=== PATIENT | female | born 1930 | race Caucasian/White ===

== ENCOUNTER 2019-03-20 14:30 | Emergency (ER) | payer MEDICARE, OTHER ==
[~2019-03-20] VITALS: Ht 167.6 cm; Wt 65.8 kg
--- OUTSIDE RECORDS SUMMARY | ~2019-03-20 | XMS | Clinical Summary ---
Demographics + + + | Address | [address] | | | [place] [address] | + + + | Home Phone | | + + + | Preferred Language | Unknown | + + + | Marital Status | | + + + | Roman Catholic Affiliation | Unknown | + + + | Race | Unknown | + + + | Ethnic Group | Unknown | + + + Author + + + | Author | [facility] (Historical as of | | | 10-31-18) | + + + | Organization | [facility] (Historical as of | | | 10-31-18) | + + + | Address | Unknown | + + + | Phone | Unavailable | + + + Support + + +---------+ + | Name | Relationship | Address | Phone | + + +---------+ + | Lory Crenshaw | ECON | Unknown | | + + +---------+ + Care Team Providers + +------+ + | Care Entry Manager Name | Role | Phone | + +------+ + | Loco Hernandez DO | PP | | + +------+ + Allergies No Known Allergies Current Medications + + +--------+---------+------+------+-------+ | Prescription | Sig. | Disp. | Refills | Star | End | Statu | | | | | | t | Date | s | | | | | | Date | | | + + +--------+---------+------+------+-------+ | metFORMIN | Take 1,000 mg by | | | | | Activ | | (GLUCOPHAGE) 500 MG | mouth 2 (two) times | | | | | e | | tablet | daily with meals. | | | | | | + + +--------+---------+------+------+-------+ | aspirin 81 MG | Take 81 mg by mouth | | | | | Activ | | tablet | daily. | | | | | e | + + +--------+---------+------+------+-------+ | cholecalciferol | Take 2,000 Units by | | | | | Activ | | (VITAMIN D-3) 1000 | mouth twice a week. | | | | | e | | UNITS tablet | | | | | | | + + +--------+---------+------+------+-------+ | ferrous sulfate, | Take 65 mg of iron | | | | | Activ | | 65 FE, 324 (65 FE) | by mouth twice a | | | | | e | | MG EC tablet | week. | | | | | | + + +--------+---------+------+------+-------+ | carvedilol (COREG) | Take 3.125 mg by | | | | | Activ | | 3.125 MG tablet | mouth 2 (two) times | | | | | e | | | daily with meals. | | | | | | + + +--------+---------+------+------+-------+ | warfarin | Take 2.5 mg by mouth | | | | | Activ | | (COUMADIN) 2.5 MG | daily. 1 tablet | | | | | e | | tablet | alternating mon and | | | | | | | | fri, and03/18 rest of | | | | | | | | day | | | | | | + + +--------+---------+------+------+-------+ | metroNIDAZOLE | Apply topically 2 | | | | | Activ | | (METROGEL) 0.75 % | (two) times daily. | | | | | e | | gel | | | | | | | + + +--------+---------+------+------+-------+ | levothyroxine | Take 1 tablet by | | | 12/16 | | Activ | | (SYNTHROID) 125 MCG | mouth daily. | | | 05/06 | | e | | tablet | | | | 18 | | | + + +--------+---------+------+------+-------+ | nitroGLYCERIN | Place 1 tablet under | 20 | 5 | 10/2 | | Activ | | (NITROSTAT) 0.4 MG | the tongue every 5 | tablet | | 9/20 | | e | | SL tablet | (five) minutes as | | | 18 | | | | | needed for Chest | | | | | | | | pain. | | | | | | + + +--------+---------+------+------+-------+ | lisinopril | Take 0.5 tablets by | 15 | 11 | 11/2 | | Activ | | (ZESTRIL) 5 MG | mouth daily. | tablet | | 0/20 | | e | | tablet | | | | 18 | | | + + +--------+---------+------+------+-------+ | furosemide (LASIX) | Take 1 tablet by | 30 | 11 | 11/2 | | Activ | | 20 MG tablet | mouth daily. | tablet | | 0/20 | | e | | | | | | 18 | | | + + +--------+---------+------+------+-------+ | metolazone 2.5 MG | Take 1 tablet by | 9 | 9 | 04/18 | | Activ | | tablet | mouth twice a week. 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 | | 85yo WF, with advanced CAD, ischemic cardiomyopathy. Distant | | coronary angiogram, apparently she was not a good surgical | | candidate, has been medically managed. She has no significant | | cardiac symptoms, denying any chest discomfort, or edema. | | Activity is quite limited because of her advanced DJD, she | | ambulates with a cane, sleeps in a recliner. But she denies any | | significant edema, there is no orthopnea or PND. Her today with | | her daughter, no specific complaints, workup to date is reviewed. | | She is on warfarin because of her large apical infarction. | | Denies any significant bleeding or bruising. Tolerating | | medications. No changes in therapy.Hx CABG: no Hx PCI/stent: | | noHx Pacemaker/ICD: noLast Cath, 12/24/2014: extensive | | calcification of coronary tree, left main OK, LAD diffuse severe | | disease, LCx mild diffuse disease, 80% LPDA (small vessel), RCA | | non-dominant. LVG large apical akinesis/dyskinesis, LVEF | | 25-30%.Last Echo, 05/22/2015 ([facility]): LV mildly dilated | | (?LVEDd 55mm), apical akinesis,LVEF 40-45%, mild LAE, mild | | MR.Last Stress Test: naECG, 12/28/2015: sinus rhythm, 66bpm, 1st | | degree AVB, PVC, extensive wwlfqxnq-xvftbh-ediowmprg AR of | | indeterminate age. | + + + + + | Low back pain | 12/29/2015 | + + + + + | Last Assessment & Plan: Chronic low back pain, with sciatica. | | Limited activity, ambulates with a cane, sleeps in a recliner. | + + + + + | Anemia, normocytic normochromic | 12/26/2014 | + + + | Abnormal ECG | 12/24/2014 | + + + | Ischemic cardiomyopathy | 12/24/2014 | + + + + + | Last Assessment & Plan: [id number] CMP with severe LV | | systolic dysfunction and severe CAD- diagnosed in [facility] on | | 12/2014- LV function improved significantly since - Echo 05/2015- | | EF 50-55% with apical hypokinesisOn coumadin for stroke | | prophylaxis because of LV apical akineisis- will repeat echo with | | definity after next visit to evaluate LV thrombusPatient and | | daughter prefer to do only medical management at this time.She | | denies any chest pain, SOBDr. Jay performed angiogram showed | | multivessel CAD and he discussed with patient and family about | | the high risk nature of her condition and also with | | interventional cardiology- during recent hospital visit and | | patient opted for medical management and do not want any invasive | | procedures or surgeryWill continue medical management Continue | | ASA, Warfarin, statin, coreg, lisinoprilOn Lasix 20mg dailyAnd | | will use additional dose as neededNo edema, weights stable, BP | | numbers at home well controlledContinue Lisinopril and | | CoregEducated patient and daughter about the role of diuretics in | | management of CHF- also importance of daily weight monitoring, | | edema evaluation and use of diuretics as needed.Also discussed | | the importance of risk factor modification- like DM control, | | lipid control, HTN controlF/u in 6 months or early in case of | | worsening symptomsThey do not want any invasive or interventional | | or surgical procedures at this time- will continue dialogue on | | next visit.Currently asymptomatic with significant symptom | | improvement | + + + + + | History of non-ST elevation myocardial infarction (NSTEMI) | 12/24/2014 | + + + | Essential hypertension | 12/22/2014 | + + + + + | Last Assessment & Plan: History of hypertension, currently | | blood pressure well controlled, continue current meds at current | | doses (carvedilol, furosemide, lisinopril, metolazone).Labs, | | 10/23/2015: T Chol: 144, LDL-Chol: 71, HDL-Chol: 49, Tri | | Liver enzymes NML, K: 4.3, BUN/Cr: 17/0.7, | | glu: 104 BNP: 309, TSH: 0.362, free T4: | | 2.24 (H) HgbA1c: 6.2, WBC: 5.5, H/H: | | 12.9/38.4, plt: 265, ESR: 7Lab, 12/19/2015: INR: 2.5 (managed by | | [facility].) | + + + + + | Type 2 diabetes mellitus without complication, without long-term | 12/22/2014 | | current use of insulin (HCC) | | + + + + + | Last Assessment & Plan: DM2, managed by PCP. | + + + + + | Chronic systolic congestive heart failure (HCC) | 12/22/2014 | + + + | Type 2 diabetes mellitus with hyperglycemia (HCC) | 12/22/2014 | + + + | Microcytic anemia | 12/22/2014 | + + + Resolved Problems + + + + | Problem | Noted | Resolved | | | Date | Date | + + + + | CHF, stage C | 02/04/20 | | | | 15 | 9 | + + + + | NSTEMI (non-ST elevated myocardial infarction) | 12/27/19 | | | | 15 | 9 | + + + + | Hyponatremia | 12/25/19 | | | | 15 | 5 | + + + + | NSTEMI (non-ST elevated myocardial infarction) | 12/23/19 | | | | 15 | 5 | + + + + | Anemia, normocytic normochromic | 12/23/19 | | | | 15 | 5 | + + + + Family History + + +------+ + | Medical History | Relation | Name | Comments | + + +------+ + | Alcoholism | Father | | | + + +------+ + | Aortic Aneurysm | Mother | | | + + +------+ + + +------+--------+ + | Relation | Name | Status | Comments | + +------+--------+ + | Father | | | | + +------+--------+ + | Mother | | | | + +------+--------+ + Social History + +-------+ +--------+------+ | Tobacco Use | Types | Packs/Day | Years | Date | | | | | Used | | + +-------+ +--------+------+ | Never Smoker | | | | | + +-------+ +--------+------+ + +---+---+---+ | Smokeless Tobacco: | | | | | Never Used | | | | + +---+---+---+ + + +---------+ + | Alcohol Use | Drinks/We | oz/Week | Comments | | | ek | | | + + +---------+ + | No | 0 | 0.0 | | | | Standard | | | | | drinks or | | | | | | | | | | equivalen | | | | | t | | | + + +---------+ + + + + | Sex Assigned at | Date Recorded | | | | + + + | Not on file | | + + + Last Filed Vital Signs + + + + | Vital Sign | Reading | Time Taken | + + + + | Blood Pressure | 104/48 | 07/13/2018 9:38 AM PDT | + + + + | Pulse | 72 | 07/13/2018 9:38 AM PDT | + + + + | Temperature | 36.7 C (98.1 F) | 12/26/2014 11:12 AM PDT | + + + + | Respiratory Rate | 18 | 07/13/2018 9:38 AM PDT | + + + + | Oxygen Saturation | 99% | 07/13/2018 9:38 AM PDT | + + + + | Inhaled Oxygen | - | - | | Concentration | | | + + + + | Weight | 60.6 kg (133 lb 11.2 | 07/13/2018 9:38 AM PDT | | | oz) | | + + + + | Height | 165.1 cm (5' 5") | 07/13/2018 9:38 AM PDT | + + + + | Body Mass Index | 22.25 | 07/13/2018 9:38 AM PDT | + + + + Plan of Treatment + + + + + | Health Maintenance | Due Date | Last Done | Comments | + + + + + | Diabetic Eye Exam | | | | | | 1 | | | + + + + + | Diabetic Foot Exam | | | | | | 1 | | | + + + + + | Microalbumin | | | | | Screening | 1 | | | + + + + + | Vaccine: | | | | | Dtap/Tdap/Td (1 - | 0 | | | | Tdap) | | | | + + + + + | Vaccine: Zoster (1 | | | | | of 2) | 1 | | | + + + + + | DEXA SCAN SCREENING | | | | | | 6 | | | + + + + + | Vaccine: | | | | | Pneumococcal 65+ | 6 | | | | Low/Medium Risk (1 | | | | | of 2 - PCV13) | | | | + + + + + | Hemoglobin A1c | | 12/23/2014 | | | | 6 | | | + + + + + | Vaccine: Influenza | | | | | (#1) | 9 | | | + + + + + Results Not on filefrom Last 3 Months Insurance + +--------+ +------+-------+ + | Payer | Benefi | Subscriber | Type | Phone | Address | | | t Plan | ID | | | | | | / | | | | | | | Group | | | | | + +--------+ +------+-------+ + | MEDICARE | MEDICA | [id number] | | | [address] | | | RE | | | | [place] [address] | | | IP-OP | | | | | + +--------+ +------+-------+ + | CIGNA | CIGNA | [id number] | | | | | | - | | | | | | | GENERI | | | | | | | C | | | | | + +--------+ +------+-------+ + + +--------+ +--------+ + + | Guarantor Name | Accoun | Relation to | Date | Phone | Billing Address | | | t Type | Patient | of | | | | | | | | | | + +--------+ +--------+ + + | RACHELLE ELLIS | Person | Self [birth year] | Home: | [address] | | | al/Fam | | 1931 | [phone] [place] [address] | | | princess | | | [phone] | | + +--------+ +--------+ + +
--- OUTSIDE RECORDS SUMMARY | ~2019-03-20 | XMS | Encounter Summary ---
Demographics + + + | Address | [address] | | | [place] [address] | + + + | Home Phone | | + + + | Preferred Language | Unknown | + + + | Marital Status | | + + + | Latter-Day Affiliation | Unknown | + + + | Race | Unknown | + + + | Ethnic Group | Unknown | + + + Author + + + | Author | [facility] | | | and Judeana | + + + | Organization | [facility] | | | and [...] Team Providers + +------+ + | Care Machine Shop Worker Name | Role | Phone | + +------+ + | Loco Hernandez DO | PCP | | + +------+ + Encounter Details +--------+ + + + + | Date | Type | Department | Care Team | Description | +--------+ + + + + | 10/26/ | Orders Only | [facility] | Keila Kang | | | 2019 | | [address] | | | | | [address] | [address] | | | | | [place], [place] | [place] [address] | | | | | [address] | [phone] | | | | | [phone] | | | +--------+ + + + [...] on file | | + + + + + + + | Job Start Date | Occupation | Industry | + + + + | Not on file | Not on file | Not on file | + + + + + + + + | Travel History | Travel Start | Travel End | + + + + + + | No recent travel history available. | + + documented as of this encounter Plan of Treatment +--------+ + + + + | Date | Type | Specialty | Care Team | Description | +--------+ + + + + | 04/26/ | Appointment | Radiology | Trino, | | | 2019 | | | [address] | | | | | | [address] | | | | | | [place] [address] | | | | | | [phone] | | | | | | | | +--------+ + + + + | 06/06/ | Office | Cardiology | Keila Kagn | | | 2019 | Visit | | [address] | | | | | | [address] | | | | | | [place] [address] | | | | | | [phone] | | | | | | | | +--------+ + + + + documented as of this encounter Procedures + +--------+ + + + | Procedure Name | Priori | Date/Time | Associated Diagnosis | Comments | | | ty | | | | + +--------+ + + + | ECHO INTERPRETATION | Routin | 10/26/2018 | | Results for this | | OF OUTSIDE FILMS | e | 3:28 PM | | procedure are in the | | | | PDT | | results section. | + +--------+ + + + documented in this encounter Results ECHO Interpretation of Outside Films (10/26/2018 3:28 PM PDT) + + | Specimen | + + | | + + + + + | Impressions | Performed At | + + + | 1. Overall left ventricular systolic function is mildly impaired | | | with, an EF between 45 - 50 %. There is akinesis of the apical septal | | | wall and entire apex. The apical wall appears aneurysmal. 2. The | | | right ventricle is normal in size and function. 3. Mild aortic | | | stenosis with peak/mean pressure gradient of 9.63mmHg / 5.61mmHg, the | | | aortic valve area by continuity equation is 1.6cm . | | + + + + + + | Narrative | Performed At | + + + | Patient Name: CATHERINE ELLIS Date of : 1930 | | | Performing Physician: Christine Macias MD | | | | | | INDICATIONS Cardiomyopathy, CAD, mild , Ischemic | | | cardiomyopathy CONCLUSIONS 1. Overall left | | | ventricular systolic function is mildly impaired with, an EF between | | | 45 - 50 %. There is akinesis of the apical septal wall and entire | | | apex. The apical wall appears aneurysmal. 2. The right ventricle is | | | normal in size and function. 3. Mild aortic stenosis with peak/mean | | | pressure gradient of 9.63mmHg / 5.61mmHg, the aortic valve area by | | | continuity equation is 1.6cm . FINDINGS -------- ECG | | | rhythm: Sinus rhythm. Study: A 2-dimensional transthoracic | | | echocardiogram with m-mode, spectral and color flow Doppler was | | | perfomed. Study: Definity contrast agent was used to better delineate | | | the left ventricular wall segments. Study: This was a technically | | | difficult study with suboptimal views. Left Ventricle: Overall left | | | ventricular systolic function is mildly impaired with, an EF between | | | 45 - 50 %. Left Ventricle: The left ventricle cavity size is normal. | | | Left Ventricle: Left ventricular wall thickness is normal. Left | | | Ventricle: Pseudonormal LV diastolic filling pattern, consistent with | | | elevated LA pressure and moderate dysfunction (Grade II). 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 Right Ventricle: The right ventricle is normal in size and | | | function. Left Atrium: The left atrium is normal in size. Right | | | Atrium: The right atrium is normal in size. Aortic Valve: The aortic | | | valve appears to be trileaflet. Aortic Valve: There is no evidence of | | | aortic regurgitation. Aortic Valve: The aortic valve is moderately | | | calcified. Aortic Valve: Mild aortic stenosis with peak/mean pressure | | | gradient of 9.63mmHg / 5.61mmHg, the aortic valve area by continuity | | | equation is 1.6cm . Mitral Valve: Mitral valve is thickened. | | | Mitral Valve: Mild mitral regurgitation is present. Mitral Valve: | | | Mild mitral annular calcification present. Tricuspid Valve: The | | | tricuspid valve appears structurally normal. Tricuspid Valve: Trace | | | tricuspid regurgitation present. Tricuspid Valve: The right | | | ventricular systolic pressure (pulmonary artery systolic pressure), as | | | measured by Doppler, is 24.07mmHg. Tricuspid Valve: There is no | | | evidence of pulmonary hypertension. Pulmonic Valve: The pulmonic | | | valve was not well visualized. Pulmonic Valve: Trace pulmonic | | | regurgitation. Pericardium: There is no pericardial effusion. | | | IVC/Hepatic Veins: The IVC is small (<1.5cm) and collapses with sniff, | | | consistent with central venous pressures of 0-5mmHg. Aorta: The | | | aortic root, ascending aorta and aortic arch are normal. Mass: No | | | mass visualized Thrombus: No clot visualized Thrombus: No vegetation | | | visualized. Septum: No ASD observed. Septum: No VSD observed. | | | Contrast: Poor visualization. Definity was used to opacify the left | | | ventricular chamber and improve delineation of the endocardial border. | | | MEASUREMENTS Ao asc: 3.20 cm Ao Diam: 2.98 | | | cm Ao sinus: 3.[address] junct: 2.99 cm IVC: 1.31 cm | | | LA Major: 4.04 cm EDV(Teich): 84.98 ml IVSd: 0.91 cm | | | LVIDd: 4.34 cm LVPWd: 0.94 cm LVOT Diam: 2.08 cm %FS: | | | 32.39 % EF(Teich): 60.95 % ESV(Teich): 33.18 ml LVIDs: | | | 2.93 cm SV(Teich): 51.80 ml RA Major: 4.84 cm RV Major: | | | 7.60 cm RV Minor: 3.36 cm RV Minor: 2.80 cm LVEF MOD A2C: | | | 55.20 % SV MOD A2C: 65.88 ml LVEF MOD A4C: 46.34 % SV MOD | | | A4C: 52.76 ml EF Biplane: 50.80 % LVEDV MOD BP: 120.33 ml | | | LVESV MOD BP: 59.20 ml LVEDV MOD A2C: 119.35 ml LVLd A2C: | | | 8.26 cm LVEDV MOD A4C: 113.84 ml LVLd A4C: 8.88 cm LVESV MOD | | | A2C: 53.46 ml LVLs A2C: 7.18 cm LVESV MOD A4C: 61.08 ml | | | LVLs A4C: 8.05 cm LAESV(A-L): 42.00 ml LAESV Index (A-L): | | | 24.56 ml/m2 LAAs A2C: 16.15 cm2 LAESV A-L A2C: 46.04 ml LAESV | | | MOD A2C: 41.69 ml LALs A2C: 4.81 cm LAAs A4C: 14.00 cm2 | | | LAESV A-L A4C: 36.44 ml LAESV MOD A4C: 34.47 ml LALs A4C: | | | 4.57 cm RAAs: 13.85 cm2 RAESV A-L: 34.08 ml RAESV MOD: | | | 33.64 ml RALs: 4.78 cm TAPSE: 2.67 cm AV Env.Ti: 358.33 ms | | | AV maxP.63 mmHg AV meanP.61 mmHg AV Vmax: 1.54 | | | m/s AV Vmean: 1.12 m/s AV VTI: 40.49 cm POLLY Vmax: 1.61 cm2 | | | POLLY (VTI): 1.56 cm2 AVAI Vmax: 0.00 cm2/m2 AVAI (VTI): | | | 0.00 cm2/m2 LVOT Env.Ti: 372.30 ms LVOT maxP.12 mmHg LVOT | | | meanP.14 mmHg LVSI Dopp: 37.12 ml/m2 LVSV Dopp: 63.48 | | | ml LVOT Vmax: 0.72 m/s LVOT Vmean: 0.49 m/s LVOT VTI: | | | 18.58 cm MV A Bhavesh: 0.92 m/s MV Dec De Baca: 2.62 m/s2 MV DecT: | | | 335.48 ms MV E Bhavesh: 0.88 m/s MV E/A Ratio: 0.95 E/E' Sept: | | | 20.40 E' Lat: 0.05 m/s E' Sept: 0.04 m/s RAP: 5 mmHg | | | RV S': 0.10 m/s RVSP: 24.06 mmHg TR maxP.06 mmHg TR | | | Vmax: 2.18 m/s Professor Of Biblical Studies: Authenticated by: Christine Macias | | | MD Report Date/Time: -- [id number] | | + + + + + | Procedure Note | + + | Ji Mcneal - 11/20/2018 9:38 AM PDT Patient Name: Jason ELLIS of | | : 1930 Performing Physician: Christine Macias | | MD INDICATIONS C | | ardiomyopathy, CAD, mild , Ischemic cardiomyopathy CONCLUSIONS 1. Overall | | left ventricular systolic function is mildly impaired with, an EF between 45 - 50 %. | | There is akinesis of the apical septal wall and entire apex. The apical wall appears | | aneurysmal.2. The right ventricle is normal in size and function.3. Mild aortic stenosis | | with peak/mean pressure gradient of 9.63mmHg / 5.61mmHg, the aortic valve area by | | continuity equation is 1.6cm . FINDINGS--------ECG rhythm: Sinus rhythm.Study: A | | 2-dimensional transthoracic echocardiogram with m-mode, spectral and color flow Doppler | | was perfomed.Study: Definity contrast agent was used to better delineate the left | | ventricular wall segments.Study: This was a technically difficult study with suboptimal | | views.Left Ventricle: Overall left ventricular systolic function is mildly impaired | | with, an EF between 45 - 50 %.Left Ventricle: The left ventricle cavity size is | | normal.Left Ventricle: Left ventricular wall thickness is normal.Left Ventricle: | | Pseudonormal LV diastolic filling pattern, consistent with elevated LA pressure and | | moderate dysfunction (Grade II).Left Ventricle: Mid to apex from all views appears to be | | aneurysmal and akinetic.Right Ventricle: The right ventricle is normal in size and | | function.Left Atrium: The left atrium is normal in size.Right Atrium: The right atrium | | is normal in size.Aortic Valve: The aortic valve appears to be trileaflet.Aortic Valve: | | There is no evidence of aortic regurgitation.Aortic Valve: The aortic valve is | | moderately calcified.Aortic Valve: Mild aortic stenosis with peak/mean pressure gradient | | of 9.63mmHg / 5.61mmHg, the aortic valve area by continuity equation is | | 1.6cm .Mitral Valve: Mitral valve is thickened.Mitral Valve: Mild mitral | | regurgitation is present.Mitral Valve: Mild mitral annular calcification | | present.Tricuspid Valve: The tricuspid valve appears structurally normal.Tricuspid | | Valve: Trace tricuspid regurgitation present.Tricuspid Valve: The right ventricular | | systolic pressure (pulmonary artery systolic pressure), as measured by Doppler, is | | 24.07mmHg.Tricuspid Valve: There is no evidence of pulmonary hypertension.Pulmonic | | Valve: The pulmonic valve was not well visualized.Pulmonic Valve: Trace pulmonic | | regurgitation.Pericardium: There is no pericardial effusion.IVC/Hepatic Veins: The IVC | | is small (<1.5cm) and collapses with sniff, consistent with central venous pressures of | | 0-5mmHg.Aorta: The aortic root, ascending aorta and aortic arch are normal.Mass: No mass | | visualizedThrombus: No clot visualizedThrombus: No vegetation visualized.Septum: No ASD | | observed.Septum: No VSD observed.Contrast: Poor visualization. Definity was used to | | opacify the left ventricular chamber and improve delineation of the endocardial border. | | MEASUREMENTS Ao asc: 3.20 cmAo Diam: 2.98 cmAo sinus: 3.[address] | | junct: 2.99 cmIVC: 1.31 cmLA Major: 4.04 cmEDV(Teich): 84.98 mlIVSd: 0.91 | | cmLVIDd: 4.34 cmLVPWd: 0.94 cmLVOT Diam: 2.08 cm%FS: 32.39 %EF(Teich): 60.95 | | %ESV(Teich): 33.18 mlLVIDs: 2.93 cmSV(Teich): 51.80 mlRA Major: 4.84 cmRV Major: | | 7.60 cmRV Minor: 3.36 cmRV Minor: 2.80 cmLVEF MOD A2C: 55.20 %SV MOD A2C: | | 65.88 mlLVEF MOD A4C: 46.34 %SV MOD A4C: 52.76 mlEF Biplane: 50.80 %LVEDV MOD BP: | | 120.33 mlLVESV MOD BP: 59.20 mlLVEDV MOD A2C: 119.35 mlLVLd A2C: 8.26 cmLVEDV | | MOD A4C: 113.84 mlLVLd A4C: 8.88 cmLVESV MOD A2C: 53.46 mlLVLs A2C: 7.18 cmLVESV | | MOD A4C: 61.08 mlLVLs A4C: 8.05 cmLAESV(A-L): 42.00 mlLAESV Index (A-L): 24.56 | | ml/m2LAAs A2C: 16.15 [id number] A-L A2C: 46.04 mlLAESV MOD A2C: 41.69 mlLALs A2C: | | 4.81 cmLAAs A4C: 14.00 [id number] A-L A4C: 36.44 mlLAESV MOD A4C: 34.47 mlLALs A4C: | | 4.57 cmRAAs: 13.85 [id number] A-L: 34.08 mlRAESV MOD: 33.64 mlRALs: 4.78 | | cmTAPSE: 2.67 cmAV Env.Ti: 358.33 msAV maxP.63 mmHgAV meanP.61 mmHgAV | | Vmax: 1.54 m/Catarino Vmean: 1.12 m/Catarino VTI: 40.49 cmAVA Vmax: 1.61 cm2AVA (VTI): | | 1.56 [id number] Vmax: 0.00 cm2/m2AVAI (VTI): 0.00 cm2/m2LVOT Env.Ti: 372.30 msLVOT | | maxP.12 mmHgLVOT meanP.14 mmHgLVSI Dopp: 37.12 ml/m2LVSV Dopp: 63.48 | | mlLVOT Vmax: 0.72 m/sLVOT Vmean: 0.49 m/sLVOT VTI: 18.58 cmMV A Bhavesh: 0.92 m/sMV | | Dec De Baca: 2.62 m/s2MV DecT: 335.48 msMV E Bhavesh: 0.88 m/sMV E/A Ratio: 0.95E/E' | | Sept: 20.40E' Lat: 0.05 m/sE' Sept: 0.04 m/sRAP: 5 mmHgRV S': 0.10 m/sRVSP: | | 24.06 mmHgTR maxP.06 mmHgTR Vmax: 2.18 m/s Professor Of Biblical Studies:Authenticated by: | | Christine Macias MDReport Date/Time: -- [id number] IMPRESSION: 1. Overall left | | ventricular systolic function is mildly impaired with, an EF between 45 - 50 %. There is | | akinesis of the apical septal wall and entire apex. The apical wall appears | | aneurysmal.2. The right ventricle is normal in size and function.3. Mild aortic stenosis | | with peak/mean pressure gradient of 9.63mmHg / 5.61mmHg, the aortic valve area by | | continuity equation is 1.6cm . | |LA Major: 4.04 cm | |EDV(Teich): 84.98 ml | |IVSd: 0.91 cm | |LVIDd: 4.34 cm | |LVPWd: 0.94 cm | |LVOT Diam: 2.08 cm | |%FS: 32.39 % | |EF(Teich): 60.95 % | |ESV(Teich): 33.18 ml | |LVIDs: 2.93 cm | |SV(Teich): 51.80 ml | |RA Major: 4.84 cm | |RV Major: 7.60 cm | |RV Minor: 3.36 cm | |RV Minor: 2.80 cm | |LVEF MOD A2C: 55.20 % | |SV MOD A2C: 65.88 ml | |LVEF MOD A4C: 46.34 % | |SV MOD A4C: 52.76 ml | |EF Biplane: 50.80 % | |LVEDV MOD BP: 120.33 ml | |LVESV MOD BP: 59.20 ml | |LVEDV MOD A2C: 119.35 ml | |LVLd A2C: 8.26 cm | |LVEDV MOD A4C: 113.84 ml | |LVLd A4C: 8.88 cm | |LVESV MOD A2C: 53.46 ml | |LVLs A2C: 7.18 cm | |LVESV MOD A4C: 61.08 ml | |LVLs A4C: 8.05 cm | |LAESV(A-L): 42.00 ml | |LAESV Index (A-L): 24.56 ml/m2 | |LAAs A2C: 16.15 cm2 | |LAESV A-L A2C: 46.04 ml | |LAESV MOD A2C: 41.69 ml | |LALs A2C: 4.81 cm | |LAAs A4C: 14.00 cm2 | |LAESV A-L A4C: 36.44 ml | |LAESV MOD A4C: 34.47 ml | |LALs A4C: 4.57 cm | |RAAs: 13.85 cm2 | |RAESV A-L: 34.08 ml | |RAESV MOD: 33.64 ml | |RALs: 4.78 cm | |TAPSE: 2.67 cm | |AV Env.Ti: 358.33 ms | |AV maxP.63 mmHg | |AV meanP.61 mmHg | |AV Vmax: 1.54 m/s | |AV Vmean: 1.12 m/s | |AV VTI: 40.49 cm | |POLLY Vmax: 1.61 cm2 | |POLLY (VTI): 1.56 cm2 | |AVAI Vmax: 0.00 cm2/m2 | |AVAI (VTI): 0.00 cm2/m2 | |LVOT Env.Ti: 372.30 ms | |LVOT maxP.12 mmHg | |LVOT meanP.14 mmHg | |LVSI Dopp: 37.12 ml/m2 | |LVSV Dopp: 63.48 ml | |LVOT Vmax: 0.72 m/s | |LVOT Vmean: 0.49 m/s | |LVOT VTI: 18.58 cm | |MV A Bhavesh: 0.92 m/s | |MV Dec De Baca: 2.62 m/s2 | |MV DecT: 335.48 ms | |MV E Bhavesh: 0.88 m/s | |MV E/A Ratio: 0.95 | |E/E' Sept: 20.40 | |E' Lat: 0.05 m/s | |E' Sept: 0.04 m/s | |RAP: 5 mmHg | |RV S': 0.10 m/s | |RVSP: 24.06 mmHg | |TR maxP.06 mmHg | |TR Vmax: 2.18 m/s | | | |Professor Of Biblical Studies: | |Authenticated by: Christine Macias MD | |Report Date/Time: -- [id number]:48:5 | | | |IMPRESSION: | |1. Overall left ventricular systolic function is mildly impaired with, an EF between 45 - 5 0 %. There is akinesis of the apical septal wall and entire apex. The apical wall appears an eurysmal. | |2. The right ventricle is normal in size and function. | |3. Mild aortic stenosis with peak/mean pressure gradient of 9.63mmHg / 5.61mmHg, the aortic valve area by continuity equation is 1.6cm . | + + documented in this encounter Visit Diagnoses Not on filedocumented in this encounter"
--- OUTSIDE RECORDS SUMMARY | ~2019-03-20 | XMS | Encounter Summary ---
Demographics + + + | Address | [address] | | | [place] [address] | + + + | Home Phone | | + + + | Preferred Language | Unknown | + + + | Marital Status | | + + + | Yazidi Affiliation | Unknown | + + + | Race | Unknown | + + + | Ethnic Group | Unknown | + + + Author + + + | Author | [facility] | | | and [place] | + + + | Organization | [facility] | | | [...] Team Providers + +------+ + | Care Traffic Control Supervisor Name | Role | Phone | + +------+ + | Loco Hernandez DO | PCP | | + +------+ + Encounter Details +--------+ + + + + | Date | Type | Department | Care Team | Description | +--------+ + + + + | 05/11/ | Orders Only | [facility] | Keila Kang | | | 2018 | | CARDIOLOGY FAM | [address] | | | | | [address] | [place] [address] | | | | | [address] | [place] [address] | | | | | [place], [place] | [phone] | | | | | [address] | | | | | | [phone] | | | +--------+ + + + [...] | 04/26/ | Appointment | Radiology | Trino | | | 2019 | | | [address] | | | | | | [address] | | | | | | [place] [address] | | | | | | [phone] | | | | | | | | +--------+ + + + + | 06/06/ | Office | Cardiology | Keila Kang | | | 2019 | Visit | | [address] | | | | | | [place] [address] | | | | | | [place] [address] | | | | | | [phone] | | | | | | | | +--------+ + + + + documented as of this encounter Visit Diagnoses Not on filedocumented in this encounter"
--- OUTSIDE RECORDS SUMMARY | ~2019-03-20 | XMS | Encounter Summary ---
Demographics + + + | Address | [address] | | | [place] [address] | + + + | Home Phone | | + + + | Preferred Language | Unknown | + + + | Marital Status | | + + + | Sikh Affiliation | Unknown | + + + | Race | Unknown | + + + | Ethnic Group | Unknown | + + + Author + + + | Author | [facility] | | | and [place] | + + + | Organization | [facility] | | [...] Team Providers + +------+ + | Care Laundry Manager Name | Role | Phone | + +------+ + | Loco Hernandez DO | PCP | | + +------+ + Encounter Details +--------+ + + + + | Date | Type | Department | Care Team | Description | +--------+ + + + + | 11/07/ | Orders Only | [facility] | Keila Kang | | | 2018 | | [address] | [address] | | | | | [address] | [address] | | | | | [place], [place] | [place] [address] | | | | | [address] | [phone] | | | | | [phone] | | | +--------+ + + + [...] | 2019 | | | [address] | | | | | | [address] | | | | | | [place] [address] | | | | | | [phone] | | | | | | | | +--------+ + + + + | 06/06/ | Office | Cardiology | Keila Kang | | | 2019 | Visit | | [address] | | | | | | [address] | | | | | | [place] [address] | | | | | | [phone] | | | | | | | | +--------+ + + + + documented as of this encounter Procedures + +--------+ + + + | Procedure Name | Priori | Date/Time | Associated Diagnosis | Comments | | | ty | | | | + +--------+ + + + | ECHO INTERPRETATION | Routin | 11/07/2017 | | Results for this | | OF OUTSIDE FILMS | e | 10:54 AM | | procedure are in the | | | | PDT | | results section. | + +--------+ + + + documented in this encounter Results ECHO Interpretation of Outside Films (11/07/2017 10:54 AM PDT) + + | Specimen | + + | | + + + + + | Impressions | Performed At | + + + | 1. Overall left ventricular systolic function is mildly impaired | | | with, an EF between 45 - 50 %. 2. Wall motion abnormalities | | | suggestive of CAD noted, mid to distal septal and apical severe | | | hypokinesis noted. 3. Moderate mitral regurgitation is present. 4. | | | The right ventricular systolic pressure (pulmonary artery systolic | | | pressure), as measured by Doppler, is 39.97mmHg. | | + + + + + + | Narrative | Performed At | + + + | Patient Name: CATHERINE ELLIS Date of : 1930 | | | Performing Physician: RUSSELL FIORE MD | | | | | | INDICATIONS cardiomyopathy CONCLUSIONS | | | 1. Overall left ventricular systolic function is mildly impaired | | | with, an EF between 45 - 50 %. 2. Wall motion abnormalities | | | suggestive of CAD noted, mid to distal septal and apical severe | | | hypokinesis noted. 3. Moderate mitral regurgitation is present. 4. | | | The right ventricular systolic pressure (pulmonary artery systolic | | | pressure), as measured by Doppler, is 39.97mmHg. FINDINGS | | | -------- ECG rhythm: Sinus rhythm. Study: A 2-dimensional | | | transthoracic echocardiogram with m-mode, spectral and color flow | | | Doppler was perfomed. Study: Definity contrast agent was used to | | | better delineate the left ventricular wall segments. Study: This was | | | a technically adequate study. Left Ventricle: Overall left | | | [...] (Grade II). Left | | | Ventricle: Wall motion abnormalities suggestive of CAD noted, mid to | | | distal septal and apical severe hypokinesis noted. Right Ventricle: | | | The right ventricle is normal in size. Left Atrium: The left atrium | | | is normal in size. Right Atrium: The right atrium is normal in size. | | | Aortic Valve: Aortic valve is trileaflet and is mildly thickened. | | | Aortic Valve: The aortic valve is mildly calcified. Aortic Valve: | | | Trace amount of aortic regurgitation. Aortic Valve: There is mild | | | aortic stenosis present. Aortic Valve: Peak/mean gradient across the | | | valve is 8.90mmHg/4.15mmHg. 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 Mitral Valve: Moderate mitral | | | regurgitation is present Mitral Valve: , predominately a posteriorly | | | directed jet. Tricuspid Valve: The tricuspid valve appears | | | structurally normal. Tricuspid Valve: Mild tricuspid regurgitation | | | present. Tricuspid Valve: There is no evidence of pulmonary | | | hypertension. Tricuspid Valve: The right ventricular systolic | | | pressure (pulmonary artery systolic pressure), as measured by Doppler, | | | is 39.97mmHg. Pulmonic Valve: The pulmonic valve is normal. | | | Pulmonic Valve: Trace pulmonic regurgitation. Pericardium: There is | | | no pericardial effusion. IVC/Hepatic Veins: The IVC is small | | | (<1.5cm) and collapses with sniff, consistent with central venous | | | pressures of 0-5mmHg. Aorta: The aortic root, ascending aorta and | | | aortic arch are normal. Mass: No mass visualized Thrombus: No clot | | | visualized Thrombus: No vegetation visualized. Septum: No ASD | | | observed. Septum: No VSD observed. Contrast: Poor visualization. | | | Definity was used to opacify the left ventricular chamber and improve | | | delineation of the endocardial border. MEASUREMENTS | | | Ao asc: 2.99 cm Ao Diam: 2.[address] junct: 2.77 cm | | | IVC: 1.05 cm LA Diam: 3.42 cm LA Major: 5.23 cm | | | EDV(Teich): 108.87 ml IVSd: 0.90 cm LVIDd: 4.82 cm LVPWd: | | | 0.90 cm LVOT Area: 3.35 cm2 LVOT Diam: 2.06 cm %FS: | | | 19.78 % EF(Teich): 40.53 % ESV(Teich): 64.74 ml LVIDs: | | | 3.87 cm SV(Teich): 44.13 ml RV Major: 6.76 cm RVIDd: 2.75 | | | cm TV Evelin Diam: 3.76 cm Ao Root: 3.04 cm Ao Diam SVals: | | | 2.91 cm LVEF MOD A2C: 45.32 % SV MOD A2C: 39.46 ml LVEF MOD | | | A4C: 47.04 % SV MOD A4C: 47.76 ml EF Biplane: 44.52 % | | | LVEDV MOD BP: 100.55 ml LVESV MOD BP: 55.78 ml LVEDV MOD A2C: | | | 87.08 ml LVLd A2C: 7.42 cm LVEDV MOD A4C: 101.51 ml LVLd | | | A4C: 8.37 cm LVESV MOD A2C: 47.61 ml LVLs A2C: 7.22 cm | | | LVESV MOD A4C: 53.75 ml LVLs A4C: 7.38 cm LAESV(A-L): 47.52 | | | ml LAESV Index (A-L): 26.85 ml/m2 LAAs A2C: 16.33 cm2 LAESV | | | A-L A2C: 47.46 ml LALs A2C: 4.77 cm LAAs A4C: 16.35 cm2 | | | LAESV A-L A4C: 44.92 ml LALs A4C: 5.05 cm RAAs: 12.05 cm2 | | | RAESV A-L: 26.53 ml RAESV MOD: 26.84 ml RALs: 4.64 cm | | | TAPSE: 2.01 cm AV maxP.89 mmHg AV meanP.14 mmHg AV | | | Vmax: 1.49 m/s AV Vmean: 0.92 m/s AV VTI: 34.92 cm POLLY | | | Vmax: 1.79 cm2 POLLY (VTI): 1.96 cm2 LVOT maxP.55 mmHg | | | LVOT meanP.31 mmHg LVSI Dopp: 38.67 ml/m2 LVSV Dopp: | | | 68.45 ml LVOT Vmax: 0.79 m/s LVOT Vmean: 0.54 m/s LVOT VTI: | | | 20.40 cm MV A Bhavesh: 0.90 m/s MV Dec [place]: 2.41 m/s2 MV | | | DecT: 322.83 ms MV E Bhavesh: 0.77 m/s MV E/A Ratio: 0.85 MV | | | PHT: 93.62 ms MVA By PHT: 2.34 cm2 Septal e': 0.03 m/s | | | Septal E/e': 21.04 Lateral e': 0.03 m/s Lateral E/e': 21.04 | | | RAP: 5 mmHg RVSP: 39.97 mmHg TR maxP.97 mmHg TR | | | Vmax: 2.95 m/s S': 0.08 m/s Cancer Researcher: DBS Authenticated | | | by: RUSSELL FIORE MD Report Date/Time: -- [id number] | | | | | + + + + + | Procedure Note | + + | Fredis, Rad Conversion - 11/05/2018 4:38 PM PDT Patient Name: Jason ELLIS of | | : 1930 Performing Physician: RUSSELL FIORE | | MD INDICATIONS c | | ardiomyopathy CONCLUSIONS 1. Overall left ventricular systolic function is | | mildly impaired with, an EF between 45 - 50 %.2. Wall motion abnormalities suggestive of | | CAD noted, mid to distal septal and apical severe hypokinesis noted.3. Moderate mitral | | regurgitation is present.4. The right ventricular systolic pressure (pulmonary artery | | systolic pressure), as measured by Doppler, is 39.97mmHg. FINDINGS--------ECG rhythm: | | Sinus rhythm.Study: A 2-dimensional transthoracic echocardiogram with m-mode, spectral | | and color flow Doppler was perfomed.Study: Definity contrast agent was used to better | | delineate the left ventricular wall segments.Study: This was a technically adequate | | study.Left Ventricle: Overall left ventricular systolic function is mildly impaired | | with, an EF between 45 - 50 %.Left Ventricle: The left ventricle cavity size is | | normal.Left Ventricle: Left ventricular wall thickness is normal.Left Ventricle: | | Pseudonormal LV diastolic filling pattern, consistent with elevated LA pressure and | | moderate dysfunction (Grade II).Left Ventricle: Wall motion abnormalities suggestive of | | CAD noted, mid to distal septal and apical severe hypokinesis noted.Right Ventricle: The | | right ventricle is normal in size.Left Atrium: The left atrium is normal in size.Right | | Atrium: The right atrium is normal in size.Aortic Valve: Aortic valve is trileaflet and | | is mildly thickened.Aortic Valve: The aortic valve is mildly calcified.Aortic Valve: | | Trace amount of aortic regurgitation.Aortic Valve: There is mild aortic stenosis | | present.Aortic Valve: Peak/mean gradient across the valve is 8.90mmHg/4.15mmHg.Mitral | | Valve: Mitral valve is thickened with myxomatous degeneration.Mitral Valve: Moderate | | mitral regurgitation is presentMitral Valve: , predominately a posteriorly directed | | jet.Tricuspid Valve: The tricuspid valve appears structurally normal.Tricuspid Valve: | | Mild tricuspid regurgitation present.Tricuspid Valve: There is no evidence of pulmonary | | hypertension.Tricuspid Valve: The right ventricular systolic pressure (pulmonary artery | | systolic pressure), as measured by Doppler, is 39.97mmHg.Pulmonic Valve: The pulmonic | | valve is normal.Pulmonic Valve: Trace pulmonic regurgitation.Pericardium: There is no | | pericardial effusion.IVC/Hepatic Veins: The IVC is small (<1.5cm) and collapses with | | sniff, consistent with central venous pressures of 0-5mmHg.Aorta: The aortic root, | | ascending aorta and aortic arch are normal.Mass: No mass visualizedThrombus: No clot | | visualizedThrombus: No vegetation visualized.Septum: No ASD observed.Septum: No VSD | | observed.Contrast: Poor visualization. Definity was used to opacify the left ventricular | | chamber and improve delineation of the endocardial border. MEASUREMENTS Ao | | asc: 2.99 cmAo Diam: 2.[address] junct: 2.77 cmIVC: 1.05 cmLA Diam: 3.42 cmLA | | Major: 5.23 cmEDV(Teich): 108.87 mlIVSd: 0.90 cmLVIDd: 4.82 cmLVPWd: 0.90 | | cmLVOT Area: 3.35 [id number] Diam: 2.06 cm%FS: 19.78 %EF(Teich): 40.53 %ESV(Teich): | | 64.74 mlLVIDs: 3.87 cmSV(Teich): 44.13 mlRV Major: 6.76 cmRVIDd: 2.75 cmTV | | Evelin Diam: 3.76 cmAo Root: 3.04 cmAo Diam SVals: 2.91 cmLVEF MOD A2C: 45.32 %SV | | MOD A2C: 39.46 mlLVEF MOD A4C: 47.04 %SV MOD A4C: 47.76 mlEF Biplane: 44.52 | | %LVEDV MOD BP: 100.55 mlLVESV MOD BP: 55.78 mlLVEDV MOD A2C: 87.08 mlLVLd A2C: | | 7.42 cmLVEDV MOD A4C: 101.51 mlLVLd A4C: 8.37 cmLVESV MOD A2C: 47.61 mlLVLs A2C: | | 7.22 cmLVESV MOD A4C: 53.75 mlLVLs A4C: 7.38 cmLAESV(A-L): 47.52 mlLAESV Index | | (A-L): 26.85 ml/m2LAAs A2C: 16.33 [id number] A-L A2C: 47.46 mlLALs A2C: 4.77 | | cmLAAs A4C: 16.35 [id number] A-L A4C: 44.92 mlLALs A4C: 5.05 cmRAAs: 12.05 | | [id number] A-L: 26.53 mlRAESV MOD: 26.84 mlRALs: 4.64 cmTAPSE: 2.01 cmAV maxPG: | | 8.89 mmHgAV meanP.14 mmHgAV Vmax: 1.49 m/Catarino Vmean: 0.92 m/Catarino VTI: 34.92 | | cmAVA Vmax: 1.79 cm2AVA (VTI): 1.96 [id number] maxP.55 mmHgLVOT meanP.31 | | mmHgLVSI Dopp: 38.67 ml/m2LVSV Dopp: 68.45 mlLVOT Vmax: 0.79 m/sLVOT Vmean: 0.54 | | m/sLVOT VTI: 20.40 cmMV A Bhavesh: 0.90 m/sMV Dec [place]: 2.41 m/s2MV DecT: 322.83 | | msMV E Bhavesh: 0.77 m/sMV E/A Ratio: 0.85MV PHT: 93.62 msMVA By PHT: 2.34 [id number] | | e': 0.03 m/sSeptal E/e': 21.04Lateral e': 0.03 m/sLateral E/e': 21.04RAP: 5 | | mmHgRVSP: 39.97 mmHgTR maxP.97 mmHgTR Vmax: 2.95 m/sS': 0.08 m/s | | Cancer Researcher: DBSAuthenticated by: RUSSELL Escamilla Date/Time: -- | | [id number] IMPRESSION: 1. Overall left ventricular systolic function is mildly | | impaired with, an EF between 45 - 50 %.2. Wall motion abnormalities suggestive of CAD | | noted, mid to distal septal and apical severe hypokinesis noted.3. Moderate mitral | | regurgitation is present.4. The right ventricular systolic pressure (pulmonary artery | | systolic pressure), as measured by Doppler, is 39.97mmHg. | |Ao Diam: 2.80 cm | |Ao st junct: 2.77 cm | |IVC: 1.05 cm | |LA Diam: 3.42 cm | |LA Major: 5.23 cm | |EDV(Teich): 108.87 ml | |IVSd: 0.90 cm | |LVIDd: 4.82 cm | |LVPWd: 0.90 cm | |LVOT Area: 3.35 cm2 | |LVOT Diam: 2.06 cm | |%FS: 19.78 % | |EF(Teich): 40.53 % | |ESV(Teich): 64.74 ml | |LVIDs: 3.87 cm | |SV(Teich): 44.13 ml | |RV Major: 6.76 cm | |RVIDd: 2.75 cm | |TV Evelin Diam: 3.76 cm | |Ao Root: 3.04 cm | |Ao Diam SVals: 2.91 cm | |LVEF MOD A2C: 45.32 % | |SV MOD A2C: 39.46 ml | |LVEF MOD A4C: 47.04 % | |SV MOD A4C: 47.76 ml | |EF Biplane: 44.52 % | |LVEDV MOD BP: 100.55 ml | |LVESV MOD BP: 55.78 ml | |LVEDV MOD A2C: 87.08 ml | |LVLd A2C: 7.42 cm | |LVEDV MOD A4C: 101.51 ml | |LVLd A4C: 8.37 cm | |LVESV MOD A2C: 47.61 ml | |LVLs A2C: 7.22 cm | |LVESV MOD A4C: 53.75 ml | |LVLs A4C: 7.38 cm | |LAESV(A-L): 47.52 ml | |LAESV Index (A-L): 26.85 ml/m2 | |LAAs A2C: 16.33 cm2 | |LAESV A-L A2C: 47.46 ml | |LALs A2C: 4.77 cm | |LAAs A4C: 16.35 cm2 | |LAESV A-L A4C: 44.92 ml | |LALs A4C: 5.05 cm | |RAAs: 12.05 cm2 | |RAESV A-L: 26.53 ml | |RAESV MOD: 26.84 ml | |RALs: 4.64 cm | |TAPSE: 2.01 cm | |AV maxP.89 mmHg | |AV meanP.14 mmHg | |AV Vmax: 1.49 m/s | |AV Vmean: 0.92 m/s | |AV VTI: 34.92 cm | |POLLY Vmax: 1.79 cm2 | |POLLY (VTI): 1.96 cm2 | |LVOT maxP.55 mmHg | |LVOT meanP.31 mmHg | |LVSI Dopp: 38.67 ml/m2 | |LVSV Dopp: 68.45 ml | |LVOT Vmax: 0.79 m/s | |LVOT Vmean: 0.54 m/s | |LVOT VTI: 20.40 cm | |MV A Bhavesh: 0.90 m/s | |MV Dec [place]: 2.41 m/s2 | |MV DecT: 322.83 ms | |MV E Bhavesh: 0.77 m/s | |MV E/A Ratio: 0.85 | |MV PHT: 93.62 ms | |MVA By PHT: 2.34 cm2 | |Septal e': 0.03 m/s | |Septal E/e': 21.04 | |Lateral e': 0.03 m/s | |Lateral E/e': 21.04 | |RAP: 5 mmHg | |RVSP: 39.97 mmHg | |TR maxP.97 mmHg | |TR Vmax: 2.95 m/s | |S': 0.08 m/s | | | |Cancer Researcher: DBS | |Authenticated by: RUSSELL FIORE MD | |Report Date/Time: -- [id number] | | | |IMPRESSION: | |1. Overall left ventricular systolic function is mildly impaired with, an EF between 45 - 5 0 %. | |2. Wall motion abnormalities suggestive of CAD noted, mid to distal septal and apical sever e hypokinesis noted. | |3. Moderate mitral regurgitation is present. | |4. The right ventricular systolic pressure (pulmonary artery systolic pressure), as measure d by Doppler, is 39.97mmHg. | + + documented in this encounter Visit Diagnoses Not on filedocumented in this encounter"
--- OUTSIDE RECORDS SUMMARY | ~2019-03-20 | XMS | Clinical Summary ---
Demographics + + + | Address | [address] | | | [place] [address] | + + + | Home Phone | | + + + | Preferred Language | Unknown | + + + | Marital Status | | + + + | Cheondoism Affiliation | Unknown | + + + | Race | Unknown | + + + | Ethnic Group | Unknown | + + + Author + + + | Author | [facility] | | | and [place] | + + + | Organization | [facility] | | | and [...] Team Providers + +------+ + | Care Schedule Planning Manager Name | Role | Phone | + +------+ + | Loco Hernandez DO | PCP | | + +------+ + Allergies No Known Allergies Medications + + + +---------+------+------+-------+ | Medication | Sig | Dispensed | Refills | Star | End | Statu | | | | | | t | Date | s | | | | | | Date | | | + + + +---------+------+------+-------+ | metFORMIN | Take 1,000 mg by | | 0 | 10/0 | | Activ | | (GLUCOPHAGE) 500 mg | mouth 2 (two) times | | | 8/20 | | e | | tablet | daily with meals. | | | 15 | | | + + + +---------+------+------+-------+ | cholecalciferol | Take 2,000 Units by | | 0 | 10/0 | | Activ | | (CHOLECALCIFEROL) | mouth twice a week. | | | 8 | | e | | 1000 units TABS | | | | 15 | | | + + + +---------+------+------+-------+ | ferrous sulfate | Take 65 mg of iron | | 0 | 11/1 | | Activ | | 324 (65 Fe) MG EC | by mouth twice a | | | 12/04 | | e | | tablet | week. | | | 15 | | | + + + +---------+------+------+-------+ | carvedilol (COREG) | Take 3.125 mg by | | 0 | 10/1 | | Activ | | 3.125 mg tablet | mouth 2 (two) times | | | 220 | | e | | | daily with meals. | | | 16 | | | + + + +---------+------+------+-------+ | warfarin | Take 2.5 mg by mouth | | 0 | 10/1 | | Activ | | (COUMADIN) 2.5 mg | daily. 1 tablet | | | 2/20 | | e | | tablet | alternating mon and | | | 16 | | | | | fri, and1/2 rest of | | | | | | | | day | | | | | | + + + +---------+------+------+-------+ | metroNIDAZOLE | Apply topically 2 | | 0 | 04/2 | | Activ | | (METROGEL) 0.75 % | (two) times daily. | | | 3/20 | | e | | gel | | | | 18 | | | + + + +---------+------+------+-------+ | levothyroxine | Take 1 tablet by | | 0 | 10/2 | | Activ | | (SYNTHROID) 125 mcg | mouth daily. | | | 2/20 | | e | | tablet | | | | 18 | | | + + + +---------+------+------+-------+ | nitroglycerin | Place 1 tablet under | 20 | 5 | 10/2 | | Activ | | (NITROSTAT) 0.4 mg | the tongue every 5 | tablet | | /20 | | e | | SL tablet | (five) minutes as | | | 18 | | | | | needed for Chest | | | | | | | | pain. | | | | | | + + + +---------+------+------+-------+ | metOLazone 2.5 mg | Take 1 tablet by | 9 | 9 | 02/2 | | Activ | | tablet | mouth twice a week. | tablet | | 5/20 | | e | | | | | | 19 | | | + + + +---------+------+------+-------+ | clopidogrel | Take 75 mg by mouth | | 0 | | | Activ | | (PLAVIX) 75 mg | Daily. | | | | | e | | tablet | | | | | | | + + + +---------+------+------+-------+ | lisinopril | Take one-half tablet | 15 | 10 | 11/2 | | Activ | | (PRINIVIL, ZESTRIL) | once each day | tablet | | 5/20 | | e | | 5 mg tablet | | | | 19 | | | + + + +---------+------+------+-------+ | furosemide (LASIX) | TAKE ONE TABLET BY | 30 | 10 | 11/2 | | Activ | | 20 mg tablet | MOUTH EVERY DAY | tablet | | 5/20 | | e | | | | | | 19 | | | + + + +---------+------+------+-------+ Active Problems + + + | Problem | Noted Date | + + + | Mixed hyperlipidemia | 12/07/2018 | + + + | Other specified hypothyroidism | 12/07/2018 | + + + | Peripheral vascular disease of extremity | 12/07/2018 | + + + + + | Overview: Right femoral stent placed 09/[address] Jameson | + + + + + | S/P peripheral artery angioplasty with stent placement | 12/07/2018 | + + + + + | Overview: Right femoral stent placed 09/[address] Jameson | + + + + + | Mild mitral regurgitation by prior echocardiogram | 07/13/2018 | + + + | Legally blind | 01/12/2018 | + + + | Mild calcific aortic stenosis | 01/12/2018 | + + + | Anticoagulated on Coumadin | 07/07/2017 | + + + | Coronary artery disease involving bad [place] band coronary artery of | 12/29/2015 | | bad [place] band heart without angina pectoris | | + + + + + | Overview: Last Cath, 12/24/2014: extensive calcification of | | coronary tree, left main OK, LAD diffuse severe disease, LCx mild | | diffuse disease, 80% LPDA (small vessel), RCA non-dominant. | | LVG large apical akinesis/dyskinesis, LVEF 25-30%. Medical | | management recommended | + + + + + | Low back pain | 12/29/2015 | + + + | Anemia, normocytic normochromic | 12/26/2014 | + + + | Abnormal ECG | 12/24/2014 | + + + | Ischemic cardiomyopathy | 12/24/2014 | + + + | History of non-ST elevation myocardial infarction (NSTEMI) | 12/24/2014 | + + + | Essential hypertension | 12/22/2014 | + + + | Type 2 diabetes mellitus without complication, without long-term | 12/22/2014 | | current use of insulin | | + + + | Chronic systolic congestive heart failure | 12/22/2014 | + + + | Type 2 diabetes mellitus with hyperglycemia | 12/22/2014 | + + + | Microcytic anemia | 12/22/2014 | + + + Encounters +--------+--------+ + + + | Date | Type | Specialty | Care Team | Description | +--------+--------+ + + + | 02/06/ | Refill | Cardiology | Keila Kang | Medication Refill | | 2019 | | | [address] | | +--------+--------+ + + + from Last 3 Months Family History + + +------+ + | Medical History | Relation | Name | Comments | + + +------+ + | Alcohol abuse | Father | | | + + +------+ + | Abdominal aortic | Mother | | | | aneurysm | | | | + + +------+ + + +------+--------+ + | Relation | Name | Status | Comments | + +------+--------+ + | Father | | | | + +------+--------+ + | Father | [...] | | | + +---+---+---+ + + + | Sex Assigned at [...] recent travel history available. | + + Last Filed Vital Signs + + + + + | Vital Sign | Reading | Time Taken | Comments | + + + + + | Blood Pressure | 106/50 | 12/07/2018 12:33 PM | | | | | PDT | | + + + + + | Pulse | 72 | 12/07/2018 12:33 PM | | | | | PDT | | + + + + + | Temperature | - | - | | + + + + + | Respiratory Rate | 18 | 07/13/2018 9:41 AM | | | | | PDT | | + + + + + | Oxygen Saturation | 99% | 12/07/2018 12:33 PM | | | | | PDT | | + + + + + | Inhaled Oxygen | - | - | | | Concentration | | | | + + + + + | Weight | 61.2 kg (135 lb) | 12/07/2018 12:33 PM | | | | | PDT | | + + + + + | Height | 170.2 cm (5' 7") | 12/07/2018 12:33 PM | | | | | PDT | | + + + + + | Body Mass Index | 21.14 | 12/07/2018 12:33 PM | | | | | PDT | | + + + + + Plan of Treatment +--------+ + + + + | Date | Type | Specialty | Care Team | Description | +--------+ + + + + | 04/26/ | Appointment | Radiology | Trino, | | | 2019 | | | [facility] [address] | | | | | | [address] | | | | | | [place] [address] | | | | | | [phone] | | | | | | | | +--------+ + + + + | 06/06/ | Office | Cardiology | Keila Kang | | | 2019 | Visit | | [address] | | | | | | [address] | | | | | | [place] [address] | | | | | | [phone] | | | | | | | | +--------+ + + + + + + + + + | Health Maintenance | Due Date | Last Done | Comments | + + + + + | Vaccine: | | | | | Dtap/Tdap/Td (1 - | 2 | | | | Tdap) | | | | + + + + + | Diabetic Eye Exam | | | | | | 9 | | | + + + + + | Diabetic Foot Exam | | | | | | 9 | | | + + + + + | Vaccine: | | | | | Pneumococcal 65+ (1 | 6 | | | | of 2 - PCV13) | | | | + + + + + | Vaccine: Zoster (2 | | 07/08/2007 | | | of 3) | 8 | | | + + + + + | Hemoglobin A1c | | 12/23/2014 | | | Screening | 6 | | | + + + + + | Adult Annual | | | | | Wellness Visit | 9 | | | + + + + + | Vaccine: Influenza | | 05/05/2017, 12/16/2016, | | | (#1) | 9 | 12/05/2014, Additional history | | | | | exists | | + + + + + Results Not on filefrom Last 3 Months Insurance + +--------+ +--------+ +---------+--------+ | Payer | Benefi | Subscriber | Effect | Phone | Address | Type | | | t Plan | ID | francisco j | | | | | | / | | Dates | | | | | | Group | | | | | | + +--------+ +--------+ +---------+--------+ | CIGNA | CIGNA | [id number] | 03/17/19 | [phone] | | Indemn | | | MDCR | | 15-Pre | 1 | | ity | | | SUPPLE | | sent | | | | | | MENT | | | | | | | | SOLUTI | | | | | | | | ONS | | | | | | + +--------+ +--------+ +---------+--------+ | MEDICARE | MEDICA | [id number] | 07/15/18 | [phone] | | Medica | | | RE | | 96-Pre | 5 | | re | | | PART A | | sent | | | | | | AND B | | | | | | + +--------+ +--------+ +---------+--------+ + +--------+ +--------+ + + | Guarantor Name | Accoun | Relation to | Date | Phone | Billing Address | | | t Type | Patient | of | | | | | | | | | | + +--------+ +--------+ + + | Rachelle Ellis | Person | Self [birth year] | [address] | | | al/Fam | | 1931 | [phone] | [place] [id number] | | | princess | | | 5 (Home) | | + +--------+ +--------+ + + Advance Directives + + + + + | Type | Date Recorded | Patient | Explanation | | | | Direct Chill Caster | | + + + + + | Power of | | | | | Sole Inker | | | | + + + + + | Advance | | | | | Directive | | | | + + + + +
--- OUTSIDE RECORDS SUMMARY | ~2019-03-20 | XMS | Encounter Summary ---
Demographics + + + | Address | [address] | | | [place] [address] | + + + | Home Phone | | + + + | Preferred Language | Unknown | + + + | Marital Status | | + + + | Mandaen Affiliation | Unknown | + + + | Race | Unknown | + + + | Ethnic Group | Unknown | + + + Author + + + | Author | [facility] | | | and Judeana | + + + | Organization | [facility] | | [...] Team Providers + +------+ + | Care Barrel Repairer Name | Role | Phone | + [...] [address] | | | | | [address] | [address] [address] | | | | | [place], [place] | [place] [address] | | | | | [address] | [phone] | | | | | [phone] | | | +--------+ + + + [...] | 2019 | | | [address] | | | | | | [address] | | | | | | [place] [address] | | | | | | [phone] | | | | | | | | +--------+ + + + + | 06/06/ | Office | Cardiology | Keila Kang | | | 2019 | Visit | | [address] | | | | | | [address] | | | | | | [place] [address] | | | | | | [phone] | | | | | | | [...] MV A Bhavesh: 0.90 m/s MV Dec Wilcox: 2.41 m/s2 MV | | | DecT: [...] | Vmax: 2.95 m/s S': 0.08 m/s Electrolysist: DBS Authenticated | | | by: RUSSELL FIORE MD Report Date/Time: -- [id number] | | | | | + + [...] cmLVPWd: 0.90 | | cmLVOT Area: 3.35 or8GTRZ Diam: 2.06 cm%FS: 19.78 %EF(Teich): 40.53 %ESV(Teich): [...] | | (A-L): 26.85 ml/m2LAAs A2C: 16.33 [id number] A-L A2C: 47.46 mlLALs A2C: 4.77 | | cmLAAs A4C: 16.35 eg9CKHRO A-L A4C: 44.92 mlLALs A4C: 5.05 cmRAAs: 12.05 | | lt8BIPPT A-L: 26.53 mlRAESV MOD: 26.84 mlRALs: 4.64 cmTAPSE: 2.01 cmAV maxPG: | | 8.89 mmHgAV meanP.14 mmHgAV Vmax: 1.49 m/Catarino Vmean: 0.92 m/Catarino VTI: 34.92 | | cmAVA Vmax: 1.79 cm2AVA (VTI): 1.96 bv8BGMQ maxP.55 mmHgLVOT meanP.31 | | mmHgLVSI Dopp: 38.67 ml/m2LVSV Dopp: 68.45 mlLVOT Vmax: 0.79 m/sLVOT Vmean: 0.54 | | m/sLVOT VTI: 20.40 cmMV A Bhavesh: 0.90 m/sMV Dec Wilcox: 2.41 m/s2MV DecT: 322.83 | | msMV E Bhavesh: 0.77 m/sMV E/A Ratio: 0.85MV PHT: 93.62 msMVA By PHT: 2.34 os3Fbbpbs | | e': 0.03 m/sSeptal E/e': 21.04Lateral e': 0.03 m/sLateral E/e': 21.04RAP: 5 | | mmHgRVSP: 39.97 mmHgTR maxP.97 mmHgTR Vmax: 2.95 m/sS': 0.08 m/s | | Electrolysist: DBSAuthenticated by: RUSSELL Escamilla Date/Time: -- | | [id number] IMPRESSION: 1. Overall left ventricular systolic function [...] A Bhavesh: 0.90 m/s | |MV Dec Wilcox: 2.41 m/s2 | |MV DecT: 322.83 ms [...] | |S': 0.08 m/s | | | |Electrolysist: DBS | |Authenticated by: RUSSELL FIORE MD | |Report Date/Time: -- [id number] | | | |IMPRESSION: | |1. Overall [...]
--- OUTSIDE RECORDS SUMMARY | ~2019-03-20 | XMS | Encounter Summary ---
Demographics + + + | Address | [address] | | | [place] [address] | + + + | Home Phone | | + + + | Preferred Language | Unknown | + + + | Marital Status | | + + + | Sikh Affiliation | Unknown | + + + | Race | Unknown | + + + | Ethnic Group | Unknown | + + + Author + + + | Author | [facility] | | | and Judeana | + + + | Organization | [facility] | | | and [...] Team Providers + +------+ + | Care Senior Data Warehouse Architect Name | Role | Phone | + [...] [address] | | | | | [place], [place] | [place] [address] | | | | | [address] | [phone] | | | | | [phone] | | | +--------+ + + + [...] | 2019 | | | [address] | | | | | | [address] | | | | | | [place] [address] | | | | | | [phone] | | | | | | | | +--------+ + + + + | 06/06/ | Office | Cardiology | Keila Kang | | | 2019 | Visit | | [address] | | | | | | [place] [address] | | | | | | [place] [address] | | | | | | [phone] | | | | | | | [...] TR Vmax: 1.80 m/s | | | Director Business Development: OLGA Authenticated by: Janie Lovelace Report | | | Date/Time: 11-11-2016 19:30:07 | | + + + + + | Procedure Note | + + | Ji Mcneal Conversion - 11/05/2018 7:19 PM PDT Patient Name: Jason ELLIS of | | : 1930 Performing Physician: Janie | | [place] INDICATIONS------ | | -----ISCHEMIC CARDIOMYOPATHY CONCLUSIONS 1. [...] (A-L): 31.53 ml/m2LAAs | | A2C: 19.94 [id number] A-L A2C: 67.63 mlLALs A2C: 5.03 cmLAAs A4C: 13.65 [id number] | | A-L A4C: 38.32 mlLALs A4C: 4.18 cmRAAs: 11.10 dy9OTMBT A-L: 28.83 mlRAESV MOD: | | 26.55 mlRALs: 3.62 cmTAPSE: 1.58 cmAV maxP.18 mmHgAV meanP.50 mmHgAV | | Vmax: 1.24 m/Catarino Vmean: 0.89 m/Catarino VTI: 29.46 cmAVA Vmax: 1.75 cm2AVA (VTI): | | 1.89 dd0NZKS Vmax: 0.00 cm2/m2AVAI (VTI): 0.00 cm2/m2LVOT maxP.76 [...] maxP.05 | | mmHgTR Vmax: 1.80 m/s Director Business Development: DBSAuthenticated by: Janie Ontiveros | | Date/Time: [...] cm | |POLLY Vmax: 1.75 cm2 | |POLLY (VTI): 1.89 cm2 | |AVAI Vmax: 0.00 [...] |TR Vmax: 1.80 m/s | | | |Director Business Development: OLGA | |Authenticated by: Janie Lovelace | |Report [...]
--- OUTSIDE RECORDS SUMMARY | ~2019-03-20 | XMS | Clinical Summary ---
Demographics + + + | Address | [address] | | | [place] [address] | + + + | Home Phone | | + + + | Preferred Language | Unknown | + + + | Marital Status | | + + + | Jainism Affiliation | Unknown | + + + | Race | Unknown | + + + | Ethnic Group | Unknown | + + + Author + + + | Author | [facility] (Historical as of | | | 10-31-18) | + + + | Organization | [facility] (Historical as of | | | 10-31-18) [...] Team Providers + +------+ + | Care Composite Engineer Name | Role | Phone | + [...] + + | Coronary artery disease involving coquille coronary artery of | 12/29/2015 | | coquille heart with angina pectoris (HCC) | | + + + + + | Last Assessment & Plan: 2V-CAD, Hx GA, LVEF 40-45%. | | 85yo WF, with [...] 1st | | degree AVB, PVC, extensive htkrviai-gtanyt-somcbedws GA of | | indeterminate age. | + [...] + + | Last Assessment & Plan: [id number] CMP with severe LV | | systolic dysfunction and severe CAD- diagnosed in [facility] on | | 12/2014- LV [...] +------+-------+ + | MEDICARE | MEDICA | [id number] | | | [address] | | | RE | | | | [place] [address] | | | IP-OP | | | | | + +--------+ +------+-------+ + | CIGNA | CIGNA | [id number] | | | | | | - [...] | | 1931 | [phone] | [place] [address] | | | princess | | | [address] | | + +--------+ +--------+ + +
--- OUTSIDE RECORDS SUMMARY | ~2019-03-20 | XMS | Encounter Summary ---
Demographics + + + | Address | [address] | | | [place] [address] | + + + | Home Phone | | + + + | Preferred Language | Unknown | + + + | Marital Status | | + + + | Christian Affiliation | Unknown | + + + | Race | Unknown | + + + | Ethnic Group | Unknown | + + + Author + + + | Author | [facility] | | | and Judeana | + + + | Organization | [facility] | | | [...] Providers + +------+ + | Care Entry Level Automotive Technician Name | Role | Phone | + +------+ + | Loco Hernandez DO | PCP | | + +------+ + Reason for Visit + + + | Reason | Comments | + + + | Follow-up, Office | 5 month | | Visit | | + + + Encounter Details +--------+---------+ + + + | Date | Type | Department | Care Team | Description | +--------+---------+ + + + | 12/07/ | Office | [facility] | Keila Kang | Coronary artery | | 2019 | Visit | CARDIOLOGY FAM | [address] | disease involving | | | | [address] | [place] [address] | habematolel coronary | | | | [address] | [place] [address] | artery of habematolel | | | | [place], [place] | [phone] | heart without angina | | | | [address] | | pectoris (Primary | | | | [phone] | | Dx); Chronic | | | | | | systolic congestive | | | | | | heart failure (HCC); | | | | | | Ischemic | | | | | | cardiomyopathy; | | | | | | Essential | | | | | | hypertension; Mild | | | | | | calcific aortic | | | | | | stenosis; History of | | | | | | non-ST elevation | | | | | | myocardial | | | | | | infarction (NSTEMI); | | | | | | Anticoagulated [...] | | | | | | insulin ([facility]); Other | | | | | | specified | | | | | | hypothyroidism; | | | | | | Peripheral vascular | | | | | | disease of extremity | | | | | | (HCC); S/P | | | | | | peripheral artery | | | | | | angioplasty with | | | | | | stent placement | +--------+---------+ + + + Social History [...] Instructions Patient Instructions Keila Kang FNP - 12/07/2018 12:30 PM PDTYour Echo and EKG was stable I made no changes to medications See me back in 6 months documented in this encounter Progress Notes Keila Kang FNP - 12/07/2018 12:30 PM PDTFormatting of this note might be differe nt from the original. Date of visit: 12/07/2018 Primary Care Physician: Loco Hernandez DO CHIEF COMPLAINT: Chief Complaint Patient presents with Follow-up, Office Visit 5 month HISTORY OF PRESENT ILLNESS: Ms. Rachelle Ellis is an 88-year-old woman who is here today to follow up on the results of her Echo She is here today with her daughter Lory, who contributed to history. 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 She had previous CHF decompensation in January 2015, with severe three vessel CAD with d iffuse disease and no clear targets for revascularization and severe LV systolic dysfunction with apical and anterior wall motion abnormalities. It was decided to treat her medically after discussions with patient and family . She remains on Coumadin for stroke prophylaxis because of LV apical akinesis and reports h er last INR has been therapeutic, and denies any bleeding. Her current and previous testing and procedures are detailed below . Since I saw her last 07/13/2018, her daughter reports she had a right femoral stent placed by Dr. Diego in September 2018. He started her on Plavix, stopped her aspirin. Her Coumadin was held for the procedure, then resumed, and she has been therapeutic. He has ordered her lower extremity arteriogram to be performed at [facility] in April, and he will follo w-up with her after that. She is to remain on Plavix until evaluated by him. Her daughter reports that since procedure, that the circulation to her right foot has increased, and has had healing of previous nonhealing wounds to her foot. Her daughter also reported that because of all of these procedures, they have held off st arting her on Fosamax. Today Pat reports she has been feeling very well . Her daughter reports she continues to have an improvement in the quality of her life with new hearing aid,as she can now hear he r friends and family much better. She denies any chest pain, palpitations, dyspnea with or without exertion, lower extremi ty edema syncope, or dizziness. She denies any signs or symptoms of stroke or transient isc hemic attack. 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 She does ambulate with a cane or walker for balance and also for chronic low back pain, and remained modestly activ e. They brought her medications to the clinic today and I reviewed them personally. She has maintained 10 pounds since I saw her last, but she reports that this is intentional as she has been decreasing her portion size during the last year and reports that her appet ite and enjoyment of food remained stable. REVIEW OF SYSTEMS: Negative except for pertinent [...] other ps ychiatric illness. Vaccines: Current on 12/2017 flu vaccine. Current on pneumonia vaccine. Habits: Denies history of smoking. Denies EtOH use. Denies illicit drug use. Exercise ve ry limited to walking around her house and yard occasionally. Daughter is her primary [facility] Outpatient Medications Prior to Visit Medication Sig Dispense Refill aspirin (ASPIRIN LOW DOSE) 81 MG tablet Take 81 mg by mouth daily. (Patient not taking: Reported on 12/07/2018) carvedilol (COREG) 3.125 mg tablet Take 3.125 mg by mouth 2 (two) times daily with meal s. cholecalciferol (CHOLECALCIFEROL) 1000 units TABS Take 2,000 Units by mouth twice a wee k. (Patient taking differently: Take 2,000 Units by mouth Daily.) clopidogrel (PLAVIX) 75 mg tablet Take 75 mg by mouth Daily. ferrous sulfate 324 (65 Fe) MG EC tablet Take 65 mg of iron by mouth twice a week. furosemide (LASIX) 20 mg tablet Take 1 tablet by mouth daily. 30 tablet 11 levothyroxine (SYNTHROID) 125 mcg tablet Take 1 tablet by mouth daily. lisinopril (PRINIVIL, ZESTRIL) 5 mg tablet Take 0.5 tablets by mouth daily. 15 tablet 1 1 metFORMIN (GLUCOPHAGE) 500 mg tablet Take 1,000 mg by mouth 2 (two) times daily with me als. metOLazone 2.5 mg tablet Take 1 tablet by mouth twice a week. 9 tablet 9 metroNIDAZOLE (METROGEL) 0.75 % gel Apply topically 2 (two) times daily. (Patient shey ng differently: as needed.) nitroglycerin (NITROSTAT) 0.[address] 1 tablet under the tongue every 5 (fiv e) minutes as needed for Chest pain. 20 tablet 5 warfarin (COUMADIN) 2.5 mg tablet Take 2.5 mg by mouth daily. 1 tablet alternating mon and fri, and/2 rest of day No facility-administered medications prior to visit. PHYSICAL EXAM: Wt Readings from Last 3 Encounters: 12/07/18 61.2 kg (135 lb) Temp Readings from Last 3 Encounters: No data found for Temp BP Readings from Last 3 Encounters: 12/07/18 106/50 Pulse Readings from Last 3 Encounters: 12/07/18 72 Vital signs 06/16 12/03: Wt: 133 Lbs. BP: 104/48 . HR. 72 Vital signs: 01/12/2018 wt: 144 Lbs. BP: 106/48 HR: 67 Vital signs: 07/07/2017 wt: 146 Lbs. BP: 112/40 HR: 76 GENERAL: Well developed, well nourished, in no distress. Appears approximately stated age . HEENT: Normocephalic, atraumatic. Hearing aid EYES: Poor vision, right eye almost blind, left eye best, cataract surgery MOUTH: Full upper dentures, partial lower Oral mucosae moist, no lesions noted NECK: No JVD, lymphadenopathy, thyromegaly, bruits. Carotid [...] abdominal aortic pulsation is not palpable. EXTREMITIES: no edema. Radial pulses 2+ bilaterally. Femoral pulses are 2+ bilaterally wi thout bruits. DP and PT pulses are 2+ bilaterally. No clubbing. SKIN: Warm and dry, capillary refill is normal, no lesions. NEUROLOGIC: Awake, alert and oriented x 3. No focal motor or sensory deficits. PSYCHIATRIC: Appropriate, affect appears normal DATA: Blood tests: Lab Results Component Value Date WBC 5.94 12/26/2014 RBC 3.73 12/26/2014 HGB 9.6 (L) 12/26/2014 Lab Results Component Value Date NA 128 (L) 12/26/2014 K 3.8 12/26/2014 CL 97 (L) 12/26/2014 CO2 26 12/26/2014 ANIONGAP 9 12/26/2014 GLUF 136 (H) 12/26/2014 BUN 33 (H) 12/26/2014 BCR 37 12/26/2014 EGFR >60 12/26/2014 Lab Results Component Value Date CHOL 96 12/23/2014 TRIG 94 12/23/2014 GLUF 136 (H) 12/26/2014 Lab Results Component Value Date BNP 1,070 (H) 12/23/2014 No results found for: TOTEPI CARDIAC PROCEDURES/IMAGING Last Cath, 12/24/2014: extensive calcification of coronary tree, left main OK, LAD diffuse severe disease, LCx mild diffuse disease, 80% LPDA (small vessel), RCA non-dominant. LVG l arge apical akinesis/dyskinesis, LVEF 25-30%. Medical management recommended ECHO: Last Echo: ([facility]): 10/26/2018 sinus rhythm. Technically difficult study with suboptimal view s. Definity used. EF 45-50%, stable. LV normal in size and wall thickness. Moderate rogel tolic dysfunction, grade 2. Mid to a [place] from all views appears to be aneurysmal [...] no clot, no ASD, no VSD Echo: ([facility]). 11/07/2017 Sinus rhythm. Definity. Technically adequate study. [...] no Pulm HTN, PASP 18.06 mmHg. Trace MD. No pericardial o r pleural effusion. Aortic root, ascending aorta WNL. Echo: 05/22/2015 ([facility]): LV mildly dilated (?LVEDd 55mm), mild left ventricular hyper trophy. apical akinesis,LVEF 40-45%, mild LAE, mild MR. mild Last Stress Test: na EKG: ECG, 12/28/2015: sinus rhythm, 66 bpm, 1st degree AVB, PVC, extensive xptzwmqm-xrznxi-gairt rior MA of indeterminate age. EK2016: Sinus rhythm with first-degree AV block, stable right bundle branch bloc k, stable changes consistent with anteroseptal infarction. Rate 64 bpm, MD 242 ms, QRS 138 ms, QTC 482 ms personally reviewed by me and compared to previous EKG EK01/12/2018: Sinus rhythm with first-degree AV block, stable right bundle branch block, old anteroseptal infarct, stable T-wave inversions leads V1-V4. Rate 67 bpm, MD 240 ms, QR S 140 ms, QTC 494 ms and a tracing personally reviewed by me, and when compared to EKG in [facility]2016, no significant change EK12/07/2018: Sinus rhythm with first-degree AV block, right bundle branch block, old sep sulma infarct. T wave inversions anterior leads rate 69 bpm, MD 236 ms, QRS 126 ms, QTC 458 [...] Labs: 12/31/2016: INR 2.8 Labs: 06/16/2017: Lipids: Cholesterol 156, triglycerides 174, HDL 47.5, LDL 74, VLDL 35, rati o 3.3, non-HDL cholesterol 109 thyroid: Free T4 2 0.01, TSH 1.86 CMP: Sodium 134, potassium 3.7, chloride 92, glucose 168, BUN 18, creatinine 0.77, GFR 71, AST 15, ALT 20, alk phos 71, total bilirubin 0.7, albumin 3.8. A1c 7.7 CBC: WBC 5.8, hemoglobin 12.8, hematocrit 37.6, platelets 281. Vitamin D 39 Labs: [...] hemoglobin 13.2, hematocrit 39.1, platelets 2 81. ASSESSMENT & PLAN: Mignon was here today with her daughter to follow up on the results of her Echo She has problems as listed below . 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 She also has had a tremendous improvement to the circulation to h er right foot since right femoral stent placed in September by Dr. Jameson. She continues to be modestly active and denies any problems , and her renal function pe r labs performed I I made no medication changes today, as she seems well maintained on current medications For her cardiac medications, I have continued metolazone 2.5 mg twice a week, Lasix 20 mg daily, Plavix 75 mg daily for femoral stent, lisinopril 2.5 mg daily, and carvedilol 3.125 mg bid She remains therapeutically anticoagulated on Coumadin for stroke prophylaxis with her low EF and apical akinesis. I would like to increase carvedilol to help improve her EF, but her blood pressure tends t o be low, and I do not wish to increase her fall risk by making her dizzy with hypotension. . 1. Coronary artery disease involving habematolel coronary artery of habematolel heart without angina pectoris 2. Chronic systolic congestive heart failure (HCC) 3. Ischemic cardiomyopathy 4. Essential hypertension 5. Mild calcific aortic stenosis 6. History of non-ST elevation myocardial infarction (NSTEMI) 7. Anticoagulated on Coumadin 8. Mixed hyperlipidemia 9. Type 2 diabetes mellitus without complication, without long-term current use of insulin (HCC) 10. Other specified hypothyroidism 11. Peripheral vascular disease of extremity (HCC) 12. S/P peripheral artery angioplasty with stent placement Orders Placed This Encounter Procedures ECG 12 lead The following portions of the patient's history [...] past surgical history. Problem list. Alan CHAIREZ [facility] Cardiology 12/07/2018 docume sainz in this encounter Plan of Treatment +--------+ + + + + | Date | Type | Specialty | Care Team | Description | +--------+ + + + + | 04/26/ | Appointment | Radiology | Trino, | | | 2019 | | | MD [address] | | | | | | [address] | | | | | | [place] [address] | | | | | | [phone] | | | | | | | | +--------+ + + + + | 06/06/ | Office | Cardiology | Keila Kang | | | 2019 | Visit | | [address] | | | | | | [address] | | | | | | [place] [address] | | | | | | [phone] | | | | | | | | +--------+ + + + + documented as of this encounter Procedures + +--------+ + + + | Procedure Name | Priori | Date/Time | Associated Diagnosis | Comments | | | ty | | | | + +--------+ + + + | ECG 12 LEAD | Routin | 12/07/2018 | Coronary artery | Results for this | | | e | 12:39 PM | disease involving | procedure are in the | | | | PDT | habematolel coronary | results section. | | | | | artery of habematolel | | | | | | heart without angina | | | | | | pectoris Essential | | | | | | hypertension | | | | | | Chronic systolic | | | | | | congestive heart | | | | | | failure (HCC) | | | | | | Ischemic | | | | | | cardiomyopathy Mild | | | | | | calcific aortic | | | | | | stenosis History of | | | | | | non-ST elevation | | | | | | myocardial | | | | | | infarction (NSTEMI) | | | | | | Anticoagulated on | | | | | | Coumadin 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 | | | | | | without | | | | | | complication, | | | | | | without long-term | | | | | | current use of | | | | | | insulin (HCC) Other | | | | | | specified | | | | | | hypothyroidism | | + +--------+ + + + documented in this encounter Results ECG 12 lead (12/07/2018 12:39 PM PDT) + + + + + + | Component | Value | Ref Range | Performed | Pathologist | | | | | At | Signature | + + + + + + | VENTRICULAR | 69 | BPM | [facility] | | | RATE EKG | | | | | + + + + + + | ATRIAL RATE | 69 | BPM | [facility] | | + + + + + + | P-R | 236 | ms | [facility] | | | INTERVAL | | | | | + + + + + + | QRS | 126 | ms | [facility] | | | DURATION | | | | | + + + + + + | Q-T | 428 | ms | [facility] | | | INTERVAL | | | | | + + + + + + | Q-T | 458 | ms | [facility] | | | INTERVAL | | | | | | (CORRECTED) | | | | | + + + + + + | P WAVE AXIS | 82 | degrees | [facility] | | + + + + + + | QRS AXIS | -15 | degrees | [facility] | | + + + + + + | T AXIS | 55 | degrees | [facility] | | + + + + + + | INTERPRETAT | Please refer to | | [facility] | | | ION TEXT | Providers office visit | | | | | | note for Providers | | | | | | Interpretation.Confirmed | | | | | | by [facility] Hagerman Read Only, | | | | | | ICA Patricia ([id number]), | | | | | | assistant production editor Fran Hollis | | | | | | ([id number]) on 12/07/2018 | | | | | | 12:47:08 PM | | | | + + + + + + + + | Specimen | + + | | + + + + + | Narrative | Performed At | + + + | | | + + + + +---------+ + + | Performing | Address | City/State/Zipcode | Phone Number | | Organization | | | | + +---------+ + + | [facility] | | | | + +---------+ + + documented in this encounter Visit Diagnoses + + | Diagnosis | + + | Coronary artery disease involving habematolel coronary artery of habematolel heart without | | angina pectoris - Primary | + + | Chronic systolic congestive heart failure (HCC) Chronic systolic heart failure | + + | Ischemic cardiomyopathy Other specified forms of chronic ischemic heart disease | + + | Essential hypertension Unspecified essential hypertension | + + | Mild calcific aortic stenosis Aortic valve disorders | + + | History of non-ST elevation myocardial infarction (NSTEMI) Old myocardial infarction | + + | Anticoagulated on Coumadin Encounter for therapeutic drug monitoring | + + | Mixed hyperlipidemia | + + | Type 2 diabetes mellitus without complication, without long-term current use of | | insulin (HCC) | + + | Other specified hypothyroidism | + + | Peripheral vascular disease of extremity (HCC) | + + | S/P peripheral artery angioplasty with stent placement | + + documented in this encounter
--- OUTSIDE RECORDS SUMMARY | ~2019-03-20 | XMS | Encounter Summary ---
Demographics + + + | Address | [address] | | | [place] [address] | + + + | Home Phone | | + + + | Preferred Language | Unknown | + + + | Marital Status | | + + + | Mandaeism Affiliation | Unknown | + + + | Race | Unknown | + + + | Ethnic Group | Unknown | + + + Author + + + | Author | [facility] | | | and Judeana | + + + | Organization | [facility] | | | [...] Team Providers + +------+ + | Care Binding Printer Name | Role | Phone | + +------+ + PCP | Unavailable | + +------+ + Encounter Details +--------+ + + + + | Date | Type | Department | Care Team | Description | +--------+ + + + + | 12/22/ | Hospital | [facility] | Jennifer Light, | Essential | | 2015 - | Encounter | [facility] | MD Zack SALOMON | hypertension; Type 2 | | | | CLINICAL DECISION | [place] [id number] | diabetes mellitus | | 12/26/ | | MARCELLO SALOMON | [phone] | with hyperglycemia | | 2014 | | [place], [place] | | ([facility]); NSTEMI | | | | [phone] | | (non-ST elevated | | | | [phone] | | myocardial | | | | | | infarction) ([facility]); | | | | | | Acute systolic | | | | | | congestive heart | | | | | | failure ([facility]); | | | | | | Anemia, normocytic | | | | | | normochromic; | | | | | | Microcytic anemia; | | | | | | Hyposmolality and/or | | | | | | hyponatremia; | | | | | | Abnormal ECG; | | | | | | Ischemic | | | | | | cardiomyopathy; | | | | | | History of | | | | | | myocardial | | | | | | infarction in | | | | | | adulthood | +--------+ + + + + Social [...] + + documented as of this encounter Discharge Summaries Vick Garcia MD - 12/26/2014 9:35 AM PDT Discharge Summaries by BIJU Orozco at 12/26/14 09 Author: BIJU Orozco Service: Hospitalist Author Type: Resident Filed: 12/26/14938 Date of Service: 12/26/14934 Status: Attested Child Advocate: BIJU Orozco (Resident-Y2) Cosigner: Alonso Merida DO at 12/26/14 1330 Attestation signed by Alonso Merida DO at 12/26/14 1330 Patient seen/examined with resident. I agree with note including physical exam and assessme nt/plan. Echo cardiac adult complete [ECHO50] Status: Final result Study Result Patient Name: CATHERINE CARRASCO Date of : 1930 Performing Physician: Radha Pinto MD INDICATIONS NSTEMI CONCLUSIONS 1. Overall left ventricular systolic function is severely impaired with, an EF between 25 - 30 %. 2. There are severe wall motion abnormalities affecting mid anteroseptal, apical, and apica l lateral [place], preserving the apex. This is consistant with Takotsubo cardiomyopathy, alth ough CAD cannot be ruled out. 3. Mild aortic stenosis with peak/mean pressure gradient of 6.21mmHg / 3.03mmHg, the aortic valve area by continuity equation is 1.8cm. 4. Mild mitral regurgitation is present. 5. Right ventricular systolic pressure (pulmonary artery systolic pressure) is normal at < 35 mmHg. 6. No clot visualized She is DC'd home on new med regimen as shown. She will f/u with her PCP for further warfari n management, case management has coordinated with him. Alonso Merida DO 12/26/2014 1:30 PM [facility] Service: Hospitalist Discharge Summary Date of Admission: 12/22/2014 Date of Discharge: 12/26/2014 Discharge Provider: Dr. 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 She presented with bilateral leg swelling and shortness of breath fo r the last 2 weeks, being unable to walk a few steps without stopping due to dyspnea on exer tion. Gained 15 lbs in the last 2 weeks Also, she has additional complaints of poor urine ou tput. No fever or chills. 2 weeks prior she was seen by her PCP and diagnosed with acute bro nchitis, given keflex x 7 days and given flu vaccine. After which she felt shaky, and weak a nd then developed the bilateral leg swelling. She was ordered for blood work by her PCP amairaniic h showed abnormal troponin so that was the reason she was sent to ED. EKG in [facility] sh owed 84 NSR incomplete RBB, inferior, anterior and later q waves - unchanged EKG here CXR owed cardiomegaly, mild congestion, fluid in fissure Per report. I requested lasix be given in [facility] - she reports feeling better. She was started there on heparin drip. At [facility] patient had a cardiac cath performed by Dr. Alonso Patient was seen and examined today. Patient states that she feels a lot better today as co mpared to her initial presenting symptoms. Denies any chest pain or shortness of breath at t his time. Denies any nausea, vomiting or diarrhea. Patient had a cardiac cath yesterday by Rolo Alonso who discovered that patient's anterior/inferior apex was hypokinetic/akinetic. Th erefore medical management was suggested. Viability study can be considered in the future is patient's overall cardiovascular status improves. No Lightheadedness or dizziness. Due to p atients akinetic/hypokinetic heart patient is at risk for thrombus formation resulting in CV A, hence it was recommended that patient be started on aspirin/warfarin therapy and anticoag ulate to appropriate therapy for a goal INR of 2.0 - 3.0 DISCHARGE EXAM Vital Signs: BP 109/58 mmHg | Pulse 62 | Temp(Src) 98 F (36.7 C) (Oral) | Resp 16 | Ht 1.702 m (5' 7 ") | Wt 74.844 kg (165 lb) | BMI 25.84 kg/m2 | SpO2 97% Physical Exam Constitutional: She is oriented to person, place, and time. She appears well-developed and well-nourished. No distress. HENT: Head: Normocephalic. Right Ear: External ear normal. Left Ear: External ear normal. Nose: Nose normal. Mouth/Throat: Oropharynx is clear and moist. No oropharyngeal exudate. Eyes: Conjunctivae and EOM are normal. Pupils are equal, round, and reactive to light. Righ t eye exhibits no discharge. Left eye exhibits no discharge. No scleral icterus. Neck: Normal range of motion. Neck supple. No JVD present. No tracheal deviation present. Cardiovascular: Normal rate, regular rhythm, normal heart sounds and intact distal pulses. Exam reveals no gallop and no friction rub. No murmur heard. Pulmonary/Chest: Effort normal and breath sounds normal. No stridor. No respiratory distres s. She has no wheezes. She has no rales. She exhibits no tenderness. Abdominal: Soft. Bowel sounds are normal. She exhibits no distension and no mass. There is no tenderness. There is no rebound and no guarding. No hernia. Genitourinary: Did not examine Musculoskeletal: Normal range of motion. She exhibits no edema or tenderness. Lymphadenopathy: She has no cervical adenopathy. Neurological: She is alert and oriented to person, place, and time. She exhibits normal mus carmen tone. Coordination normal. Skin: Skin is warm and dry. No rash noted. She is not diaphoretic. No erythema. No pallor. Psychiatric: She has a normal mood and affect. Her behavior is normal. DATA CBC: Lab Results Component Value Date WBC 5.94 12/26/2014 RBC 3.73 12/26/2014 HGB 9.6* 12/26/2014 HCT 29.8* 12/26/2014 MCV 79.9* 12/26/2014 MCH 25.8* 12/26/2014 MCHC 32.3 12/26/2014 RDW 42.4 12/26/2014 PLT 256 12/26/2014 MPV 8.8 12/26/2014 DIFFTYPE AUTOMATED 12/26/2014 CMP: Lab Results Component Value Date NA 128* 12/26/2014 K 3.8 12/26/2014 CL 97* 12/26/2014 CO2 26 12/26/2014 ANIONGAP 9 12/26/2014 GLUF 136* 12/26/2014 BUN 33* 12/26/2014 CREATININE 0.89 12/26/2014 BCR 37 12/26/2014 CA 8.5 12/26/2014 PROT 6.8 12/22/2014 ALB 3.5 12/22/2014 GLOB 3.3 12/22/2014 BILITOT 0.8 12/22/2014 ALP 74 12/22/2014 AST 17 12/22/2014 ALT 35 12/22/2014 EGFR >60 12/26/2014 Troponin: Lab Results Component Value Date TROPONINI 0.06 12/22/2014 CPK: Lab Results Component Value Date CKTOTAL 53 12/22/2014 CKMB: Lab Results Component Value Date CKMB 2.0 12/22/2014 U/A: Lab Results Component Value Date CLARITYU CLOUDY 12/22/2014 LEUKOCYTESUR MODERATE* 12/22/2014 NITRITE NEGATIVE 12/22/2014 UROBILINOGEN 1.0 12/22/2014 PHUR 6.5 12/22/2014 BLOODU LARGE* 12/22/2014 KETONES NEGATIVE 12/22/2014 BILIRUBINUR NEGATIVE 12/22/2014 GLUCOSEU NEGATIVE 12/22/2014 PLAN Recommend that patient follow up with the outpatient coumadin clinic for management of her INR. Patient has a cardiac cath by Dr. Alonso who discovered that patient's anterior/inferi or apex was hypokinetic/akinetic. Therefore medical management was suggested. Viability stud y can be considered in the future is patient's overall cardiovascular status improves. Due t o patients akinetic/hypokinetic heart patient is at risk for thrombus formation resulting in CVA, hence it was recommended that patient be started on aspirin/warfarin therapy and antic oagulate to appropriate therapy for a goal INR of 2.0 - 3.0 Disposition: Home Condition: Stable Code Status: DNR/DNI Discharge Instructions Ambulatory Referral to Anticoagulation Monitoring Referral Priority: Routine Referral Type: Consultation Referral Reason: Specialty Services Required Requested Specialty: Anticoagulation Number of Visits Requested: 1 Follow up: Nam Chacon MD [address] [place] [address] 2 [facility] [address] Schedule an appointment as soon as possible for a visit in 1 week Elliot Alonso MD [address] [place] [id number] Schedule an appointment as soon as possible for a visit in 1 week Medication List START taking these medications carvedilol 3.125 MG tablet QTY: 60 tablet Refills: 0 Commonly known as: COREG Take 1 tablet by mouth 2 (two) times daily with meals. enoxaparin 80 MG/0.8ML Soln QTY: 7 mL Refills: 1 Commonly known as: LOVENOX Inject 0.7 mLs into the skin every 12 (twelve) hours. furosemide 20 MG tablet QTY: 30 tablet Refills: 0 Commonly known as: LASIX Take 1 tablet by mouth daily. isosorbide mononitrate 30 MG 24 hr tablet QTY: 30 tablet Refills: 0 Commonly known as: IMDUR Take 1 tablet by mouth daily. lisinopril 5 MG tablet QTY: 30 tablet Refills: 0 Commonly known as: ZESTRIL Take 1 tablet by mouth daily. nitroGLYCERIN 0.4 MG SL tablet QTY: 90 tablet Refills: 0 Commonly known as: NITROSTAT Place 1 tablet under the tongue every 5 (five) minutes as needed for Chest pain. warfarin 5 MG tablet QTY: 30 tablet Refills: 0 Commonly known as: COUMADIN Take 1 tablet by mouth Once daily-Coumadin. CONTINUE taking these medications aspirin 81 MG tablet Refills: 0 CALCIUM 600 + D PO Refills: 0 cholecalciferol 1000 UNITS tablet Refills: 0 Commonly known as: VITAMIN D-3 glimepiride 2 MG tablet Refills: 0 Commonly known as: AMARYL lansoprazole 30 MG disintegrating tablet Refills: 0 Commonly known as: PREVACID SOLUTAB levothyroxine 100 MCG tablet Refills: 0 Commonly known as: SYNTHROID metFORMIN 500 MG tablet Refills: 0 Commonly known as: GLUCOPHAGE naproxen 500 MG tablet Refills: 0 Commonly known as: NAPROSYN STOP taking these medications lisinopril-hydrochlorothiazide 20-12.5 MG per tablet Commonly known as: ZESTORETIC Where to Get Your Medications These are the prescriptions that you need to picker and packer. You may get the following medications from any pharmacy - carvedilol 3.125 MG tablet - enoxaparin 80 MG/0.8ML Soln - furosemide 20 MG tablet - isosorbide mononitrate 30 MG 24 hr tablet - lisinopril 5 MG tablet - nitroGLYCERIN 0.4 MG SL tablet - warfarin 5 MG tablet Discharge took more than 45 minutes, to include final examination, discussion of admission, and preparation of prescriptions, instructions for on-going care, follow-up and documentati on of discharge summary. Vick Garcia MD-R1 12/26/2014 Oneida deshpande in this encounter Medications at Time of Discharge [...] + + + +---------+ + + | aspirin (ASPIRIN | Take 81 mg by mouth | | 0 | 12/23/19 | | | LOW DOSE) 81 MG | daily. | | | 15 | 9 | | tablet | | | | | | + + + +---------+ + + | carvedilol (COREG) | Take 1 tablet by | 60 | 0 | 12/27/19 | | | 3.125 mg tablet | mouth 2 (two) times | tablet | | 15 | 6 | | | daily with meals. | | | | | + + + +---------+ + + | furosemide (LASIX) | Take 1 tablet by | 30 | 0 | 12/27/19 | | | 20 mg tablet | mouth daily. | tablet | | 15 | 6 | + + + +---------+ + + | lisinopril | Take 1 tablet by | 30 | 0 | 12/27/19 | | | (PRINIVIL, ZESTRIL) | mouth daily. | tablet | | 15 | 6 | | 5 mg tablet | | | | | | + + + +---------+ + + | nitroglycerin | Place 1 tablet under | 90 | 0 | 12/27/19 | | | (NITROSTAT) 0.4 mg | the tongue every 5 | tablet | | 15 | 6 | | SL tablet | (five) minutes as | | | | | | | needed for Chest | | | | | | | pain. | | | | | + + + +---------+ + + | warfarin | Take 1 tablet by | 30 | 0 | 12/27/19 | | | (COUMADIN) 5 mg | mouth Once | tablet | | 15 | 6 | | tablet | daily-Coumadin. | | | | | + + + +---------+ + + documented as of this encounter Progress Notes Conversion Transaction, Provider Unknown - 12/26/2014 9:34 AM PDTFormatting of this note m ight be different from the original. Case Management by JUAN MANUEL Guajardo at 12/26/14933 Author: JUAN MANUEL Guajardo Service: (none) Author Type: Fast Food Services Manager Filed: 12/26/14 1146 Date of Service: 12/26/14933 Status: Addendum Child Advocate: JUAN MANUEL Guajardo (Fast Food Services Manager) Related Notes: Original Note by JUAN MANUEL Guajardo (Fast Food Services Manager) filed at 12/26/[address] Merida, Pt will be dc'ing and will nee INR upon dc.CM Arranged for Pt to return to p rior living situation and f/u with her PCP Nam Martinez [phone] For Coumadin at [facility] in [place] [phone]. Order also for Pt to be on Lovenox. Trans portation by DTR. Elliot Manning MD - 12/26/2014 8:19 AM PDTFormatting of this note might be different from the o riginal. Progress Notes by Elliot Alonso MD at 12/26/14818 Author: Elliot Alonso MD Service: (none) Author Type: Physician Filed: 12/26/14823 Date of Service: 12/26/14818 Status: Signed Child Advocate: Elliot Alonso MD (Physician) [facility] Service: Cardiology Progress Note Hospital Day: LOS: 4 days Post-Op Day: * No surgery found * SUBJECTIVE Patient Summary: DENIES CP, SOB, PALPS, DIZZINESS Events Overnight: NONE SIGNIFICANT Scheduled Medications aspirin 325 mg Oral Daily with breakfast carvedilol 3.125 mg Oral BID WC enoxaparin 1 mg/kg Subcutaneous Q12H furosemide 20 mg Oral Daily insulin aspart 0-3 Units Subcutaneous Nightly insulin aspart 0-6 Units Subcutaneous TID AC isosorbide mononitrate 30 mg Oral Daily lisinopril 5 mg Oral Daily sodium chloride 10 mL Intravenous Q8H warfarin 5 mg Oral Daily Continuous Infusions dextrose PRN Medications acetaminophen OR acetaminophen, dextrose, dextrose, dextrose, glucagon, glucagon, nitro GLYCERIN, ondansetron OR ondansetron, polyethylene glycol OBJECTIVE Vital Signs: BP 109/58 mmHg | Pulse 62 | Temp(Src) 98 F (36.7 C) (Oral) | Resp 16 | Ht 1.702 m (5' 7 ") | Wt 74.844 kg (165 lb) | BMI 25.84 kg/m2 | SpO2 97% Temp: [97.7 F (36.5 C)-98.2 F (36.8 C)] 98 F (36.7 C) (12/26 722) BP: (82-126)/(44-65) 109/58 mmHg (12/26 722) Heart Rate: [61-83] 62 (12/26 722) Resp: [16-18] 16 (12/26 722) SpO2: [93 %-100 %] 97 % (12/26 722) Weight: [74.844 kg (165 lb)] 74.844 kg (165 lb) (12/27 419) Physical Exam Constitutional: She has a sickly appearance. No distress. FRAIL HENT: Head: Normocephalic and atraumatic. Right Ear: External ear normal. Left Ear: External ear normal. Nose: Nose normal. Mouth/Throat: Oropharynx is clear and moist. No oropharyngeal exudate. Eyes: EOM are normal. Right eye exhibits no discharge. Left eye exhibits no discharge. No s cleral icterus. Neck: Neck supple. No JVD present. No tracheal deviation present. No thyromegaly present. Cardiovascular: Normal rate and regular rhythm. No extrasystoles are present. Exam reveal s no gallop, no S3, no S4, no distant heart sounds and no friction rub. Murmur heard. Systolic murmur is present with a grade of 2/6 Pulses: Radial pulses are 2+ on the right side, and 2+ on the left side. Pulmonary/Chest: No accessory muscle usage. No tachypnea and no bradypnea. No respiratory d istress. She has decreased breath sounds. She has no wheezes. She has no rhonchi. She has no rales. She exhibits no tenderness. Abdominal: Soft. Bowel sounds are normal. She exhibits no distension. There is no tendernes s. There is no rebound and no guarding. Musculoskeletal: She exhibits edema. She exhibits no tenderness. Lymphadenopathy: She has no cervical adenopathy. Neurological: No cranial nerve deficit. Coordination normal. ORIENTED TO PERSON, PLACE NO DEFINITE FOCAL DEFICIT Skin: Skin is warm and dry. No rash noted. She is not diaphoretic. No erythema. Psychiatric: She has a normal mood and affect. Her speech is normal. She is slowed (MILDLY) . COGNITION AT BASELINE Vitals reviewed. DATA Results for orders placed or performed during the hospital encounter of 12/22/14 (from the past 24 hour(s)) POCT glucose Collection Time: 12/25/14 10:58 AM Result Value Ref Range GLUCOSE,POC SCREEN 337 (H) 65 - 99 mg/dL POCT glucose Collection Time: 12/25/14 4:29 PM Result Value Ref Range GLUCOSE,POC SCREEN 147 (H) 65 - 99 mg/dL POCT glucose Collection Time: 12/25/14 9:12 PM Result Value Ref Range GLUCOSE,POC SCREEN 246 (H) 65 - 99 mg/dL Protime-INR Collection Time: 12/26/14 4:52 AM Result Value Ref Range INR 1.2 CBC W/Auto Diff (Reflex to Manual) Collection Time: 12/26/14 4:52 AM Result Value Ref Range WBC 5.94 3.80 - 11.00 K/uL RBC 3.73 3.70 - 5.10 M/uL HGB 9.6 (L) 11.3 - 15.5 g/dL HCT 29.8 (L) 34.0 - 46.0 % MCV 79.9 (L) 80.0 - 100.0 fl MCH 25.8 (L) 27.0 - 34.0 pg MCHC 32.3 32.0 - 35.5 g/dL RDW SD 42.4 37 - 53 fl PLT 256 150 - 400 K/uL MPV 8.8 fl DIFF TYPE AUTOMATED NEUTROPHILS 70.95 % LYMPHOCYTES 12.87 % MONOCYTES 12.98 % EOSINOPHILS 2.07 % BASOPHILS 1.13 % NEUTROPHILS ABS 4.21 1.90 - 7.40 K/uL LYMPHOCYTES ABS 0.76 (L) 1.00 - 3.90 K/uL MONOCYTES ABS 0.77 0.00 - 0.80 K/uL EOSINOPHILS ABS 0.12 0.00 - 0.50 K/uL BASOPHILS ABS 0.07 0.00 - 0.10 K/uL Basic metabolic panel Collection Time: 12/26/14 4:52 AM Result Value Ref Range SODIUM 128 (L) 135 - 143 mmol/L POTASSIUM 3.8 3.5 - 4.9 mmol/L CHLORIDE 97 (L) 99 - 109 mmol/L CO2 26 23 - 32 mmol/L ANION GAP AGAP 9 5 - 20 mmol/L GLUCOSE 136 (H) 65 - 99 mg/dL BUN 33 (H) 8 - 25 mg/dL CREATININE 0.89 0.50 - 1.00 mg/dL BUN/CREAT 37 CALCIUM 8.5 8.5 - 10.5 mg/dL EGFR >60 >60 mL/min/1.73m2 POCT glucose Collection Time: 12/26/14 5:22 AM Result Value Ref Range GLUCOSE,POC SCREEN 149 (H) 65 - 99 mg/dL PROBLEM LIST Principal Problem: Acute systolic congestive heart failure (HCC) Active Problems: Essential hypertension Type 2 diabetes mellitus with hyperglycemia (HCC) Microcytic anemia Hyponatremia Abnormal ECG Ischemic cardiomyopathy 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 Code Status: DNR/DNI ELLIOT ALONSO MD 12/26/2014 hrafa, Vick Deshpande MD - 12/26/2014 7:07 AM PDT Progress Notes by Vick Garcia MD-R2 at 10/02/28 707 Author: Vick Garcia MD-R2 Service: Hospitalist Author Type: Resident Filed: 12/26/14715 Date of Service: 12/26/14706 Status: Signed Child Advocate: Vick Garcia MD-R2 (Resident-Y2) Cosigner: Alonso Merida, DO at 12/27/14 0618 [facility] Service: Hospitalist Progress Note Pt: Catherine Carrasco AGE/SEX: 84 y.o. female ROOM: [address] [place] [address] : 1930 PCP: NAM CHACON ADMIT DATE: 12/22/2014 TODAY'S DATE: 12/26/2014 Hospital Day/Hospital Course: LOS: 4 days BRIEF SUMMARY: The patient is a 84 y.o. 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 She presented with bilateral leg swelling and shortne ss of breath for the last 2 weeks, being unable to walk a few steps without stopping due to dyspnea on exertion. Gained 15 lbs in the last 2 weeks Also, she has additional complaints o f poor urine output. No fever or chills. 2 weeks prior she was seen by her PCP and diagnosed with acute bronchitis, given keflex x 7 days and given flu vaccine. After which she felt sh aky, and weak and then developed the bilateral leg swelling. She was ordered for blood work by her PCP which showed abnormal troponin so that was the reason she was sent to ED. EKG in [facility] showed 84 NSR incomplete RBB, inferior, anterior and later q waves - unchanged EKG here CXR showed cardiomegaly, mild congestion, fluid in fissure Per report. I requested lasix be given in [facility] - she reports feeling better. She was started there on hepari n drip. At [facility] patient had a cardiac cath performed by Dr. Alonso SUBJECTIVE: Patient was seen and examined today. Patient states that she feels a lot better today as co mpared to her initial presenting symptoms. Denies any chest pain or shortness of breath at t his time. Denies any nausea, vomiting or diarrhea. Patient had a cardiac cath yesterday by Rolo Alonso who discovered that patient's anterior/inferior apex was hypokinetic/akinetic. Th erefore medical management was suggested. Viability study can be considered in the future is patient's overall cardiovascular status improves. No Lightheadedness or dizziness. Due to p atients akinetic/hypokinetic heart patient is at risk for thrombus formation resulting in CV A, hence it was recommended that patient be started on aspirin/warfarin therapy and anticoag ulate to appropriate therapy for a goal INR of 2.0 - 3.0 Scheduled Medications: aspirin 325 mg Oral Daily with breakfast carvedilol 3.125 mg Oral BID WC enoxaparin 1 mg/kg Subcutaneous Q12H furosemide 20 mg Oral Daily insulin aspart 0-3 Units Subcutaneous Nightly insulin aspart 0-6 Units Subcutaneous TID AC isosorbide mononitrate 30 mg Oral Daily lisinopril 5 mg Oral Daily sodium chloride 10 mL Intravenous Q8H warfarin 5 mg Oral Daily Continuous Infusions dextrose PRN Medications acetaminophen OR acetaminophen, dextrose, dextrose, dextrose, glucagon, glucagon, nitro GLYCERIN, ondansetron OR ondansetron, polyethylene glycol Allergy: Allergies Allergen Reactions Prevacid [Lansoprazole] Diarrhea and Nausea and Vomiting OBJECTIVE: Vitals: Patient Vitals for the past 24 hrs: BP Temp Temp src Pulse Resp SpO2 Weight 12/26/14 0420 126/59 mmHg 97.8 F (36.6 C) Oral 61 16 96 % 74.844 kg (165 lb) 12/25/14 2308 118/65 mmHg 97.8 F (36.6 C) Oral 62 16 96 % - 12/25/14 1903 (!) 82/47 mmHg 98.1 F (36.7 C) Oral 67 16 99 % - 12/25/14 1456 93/52 mmHg 98.2 F (36.8 C) Oral 83 18 93 % - 12/25/14 1100 91/44 mmHg 97.7 F (36.5 C) Oral 67 18 100 % - I&O Detailed Table: Intake/Output Summary (Last 24 hours) at 12/26/14 0707 Last data filed at 12/26/14 0423 Gross per 24 hour Intake 1740 ml Output 550 ml Net 1190 ml Patient Vitals for the past 96 hrs: Weight 12/26/14 0420 74.844 kg (165 lb) 12/24/14 0315 73.6 kg (162 lb 4.1 oz) 12/23/14 0310 74.3 kg (163 lb 12.8 oz) 12/22/14 1753 76.9 kg (169 lb 8.5 oz) Hemodynamics Last 24hrs: Physical Examination: Physical Exam Constitutional: She is oriented to person, place, and time. She appears well-developed and well-nourished. No distress. HENT: Head: Normocephalic. Right Ear: External ear normal. Left Ear: External ear normal. Nose: Nose normal. Mouth/Throat: Oropharynx is clear and moist. No oropharyngeal exudate. Eyes: Conjunctivae and EOM are normal. Pupils are equal, round, and reactive to light. Righ t eye exhibits no discharge. Left eye exhibits no discharge. No scleral icterus. Neck: Normal range of motion. Neck supple. No JVD present. No tracheal deviation present. Cardiovascular: Normal rate, regular rhythm, normal heart sounds and intact distal pulses. Exam reveals no gallop and no friction rub. No murmur heard. Pulmonary/Chest: Effort normal and breath sounds normal. No stridor. No respiratory distres s. She has no wheezes. She has no rales. She exhibits no tenderness. Abdominal: Soft. Bowel sounds are normal. She exhibits no distension and no mass. There is no tenderness. There is no rebound and no guarding. No hernia. Genitourinary: Did not examine Musculoskeletal: Normal range of motion. She exhibits no edema or tenderness. Lymphadenopathy: She has no cervical adenopathy. Neurological: She is alert and oriented to person, place, and time. She exhibits normal mus carmen tone. Coordination normal. Skin: Skin is warm. No rash noted. She is not diaphoretic. No erythema. No pallor. Psychiatric: She has a normal mood and affect. Her behavior is normal. LABS: Recent Labs Lab 12/26/14 0452 12/25/14 0441 12/24/14 0517 WBC 5.94 6.15 7.50 HGB 9.6* 9.7* 10.3* HCT 29.8* 30.0* 32.2* PLT 256 261 274 NEUTOPHILPCT 70.95 68.01 76.30 MONOPCT 12.98 12.95 12.65 Recent Labs Lab 12/26/14 0452 12/25/14 0441 12/24/14 0517 12/22/14 1824 NA 128* 129* 127* < > 137 K 3.8 3.7 3.8 < > 3.7 CL 97* 98* 97* < > 100 CO2 26 23 24 < > 26 BUN 33* 27* 24 < > 19 CREATININE 0.89 0.88 0.78 < > 0.86 PROT -- -- -- -- 6.8 BILITOT -- -- -- -- 0.8 ALT -- -- -- -- 35 AST -- -- -- -- 17 < > = values in this interval not displayed. 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 Denies any shortness of breath. Eduardo es any abdominal pain. Dr. Alonso performed a cardiac cath yesterday and discovered that veronica stuart's anterior/inferior apex was hypokinetic/akinetic. Therefore medical management was celaya ggested. Viability study can be considered in the future is patient's overall cardiovascular status improves. Due to patients akinetic/hypokinetic heart patient is at risk for thrombus formation resulting in CVA, hence it was recommended that patient be started on aspirin/war farin therapy and anticoagulate to appropriate therapy for a goal INR of 2.0 - 3.0 Active Problems: Essential hypertension Currently well managed medically will continue to current medication regimen Type 2 diabetes mellitus with hyperglycemia (HCC) Will continue the current medical management. Monitor glucose closely. Microcytic anemia H&H stable at this time Hyponatremia Patient is still mildly hyponatremic but her sodium levels are trending up. Vick Garcia MD-R1 12/26/2014 7:07 AM onversio n Transaction, Provider Unknown - 12/25/2014 5:26 PM PDTFormatting of this note might be di fferent from the original. Nurse Progress Note by Mago Kelley RN at 12/25/14 172 Author: Mago Kelley RN Service: (none) Author Type: Registered Nurse Filed: 12/25/141728 Date of Service: 12/25/141725 Status: Signed Child Advocate: Mago Kelley RN (Registered Nurse) Has been up in chair for most of shift. Has voided since gregory removed. No hematuria noted. No bleeding or hematoma in right groin. Coumadin started today. Possible discharge tomorrow . Family has been updated.Mago Kelley 12/25/2014 Elliot Manning MD - 12/25/2014 10:10 AM PDTFormatting of this note might be different from the o riginal. Progress Notes by Elliot Alonso MD at 12/25/14 1010 Author: Elliot Alonso MD Service: (none) Author Type: Physician Filed: 01/07/152111 Date of Service: 12/25/14 1010 Status: Signed Child Advocate: Elliot Alonso MD (Physician) Related Notes: Original Note by Elliot Alonso MD (Physician) filed at 12/25/14 1018 [facility] Service: Cardiology Progress Note Hospital Day: LOS: 3 days Post-Op Day: * No surgery found * SUBJECTIVE Patient Summary: DENIES CP, GROIN PAIN, INCREASED SOB Events Overnight: RHYTHM NSR/SB (SB ASX) OCCASIONAL ECTOPIC Scheduled Medications aspirin 325 mg Oral Daily with breakfast carvedilol 3.125 mg Oral BID WC furosemide 20 mg Oral Daily heparin (porcine) 5000 unit/0.5mL 5,000 Units Subcutaneous 3 times per day insulin aspart 0-3 Units Subcutaneous Nightly insulin aspart 0-6 Units Subcutaneous TID AC isosorbide mononitrate 30 mg Oral Daily lisinopril 5 mg Oral Daily sodium chloride 10 mL Intravenous Q8H Continuous Infusions dextrose PRN Medications acetaminophen OR acetaminophen, dextrose, dextrose, dextrose, glucagon, glucagon, nitro GLYCERIN, ondansetron OR ondansetron, polyethylene glycol OBJECTIVE Vital Signs: BP 118/66 mmHg | Pulse 67 | Temp(Src) 97.5 F (36.4 C) (Axillary) | Resp 16 | Ht 1.702 m (5' 7") | Wt 73.6 kg (162 lb 4.1 oz) | BMI 25.41 kg/m2 | SpO2 98% Temp: [97.5 F (36.4 C)-98.6 F (37 C)] 97.5 F (36.4 C) (12/25 658) BP: (86-119)/(48-66) 118/66 mmHg (12/25 658) Heart Rate: [58-76] 67 (12/25 658) Resp: [16-18] 16 (12/25 658) SpO2: [90 %-100 %] 98 % (12/25 658) Physical Exam Constitutional: She has a sickly appearance. No distress. SOMEWHAT FRAIL BORDERLINE MALNOURISHED HENT: Head: Normocephalic and atraumatic. Right Ear: External ear normal. Left Ear: External ear normal. Nose: Nose normal. Mouth/Throat: Oropharynx is clear and moist. No oropharyngeal exudate. Eyes: EOM are normal. Right eye exhibits no discharge. Left eye exhibits no discharge. No s cleral icterus. Neck: Neck supple. No JVD present. No tracheal deviation present. No thyromegaly present. Cardiovascular: Normal rate and regular rhythm. Exam reveals no gallop, no S3, no distant heart sounds and no friction rub. Murmur heard. Systolic murmur is present with a grade of 2/6 Pulses: Radial pulses are 2+ on the right side, and 2+ on the left side. Pulmonary/Chest: No accessory muscle usage. No tachypnea and no bradypnea. No respiratory d istress. She has decreased breath sounds. She has no wheezes. She has no rhonchi. She has no rales. She exhibits no tenderness. DULL AT BASES Abdominal: Soft. Bowel sounds are normal. She exhibits no distension. There is no tendernes s. There is no rebound and no guarding. R GROIN WITHOUT TENDERNESS OR SIGNIFICANT HEMATOMA Lymphadenopathy: She has no cervical adenopathy. Neurological: She is alert. No cranial nerve deficit. Coordination normal. ORIENTED TO PERSON, PLACE NO DEFINITE NEW FOCAL DEFICIT Skin: Skin is warm and dry. No rash noted. She is not diaphoretic. No erythema. There is pa llor. Psychiatric: She has a normal mood and affect. Her speech is normal. She is slowed (MILDLY) . NO CHANGE IN COGNITION Vitals reviewed. DATA Results for orders placed or performed during the hospital encounter of 12/22/14 (from the past 24 hour(s)) POCT glucose Collection Time: 12/24/14 11:16 AM Result Value Ref Range GLUCOSE,POC SCREEN 181 (H) 65 - 99 mg/dL POCT glucose Collection Time: 12/24/14 4:13 PM Result Value Ref Range GLUCOSE,POC SCREEN 167 (H) 65 - 99 mg/dL POCT glucose Collection Time: 12/24/14 6:17 PM Result Value Ref Range GLUCOSE,POC SCREEN 172 (H) 65 - 99 mg/dL POCT glucose Collection Time: 12/24/14 9:05 PM Result Value Ref Range GLUCOSE,POC SCREEN 213 (H) 65 - 99 mg/dL CBC W/Auto Diff (Reflex to Manual) Collection Time: 12/25/14 4:41 AM Result Value Ref Range WBC 6.15 3.80 - 11.00 K/uL RBC 3.79 3.70 - 5.10 M/uL HGB 9.7 (L) 11.3 - 15.5 g/dL HCT 30.0 (L) 34.0 - 46.0 % MCV 79.1 (L) 80.0 - 100.0 fl MCH 25.6 (L) 27.0 - 34.0 pg MCHC 32.4 32.0 - 35.5 g/dL RDW SD 42.0 37 - 53 fl PLT 261 150 - 400 K/uL MPV 8.9 fl DIFF TYPE AUTOMATED NEUTROPHILS 68.01 % LYMPHOCYTES 16.34 % MONOCYTES 12.95 % EOSINOPHILS 1.45 % BASOPHILS 1.25 % NEUTROPHILS ABS 4.19 1.90 - 7.40 K/uL LYMPHOCYTES ABS 1.01 1.00 - 3.90 K/uL MONOCYTES ABS 0.80 0.00 - 0.80 K/uL EOSINOPHILS ABS 0.09 0.00 - 0.50 K/uL BASOPHILS ABS 0.08 0.00 - 0.10 K/uL Basic metabolic panel Collection Time: 12/25/14 4:41 AM Result Value Ref Range SODIUM 129 (L) 135 - 143 mmol/L POTASSIUM 3.7 3.5 - 4.9 mmol/L CHLORIDE 98 (L) 99 - 109 mmol/L CO2 23 23 - 32 mmol/L ANION GAP AGAP 12 5 - 20 mmol/L GLUCOSE 139 (H) 65 - 99 mg/dL BUN 27 (H) 8 - 25 mg/dL CREATININE 0.88 0.50 - 1.00 mg/dL BUN/CREAT 31 CALCIUM 8.3 (L) 8.5 - 10.5 mg/dL EGFR >60 >60 mL/min/1.73m2 POCT glucose Collection Time: 12/25/14 5:02 AM Result Value Ref Range GLUCOSE,POC SCREEN 174 (H) 65 - 99 mg/dL PROBLEM LIST Principal Problem: Acute systolic congestive heart failure (HCC) Active Problems: Essential hypertension Type 2 diabetes mellitus with hyperglycemia (HCC) Microcytic anemia Hyponatremia Abnormal ECG Ischemic cardiomyopathy 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 I t is believed that there is likely no significant viability of the anterior anterior apex ap ical inferior wall based on the wall motion and overall findings. Given the lack of chest pa in and comorbidities, it is felt that she is best served by medical management unless she be gins to have significant recurrent chest pain or other ongoing symptoms. If there are worsen ing chest pain symptoms or other cardiac symptoms, a viability study could be entertained. W ith the anterior anterior apex inferior apex basically being akinetic to dyskinetic, she is at high risk for thrombus formation and on this basis a cerebrovascular accident. I would ad d warfarin at this time and decrease aspirin to 81 mg a day as the INR approaches a therapeu tic level, but she will need protime levels monitored. For now I agree with furosemide, vamsi nopril, carvedilol, and isosorbide mononitrate which may improve subendocardial blood flow. Prognosis, however, remains quite guarded if not poor. Code Status: DNR/DNI ELLIOT ALONSO MD 12/25/2014 hah, Vick Deshpande MD - 12/25/2014 7:33 AM PDT Progress Notes by Vick Garcia MD-R2 at 12/25/14732 Author: KAYCE OrozcoR2 Service: Hospitalist Author Type: Resident Filed: 12/25/1445 Date of Service: 12/25/14732 Status: Attested Child Advocate: KAYCE OrozcoR2 (Resident-Y2) Cosigner: Alonso Merida DO at 12/25/14 1052 Attestation signed by Alonso Merida DO at 12/25/14 1052 Patient seen/examined with resident. I agree with note including physical exam and assessme nt/plan. D/W Dr Alonso and cath reviewed. He recommends warfarin anticoagulation due to apex akines is and threat of clot formation at that spot. I d/w patient and she is willing to proceed wi th warfarin anticoagulation. Goal INR 2-3. Viability study can be considered in future, not for this hospitalization. Alonso Merida DO 12/25/2014 10:52 AM [facility] Service: Hospitalist Progress Note Pt: Catherine Carrasco AGE/SEX: 84 y.o. female ROOM: 323/323-2 : 1930 PCP: NAM CHACON ADMIT DATE: 12/22/2014 TODAY'S DATE: 12/25/2014 Hospital Day/Hospital Course: LOS: 3 days BRIEF SUMMARY: The patient is a 84 y.o. 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 She presented with bilateral leg swell ing and shortness of breath for the last 2 weeks, being unable to walk a few steps without s topping due to dyspnea on exertion. Gained 15 lbs in the last 2 weeks Also, she has addition al complaints of poor urine output. No fever or chills. 2 weeks prior she was seen by her PC P and diagnosed with acute bronchitis, given keflex x 7 days and given flu vaccine. After wh ich she felt shaky, and weak and then developed the bilateral leg swelling. She was ordered for blood work by her PCP which showed abnormal troponin so that was the reason she was sent to ED EKG in [facility] showed 84 NSR incomplete RBB, inferior, anterior and later q waves - un changed EKG here CXR showed cardiomegaly, mild congestion, fluid in fissure Per report I requested lasix be given in [facility] - she reports feeling better She was started there on heparin drip SUBJECTIVE: Patient was seen and examined today. Patient states that she feels a lot better today as co mpared to her initial presenting symptoms. Patient had a cardiac cath yesterday by Dr. Richard rader. States that she feels better after the procedure. No chest pain, shortness of breath. No nausea, vomiting or diarrhea. No Lightheadedness or dizziness. Scheduled Medications: aspirin 325 mg Oral Daily with breakfast carvedilol 3.125 mg Oral BID WC furosemide 40 mg Intravenous Daily heparin (porcine) 5000 unit/0.5mL 5,000 Units Subcutaneous 3 times per day insulin aspart 0-3 Units Subcutaneous Nightly insulin aspart 0-6 Units Subcutaneous TID AC isosorbide mononitrate 30 mg Oral Daily lisinopril 5 mg Oral Daily sodium chloride 10 mL Intravenous Q8H Continuous Infusions dextrose PRN Medications acetaminophen OR acetaminophen, dextrose, dextrose, dextrose, glucagon, glucagon, nitro GLYCERIN, ondansetron OR ondansetron, polyethylene glycol Allergy: Allergies Allergen Reactions Prevacid [Lansoprazole] Diarrhea and Nausea and Vomiting OBJECTIVE: Vitals: Patient Vitals for the past 24 hrs: BP Temp Temp src Pulse Resp SpO2 12/25/14 0659 118/66 mmHg 97.5 F (36.4 C) Axillary 67 16 98 % 12/25/14 0251 109/53 mmHg 98 F (36.7 C) Axillary 60 16 94 % 12/25/14 0005 118/53 mmHg - - 61 18 92 % 12/24/14 2301 102/53 mmHg 97.9 F (36.6 C) Axillary 60 16 93 % 12/24/14 210 97/51 mmHg - - 60 - 97 % 12/24/142030 94/52 mmHg - - 58 - 97 % 12/24/142000 (!) 86/49 mmHg - - 60 - 91 % 12/24/14 193 (!) 87/48 mmHg - - 60 - 95 % 12/24/14 1901 113/53 mmHg - - 76 18 95 % 12/24/14 1830 119/57 mmHg - - 68 16 96 % 12/24/14 1800 109/58 mmHg - - 64 16 91 % 12/24/14 1745 108/54 mmHg - - 64 16 90 % 12/24/14 1730 116/55 mmHg - - 66 16 95 % 12/24/14 1715 92/66 mmHg - - 65 16 95 % 12/24/14 1519 91/52 mmHg 98.1 F (36.7 C) Oral 66 16 100 % 12/24/14 1144 100/55 mmHg 98.6 F (37 C) Oral 68 18 99 % 12/24/14 0759 99/52 mmHg 99 F (37.2 C) Oral 73 16 98 % I&O Detailed Table: Intake/Output Summary (Last 24 hours) at 12/25/14 0733 Last data filed at 12/25/14 0325 Gross per 24 hour Intake 700.17 ml Output 1025 ml Net -324.83 ml Patient Vitals for the past 96 hrs: Weight 12/24/14 0315 73.6 kg (162 lb 4.1 oz) 12/23/14 0310 74.3 kg (163 lb 12.8 oz) 12/22/14 1753 76.9 kg (169 lb 8.5 oz) Hemodynamics Last 24hrs: Physical Examination: Physical Exam Constitutional: She is oriented to person, place, and time. She appears well-developed and well-nourished. No distress. HENT: Head: Normocephalic. Right Ear: External ear normal. Left Ear: External ear normal. Nose: Nose normal. Mouth/Throat: Oropharynx is clear and moist. No oropharyngeal exudate. Eyes: Conjunctivae and EOM are normal. Pupils are equal, round, and reactive to light. Righ t eye exhibits no discharge. Left eye exhibits no discharge. No scleral icterus. Neck: Normal range of motion. Neck supple. No JVD present. No tracheal deviation present. Cardiovascular: Normal rate, regular rhythm, normal heart sounds and intact distal pulses. Exam reveals no gallop and no friction rub. No murmur heard. Pulmonary/Chest: Effort normal and breath sounds normal. No stridor. No respiratory distres s. She has no wheezes. She has no rales. She exhibits no tenderness. Abdominal: Soft. Bowel sounds are normal. She exhibits no distension and no mass. There is no tenderness. There is no rebound and no guarding. No hernia. Genitourinary: Did not examine Musculoskeletal: Normal range of motion. She exhibits no edema or tenderness. Lymphadenopathy: She has no cervical adenopathy. Neurological: She is alert and oriented to person, place, and time. She exhibits normal mus carmen tone. Coordination normal. Skin: Skin is warm. No rash noted. She is not diaphoretic. No erythema. No pallor. Psychiatric: She has a normal mood and affect. Her behavior is normal. LABS: Recent Labs Lab 12/25/1444012/24/1451612/23/14618 WBC 6.15 7.50 5.55 HGB 9.7* 10.3* 10.4* HCT 30.0* 32.2* 32.2* PLT 261 274 285 NEUTOPHILPCT 68.01 76.30 71.98 MONOPCT 12.95 12.65 13.13 Recent Labs Lab 12/25/1444012/24/1451612/23/1461812/22/14 1824 NA 129* 127* 129* 137 K 3.7 3.8 3.9 3.7 CL 98* 97* 98* 100 CO2 23 24 23 26 BUN 27* 24 23 19 CREATININE 0.88 0.78 0.85 0.86 PROT -- -- -- 6.8 BILITOT -- -- -- 0.8 ALT -- -- -- 35 AST -- -- -- 17 Phosphorus: Lab Results Component Value Date PHOS 3.9 12/24/2014 Invalid input(s): LABALBU Recent Labs Lab 12/24/14 0512/23/14 0619 12/22/14 1824 MG 1.9 1.9 1.8 No results for input(s): AMYLASE in the last 168 hours. No results for input(s): PHART, PO2ART, GQE3AIV, I6EGAKGZ, BEART in the last 168 hours. 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 Denies any shortness of breath. Eduardo es any abdominal pain. Dr. Alonso performed a cardiac cath yesterday and patient tolerated the procedure well. Does not have any acute or chronic complaints at this time. Should consi alfonso D/C for the gregory. Active Problems: Essential hypertension Currently well managed medically will continue to current medication regimen Type 2 diabetes mellitus with hyperglycemia (HCC) Will continue the current medical management. Monitor glucose closely. Microcytic anemia H&H stable at this time Hyponatremia Patient is still mildly hyponatremic but her sodium levels are trending up. Vick Garcia MD-R1 12/25/2014 7:33 AM onversio n Transaction, Provider Unknown - 12/25/2014 5:08 AM PDTFormatting of this note might be di fferent from the original. Therapy Progress Note by Tiarra Nguyen RN at 12/25/14507 Author: Tiarra Nguyen RN Service: (none) Author Type: Registered Nurse Filed: 12/25/14516 Date of Service: 12/25/14507 Status: Signed Child Advocate: Tiarra Nguyen RN (Registered Nurse) Pt resting in bed, slept most of the night. VSS, c/o shoulder pain tylenol given x1 with g ood relief noted. Dressing to RT groin unchanged since shift assessment, no hematoma, or ble eding from marked area. Pt has been in bed, hourly rounding unremarkable, will cont to monit or. Tiarra Nguyen onver loi Transaction, Provider Unknown - 12/24/2014 5:15 PM PDT Nurse Progress Note by Mago Kelley RN at 12/24/14 1715 Author: Mago Kelley RN Service: (none) Author Type: Registered Nurse Filed: 12/24/14 1809 Date of Service: 12/24/141714 Status: Addendum Child Advocate: Mago Kelley RN (Registered Nurse) Related Notes: Original Note by Mago Kelley RN (Registered Nurse) filed at 12/24/14 174 3 Returned from [facility] per stretcher, awake and alert. Right groin clean and dry at site. M inx in place with small area of bleeding which was marked. No new bleeding or hematoma. Hoa ent instructed to keep leg staight at this time. Vital signs stable.Mago Kelley 5 onver loi Transaction, Provider Unknown - 12/24/2014 4:20 PM PDT Nurse Progress Note by Mago Kelley RN at 12/24/14 1620 Author: Mago Kelley RN Service: (none) Author Type: Registered Nurse Filed: 12/24/14 1640 Date of Service: 12/24/14 1620 Status: Signed Child Advocate: Mago Kelley RN (Registered Nurse) Transferred to [facility].Mago Kelley 12/24/2014 Alonso Camilo DO - 12/24/2014 12:47 PM PDTFormatting of this note might be different from the rohit ginal. Progress Notes by Alonso Merida DO at 12/24/14 7892 Author: Alonso Merida DO Service: Hospitalist Author Type: Physician Filed: 12/24/14 0114 Date of Service: 12/24/141246 Status: Signed Child Advocate: Alonso Merida DO (Physician) PROGRESS NOTE 12/24/2014 for Catherine Carrasco on the hospitalist service. ASSESSMENT & PLAN Acute Systolic CHF Continue strict I/O and daily weights, goal decrease weight and neg fluid balance. Will con tinue IV furosemide for now to achieve this. Symptoms improving on this regimen. TRISTON gregory. Suspect ischemic etiology. Dr Alonso consulting. He may recommend cath, not sure if patien t will agree to procedure vs just med management. HTN Holding home rx lisinopril-HCTZ and for now giving carvedilol/lisinopril. DM2 Hold orals for now, ISS, titrate as needed. 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 OBJECTIVE Temp: [98 F (36.7 C)-99 F (37.2 C)] 98.6 F (37 C) (12/25 1143) BP: (99-121)/(52-56) 100/55 mmHg (12/25 1143) Heart Rate: [68-73] 68 (12/25 1143) Resp: [16-18] 18 (12/25 1143) SpO2: [95 %-100 %] 99 % (12/25 1143) Weight: [73.6 kg (162 lb 4.1 oz)] 73.6 kg (162 lb 4.1 oz) (12/24 031) Physical exam: NAD AOx3 HENT - MMM, conjunctivae normal Heart - RRR no murmur, no JVD, normal radial / DP pulses B/L Lungs - Low effort, crackles at bases, upper lobes clear, no resp distress Abd - SNTND +BSx4 Ext - Good ROM no tenderness, + mild dependent pitting edema Skin - normal no lesion CBC: Lab Results Component Value Date WBC 7.50 12/24/2014 RBC 4.05 12/24/2014 HGB 10.3* 12/24/2014 HCT 32.2* 12/24/2014 MCV 79.6* 12/24/2014 MCH 25.6* 12/24/2014 MCHC 32.1 12/24/2014 RDW 41.6 12/24/2014 PLT 274 12/24/2014 MPV 8.8 12/24/2014 DIFFTYPE AUTOMATED 12/24/2014 CMP: Lab Results Component Value Date NA 127* 12/24/2014 K 3.8 12/24/2014 CL 97* 12/24/2014 CO2 24 12/24/2014 ANIONGAP 10 12/24/2014 GLUF 138* 12/24/2014 BUN 24 12/24/2014 CREATININE 0.78 12/24/2014 BCR 31 12/24/2014 CA 9.0 12/24/2014 PROT 6.8 12/22/2014 ALB 3.5 12/22/2014 GLOB 3.3 12/22/2014 BILITOT 0.8 12/22/2014 ALP 74 12/22/2014 AST 17 12/22/2014 ALT 35 12/22/2014 EGFR >60 12/24/2014 Echo cardiac adult complete [ECHO50] Status: Final result Study Result Patient Name: CATHERINE CARRASCO Date of : 1930 Performing Physician: Radha Pinto MD INDICATIONS NSTEMI CONCLUSIONS 1. Overall left ventricular systolic function is severely impaired with, an EF between 25 - 30 %. 2. There are severe wall motion abnormalities affecting mid anteroseptal, apical, and apica l lateral [place], preserving the apex. This is consistant with Takotsubo cardiomyopathy, alth ough CAD cannot be ruled out. 3. Mild aortic stenosis with peak/mean pressure gradient of 6.21mmHg / 3.03mmHg, the aortic valve area by continuity equation is 1.8cm. 4. Mild mitral regurgitation is present. 5. Right ventricular systolic pressure (pulmonary artery systolic pressure) is normal at < 35 mmHg. 6. No clot visualized MEDICATIONS aspirin 325 mg Oral Daily with breakfast carvedilol 3.125 mg Oral BID WC furosemide 40 mg Intravenous Daily heparin (porcine) 5000 unit/0.5mL 5,000 Units Subcutaneous 3 times per day insulin aspart 0-3 Units Subcutaneous Nightly insulin aspart 0-6 Units Subcutaneous TID AC lisinopril 5 mg Oral Daily sodium chloride 10 mL Intravenous Q8H dextrose sodium chloride (IV) Stopped (12/24/14 1243) PRN: acetaminophen OR acetaminophen, dextrose, dextrose, dextrose, glucagon, glucagon, nitro GLYCERIN, ondansetron OR ondansetron, polyethylene glycol Signature: Alonso Merida DO 12/24/2014 12:47 PM onversion Transaction , Provider Unknown - 12/24/2014 4:42 AM PDT Nurse Progress Note by Tiarra Nguyen RN at 12/24/14441 Author: Tiarra Nguyen RN Service: (none) Author Type: Registered Nurse Filed: 12/24/14450 Date of Service: 12/24/14441 Status: Signed Child Advocate: Tiarra Nguyen RN (Registered Nurse) Pt is alert, oriented x 4. VSS denies pain or discomfort. Urine cont tinged with blood, gildardo e brownish sediment noted. Urine output for 8 hrs is 240. Pt lost about 1kg weight today. No other acute changes to shift assessment, will cont to monitor. Tiarra Nguyen onver loi Transaction, Provider Unknown - 12/23/2014 5:27 PM PDT Nurse Progress Note by Nikolai Ariza RN at 12/23/141726 Author: Nikolai Ariza RN Service: (none) Author Type: Registered Nurse Filed: 12/23/14 2514 Date of Service: 12/23/141726 Status: Signed Child Advocate: Jainism J Ariza, RN (Registered Nurse) Pt A&O, VSS, pt denies SOB, pain. The gregory showed some blood in the urine. Dr. Merida was n otified. Pt resting in bed now. Will continue to monitor. Nikolai Arzia RN rownAlonso DO - 12/23/2014 2:41 PM PDTFormatting of this note might be different from the rohit ginal. Progress Notes by Alonso Merida DO at 12/23/14 1441 Author: Alonso Merida DO Service: Hospitalist Author Type: Physician Filed: 12/23/14 4745 Date of Service: 12/23/14 144 Status: Signed Child Advocate: Alonso Merida DO (Physician) PROGRESS NOTE 12/23/2014 for Catherine Carrasco on the hospitalist service. ASSESSMENT & PLAN CHF Presentation c/w CHF, unsure diastolic vs systolic, unsure chronicity. Await echo. Continue strict I/O and daily weights, goal decrease weight and neg fluid balance. Will continue IV furosemide for now to achieve this. Symptoms improving on this regimen. HTN Holding home rx lisinopril-HCTZ and for now giving carvedilol/lisinopril. Await echo result s for final med recs, monitor BP's. DM2 Hold orals for now, ISS, titrate as needed. Problem list: Principal Problem: Acute congestive heart failure (HCC) Active Problems: Essential hypertension Type 2 diabetes mellitus with hyperglycemia (HCC) Microcytic anemia Length of stay: 1 days DVT prophylaxis: HSQ Code status: DNR Disposition: inpatient SUBJECTIVE Patient seen/examined sitting in chair, feeling improved, leg swelling decreasing, dyspnea decreasing, no issues/complaints currently. OBJECTIVE Temp: [97.9 F (36.6 C)-98.3 F (36.8 C)] 98.3 F (36.8 C) (12/24 1123) BP: (96-133)/(54-66) 96/54 mmHg (12/24 1123) Heart Rate: [68-78] 68 (12/24 1123) Resp: [16-18] 16 (12/24 1123) SpO2: [96 %-98 %] 96 % (10/09 1124) Height: [170.2 cm (5' 7")] 170.2 cm (5' 7") (12/22 1752) Weight: [74.3 kg (163 lb 12.8 oz)-76.9 kg (169 lb 8.5 oz)] 74.3 kg (163 lb 12.8 oz) (12/23 309) BMI (Calculated): [26.6] 26.6 (12/22 1752) Physical exam: NAD AOx3 HENT - MMM, conjunctivae normal Heart - RRR no murmur, no JVD, normal radial / DP pulses B/L Lungs - Low effort, crackles at bases, upper lobes clear, no resp distress Abd - SNTND +BSx4 Ext - Good ROM no tenderness, + mild dependent pitting edema Skin - normal no lesion CBC: Lab Results Component Value Date WBC 5.55 12/23/2014 RBC 4.02 12/23/2014 HGB 10.4* 12/23/2014 HCT 32.2* 12/23/2014 MCV 80.0 12/23/2014 MCH 25.9* 12/23/2014 MCHC 32.4 12/23/2014 RDW 41.1 12/23/2014 PLT 285 12/23/2014 MPV 8.5 12/23/2014 DIFFTYPE AUTOMATED 12/23/2014 CMP: Lab Results Component Value Date NA 129* 12/23/2014 K 3.9 12/23/2014 CL 98* 12/23/2014 CO2 23 12/23/2014 ANIONGAP 12 12/23/2014 GLUF 105* 12/23/2014 BUN 23 12/23/2014 CREATININE 0.85 12/23/2014 BCR 27 12/23/2014 CA 8.8 12/23/2014 PROT 6.8 12/22/2014 ALB 3.5 12/22/2014 GLOB 3.3 12/22/2014 BILITOT 0.8 12/22/2014 ALP 74 12/22/2014 AST 17 12/22/2014 ALT 35 12/22/2014 EGFR >60 12/23/2014 MEDICATIONS aspirin 325 mg Oral Daily with breakfast carvedilol 3.125 mg Oral BID WC furosemide 40 mg Intravenous Daily insulin aspart 0-3 Units Subcutaneous Nightly insulin aspart 0-6 Units Subcutaneous TID AC lisinopril 5 mg Oral Daily sodium chloride 10 mL Intravenous Q8H dextrose PRN: acetaminophen OR acetaminophen, dextrose, dextrose, dextrose, glucagon, glucagon, nitro GLYCERIN, ondansetron OR ondansetron, polyethylene glycol Signature: Alonso Merida DO 12/23/2014 2:41 PM onversion Transaction , Provider Unknown - 12/23/2014 12:24 PM PDT Case Management by Candis Castro RN at 12/23/14 1224 Author: Candis Castro RN Service: (none) Author Type: Rug Washer Filed: 12/23/14 1245 Date of Service: 12/23/14 1224 Status: Signed Child Advocate: Candis Castro RN (Rug Washer) 12/23/14 1222 Discharge Planning Evaluation Admitting Diagnosis CHF Readmission No Living Arrangements Alone Support Systems Children;Family members Type of Residence Private residence House type House-1 story Steps to enter 1 Bathrooms on 1st Floor 1-Full Independent with ADL's Yes Independent with Mobility No-comment (Pt uses a cane) Home Care Services No Caregiver after Discharge Yes Caregiver Name Lory Crenshaw Relationship to Patient daughter Phone number [phone] Mental Status Oriented Prior functional status independent Anticipated Discharge Plan Post Acute Care Needs None at this time Plan communicated to patient/family Yes Resources Financial concerns No Transportation issues No Patient/Family concerns No Prescription Plan Yes Name of Pharmacy in [facility] Previous home health equipment No Anticipated Disposition Facility Type Home Met with patient and discussed discharge planning, Pt is a 84 y.o., female admitted from [facility] with CHF. Pt is alert and oriented, independent at home. Pt's daughter Lory and her grandson do th e driving, good family support. Pt denies coumadin use, denies DME other than a cane. No CM needs identified at this time. Patient's PCP is: Dr. Ifeanyi Regan Patient's insurance:Medicare/ [employer] Coverage concerns: no Medication coverage/concerns: no [facility] Bedside Delivery: no Community resources utilized / needed: tbd Assistance in transportation: daughter Lory Identification of any specific education / training: tbd Barriers to Discharge / Alternative housing needed: no Anticipated DCP: home Candis Castro RN CM onver loi Corderoaction, Provider Unknown - 12/22/2014 6:11 PM PDT Progress Notes by May Merida RPH at 12/22/141810 Author: May Merida RPH Service: (none) Author Type: Pharmacist Filed: 12/22/141810 Date of Service: 12/22/141810 Status: Signed Child Advocate: May Merida RPH (Pharmacist) Renal Dosing Monitoring: Catherine Carrasco 84 y.o. female Pharmacy dosing for renal function per Dr. Light No current SCr on file Plan per protocol: Unable to calculate CrCl until renal information updated. Pharmacy will continue monitoring patient for appropriate dosing per renal function. 12/22/2014 6:11 PM Pharmacist: May Merida docume nted in this encounter Plan of Treatment +--------+ + + + + | Date | Type | Specialty | Care Team | Description | +--------+ + + + + | 04/26/ | Appointment | Radiology | Trino, | | | 2019 | | | MD [address] | | | | | [address] | | | | | | [place] [address] | | | | | | [phone] | | | | | | | | +--------+ + + + + | 06/06/ | Office | Cardiology | Keila Kang | | | 2019 | Visit | | [address] | | | | | | [address] | | | | | | [place] [address] | | | | | | [phone] | | | | | | | | +--------+ + + + + documented as of this encounter Procedures + +--------+ + + + | Procedure Name | Priori | Date/Time | Associated Diagnosis | Comments | | | ty | | | | + +--------+ + + + | POC GLUCOSE | Routin | 12/26/2014 | | Results for this | | | e | 11:10 AM | | procedure are in the | | | | PDT | | results section. | + +--------+ + + + | POC GLUCOSE | Routin | 12/26/2014 | | Results for this | | | e | 5:22 AM | | procedure are in the | | | | PDT | | results section. | + +--------+ + + + | EXTERNAL LAB: CBC | Routin | 12/26/2014 | | Results for this | | | e | 4:52 AM | | procedure are in the | | | | PDT | | results section. | + +--------+ + + + | PROTIME INR | Routin | 12/26/2014 | | Results for this | | | e | 4:52 AM | | procedure are in the | | | | PDT | | results section. | + +--------+ + + + | BASIC METABOLIC | Routin | 12/26/2014 | | Results for this | | PANEL | e | 4:52 AM | | procedure are in the | | | | PDT | | results section. | + +--------+ + + + | POC GLUCOSE | Routin | 12/25/2014 | | Results for this | | | e | 9:12 PM | | procedure are in the | | | | PDT | | results section. | + +--------+ + + + | POC GLUCOSE | Routin | 12/25/2014 | | Results for this | | | e | 4:29 PM | | procedure are in the | | | | PDT | | results section. | + +--------+ + + + | POC GLUCOSE | Routin | 12/25/2014 | | Results for this | | | e | 10:58 AM | | procedure are in the | | | | PDT | | results section. | + +--------+ + + + | POC GLUCOSE | Routin | 12/25/2014 | | Results for this | | | e | 5:02 AM | | procedure are in the | | | | PDT | | results section. | + +--------+ + + + | EXTERNAL LAB: CBC | Routin | 12/25/2014 | | Results for this | | | e | 4:41 AM | | procedure are in the | | | | PDT | | results section. | + +--------+ + + + | BASIC METABOLIC | Routin | 12/25/2014 | | Results for this | | PANEL | e | 4:41 AM | | procedure are in the | | | | PDT | | results section. | + +--------+ + + + | POC GLUCOSE | Routin | 12/24/2014 | | Results for this | | | e | 9:05 PM | | procedure are in the | | | | PDT | | results section. | + +--------+ + + + | POC GLUCOSE | Routin | 12/24/2014 | | Results for this | | | e | 6:17 PM | | procedure are in the | | | | PDT | | results section. | + +--------+ + + + | CV CARDIAC PROCEDURE | Routin | 12/24/2014 | | Results for this | | | e | 5:08 PM | | procedure are in the | | | | PDT | | results section. | + +--------+ + + + | POC GLUCOSE | Routin | 12/24/2014 | | Results for this | | | e | 4:13 PM | | procedure are in the | | | | PDT | | results section. | + +--------+ + + + | POC GLUCOSE | Routin | 12/24/2014 | | Results for this | | | e | 11:16 AM | | procedure are in the | | | | PDT | | results section. | + +--------+ + + + | EXTERNAL LAB: CBC | Routin | 12/24/2014 | | Results for this | | | e | 5:17 AM | | procedure are in the | | | | PDT | | results section. | + +--------+ + + + | PHOSPHORUS | Routin | 12/24/2014 | | Results for this | | | e | 5:17 AM | | procedure are in the | | | | PDT | | results section. | + +--------+ + + + | MAGNESIUM | Routin | 12/24/2014 | | Results for this | | | e | 5:17 AM | | procedure are in the | | | | PDT | | results section. | + +--------+ + + + | BASIC METABOLIC | Routin | 12/24/2014 | | Results for this | | PANEL | e | 5:17 AM | | procedure are in the | | | | PDT | | results section. | + +--------+ + + + | POC GLUCOSE | Routin | 12/24/2014 | | Results for this | | | e | 5:15 AM | | procedure are in the | | | | PDT | | results section. | + +--------+ + + + | POC GLUCOSE | Routin | 12/23/2014 | | Results for this | | | e | 9:05 PM | | procedure are in the | | | | PDT | | results section. | + +--------+ + + + | POC GLUCOSE | Routin | 12/23/2014 | | Results for this | | | e | 4:04 PM | | procedure are in the | | | | PDT | | results section. | + +--------+ + + + | ECHO COMPLETE | Routin | 12/23/2014 | | Results for this | | | e | 3:03 PM | | procedure are in the | | | | PDT | | results section. | + +--------+ + + + | POC GLUCOSE | Routin | 12/23/2014 | | Results for this | | | e | 11:23 AM | | procedure are in the | | | | PDT | | results section. | + +--------+ + + + | EXTERNAL LAB: CBC | Routin | 12/23/2014 | | Results for this | | | e | 6:19 AM | | procedure are in the | | | | PDT | | results section. | + +--------+ + + + | LIPID PANEL | Routin | 12/23/2014 | | Results for this | | | e | 6:19 AM | | procedure are in the | | | | PDT | | results section. | + +--------+ + + + | TSH | Routin | 12/23/2014 | | Results for this | | | e | 6:19 AM | | procedure are in the | | | | PDT | | results section. | + +--------+ + + + | PHOSPHORUS | Routin | 12/23/2014 | | Results for this | | | e | 6:19 AM | | procedure are in the | | | | PDT | | results section. | + +--------+ + + + | B TYPE NATRIURETIC | Routin | 12/23/2014 | | Results for this | | PEPTIDE | e | 6:19 AM | | procedure are in the | | | | PDT | | results section. | + +--------+ + + + | MAGNESIUM | Routin | 12/23/2014 | | Results for this | | | e | 6:19 AM | | procedure are in the | | | | PDT | | results section. | + +--------+ + + + | HEMOGLOBIN A1C | Routin | 12/23/2014 | | Results for this | | | e | 6:19 AM | | procedure are in the | | | | PDT | | results section. | + +--------+ + + + | BASIC METABOLIC | Routin | 12/23/2014 | | Results for this | | PANEL | e | 6:19 AM | | procedure are in the | | | | PDT | | results section. | + +--------+ + + + | POC GLUCOSE | Routin | 12/23/2014 | | Results for this | | | e | 5:28 AM | | procedure are in the | | | | PDT | | results section. | + +--------+ + + + | URINALYSIS, REFLEX | Routin | 12/22/2014 | | Results for this | | MICROSCOPIC AND/OR | e | 11:55 PM | | procedure are in the | | CULTURE | | PDT | | results section. | + +--------+ + + + | URINALYSIS, | Routin | 12/22/2014 | | Results for this | | MICROSCOPIC ONLY | e | 11:55 PM | | procedure are in the | | | | PDT | | results section. | + +--------+ + + + | CULTURE, URINE | Routin | 12/22/2014 | | Results for this | | | e | 11:55 PM | | procedure are in the | | | | PDT | | results section. | + +--------+ + + + | TROPONIN I | Routin | 12/22/2014 | | Results for this | | | e | 9:50 PM | | procedure are in the | | | | PDT | | results section. | + +--------+ + + + | CK-MB | Routin | 12/22/2014 | | Results for this | | | e | 9:50 PM | | procedure are in the | | | | PDT | | results section. | + +--------+ + + + | CK TOTAL | Routin | 12/22/2014 | | Results for this | | | e | 9:50 PM | | procedure are in the | | | | PDT | | results section. | + +--------+ + + + | POC GLUCOSE | Routin | 12/22/2014 | | Results for this | | | e | 9:04 PM | | procedure are in the | | | | PDT | | results section. | + +--------+ + + + | XR CHEST 1 VIEW | Routin | 12/22/2014 | | Results for this | | | e | 6:42 PM | | procedure are in the | | | | PDT | | results section. | + +--------+ + + + | EXTERNAL LAB: CBC | Routin | 12/22/2014 | | Results for this | | | e | 6:24 PM | | procedure are in the | | | | PDT | | results section. | + +--------+ + + + | IRON AND IRON | Routin | 12/22/2014 | | Results for this | | BINDING CAPACITY | e | 6:24 PM | | procedure are in the | | | | PDT | | results section. | + +--------+ + + + | TROPONIN I | Routin | 12/22/2014 | | Results for this | | | e | 6:24 PM | | procedure are in the | | | | PDT | | results section. | + +--------+ + + + | CK-MB | Routin | 12/22/2014 | | Results for this | | | e | 6:24 PM | | procedure are in the | | | | PDT | | results section. | + +--------+ + + + | PTT | Routin | 12/22/2014 | | Results for this | | | e | 6:24 PM | | procedure are in the | | | | PDT | | results section. | + +--------+ + + + | PHOSPHORUS | Routin | 12/22/2014 | | Results for this | | | e | 6:24 PM | | procedure are in the | | | | PDT | | results section. | + +--------+ + + + | B TYPE NATRIURETIC | Routin | 12/22/2014 | | Results for this | | PEPTIDE | e | 6:24 PM | | procedure are in the | | | | PDT | | results section. | + +--------+ + + + | MAGNESIUM | Routin | 12/22/2014 | | Results for this | | | e | 6:24 PM | | procedure are in the | | | | PDT | | results section. | + +--------+ + + + | CK TOTAL | Routin | 12/22/2014 | | Results for this | | | e | 6:24 PM | | procedure are in the | | | | PDT | | results section. | + +--------+ + + + | COMPREHENSIVE | Routin | 12/22/2014 | | Results for this | | METABOLIC PANEL | e | 6:24 PM | | procedure are in the | | | | PDT | | results section. | + +--------+ + + + | ECG 12 LEAD | Routin | 12/22/2014 | | Results for this | | | e | 6:21 PM | | procedure are in the | | | | PDT | | results section. | + +--------+ + + + documented in this encounter Results POC Glucose (12/26/2014 11:10 AM PDT) + + + + + + | Component | Value | Ref Range | Performed | Pathologist | | | | | At | Signature | + + + + + + | Glucose, | 172 (H)Comment: Testing | 65 - 99 mg/dL | EXTERNAL | | | Fingerstick | performed at [facility] [place] | | [facility] | | | | [address];[place], [place] | | | | | | [address] | | | | + + + + + + + + | Specimen | + + | | + + + +---------+ + + | Performing | Address | City/State/Zipcode | Phone Number | | Organization | | | | + +---------+ + + | EXTERNAL LAB | | | | + +---------+ + + POC Glucose (12/26/2014 5:22 AM PDT) + + + + + + | Component | Value | Ref Range | Performed | Pathologist | | | | | At | Signature | + + + + + + | Glucose, | 149 (H)Comment: Testing | 65 - 99 mg/dL | EXTERNAL | | | Fingerstick | performed at [facility] [place] | | LAB | | | | [address];[place] | | | | | | [address] | | | | + + + + + + + + | Specimen | + + | | + + + +---------+ + + | Performing | Address | City/State/Zipcode | Phone Number | | Organization | | | | + +---------+ + + | EXTERNAL LAB | | | | + +---------+ + + Mignonime MAXINE (12/26/2014 4:52 AM PDT) + + + + + + | Component | Value | Ref Range | Performed | Pathologist | | | | | At | Signature | + + + + + + | INR | 1.2Comment: REFERENCE | | EXTERNAL | | | | RANGE:0.9 - 1.2 | | LAB | | | | NON-ANTICOAGULATED2.0 | | | | | | - 3.0 ALL OTHER | | | | | | THERAPEUTIC | | | | | | INDICATIONS2.5 - 3.5 | | | | | | MECHANICAL HEART VALVES, | | | | | | RECURRENT OR SYSTEMIC | | | | | | EMBOLISMTesting | | | | | | performed at [facility] [place] | | | | | | [facility];[place], [place] | | | | | | [address] | | | | + + + + + + + + | Specimen | + + | Blood specimen | | (specimen) | + + + +---------+ + + | Performing | Address | City/State/Zipcode | Phone Number | | Organization | | | | + +---------+ + + | EXTERNAL LAB | | | | + +---------+ + + External Lab: YUE (12/26/2014 4:52 AM PDT) + + + + + + | Component | Value | Ref Range | Performed | Pathologist | | | | | At | Signature | + + + + + + | WBC | 5.94Comment: Testing | 3.80 - 11.00 | EXTERNAL | | | | performed at [facility], [address] | K/uL | LAB | | | | [address], | | | | | | [place] [address] | | | | + + + + + + | RED CELL | 3.73Comment: Testing | 3.70 - 5.10 | EXTERNAL | | | COUNT | performed at [facility], [address] | M/uL | LAB | | | | [address], | | | | | | [place] [address] | | | | + + + + + + | Hgb | 9.6 (L)Comment: Testing | 11.3 - 15.5 | EXTERNAL | | | | performed at [facility], [address] | g/dL | LAB | | | | [address], | | | | | | [place] [address] | | | | + + + + + + | Hematocrit, | 29.8 (L)Comment: Testing | 34.0 - 46.0 % | EXTERNAL | | | POC | performed at [facility], [address] | | LAB | | | | [address], | | | | | | [place] [address] | | | | + + + + + + | MCV | 79.9 (L)Comment: Testing | 80.0 - 100.0 fl | EXTERNAL | | | | performed at [facility], [address] | | LAB | | | | [address], | | | | | | [place] [address] | | | | + + + + + + | MCH | 25.8 (L)Comment: Testing | 27.0 - 34.0 pg | EXTERNAL | | | | performed at [facility], [address] | | LAB | | | | [address], | | | | | | [place] [address] | | | | + + + + + + | MCHC | 32.3Comment: Testing | 32.0 - 35.5 | EXTERNAL | | | | performed at [facility], [address] | g/dL | LAB | | | | [address], | | | | | | [place] [address] | | | | + + + + + + | RDW-CV | 42.4Comment: Testing | 37 - 53 fl | EXTERNAL | | | | performed at [facility], [address] | | LAB | | | | [address], | | | | | | [place] [address] | | | | + + + + + + | Platelet | 256Comment: Testing | 150 - 400 K/uL | EXTERNAL | | | Count | performed at [facility], [address] | | LAB | | | Plasma | [address], | | | | | | [place] [address] | | | | + + + + + + | MPV | 8.8Comment: Testing | fl | EXTERNAL | | | | performed at [facility], [address] | | LAB | | | | [address], | | | | | | [place] [address] | | | | + + + + + + | Differentia | AUTOMATEDComment: | | EXTERNAL | | | l Type | Testing performed at | | LAB | | | | [facility], [address] | | | | | | [place] | | | | | | [address] | | | | + + + + + + | % Segmented | 70.95Comment: Testing | % | EXTERNAL | | | | performed at [facility], [address] | | LAB | | | Neutrophils | [address], | | | | | | [place] [address] | | | | + + + + + + | % | 12.87Comment: Testing | % | EXTERNAL | | | Lymphocytes | performed at [facility], [address] | | LAB | | | | [address], | | | | | | [place], [place] [address] | | | | + + + + + + | % Monocytes | 12.98Comment: Testing | % | EXTERNAL | | | | performed at [facility], [address] | | LAB | | | | [address], | | | | | | [place] [address] | | | | + + + + + + | % | 2.07Comment: Testing | % | EXTERNAL | | | Eosinophils | performed at [facility], [address] | | LAB | | | | [address], | | | | | | [place] [address] | | | | + + + + + + | % Basophils | 1.13Comment: Testing | % | EXTERNAL | | | | performed at [facility], [address] | | LAB | | | | [address], | | | | | | [place] [address] | | | | + + + + + + | Absolute | 4.21Comment: Testing | 1.90 - 7.40 | EXTERNAL | | | Segmented | performed at [facility], [address] | K/uL | LAB | | | Neutrophils | [address], | | | | | | [place] [address] | | | | + + + + + + | Absolute | 0.76 (L)Comment: Testing | 1.00 - 3.90 | EXTERNAL | | | Lymphocytes | performed at [facility], [address] | [address] | LAB | | | | [address], | | | | | | [place] [address] | | | | + + + + + + | Absolute | 0.77Comment: Testing | 0.00 - 0.80 | EXTERNAL | | | Monocytes | performed at [facility], [address] | K/uL | LAB | | | | [address], | | | | | | [place] [address] | | | | + + + + + + | Absolute | 0.12Comment: Testing | 0.00 - 0.50 | EXTERNAL | | | Eosinophils | performed at [facility], [address] | K/uL | LAB | | | | [address], | | | | | | [place] [address] | | | | + + + + + + | Absolute | 0.07Comment: Testing | 0.00 - 0.10 | EXTERNAL | | | Basophils | performed at [facility], [address] | K/uL | LAB | | | | [address], | | | | | | [place] [address] | | | | + + + + + + + + | Specimen | + + | Blood specimen | | (specimen) | + + + +---------+ + + | Performing | Address | City/State/Zipcode | Phone Number | | Organization | | | | + +---------+ + + | EXTERNAL LAB | | | | + +---------+ + + Basic Metabolic Panel (12/26/2014 4:52 AM PDT) + + + + + + | Component | Value | Ref Range | Performed | Pathologist | | | | | At | Signature | + + + + + + | Na | 128 (L)Comment: Testing | 135 - 143 | EXTERNAL | | | | performed at [facility], [address] | mmol/L | LAB | | | | [address], | | | | | | [place] [address] | | | | + + + + + + | K | 3.8Comment: Testing | 3.5 - 4.9 | EXTERNAL | | | | performed at [facility], [address] | mmol/L | LAB | | | | [address], | | | | | | [place] [address] | | | | + + + + + + | Cl | 97 (L)Comment: Testing | 99 - 109 mmol/L | EXTERNAL | | | | performed at [facility], [address] | | LAB | | | | [address], | | | | | | [place] [address] | | | | + + + + + + | CO2 | 26Comment: Testing | 23 - 32 mmol/L | EXTERNAL | | | | performed at [facility], [address] | | LAB | | | | [address], | | | | | | [place] [address] | | | | + + + + + + | Anion Gap | 9Comment: Testing | 5 - 20 mmol/L | EXTERNAL | | | | performed at [facility], [address] | | LAB | | | | [address], | | | | | | [place] [address] | | | | + + + + + + | Glucose, | 136 (H)Comment: Testing | 65 - 99 mg/dL | EXTERNAL | | | Fasting | performed at [facility], [address] | | LAB | | | | [address], | | | | | | [place] [address] | | | | + + + + + + | BUN | 33 (H)Comment: Testing | 8 - 25 mg/dL | EXTERNAL | | | | performed at [facility], [address] | | LAB | | | | [address], | | | | | | [place] [address] | | | | + + + + + + | Creatinine | 0.89Comment: Testing | 0.50 - 1.00 | EXTERNAL | | | | performed at [facility], [address] | mg/dL | LAB | | | | [address], | | | | | | [place] [address] | | | | + + + + + + | BUN/Creatin | 37Comment: Testing | | EXTERNAL | | | ine Ratio | performed at [facility], [address] | | LAB | | | | [address], | | | | | | [place] [address] | | | | + + + + + + | Calcium | 8.5Comment: Testing | 8.5 - 10.5 | EXTERNAL | | | | performed at [facility], [address] | mg/dL | LAB | | | | [address], | | | | | | [place] [address] | | | | + + + + + + | Estimated | >60Comment: GFR <60: | mL/min/1.73m2 | EXTERNAL | | | GFR | CHRONIC KIDNEY DISEASE, | | LAB | | | | IF FOUND OVER A 3 MONTH | | | | | | PERIOD.GFR <15: KIDNEY | | | | | | FAILURE.FOR | | | | | | AMERICANS, MULTIPLY THE | | | | | | CALCULATED GFR BY | | | | | | 1.210.Testing performed | | | | | | at [facility], [address] | | | | | | [facility], | | | | | | [place] [address] | | | | + + + + + + + + | Specimen | + + | Blood specimen | | (specimen) | + + + +---------+ + + | Performing | Address | City/State/Zipcode | Phone Number | | Organization | | | | + +---------+ + + | EXTERNAL LAB | | | | + +---------+ + + POC Glucose (12/25/2014 9:12 PM PDT) + + + + + + | Component | Value | Ref Range | Performed | Pathologist | | | | | At | Signature | + + + + + + | Glucose, | 246 (H)Comment: Testing | 65 - 99 mg/dL | EXTERNAL | | | Fingerstick | performed at [facility] [place] | | LAB | | | | [address];[place] | | | | | | [address] | | | | + + + + + + + + | Specimen | + + | | + + + +---------+ + + | Performing | Address | City/State/Zipcode | Phone Number | | Organization | | | | + +---------+ + + | EXTERNAL LAB | | | | + +---------+ + + POC Glucose (12/25/2014 4:29 PM PDT) + + + + + + | Component | Value | Ref Range | Performed | Pathologist | | | | | At | Signature | + + + + + + | Glucose, | 147 (H)Comment: Testing | 65 - 99 mg/dL | EXTERNAL | | | Fingerstick | performed at [facility] [place] | | LAB | | | | [address];[place] | | | | | | [address] | | | | + + + + + + + + | Specimen | + + | | + + + +---------+ + + | Performing | Address | City/State/Zipcode | Phone Number | | Organization | | | | + +---------+ + + | EXTERNAL LAB | | | | + +---------+ + + POC Glucose (12/25/2014 10:58 AM PDT) + + + + + + | Component | Value | Ref Range | Performed | Pathologist | | | | | At | Signature | + + + + + + | Glucose, | 337 (H)Comment: Testing | 65 - 99 mg/dL | EXTERNAL | | | Fingerstick | performed at [facility] [place] | | LAB | | | | [address];[place] | | | | | | [address] | | | | + + + + + + + + | Specimen | + + | | + + + +---------+ + + | Performing | Address | City/State/Zipcode | Phone Number | | Organization | | | | + +---------+ + + | EXTERNAL LAB | | | | + +---------+ + + POC Glucose (12/25/2014 5:02 AM PDT) + + + + + + | Component | Value | Ref Range | Performed | Pathologist | | | | | At | Signature | + + + + + + | Glucose, | 174 (H)Comment: Testing | 65 - 99 mg/dL | EXTERNAL | | | Fingerstick | performed at [facility] [place] | | LAB | | | | [address];[place], [place] | | | | | | [address] | | | | + + + + + + + + | Specimen | + + | | + + + +---------+ + + | Performing | Address | City/State/Zipcode | Phone Number | | Organization | | | | + +---------+ + + | EXTERNAL LAB | | | | + +---------+ + + External Lab: YUE (12/25/2014 4:41 AM PDT) + + + + + + | Component | Value | Ref Range | Performed | Pathologist | | | | | At | Signature | + + + + + + | WBC | 6.15Comment: Testing | 3.80 - 11.00 | EXTERNAL | | | | performed at [facility], [address] | K/uL | LAB | | | | [address], | | | | | | [place] [address] | | | | + + + + + + | RED CELL | 3.79Comment: Testing | 3.70 - 5.10 | EXTERNAL | | | COUNT | performed at [facility], [address] | M/uL | LAB | | | | [address], | | | | | | [place] [address] | | | | + + + + + + | Hgb | 9.7 (L)Comment: Testing | 11.3 - 15.5 | EXTERNAL | | | | performed at [facility], [address] | g/dL | LAB | | | | [address], | | | | | | [place] [address] | | | | + + + + + + | Hematocrit, | 30.0 (L)Comment: Testing | 34.0 - 46.0 % | EXTERNAL | | | POC | performed at [facility], [address] | | LAB | | | | [address], | | | | | | [place] [address] | | | | + + + + + + | MCV | 79.1 (L)Comment: Testing | 80.0 - 100.0 fl | EXTERNAL | | | | performed at [facility], [address] | | LAB | | | | [address], | | | | | | [place] [address] | | | | + + + + + + | MCH | 25.6 (L)Comment: Testing | 27.0 - 34.0 pg | EXTERNAL | | | | performed at [facility], [address] | | LAB | | | | [address], | | | | | | [place] [address] | | | | + + + + + + | MCHC | 32.4Comment: Testing | 32.0 - 35.5 | EXTERNAL | | | | performed at [facility], [address] | g/dL | LAB | | | | [address], | | | | | | [place] [address] | | | | + + + + + + | RDW-CV | 42.0Comment: Testing | 37 - 53 fl | EXTERNAL | | | | performed at [facility], [address] | | LAB | | | | [address], | | | | | | [place] [address] | | | | + + + + + + | Platelet | 261Comment: Testing | 150 - 400 K/uL | EXTERNAL | | | Count | performed at [facility], [address] | | LAB | | | Plasma | [address], | | | | | | [place] [address] | | | | + + + + + + | MPV | 8.9Comment: Testing | fl | EXTERNAL | | | | performed at [facility], [address] | | LAB | | | | [address], | | | | | | [place] [address] | | | | + + + + + + | Differentia | AUTOMATEDComment: | | EXTERNAL | | | l Type | Testing performed at | | LAB | | | | [facility], [address] | | | | | | [place] | | | | | | [address] | | | | + + + + + + | % Segmented | 68.01Comment: Testing | % | EXTERNAL | | | | performed at [facility], [address] | | LAB | | | Neutrophils | [address], | | | | | | [place] [address] | | | | + + + + + + | % | 16.34Comment: Testing | % | EXTERNAL | | | Lymphocytes | performed at [facility], [address] | | LAB | | | | [address], | | | | | | [place] [address] | | | | + + + + + + | % Monocytes | 12.95Comment: Testing | % | EXTERNAL | | | | performed at [facility], [address] | | LAB | | | | [address], | | | | | | [place] [address] | | | | + + + + + + | % | 1.45Comment: Testing | % | EXTERNAL | | | Eosinophils | performed at [facility], [address] | | LAB | | | | [address], | | | | | | [place] [address] | | | | + + + + + + | % Basophils | 1.25Comment: Testing | % | EXTERNAL | | | | performed at [facility], [address] | | LAB | | | | [address], | | | | | | [place] [address] | | | | + + + + + + | Absolute | 4.19Comment: Testing | 1.90 - 7.40 | EXTERNAL | | | Segmented | performed at [facility], [address] | K/uL | LAB | | | Neutrophils | [address], | | | | | | [place] [address] | | | | + + + + + + | Absolute | 1.01Comment: Testing | 1.00 - 3.90 | EXTERNAL | | | Lymphocytes | performed at [facility], [address] | K/uL | LAB | | | | [address], | | | | | | [place] [address] | | | | + + + + + + | Absolute | 0.80Comment: Testing | 0.00 - 0.80 | EXTERNAL | | | Monocytes | performed at [facility], [address] | K/uL | LAB | | | | [address], | | | | | | [place] [address] | | | | + + + + + + | Absolute | 0.09Comment: Testing | 0.00 - 0.50 | EXTERNAL | | | Eosinophils | performed at [facility], [address] | K/uL | LAB | | | | [address], | | | | | | [place] [address] | | | | + + + + + + | Absolute | 0.08Comment: Testing | 0.00 - 0.10 | EXTERNAL | | | Basophils | performed at [facility], [address] | K[address]uL | LAB | | | | [address], | | | | | | [place] [address] | | | | + + + + + + + + | Specimen | + + | Blood specimen | | (specimen) | + + + +---------+ + + | Performing | Address | City/State/Zipcode | Phone Number | | Organization | | | | + +---------+ + + | EXTERNAL LAB | | | | + +---------+ + + Basic Metabolic Panel (12/25/2014 4:41 AM PDT) + + + + + + | Component | Value | Ref Range | Performed | Pathologist | | | | | At | Signature | + + + + + + | Na | 129 (L)Comment: Testing | 135 - 143 | EXTERNAL | | | | performed at [facility], [address] | mmol/L | LAB | | | | [address], | | | | | | [place] [address] | | | | + + + + + + | K | 3.7Comment: Testing | 3.5 - 4.9 | EXTERNAL | | | | performed at [facility], [address] | mmol/L | LAB | | | | [address], | | | | | | [place] [address] | | | | + + + + + + | Cl | 98 (L)Comment: Testing | 99 - 109 mmol/L | EXTERNAL | | | | performed at [facility], [address] | | LAB | | | | [address], | | | | | | [place] [address] | | | | + + + + + + | CO2 | 23Comment: Testing | 23 - 32 mmol/L | EXTERNAL | | | | performed at [facility], [address] | | LAB | | | | [address], | | | | | | [place] [address] | | | | + + + + + + | Anion Gap | 12Comment: Testing | 5 - 20 mmol/L | EXTERNAL | | | | performed at [facility], [address] | | LAB | | | | [address], | | | | | | [place] [address] | | | | + + + + + + | Glucose, | 139 (H)Comment: Testing | 65 - 99 mg/dL | EXTERNAL | | | Fasting | performed at [facility], [address] | | LAB | | | | [address], | | | | | | [place] [address] | | | | + + + + + + | BUN | 27 (H)Comment: Testing | 8 - 25 mg/dL | EXTERNAL | | | | performed at [facility], [address] | | LAB | | | | [address], | | | | | | [place] [address] | | | | + + + + + + | Creatinine | 0.88Comment: Testing | 0.50 - 1.00 | EXTERNAL | | | | performed at [facility], [address] | mg/dL | LAB | | | | [address], | | | | | | [place] [address] | | | | + + + + + + | BUN/Creatin | 31Comment: Testing | | EXTERNAL | | | ine Ratio | performed at [facility], [address] | | LAB | | | | [address], | | | | | | [place] [address] | | | | + + + + + + | Calcium | 8.3 (L)Comment: Testing | 8.5 - 10.5 | EXTERNAL | | | | performed at [facility], [address] | mg/dL | LAB | | | | [address], | | | | | | [place] [address] | | | | + + + + + + | Estimated | >60Comment: GFR <60: | mL/min/1.73m2 | EXTERNAL | | | GFR | CHRONIC KIDNEY DISEASE, | | LAB | | | | IF FOUND OVER A 3 MONTH | | | | | | PERIOD.GFR <15: KIDNEY | | | | | | FAILURE.FOR | | | | | | AMERICANS, MULTIPLY THE | | | | | | CALCULATED GFR BY | | | | | | 1.210.Testing performed | | | | | | at [facility], [address] | | | | | | [address], | | | | | | [place] [address] | | | | + + + + + + + + | Specimen | + + | Blood specimen | | (specimen) | + + + +---------+ + + | Performing | Address | City/State/Zipcode | Phone Number | | Organization | | | | + +---------+ + + | EXTERNAL LAB | | | | + +---------+ + + POC Glucose (12/24/2014 9:05 PM PDT) + + + + + + | Component | Value | Ref Range | Performed | Pathologist | | | | | At | Signature | + + + + + + | Glucose, | 213 (H)Comment: Testing | 65 - 99 mg/dL | EXTERNAL | | | Fingerstick | performed at [facility] [place] | | LAB | | | | [address];[place] | | | | | | [address] | | | | + + + + + + + + | Specimen | + + | | + + + +---------+ + + | Performing | Address | City/State/Zipcode | Phone Number | | Organization | | | | + +---------+ + + | EXTERNAL LAB | | | | + +---------+ + + POC Glucose (12/24/2014 6:17 PM PDT) + + + + + + | Component | Value | Ref Range | Performed | Pathologist | | | | | At | Signature | + + + + + + | Glucose, | 172 (H)Comment: Testing | 65 - 99 mg/dL | EXTERNAL | | | Fingerstick | performed at [facility] [place] | | LAB | | | | [address];[place], [place] | | | | | | [address] | | | | + + + + + + + + | Specimen | + + | | + + + +---------+ + + | Performing | Address | City/State/Zipcode | Phone Number | | Organization | | | | + +---------+ + + | EXTERNAL LAB | | | | + +---------+ + + CV CARDIAC PROCEDURE (12/24/2014 5:08 PM PDT) + + | Specimen | + + | | + + + + + | Narrative | Performed At | + + + | | | | | | | DATE OF SERVICE December 24, 2014 PROCEDURE Left heart | | | catheterization with coronary arteriography, left ventriculography. | | | INDICATIONS This is an 84-year-old female who presented with an | | | abnormal ECG probably recent anterior GA, acute systolic congestive | | | heart failure with abnormal echo, EF around 30%. Risks, benefits, | | | procedure, and alternatives were explained to the patient. Risks | | | include but are not limited to heart attack, stroke, and . | | | Informed consent has been signed. ENTRY METHOD Right femoral | | | artery percutaneous. MEDICATIONS 1. Lidocaine local. 2. Heparin | | | 1000 units IV. 3. Versed 1 mg IV. EQUIPMENT 1. A 6-English | | | arterial sheath. 2. A 5-English 3DRC catheter. 3. A 5-English JL4 | | | catheter. 4. A 5-English pigtail catheter. COMPLICATIONS None | | | apparent. DETAILS OF PROCEDURE The right groin was prepped and | | | draped in the usual fashion for a percutaneous approach. A 6-English | | | arterial sheath was placed in the right femoral artery without | | | difficulty. A 5-English 3DRC catheter was then advanced to the | | | ascending aorta under fluoroscopic guidance. Initial aortic pressures | | | were obtained. This catheter was then advanced across the right | | | coronary ostium under fluoroscopic guidance. Selective coronary | | | arteriography was performed in a single view. This catheter was then | | | exchanged for a 5-English JL4 catheter. This catheter was then advanced | | | to the left coronary ostium under fluoroscopic guidance. Selective | | | coronary arteriography was performed in multiple views. This | | | catheter was then exchanged for a 5-English pigtail catheter. This | | | catheter was then advanced to the ascending aorta under fluoroscopic | | | guidance. Repeat aortic pressures were obtained. This catheter was | | | then advanced across the aortic valve under fluoroscopic guidance. | | | Left ventricular pressures were obtained. A single plane 30-degree | | | RUSSO ventriculogram was performed. Pullback pressures were obtained. | | | Consultation was obtained with interventional cardiology who felt the | | | patient was a candidate for medical management without active | | | symptomatology or chest pain based on the overall findings, and would | | | only be a candidate for angioplasty regarding to the LAD findings | | | should she have recurring symptomatology or found to have viability | | | on a future study. Groin hemostasis was achieved. The patient left | | | the cardiac catheterization lab in stable condition. There were no | | | apparent complications. Estimated blood loss was less than 50 mL. | | | RESULTS HEMODYNAMICS 1. The patient was in normal sinus rhythm | | | during the study. 2. Aortic pressure was 127/54, mean of 83. 3. Left | | | ventricular systolic 125. 4. Left ventricular end-diastolic 20 to | | | 24. 5. There was no significant gradient on pullback from left | | | ventricle and ascending aorta. FLUOROSCOPY Fluoroscopy reveals | | | heavy calcification of the particularly left coronary vascular | | | system, as well as some calcification of the circumflex and right | | | coronary artery. There is also calcification of the thoracic aorta. | | | LEFT VENTRICULOGRAPHY 1. The left ventricle is cmfv-vz-ekuuggirkr | | | dilated. 2. There is mild, possibly moderate mitral regurgitation. | | | 3. Left ventricular wall motion at rest is abnormal. 4. Estimated | | | ejection fractions range from 25% to 30%. There is anterior | | | anteroapical inferoapical akinesis to dyskinesis. CORONARY | | | ANGIOGRAPHY 1. The left main is normal in size and shape, without | | | significant stenosis. 2. The LAD is a khunsjot-nd-qepbn caliber | | | vessel, especially small or underfilled distally. There is a proximal | | | stenosis of 20% to 30% after the first major septal sales performance analyst, | | | there is a high sub-totally occluded vessel, still in the mid-vessel | | | after a diagonal branch there is an 80% to 90% lesion, and a second | | | 80% to 90% lesion still in the mid-LAD. Distally in the LAD, there is | | | a component of severe diffuse disease and the vessel appears to be | | | underfilled but it does wrap all the way around the apex, reaching | | | the left ventricular inferior wall and inferior apex. 3. The | | | circumflex is a moderate caliber vessel proximally but distally is a | | | small vessel, but does provide a left ventricular inferior branch. | | | The principal obtuse marginal branch has a 70% to 80% stenosis in the | | | mid to distal vessel. A left ventricular inferior branch has a 70% to | | | 80% stenosis, and a small vessel. ESTIMATED BLOOD LOSS Less | | | than 50 mL. ASSESSMENT Multivessel coronary disease, but the | | | culprit lesion is in the left anterior descending artery, but her | | | anterior apex, inferior apex appears to be akinetic to dyskinetic, | | | suggesting that her myocardial infarction was probably several weeks | | | ago. PLAN/DISCUSSION Interventional cardiology has recommended | | | medical management. The patient does not have any active chest pain. | | | Consideration could be given to doing a viability study but per | | | interventional cardiology they would only entertain doing angioplasty | | | given the size of the vessel and the severe calcification, and she | | | may not have any long-term improvement. I will have additional film | | | review with cardiothoracic surgery but the patient may be a candidate | | | for medical management only given that her infarct probably occurred | | | several weeks ago, if not even earlier than this, and may not have | | | any significant improvement related to relatively high risk | | | interventions. Prognosis is quite guarded. Read by ELLIOT ALONSO | | | 12/24/2014 05:28 P | | + + + + + | Procedure Note | + + | Ji Mcneal Conversion - 11/04/2018 2:46 PM PDT | | | | DATE OF SERVICE | | December 24, 2014 | | | | PROCEDURE | | Left heart catheterization with coronary arteriography, left | | ventriculography. | | | | INDICATIONS | | This is an 84-year-old female who presented with an abnormal ECG probably | | recent anterior GA, acute systolic congestive heart failure with abnormal | | echo, EF around 30%. Risks, benefits, procedure, and alternatives were | | explained to the patient. Risks include but are not limited to heart | | attack, stroke, and . Informed consent has been signed. | | | | ENTRY METHOD | | Right femoral artery percutaneous. | | | | MEDICATIONS | | 1. Lidocaine local. | | 2. Heparin 1000 units IV. | | 3. Versed 1 mg IV. | | | | EQUIPMENT | | 1. A 6-English arterial sheath. | | 2. A 5-English 3DRC catheter. | | 3. A 5-English JL4 catheter. | | 4. A 5-English pigtail catheter. | | | | COMPLICATIONS | | None apparent. | | | | DETAILS OF PROCEDURE | | The right groin was prepped and draped in the usual fashion for a | | percutaneous approach. A 6-English arterial sheath was placed in the right | | femoral artery without difficulty. A 5-English 3DRC catheter was then | | advanced to the ascending aorta under fluoroscopic guidance. Initial | | aortic pressures were obtained. This catheter was then advanced across the | | right coronary ostium under fluoroscopic guidance. Selective coronary | | arteriography was performed in a single view. This catheter was then | | exchanged for a 5-English JL4 catheter. This catheter was then advanced to | | the left coronary ostium under fluoroscopic guidance. Selective coronary | | arteriography was performed in multiple views. | | | | This catheter was then exchanged for a 5-English pigtail catheter. This | | catheter was then advanced to the ascending aorta under fluoroscopic | | guidance. Repeat aortic pressures were obtained. This catheter was then | | advanced across the aortic valve under fluoroscopic guidance. Left | | ventricular pressures were obtained. A single plane 30-degree RUSSO | | ventriculogram was performed. Pullback pressures were obtained. | | Consultation was obtained with interventional cardiology who felt the | | patient was a candidate for medical management without active | | symptomatology or chest pain based on the overall findings, and would only | | be a candidate for angioplasty regarding to the LAD findings should she | | have recurring symptomatology or found to have viability on a future | | study. Groin hemostasis was achieved. The patient left the cardiac | | catheterization lab in stable condition. There were no apparent | | complications. Estimated blood loss was less than 50 mL. | | | | RESULTS | | HEMODYNAMICS | | 1. The patient was in normal sinus rhythm during the study. | | 2. Aortic pressure was 127/54, mean of 83. | | 3. Left ventricular systolic 125. | | 4. Left ventricular end-diastolic 20 to 24. | | 5. There was no significant gradient on pullback from left ventricle and | | ascending aorta. | | | | FLUOROSCOPY | | Fluoroscopy reveals heavy calcification of the particularly left coronary | | vascular system, as well as some calcification of the circumflex and right | | coronary artery. There is also calcification of the thoracic aorta. | | | | LEFT VENTRICULOGRAPHY | | 1. The left ventricle is dzgw-lc-khdbeivisv dilated. | | 2. There is mild, possibly moderate mitral regurgitation. | | 3. Left ventricular wall motion at rest is abnormal. | | 4. Estimated ejection fractions range from 25% to 30%. There is anterior | | anteroapical inferoapical akinesis to dyskinesis. | | | | CORONARY ANGIOGRAPHY | | 1. The left main is normal in size and shape, without significant | | stenosis. | | 2. The LAD is a erjpghpb-kx-gmfuo caliber vessel, especially small or | | underfilled distally. There is a proximal stenosis of 20% to 30% after | | the first major septal sales performance analyst, there is a high sub-totally occluded | | vessel, still in the mid-vessel after a diagonal branch there is an 80% | | to 90% lesion, and a second 80% to 90% lesion still in the mid-LAD. | | Distally in the LAD, there is a component of severe diffuse disease and | | the vessel appears to be underfilled but it does wrap all the way | | around the apex, reaching the left ventricular inferior wall and | | inferior apex. | | 3. The circumflex is a moderate caliber vessel proximally but distally is | | a small vessel, but does provide a left ventricular inferior branch. | | The principal obtuse marginal branch has a 70% to 80% stenosis in the | | mid to distal vessel. A left ventricular inferior branch has a 70% to | | 80% stenosis, and a small vessel. | | | | ESTIMATED BLOOD LOSS | | Less than 50 mL. | | | | ASSESSMENT | | Multivessel coronary disease, but the culprit lesion is in the left | | anterior descending artery, but her anterior apex, inferior apex appears to | | be akinetic to dyskinetic, suggesting that her myocardial infarction was | | probably several weeks ago. | | | | PLAN/DISCUSSION | | Interventional cardiology has recommended medical management. The patient | | does not have any active chest pain. Consideration could be given to doing | | a viability study but per interventional cardiology they would only | | entertain doing angioplasty given the size of the vessel and the severe | | calcification, and she may not have any long-term improvement. I will have | | additional film review with cardiothoracic surgery but the patient may be | | a candidate for medical management only given that her infarct probably | | occurred several weeks ago, if not even earlier than this, and may not | | have any significant improvement related to relatively high risk | | interventions. Prognosis is quite guarded. | | | | Read by ELLIOT ALONSO MD 12/24/2014 05:28 P | | | | | + + POC Glucose (12/24/2014 4:13 PM PDT) + + + + + + | Component | Value | Ref Range | Performed | Pathologist | | | | | At | Signature | + + + + + + | Glucose, | 167 (H)Comment: Testing | 65 - 99 mg/dL | EXTERNAL | | | Fingerstick | performed at [facility] [place] | | LAB | | | | [address];[place], [place] | | | | | | [address] | | | | + + + + + + + + | Specimen | + + | | + + + +---------+ + + | Performing | Address | City/State/Zipcode | Phone Number | | Organization | | | | + +---------+ + + | EXTERNAL LAB | | | | + +---------+ + + POC Glucose (12/24/2014 11:16 AM PDT) + + + + + + | Component | Value | Ref Range | Performed | Pathologist | | | | | At | Signature | + + + + + + | Glucose, | 181 (H)Comment: Testing | 65 - 99 mg/dL | EXTERNAL | | | Fingerstick | performed at [facility] [place] | | LAB | | | | [address];[place] | | | | | | [address] | | | | + + + + + + + + | Specimen | + + | | + + + +---------+ + + | Performing | Address | City/State/Zipcode | Phone Number | | Organization | | | | + +---------+ + + | EXTERNAL LAB | | | | + +---------+ + + External Lab: CBC (12/24/2014 5:17 AM PDT) + + + + + + | Component | Value | Ref Range | Performed | Pathologist | | | | | At | Signature | + + + + + + | WBC | 7.50Comment: Testing | 3.80 - 11.00 | EXTERNAL | | | | performed at [facility], [address] | K/uL | LAB | | | | [address], | | | | | | [place] [address] | | | | + + + + + + | RED CELL | 4.05Comment: Testing | 3.70 - 5.10 | EXTERNAL | | | COUNT | performed at [facility], [address] | M/uL | LAB | | | | [address], | | | | | | [place] [address] | | | | + + + + + + | Hgb | 10.3 (L)Comment: Testing | 11.3 - 15.5 | EXTERNAL | | | | performed at [facility], [address] | g/dL | LAB | | | | [address], | | | | | | [place] [address] | | | | + + + + + + | Hematocrit, | 32.2 (L)Comment: Testing | 34.0 - 46.0 % | EXTERNAL | | | POC | performed at [facility], [address] | | LAB | | | | [address], | | | | | | [place] [address] | | | | + + + + + + | MCV | 79.6 (L)Comment: Testing | 80.0 - 100.0 fl | EXTERNAL | | | | performed at [facility], [address] | | LAB | | | | [address], | | | | | | [place] [address] | | | | + + + + + + | MCH | 25.6 (L)Comment: Testing | 27.0 - 34.0 pg | EXTERNAL | | | | performed at [facility], [address] | | LAB | | | | [address], | | | | | | [place] [address] | | | | + + + + + + | MCHC | 32.1Comment: Testing | 32.0 - 35.5 | EXTERNAL | | | | performed at [facility], [address] | g/dL | LAB | | | | [address], | | | | | | [place] [address] | | | | + + + + + + | RDW-CV | 41.6Comment: Testing | 37 - 53 fl | EXTERNAL | | | | performed at [facility], [address] | | LAB | | | | [address], | | | | | | [place] [address] | | | | + + + + + + | Platelet | 274Comment: Testing | 150 - 400 K/uL | EXTERNAL | | | Count | performed at [facility], [address] | | LAB | | | Plasma | [address], | | | | | | [place] [address] | | | | + + + + + + | MPV | 8.8Comment: Testing | fl | EXTERNAL | | | | performed at [facility], [address] | | LAB | | | | [address], | | | | | | [place] [address] | | | | + + + + + + | Differentia | AUTOMATEDComment: | | EXTERNAL | | | l Type | Testing performed at | | LAB | | | | [facility], [address] | | | | | | [place] | | | | | | [address] | | | | + + + + + + | % Segmented | 76.30Comment: Testing | % | EXTERNAL | | | | performed at [facility], [address] | | LAB | | | Neutrophils | [address], | | | | | | [place] [address] | | | | + + + + + + | % | 9.49Comment: Testing | % | EXTERNAL | | | Lymphocytes | performed at [facility], [address] | | LAB | | | | [address], | | | | | | [place] [address] | | | | + + + + + + | % Monocytes | 12.65Comment: Testing | % | EXTERNAL | | | | performed at [facility], [address] | | LAB | | | | [address], | | | | | | [place] [address] | | | | + + + + + + | % | 0.53Comment: Testing | % | EXTERNAL | | | Eosinophils | performed at [facility], [address] | | LAB | | | | [address], | | | | | | [place] [address] | | | | + + + + + + | % Basophils | 1.03Comment: Testing | % | EXTERNAL | | | | performed at [facility], [address] | | LAB | | | | [address], | | | | | | [place] [address] | | | | + + + + + + | Absolute | 5.72Comment: Testing | 1.90 - 7.40 | EXTERNAL | | | Segmented | performed at [facility], [address] | K/uL | LAB | | | Neutrophils | [address], | | | | | | [place] [address] | | | | + + + + + + | Absolute | 0.71 (L)Comment: Testing | 1.00 - 3.90 | EXTERNAL | | | Lymphocytes | performed at [facility], [address] | K/uL | LAB | | | | [address], | | | | | | [place] [address] | | | | + + + + + + | Absolute | 0.95 (H)Comment: Testing | 0.00 - 0.80 | EXTERNAL | | | Monocytes | performed at [facility], [address] | K/uL | LAB | | | | [address], | | | | | | [place] [address] | | | | + + + + + + | Absolute | 0.04Comment: Testing | 0.00 - 0.50 | EXTERNAL | | | Eosinophils | performed at [facility], [address] | K/uL | LAB | | | | [address], | | | | | | [place] [address] | | | | + + + + + + | Absolute | 0.08Comment: Testing | 0.00 - 0.10 | EXTERNAL | | | Basophils | performed at [facility], [address] | K/uL | LAB | | | | [address], | | | | | | [place] [address] | | | | + + + + + + + + | Specimen | + + | Blood specimen | | (specimen) | + + + +---------+ + + | Performing | Address | City/State/Zipcode | Phone Number | | Organization | | | | + +---------+ + + | EXTERNAL LAB | | | | + +---------+ + + Phosphorus (12/24/2014 5:17 AM PDT) + + + + + + | Component | Value | Ref Range | Performed | Pathologist | | | | | At | Signature | + + + + + + | PHOSPHORUS | 3.9Comment: Testing | 2.3 - 4.8 mg/dL | EXTERNAL | | | | performed at [facility], [address] | | LAB | | | | [facility], | | | | | | [place] [address] | | | | + + + + + + + + | Specimen | + + | Blood specimen | | (specimen) | + + + +---------+ + + | Performing | Address | City/State/Zipcode | Phone Number | | Organization | | | | + +---------+ + + | EXTERNAL LAB | | | | + +---------+ + + Magnesium (12/24/2014 5:17 AM PDT) + + + + + + | Component | Value | Ref Range | Performed | Pathologist | | | | | At | Signature | + + + + + + | Magnesium | 1.9Comment: Testing | 1.7 - 2.4 mg/dL | EXTERNAL | | | | performed at [facility], [address] | | LAB | | | | [address], | | | | | | [place] [address] | | | | + + + + + + + + | Specimen | + + | Blood specimen | | (specimen) | + + + +---------+ + + | Performing | Address | City/State/Zipcode | Phone Number | | Organization | | | | + +---------+ + + | EXTERNAL LAB | | | | + +---------+ + + Basic Metabolic Panel (12/24/2014 5:17 AM PDT) + + + + + + | Component | Value | Ref Range | Performed | Pathologist | | | | | At | Signature | + + + + + + | Na | 127 (L)Comment: Testing | 135 - 143 | EXTERNAL | | | | performed at [facility], [address] | mmol/L | LAB | | | | [address], | | | | | | [place] [address] | | | | + + + + + + | K | 3.8Comment: Testing | 3.5 - 4.9 | EXTERNAL | | | | performed at [facility], [address] | mmol/L | LAB | | | | [address], | | | | | | [place] [address] | | | | + + + + + + | Cl | 97 (L)Comment: Testing | 99 - 109 mmol/L | EXTERNAL | | | | performed at [facility], [address] | | LAB | | | | [address], | | | | | | [place] [address] | | | | + + + + + + | CO2 | 24Comment: Testing | 23 - 32 mmol/L | EXTERNAL | | | | performed at [facility], [address] | | LAB | | | | [address], | | | | | | [place] [address] | | | | + + + + + + | Anion Gap | 10Comment: Testing | 5 - 20 mmol/L | EXTERNAL | | | | performed at [facility], [address] | | LAB | | | | [address], | | | | | | [place] [address] | | | | + + + + + + | Glucose, | 138 (H)Comment: Testing | 65 - 99 mg/dL | EXTERNAL | | | Fasting | performed at [facility], [address] | | LAB | | | | [address], | | | | | | [place] [address] | | | | + + + + + + | BUN | 24Comment: Testing | 8 - 25 mg/dL | EXTERNAL | | | | performed at [facility], [address] | | LAB | | | | [address], | | | | | | [place] [address] | | | | + + + + + + | Creatinine | 0.78Comment: Testing | 0.50 - 1.00 | EXTERNAL | | | | performed at [facility], [address] | mg/dL | LAB | | | | [address], | | | | | | [place] [address] | | | | + + + + + + | BUN/Creatin | 31Comment: Testing | | EXTERNAL | | | ine Ratio | performed at [facility], [address] | | LAB | | | | [address], | | | | | | [place] [address] | | | | + + + + + + | Calcium | 9.0Comment: Testing | 8.5 - 10.5 | EXTERNAL | | | | performed at [facility], [address] | mg/dL | LAB | | | | [address], | | | | | | [place] [address] | | | | + + + + + + | Estimated | >60Comment: GFR <60: | mL/min/1.73m2 | EXTERNAL | | | GFR | CHRONIC KIDNEY DISEASE, | | LAB | | | | IF FOUND OVER A 3 MONTH | | | | | | PERIOD.GFR <15: KIDNEY | | | | | | FAILURE.FOR | | | | | | AMERICANS, MULTIPLY THE | | | | | | CALCULATED GFR BY | | | | | | 1.210.Testing performed | | | | | | at [facility], [address] | | | | | | [address], | | | | | | [place] [address] | | | | + + + + + + + + | Specimen | + + | Blood specimen | | (specimen) | + + + +---------+ + + | Performing | Address | City/State/Zipcode | Phone Number | | Organization | | | | + +---------+ + + | EXTERNAL LAB | | | | + +---------+ + + POC Glucose (12/24/2014 5:15 AM PDT) + + + + + + | Component | Value | Ref Range | Performed | Pathologist | | | | | At | Signature | + + + + + + | Glucose, | 172 (H)Comment: Testing | 65 - 99 mg/dL | EXTERNAL | | | Fingerstick | performed at [facility] [place] | | LAB | | | | [address];[place], [place] | | | | | | [address] | | | | + + + + + + + + | Specimen | + + | | + + + +---------+ + + | Performing | Address | City/State/Zipcode | Phone Number | | Organization | | | | + +---------+ + + | EXTERNAL LAB | | | | + +---------+ + + POC Glucose (12/23/2014 9:05 PM PDT) + + + + + + | Component | Value | Ref Range | Performed | Pathologist | | | | | At | Signature | + + + + + + | Glucose, | 249 (H)Comment: Testing | 65 - 99 mg/dL | EXTERNAL | | | Fingerstick | performed at [facility] [place] | | LAB | | | | [address];[place] | | | | | | [address] | | | | + + + + + + + + | Specimen | + + | | + + + +---------+ + + | Performing | Address | City/State/Zipcode | Phone Number | | Organization | | | | + +---------+ + + | EXTERNAL LAB | | | | + +---------+ + + POC Glucose (12/23/2014 4:04 PM PDT) + + + + + + | Component | Value | Ref Range | Performed | Pathologist | | | | | At | Signature | + + + + + + | Glucose, | 180 (H)Comment: Testing | 65 - 99 mg/dL | EXTERNAL | | | Fingerstick | performed at [facility] [place] | | LAB | | | | [address];[place], [place] | | | | | | [address] | | | | + + + + + + + + | Specimen | + + | | + + + +---------+ + + | Performing | Address | City/State/Zipcode | Phone Number | | Organization | | | | + +---------+ + + | EXTERNAL LAB | | | | + +---------+ + + ECHO Complete (12/23/2014 3:03 PM PDT) + + | Specimen | + + | | + + + + + | Impressions | Performed At | + + + | 1. Overall left ventricular systolic function is severely impaired | | | with, an EF between 25 - 30 %. 2. There are severe wall motion | | | abnormalities affecting mid anteroseptal, apical, and apical lateral | | | [place], preserving the apex. This is consistant with Takotsubo | | | cardiomyopathy, although CAD cannot be ruled out. 3. Mild aortic | | | stenosis with peak/mean pressure gradient of 6.21mmHg / 3.03mmHg, the | | | aortic valve area by continuity equation is 1.8cm . 4. Mild | | | mitral regurgitation is present. 5. Right ventricular systolic | | | pressure (pulmonary artery systolic pressure) is normal at < 35 mmHg. | | | 6. No clot visualized | | + + + + + + | Narrative | Performed At | + + + | Patient Name: CATHERINE CARRASCO Date of : 1930 | | | Performing Physician: Radha Pinto MD | | | | | | INDICATIONS NSTEMI CONCLUSIONS 1. | | | Overall left ventricular systolic function is severely impaired with, | | | an EF between 25 - 30 %. 2. There are severe wall motion | | | abnormalities affecting mid anteroseptal, apical, and apical lateral | | | [place], preserving the apex. This is consistant with Takotsubo | | | cardiomyopathy, although CAD cannot be ruled out. 3. Mild aortic | | | stenosis with peak/mean pressure gradient of 6.21mmHg / 3.03mmHg, the | | | aortic valve area by continuity equation is 1.8cm . 4. Mild | | | mitral regurgitation is present. 5. Right ventricular systolic | | | pressure (pulmonary artery systolic pressure) is normal at < 35 mmHg. | | | 6. No clot visualized FINDINGS -------- Study: A 2-dimensional | | | transthoracic echocardiogram with m-mode, spectral and color flow | | | Doppler was perfomed. Study: This was a technically adequate study. | | | Left Ventricle: Overall left ventricular systolic function is severely | | | impaired with, an EF between 25 - 30 %. Left Ventricle: The left | | | ventricle cavity size is normal. Left Ventricle: Left ventricular | | | wall thickness is normal. Left Ventricle: There are severe wall | | | motion abnormalities affecting mid anteroseptal, apical, and apical | | | lateral [place], preserving the apex. This is consistant with Takotsubo | | | cardiomyopathy, although CAD cannot be ruled out. Right Ventricle: | | | The right ventricle is normal in size and function. Left Atrium: The | | | left atrium is mildly dilated. Right Atrium: The right atrium is | | | normal in size. Aortic Valve: Trace amount of aortic regurgitation. | | | Aortic Valve: Mild aortic stenosis with peak/mean pressure gradient of | | | 6.21mmHg / 3.03mmHg, the aortic valve area by continuity equation is | | | 1.8cm . Mitral Valve: Mild mitral regurgitation is present. | | | Mitral Valve: Mild thickening of the anterior mitral valve leaflet. | | | Mitral Valve: There is mild thickening of the posterior mitral valve | | | leaflet. Tricuspid Valve: The tricuspid valve appears structurally | | | normal. Tricuspid Valve: Mild tricuspid regurgitation present. | | | Tricuspid Valve: Right ventricular systolic pressure (pulmonary artery | | | systolic pressure) is normal at < 35 mmHg. Pulmonic Valve: The | | | pulmonic valve is normal. Pericardium: There is a trivial pericardial | | | effusion present. Pericardium: Pleural effusion present. | | | IVC/Hepatic Veins: The inferior vena cava is normal in size and | | | collapses > 50 % with sniff, indicating normal central venous | | | pressures. Mass: No mass visualized Thrombus: No clot visualized | | | Thrombus: No vegetation visualized. MEASUREMENTS | | | LA Major: 4.62 cm EDV(Teich): 78.01 ml IVSd: 1.03 cm | | | LVIDd: 4.18 cm LVPWd: 0.98 cm LVOT Diam: 2.04 cm %FS: | | | 33.04 % EF(Teich): 62.00 % ESV(Teich): 29.64 ml IVSs: 1.29 | | | cm LVIDs: 2.80 cm LVPWs: 1.45 cm SV(Teich): 48.36 ml RA | | | Major: 4.69 cm RVIDd: 2.94 cm LVEF MOD A2C: 47.01 % SV MOD | | | A2C: 52.68 ml LVEF MOD A4C: 35.82 % SV MOD A4C: 41.49 ml | | | EF Biplane: 40.68 % LVEDV MOD BP: 115.10 ml LVESV MOD BP: | | | 68.27 ml LVEDV MOD A2C: 112.06 ml LVLd A2C: 9.13 cm LVEDV MOD | | | A4C: 115.83 ml LVLd A4C: 8.89 cm LVESV MOD A2C: 59.37 ml | | | LVLs A2C: 8.79 cm LVESV MOD A4C: 74.33 ml LVLs A4C: 8.26 cm | | | LAESV(A-L): 66.31 ml LAESV Index (A-L): 35.65 ml/m2 LAAs | | | A2C: 20.63 cm2 LAESV A-L A2C: 75.69 ml LALs A2C: 4.77 cm | | | LAAs A4C: 16.82 cm2 LAESV A-L A4C: 54.07 ml LALs A4C: 4.44 | | | cm Ao Diam: 2.82 cm AV Cusp: 1.70 cm LA Diam: 3.09 cm | | | LA/Ao: 1.09 %FS: 36.77 % EDV(Teich): 102.72 ml EF(Teich): | | | 66.58 % ESV(Teich): 34.32 ml IVSd: 1.12 cm IVSs: 1.45 | | | cm LVIDd: 4.70 cm LVIDs: 2.97 cm LVPWd: 0.94 cm LVPWs: | | | 1.39 cm SV(Teich): 68.40 ml D-E Excursion: 1.15 cm E-F | | | [place]: 0.06 m/s EPSS: 1.60 cm IVC diameter: 1.77 cm IVC | | | collapse: 0.74 cm IVC % collapse: 56.36 % HR: 70.48 BPM AV | | | maxP.20 mmHg AV meanP.02 mmHg AV Vmax: 1.24 m/s | | | AV Vmean: 0.81 m/s AV VTI: 26.14 cm POLLY Vmax: 1.74 cm2 POLLY | | | (VTI): 1.76 cm2 LVCI Dopp: 1.71 l/minm2 LVCO Dopp: 3.18 | | | l/min HR: 69.08 BPM LVOT maxP.74 mmHg LVOT meanPG: | | | 0.94 mmHg LVSI Dopp: 24.76 ml/m2 LVSV Dopp: 46.05 ml LVOT | | | Vmax: 0.65 m/s LVOT Vmean: 0.46 m/s LVOT VTI: 13.98 cm MR | | | maxP.99 mmHg MR Vmax: 3.99 m/s MV A Bhavesh: 0.91 m/s MV | | | DecT: 174.90 ms MV E Bhavesh: 1.01 m/s MV E/A Ratio: 1.10 MV | | | PHT: 54.53 ms MVA By PHT: 4.03 cm2 MV A Dur: 121.10 ms P | | | Vein D: 0.34 m/s P Vein S/D Ratio: 1.18 P Vein S: 0.41 m/s | | | HR: 69.91 BPM PV maxP.98 mmHg PV meanP.06 mmHg PV | | | Vmax: 0.70 m/s PV Vmean: 0.48 m/s PV VTI: 14.77 cm RAP: | | | 10 mmHg RVSP: 28.80 mmHg TR maxP.80 mmHg TR Vmax: | | | 2.16 m/s TV A Bhavesh: 0.39 m/s TV Dec [place]: 2.32 m/s2 TV Dec | | | Time: 234.32 ms TV E Bhavesh: 0.54 m/s TV E/A Ratio: 1.37 | | | Revit Drafter: Authenticated by: Radha Pinto MD Report Date/Time: | | | 12-23-2014 19:57:25 | | + + + + + | Procedure Note | + + | Ji Mcneal - 10/30/2018 10:42 AM PDT Patient Name: Marla CARRASCO | | : 1930 Performing Physician: Radha Pinto | | MD INDICATIONS N | | STEMI CONCLUSIONS 1. Overall left ventricular systolic function is severely | | impaired with, an EF between 25 - 30 %.2. There are severe wall motion abnormalities | | affecting mid anteroseptal, apical, and apical lateral [place], preserving the apex. This | | is consistant with Takotsubo cardiomyopathy, although CAD cannot be ruled out.3. Mild | | aortic stenosis with peak/mean pressure gradient of 6.21mmHg / 3.03mmHg, the aortic | | valve area by continuity equation is 1.8cm .4. Mild mitral regurgitation is | | present.5. Right ventricular systolic pressure (pulmonary artery systolic pressure) is | | normal at < 35 mmHg.6. No clot visualized FINDINGS--------Study: A 2-dimensional | | transthoracic echocardiogram with m-mode, spectral and color flow Doppler was | | perfomed.Study: This was a technically adequate study.Left Ventricle: Overall left | | ventricular systolic function is severely impaired with, an EF between 25 - 30 %.Left | | Ventricle: The left ventricle cavity size is normal.Left Ventricle: Left ventricular | | wall thickness is normal.Left Ventricle: There are severe wall motion abnormalities | | affecting mid anteroseptal, apical, and apical lateral [place], preserving the apex. This | | is consistant with Takotsubo cardiomyopathy, although CAD cannot be ruled out.Right | | Ventricle: The right ventricle is normal in size and function.Left Atrium: The left | | atrium is mildly dilated.Right Atrium: The right atrium is normal in size.Aortic Valve: | | Trace amount of aortic regurgitation.Aortic Valve: Mild aortic stenosis with peak/mean | | pressure gradient of 6.21mmHg / 3.03mmHg, the aortic valve area by continuity equation | | is 1.8cm .Mitral Valve: Mild mitral regurgitation is present.Mitral Valve: Mild | | thickening of the anterior mitral valve leaflet.Mitral Valve: There is mild thickening | | of the posterior mitral valve leaflet.Tricuspid Valve: The tricuspid valve appears | | structurally normal.Tricuspid Valve: Mild tricuspid regurgitation present.Tricuspid | | Valve: Right ventricular systolic pressure (pulmonary artery systolic pressure) is | | normal at < 35 mmHg.Pulmonic Valve: The pulmonic valve is normal.Pericardium: There is a | | trivial pericardial effusion present.Pericardium: Pleural effusion present.IVC/Hepatic | | Veins: The inferior vena cava is normal in size and collapses > 50 % with sniff, | | indicating normal central venous pressures.Mass: No mass visualizedThrombus: No clot | | visualizedThrombus: No vegetation visualized. MEASUREMENTS LA Major: 4.62 | | cmEDV(Teich): 78.01 mlIVSd: 1.03 cmLVIDd: 4.18 cmLVPWd: 0.98 cmLVOT Diam: 2.04 | | cm%FS: 33.04 %EF(Teich): 62.00 %ESV(Teich): 29.64 mlIVSs: 1.29 cmLVIDs: 2.80 | | cmLVPWs: 1.45 cmSV(Teich): 48.36 mlRA Major: 4.69 cmRVIDd: 2.94 cmLVEF MOD A2C: | | 47.01 %SV MOD A2C: 52.68 mlLVEF MOD A4C: 35.82 %SV MOD A4C: 41.49 mlEF Biplane: | | 40.68 %LVEDV MOD BP: 115.10 mlLVESV MOD BP: 68.27 mlLVEDV MOD A2C: 112.06 mlLVLd | | A2C: 9.13 cmLVEDV MOD A4C: 115.83 mlLVLd A4C: 8.89 cmLVESV MOD A2C: 59.37 | | mlLVLs A2C: 8.79 cmLVESV MOD A4C: 74.33 mlLVLs A4C: 8.26 cmLAESV(A-L): 66.31 | | mlLAESV Index (A-L): 35.65 ml/m2LAAs A2C: 20.63 [id number] A-L A2C: 75.69 mlLALs | | A2C: 4.77 cmLAAs A4C: 16.82 [id number] A-L A4C: 54.07 mlLALs A4C: 4.44 cmAo Diam: | | 2.82 cmAV Cusp: 1.70 cmLA Diam: 3.09 cmLA/Ao: 1.09%FS: 36.77 %EDV(Teich): | | 102.72 mlEF(Teich): 66.58 %ESV(Teich): 34.32 mlIVSd: 1.12 cmIVSs: 1.45 cmLVIDd: | | 4.70 cmLVIDs: 2.97 cmLVPWd: 0.94 cmLVPWs: 1.39 cmSV(Teich): 68.40 mlD-E | | Excursion: 1.15 cmE-F [place]: 0.06 m/sEPSS: 1.60 cmIVC diameter: 1.77 cmIVC | | collapse: 0.74 cmIVC % collapse: 56.36 %HR: 70.48 BPMAV maxP.20 mmHgAV | | meanP.02 mmHgAV Vmax: 1.24 m/Catarino Vmean: 0.81 m/Catarino VTI: 26.14 cmAVA Vmax: | | 1.74 cm2AVA (VTI): 1.76 [id number] Dopp: 1.71 l/[id number] Dopp: 3.18 l/minHR: 69.08 | | BPMLVOT maxP.74 mmHgLVOT meanP.94 mmHgLVSI Dopp: 24.76 ml/m2LVSV Dopp: | | 46.05 mlLVOT Vmax: 0.65 m/sLVOT Vmean: 0.46 m/sLVOT VTI: 13.98 cmMR maxP.99 | | mmHgMR Vmax: 3.99 m/sMV A Bhavesh: 0.91 m/sMV DecT: 174.90 msMV E Bhavesh: 1.01 m/sMV | | E/A Ratio: 1.10MV PHT: 54.53 msMVA By PHT: 4.03 cm2MV A Dur: 121.10 msP Vein D: | | 0.34 m/sP Vein S/D Ratio: 1.18P Vein S: 0.41 m/sHR: 69.91 BPMPV maxP.98 | | mmHgPV meanP.06 mmHgPV Vmax: 0.70 m/sPV Vmean: 0.48 m/sPV VTI: 14.77 cmRAP: | | 10 mmHgRVSP: 28.80 mmHgTR maxP.80 mmHgTR Vmax: 2.16 m/sTV A Bhavesh: 0.39 | | m/sTV Dec [place]: 2.32 m/s2TV Dec Time: 234.32 msTV E Bhavesh: 0.54 m/sTV E/A Ratio: | | 1.37 Revit Drafter: ASAuthenticated by: Radha Pinto MDReport Date/Time: 12-23-2014 | | 19:57:25 IMPRESSION: 1. Overall left ventricular systolic function is severely impaired | | with, an EF between 25 - 30 %.2. There are severe wall motion abnormalities affecting | | mid anteroseptal, apical, and apical lateral [place], preserving the apex. This is | | consistant with Takotsubo cardiomyopathy, although CAD cannot be ruled out.3. Mild | | aortic stenosis with peak/mean pressure gradient of 6.21mmHg / 3.03mmHg, the aortic | | valve area by continuity equation is 1.8cm .4. Mild mitral regurgitation is | | present.5. Right ventricular systolic pressure (pulmonary artery systolic pressure) is | | normal at < 35 mmHg.6. No clot visualized | |LVEF MOD A2C: 47.01 % | |SV MOD A2C: 52.68 ml | |LVEF MOD A4C: 35.82 % | |SV MOD A4C: 41.49 ml | |EF Biplane: 40.68 % | |LVEDV MOD BP: 115.10 ml | |LVESV MOD BP: 68.27 ml | |LVEDV MOD A2C: 112.06 ml | |LVLd A2C: 9.13 cm | |LVEDV MOD A4C: 115.83 ml | |LVLd A4C: 8.89 cm | |LVESV MOD A2C: 59.37 ml | |LVLs A2C: 8.79 cm | |LVESV MOD A4C: 74.33 ml | |LVLs A4C: 8.26 cm | |LAESV(A-L): 66.31 ml | |LAESV Index (A-L): 35.65 ml/m2 | |LAAs A2C: 20.63 cm2 | |LAESV A-L A2C: 75.69 ml | |LALs A2C: 4.77 cm | |LAAs A4C: 16.82 cm2 | |LAESV A-L A4C: 54.07 ml | |LALs A4C: 4.44 cm | |Ao Diam: 2.82 cm | |AV Cusp: 1.70 cm | |LA Diam: 3.09 cm | |LA/Ao: 1.09 | |%FS: 36.77 % | |EDV(Teich): 102.72 ml | |EF(Teich): 66.58 % | |ESV(Teich): 34.32 ml | |IVSd: 1.12 cm | |IVSs: 1.45 cm | |LVIDd: 4.70 cm | |LVIDs: 2.97 cm | |LVPWd: 0.94 cm | |LVPWs: 1.39 cm | |SV(Teich): 68.40 ml | |D-E [place]: 1.15 cm | |E-F [place]: 0.06 m/s | |EPSS: 1.60 cm | |IVC diameter: 1.77 cm | |IVC collapse: 0.74 cm | |IVC % collapse: 56.36 % | |HR: 70.48 BPM | |AV maxP.20 mmHg | |AV meanP.02 mmHg | |AV Vmax: 1.24 m/s | |AV Vmean: 0.81 m/s | |AV VTI: 26.14 cm | |POLLY Vmax: 1.74 cm2 | |POLLY (VTI): 1.76 cm2 | |LVCI Dopp: 1.71 l/minm2 | |LVCO Dopp: 3.18 l/min | |HR: 69.08 BPM | |LVOT maxP.74 mmHg | |LVOT meanP.94 mmHg | |LVSI Dopp: 24.76 ml/m2 | |LVSV Dopp: 46.05 ml | |LVOT Vmax: 0.65 m/s | |LVOT Vmean: 0.46 m/s | |LVOT VTI: 13.98 cm | |MR maxP.99 mmHg | |MR Vmax: 3.99 m/s | |MV A Bhavesh: 0.91 m/s | |MV DecT: 174.90 ms | |MV E Bhavesh: 1.01 m/s | |MV E/A Ratio: 1.10 | |MV PHT: 54.53 ms | |MVA By PHT: 4.03 cm2 | |MV A Dur: 121.10 ms | |P Vein D: 0.34 m/s | |P Vein S/D Ratio: 1.18 | |P Vein S: 0.41 m/s | |HR: 69.91 BPM | |PV maxP.98 mmHg | |PV meanP.06 mmHg | |PV Vmax: 0.70 m/s | |PV Vmean: 0.48 m/s | |PV VTI: 14.77 cm | |RAP: 10 mmHg | |RVSP: 28.80 mmHg | |TR maxP.80 mmHg | |TR Vmax: 2.16 m/s | |TV A Bhavesh: 0.39 m/s | |TV Dec [place]: 2.32 m/s2 | |TV Dec Time: 234.32 ms | |TV E Bhavesh: 0.54 m/s | |TV E/A Ratio: 1.37 | | | |Revit Drafter: | |Authenticated by: Radha Pinto MD | |Report Date/Time: 12-23-2014 19:57:25 | | | |IMPRESSION: | |1. Overall left ventricular systolic function is severely impaired with, an EF between 25 - 30 %. | |2. There are severe wall motion abnormalities affecting mid anteroseptal, apical, and apica l lateral [place], preserving the apex. This is consistant with Takotsubo cardiomyopathy, alth ough CAD cannot be ruled out. | |3. Mild aortic stenosis with peak/mean pressure gradient of 6.21mmHg / 3.03mmHg, the aortic valve area by continuity equation is 1.8cm . | |4. Mild mitral regurgitation is present. | |5. Right ventricular systolic pressure (pulmonary artery systolic pressure) is normal at < 35 mmHg. | |6. No clot visualized | + + POC Glucose (12/23/2014 11:23 AM PDT) + + + + + + | Component | Value | Ref Range | Performed | Pathologist | | | | | At | Signature | + + + + + + | Glucose, | 287 (H)Comment: Testing | 65 - 99 mg/dL | EXTERNAL | | | Fingerstick | performed at [facility] | | LAB | | | | [address];[place] | | | | | | [address] | | | | + + + + + + + + | Specimen | + + | | + + + +---------+ + + | Performing | Address | City/State/Zipcode | Phone Number | | Organization | | | | + +---------+ + + | EXTERNAL LAB | | | | + +---------+ + + External Lab: CBC (12/23/2014 6:19 AM PDT) + + + + + + | Component | Value | Ref Range | Performed | Pathologist | | | | | At | Signature | + + + + + + | WBC | 5.55Comment: Testing | 3.80 - 11.00 | EXTERNAL | | | | performed at [facility], [address] | K/uL | LAB | | | | [address], | | | | | | [place] [address] | | | | + + + + + + | RED CELL | 4.02Comment: Testing | 3.70 - 5.10 | EXTERNAL | | | COUNT | performed at [facility], [address] | M/uL | LAB | | | | [address], | | | | | | [place] [address] | | | | + + + + + + | Hgb | 10.4 (L)Comment: Testing | 11.3 - 15.5 | EXTERNAL | | | | performed at [facility], [address] | g/dL | LAB | | | | [address], | | | | | | [place] [address] | | | | + + + + + + | Hematocrit, | 32.2 (L)Comment: Testing | 34.0 - 46.0 % | EXTERNAL | | | POC | performed at [facility], [address] | | LAB | | | | [address], | | | | | | [place] [address] | | | | + + + + + + | MCV | 80.0Comment: Testing | 80.0 - 100.0 fl | EXTERNAL | | | | performed at [facility], [address] | | LAB | | | | [address], | | | | | | [place] [address] | | | | + + + + + + | MCH | 25.9 (L)Comment: Testing | 27.0 - 34.0 pg | EXTERNAL | | | | performed at [facility], [address] | | LAB | | | | [address], | | | | | | [place] [address] | | | | + + + + + + | MCHC | 32.4Comment: Testing | 32.0 - 35.5 | EXTERNAL | | | | performed at [facility], [address] | g/dL | LAB | | | | [address], | | | | | | [place] [address] | | | | + + + + + + | RDW-CV | 41.1Comment: Testing | 37 - 53 fl | EXTERNAL | | | | performed at [facility], [address] | | LAB | | | | [address], | | | | | | [place] [address] | | | | + + + + + + | Platelet | 285Comment: Testing | 150 - 400 K/uL | EXTERNAL | | | Count | performed at [facility], [address] | | LAB | | | Plasma | [address], | | | | | | [place] [address] | | | | + + + + + + | MPV | 8.5Comment: Testing | fl | EXTERNAL | | | | performed at [facility], [address] | | LAB | | | | [address], | | | | | | [place] [address] | | | | + + + + + + | Differentia | AUTOMATEDComment: | | EXTERNAL | | | l Type | Testing performed at | | LAB | | | | [facility], [address] [facility] | | | | | | [place] | | | | | | [address] | | | | + + + + + + | % Segmented | 71.98Comment: Testing | % | EXTERNAL | | | | performed at [facility], [address] | | LAB | | | Neutrophils | [address], | | | | | | [place] [address] | | | | + + + + + + | % | 12.59Comment: Testing | % | EXTERNAL | | | Lymphocytes | performed at [facility], [address] | | LAB | | | | [address], | | | | | | [place] [address] | | | | + + + + + + | % Monocytes | 13.13Comment: Testing | % | EXTERNAL | | | | performed at [facility], [address] | | LAB | | | | [address], | | | | | | [place] [address] | | | | + + + + + + | % | 1.21Comment: Testing | % | EXTERNAL | | | Eosinophils | performed at [facility], [address] | | LAB | | | | [address], | | | | | | [place] [address] | | | | + + + + + + | % Basophils | 1.09Comment: Testing | % | EXTERNAL | | | | performed at [facility], [address] | | LAB | | | | [address], | | | | | | [place] [address] | | | | + + + + + + | Absolute | 3.99Comment: Testing | 1.90 - 7.40 | EXTERNAL | | | Segmented | performed at [facility], [address] | K/uL | LAB | | | Neutrophils | [address], | | | | | | [place] [address] | | | | + + + + + + | Absolute | 0.70 (L)Comment: Testing | 1.00 - 3.90 | EXTERNAL | | | Lymphocytes | performed at [facility], [address] | K/uL | LAB | | | | [address], | | | | | | [place] [address] | | | | + + + + + + | Absolute | 0.73Comment: Testing | 0.00 - 0.80 | EXTERNAL | | | Monocytes | performed at [facility], [address] | K/uL | LAB | | | | [address], | | | | | | [place] [address] | | | | + + + + + + | Absolute | 0.07Comment: Testing | 0.00 - 0.50 | EXTERNAL | | | Eosinophils | performed at [facility], [address] | K/uL | LAB | | | | [address], | | | | | | [place] [address] | | | | + + + + + + | Absolute | 0.06Comment: Testing | 0.00 - 0.10 | EXTERNAL | | | Basophils | performed at [facility], [address] | K/uL | LAB | | | | [address], | | | | | | [place] [address] | | | | + + + + + + + + | Specimen | + + | Blood specimen | | (specimen) | + + + +---------+ + + | Performing | Address | City/State/Zipcode | Phone Number | | Organization | | | | + +---------+ + + | EXTERNAL LAB | | | | + +---------+ + + TSH (12/23/2014 6:19 AM PDT) + + + + + + | Component | Value | Ref Range | Performed | Pathologist | | | | | At | Signature | + + + + + + | TSH | 3.52Comment: Testing | 0.45 - 5.10 | EXTERNAL | | | | performed at [facility], [address] | uIU/mL | LAB | | | | [facility], | | | | | | [place] [address] | | | | + + + + + + + + | Specimen | + + | Blood specimen | | (specimen) | + + + +---------+ + + | Performing | Address | City/State/Zipcode | Phone Number | | Organization | | | | + +---------+ + + | EXTERNAL LAB | | | | + +---------+ + + Phosphorus (12/23/2014 6:19 AM PDT) + + + + + + | Component | Value | Ref Range | Performed | Pathologist | | | | | At | Signature | + + + + + + | PHOSPHORUS | 4.6Comment: Testing | 2.3 - 4.8 mg/dL | EXTERNAL | | | | performed at [facility], [address] | | LAB | | | | [address], | | | | | | [place] [address] | | | | + + + + + + + + | Specimen | + + | Blood specimen | | (specimen) | + + + +---------+ + + | Performing | Address | City/State/Zipcode | Phone Number | | Organization | | | | + +---------+ + + | EXTERNAL LAB | | | | + +---------+ + + B Type Natriuretic Peptide (12/23/2014 6:19 AM PDT) + + + + + + | Component | Value | Ref Range | Performed | Pathologist | | | | | At | Signature | + + + + + + | BNP | 1,070 (H)Comment: | 0 - 100 pg/mL | EXTERNAL | | | | Testing performed at | | LAB | | | | [facility] | | | | | | [facility];[place] [address] | | | | + + + + + + + + | Specimen | + + | Blood specimen | | (specimen) | + + + +---------+ + + | Performing | Address | City/State/Zipcode | Phone Number | | Organization | | | | + +---------+ + + | EXTERNAL LAB | | | | + +---------+ + + Magnesium (12/23/2014 6:19 AM PDT) + + + + + + | Component | Value | Ref Range | Performed | Pathologist | | | | | At | Signature | + + + + + + | Magnesium | 1.9Comment: Testing | 1.7 - 2.4 mg/dL | EXTERNAL | | | | performed at [facility], [address] | | LAB | | | | [address], | | | | | | [place] [address] | | | | + + + + + + + + | Specimen | + + | Blood specimen | | (specimen) | + + + +---------+ + + | Performing | Address | City/State/Zipcode | Phone Number | | Organization | | | | + +---------+ + + | EXTERNAL LAB | | | | + +---------+ + + Hemoglobin A1C (12/23/2014 6:19 AM PDT) + + + + + + | Component | Value | Ref Range | Performed | Pathologist | | | | | At | Signature | + + + + + + | Hemoglobin | 6.9 (H)Comment: The | 4.0 - 6.0 % | EXTERNAL | | | A1c | [place] [employer] | | LAB | | | | Association considers a | | | | | | hemoglobin A1c result of | | | | | | <7.0% to be the goal of | | | | | | diabetic therapy. | | | | | | When results are | | | | | | consistently >8.0%, the | | | | | | ADA suggests | | | | | | reevaluation of the | | | | | | treatment regimen. The | | | | | | testing method used is | | | | | | certified traceable to | | | | | | the Diabetes Control and | | | | | | Complications Trial | | | | | | reference method.Testing | | | | | | performed at [facility], [address] | | | | | | [address], | | | | | | [place] [address] | | | | + + + + + + | Glycohemogl | 151Comment: The ADA | mg/dL | EXTERNAL | | | obin | considers an eAG result | | LAB | | | (GHb),Total | of LT 154 mg/dL to be | | | | | | the goal of diabetic | | | | | | therapy. Estimated | | | | | | Average Glucose | | | | | | calculated from | | | | | | hemoglobin A1c by use of | | | | | | the ADA recommended | | | | | | formula.Testing | | | | | | performed at [facility], [address] | | | | | | [facility], | | | | | | [place] [address] | | | | + + + + + + + + | Specimen | + + | Blood specimen | | (specimen) | + + + +---------+ + + | Performing | Address | City/State/Zipcode | Phone Number | | Organization | | | | + +---------+ + + | EXTERNAL LAB | | | | + +---------+ + + Lipid Panel (12/23/2014 6:19 AM PDT) + + + + + + | Component | Value | Ref Range | Performed | Pathologist | | | | | At | Signature | + + + + + + | Cholesterol | 96Comment: Testing | mg/dL | EXTERNAL | | | | performed at [facility], [address] | | LAB | | | | [address], | | | | | | [place] [address] | | | | + + + + + + | Triglycerid | 94Comment: Testing | mg/dL | EXTERNAL | | | es | performed at [facility], [address] | | LAB | | | | [address], | | | | | | [place] [address] | | | | + + + + + + | HDL | 36 (L)Comment: Testing | mg/dL | EXTERNAL | | | | performed at [facility], [address] | | LAB | | | | [address], | | | | | | [place] [address] | | | | + + + + + + | LDL | 41Comment: Testing | mg/dL | EXTERNAL | | | Cholesterol | performed at [facility], [address] | | LAB | | | , | [address], | | | | | Calculated, | [place] [address] | | | | | External | | | | | + + + + + + + + | Specimen | + + | Blood specimen | | (specimen) | + + + +---------+ + + | Performing | Address | City/State/Zipcode | Phone Number | | Organization | | | | + +---------+ + + | EXTERNAL LAB | | | | + +---------+ + + Basic Metabolic Panel (12/23/2014 6:19 AM PDT) + + + + + + | Component | Value | Ref Range | Performed | Pathologist | | | | | At | Signature | + + + + + + | Na | 129 (L)Comment: Testing | 135 - 143 | EXTERNAL | | | | performed at [facility], [address] | mmol/L | LAB | | | | [address], | | | | | | [place] [address] | | | | + + + + + + | K | 3.9Comment: Testing | 3.5 - 4.9 | EXTERNAL | | | | performed at [facility], [address] | mmol/L | LAB | | | | [address], | | | | | | [place] [address] | | | | + + + + + + | Cl | 98 (L)Comment: Testing | 99 - 109 mmol/L | EXTERNAL | | | | performed at [facility], [address] | | LAB | | | | [address], | | | | | | [place] [address] | | | | + + + + + + | CO2 | 23Comment: Testing | 23 - 32 mmol/L | EXTERNAL | | | | performed at [facility], [address] | | LAB | | | | [address], | | | | | | [place] [address] | | | | + + + + + + | Anion Gap | 12Comment: Testing | 5 - 20 mmol/L | EXTERNAL | | | | performed at [facility], [address] | | LAB | | | | [address], | | | | | | [place] [address] | | | | + + + + + + | Glucose, | 105 (H)Comment: Testing | 65 - 99 mg/dL | EXTERNAL | | | Fasting | performed at [facility], [address] | | LAB | | | | [address], | | | | | | [place] [address] | | | | + + + + + + | BUN | 23Comment: Testing | 8 - 25 mg/dL | EXTERNAL | | | | performed at [facility], [address] | | LAB | | | | [address], | | | | | | [place] [address] | | | | + + + + + + | Creatinine | 0.85Comment: Testing | 0.50 - 1.00 | EXTERNAL | | | | performed at [facility], [address] | mg/dL | LAB | | | | [address], | | | | | | [place] [address] | | | | + + + + + + | BUN/Creatin | 27Comment: Testing | | EXTERNAL | | | ine Ratio | performed at [facility], [address] | | LAB | | | | [address], | | | | | | [place] [address] | | | | + + + + + + | Calcium | 8.8Comment: Testing | 8.5 - 10.5 | EXTERNAL | | | | performed at [facility], [address] | mg/dL | LAB | | | | [address], | | | | | | [place] [address] | | | | + + + + + + | Estimated | >60Comment: GFR <60: | mL/min/1.73m2 | EXTERNAL | | | GFR | CHRONIC KIDNEY DISEASE, | | LAB | | | | IF FOUND OVER A 3 MONTH | | | | | | PERIOD.GFR <15: KIDNEY | | | | | | FAILURE.FOR | | | | | | AMERICANS, MULTIPLY THE | | | | | | CALCULATED GFR BY | | | | | | 1.210.Testing performed | | | | | | at [facility], [address] | | | | | | [address], | | | | | | [place] [address] | | | | + + + + + + + + | Specimen | + + | Blood specimen | | (specimen) | + + + +---------+ + + | Performing | Address | City/State/Zipcode | Phone Number | | Organization | | | | + +---------+ + + | EXTERNAL LAB | | | | + +---------+ + + POC Glucose (12/23/2014 5:28 AM PDT) + + + + + + | Component | Value | Ref Range | Performed | Pathologist | | | | | At | Signature | + + + + + + | Glucose, | 118 (H)Comment: Testing | 65 - 99 mg/dL | EXTERNAL | | | Fingerstick | performed at [facility] | | LAB | | | | [address];[place], [place] | | | | | | [address] | | | | + + + + + + + + | Specimen | + + | | + + + +---------+ + + | Performing | Address | City/State/Zipcode | Phone Number | | Organization | | | | + +---------+ + + | EXTERNAL LAB | | | | + +---------+ + + Urinalysis, Reflex Microscopic and/or Culture (12/22/2014 11:55 PM PDT) + + + + + + | Component | Value | Ref Range | Performed | Pathologist | | | | | At | Signature | + + + + + + | Color | REDComment: Testing | | EXTERNAL | | | | performed at [facility], [address] | | LAB | | | | [employer], | | | | | | [place] [address] | | | | + + + + + + | Clarity | CLOUDYComment: Testing | | EXTERNAL | | | | performed at [facility], [address] | | LAB | | | | [address], | | | | | | [place] [address] | | | | + + + + + + | Specific | 1.013Comment: Testing | 1.002 - 1.030 | EXTERNAL | | | [place] | performed at [facility], [address] | | LAB | | | | [address], | | | | | | [place] [address] | | | | + + + + + + | Leukocyte | MODERATE (A)Comment: | | EXTERNAL | | | Esterase, | Testing performed at | | LAB | | | Urine | [facility], [address] | | | | | | [place] | | | | | | [address] | | | | + + + + + + | Nitrite, | NEGATIVEComment: Testing | | EXTERNAL | | | Urine | performed at [facility], [address] | | LAB | | | | [address], | | | | | | [place] [address] | | | | + + + + + + | Urobilinoge | 1.0Comment: Testing | mg/dL | EXTERNAL | | | n, Urine | performed at [facility], [address] | | LAB | | | | [address], | | | | | | [place] [address] | | | | + + + + + + | Protein, | NEGATIVEComment: Testing | mg/dL | EXTERNAL | | | Urine | performed at [facility], [address] | | LAB | | | | [address], | | | | | | [place] [address] | | | | + + + + + + | pH, Urine | 6.5Comment: Testing | 5.0 - 8.0 | EXTERNAL | | | | performed at [facility], [address] | | LAB | | | | [address], | | | | | | [place] [address] | | | | + + + + + + | Blood, | LARGE (A)Comment: | | EXTERNAL | | | Urine | Testing performed at | | LAB | | | | [facility], [address] | | | | | | [place] | | | | | | [address] | | | | + + + + + + | Ketones | NEGATIVEComment: Testing | mg/dL | EXTERNAL | | | | performed at [facility], [address] | | LAB | | | | [address], | | | | | | [place] [address] | | | | + + + + + + | Bilirubin, | NEGATIVEComment: Testing | | EXTERNAL | | | Urine | performed at [facility], [address] | | LAB | | | | [address], | | | | | | [place] [address] | | | | + + + + + + | Glucose, | NEGATIVEComment: Testing | mg/dL | EXTERNAL | | | Urine | performed at [facility], [address] | | LAB | | | | [address], | | | | | | [place] [address] | | | | + + + + + + + + | Specimen | + + | | + + + +---------+ + + | Performing | Address | City/State/Zipcode | Phone Number | | Organization | | | | + +---------+ + + | EXTERNAL LAB | | | | + +---------+ + + Urinalysis, Microscopic Only (12/22/2014 11:55 PM PDT) + + + + + + | Component | Value | Ref Range | Performed | Pathologist | | | | | At | Signature | + + + + + + | WBC, UA | 26-50Comment: Testing | 0 - 5 /hpf | EXTERNAL | | | | performed at [facility], [address] | | LAB | | | | [address], | | | | | | [place] [address] | | | | + + + + + + | RBC, UA | >100Comment: Testing | 0 - 5 /hpf | EXTERNAL | | | | performed at [facility], [address] | | LAB | | | | [address], | | | | | | [place] [address] | | | | + + + + + + | Epithelial | 0-2Comment: Testing | /lpf | EXTERNAL | | | Cells | performed at [facility], [address] | | LAB | | | | [address], | | | | | | [place] [address] | | | | + + + + + + | Bacteria, | NONE SEENComment: | | EXTERNAL | | | UA | CULTURE TO FOLLOWTesting | | LAB | | | | performed at [facility], [address] | | | | | | [address], | | | | | | [place] [address] | | | | + + + + + + | HYALINE | NONE SEENComment: | | EXTERNAL | | | RADHA UA | Testing performed at | | LAB | | | | [facility], [address] | | | | | | [place] | | | | | | [address] | | | | + + + + + + + + | Specimen | + + | | + + + +---------+ + + | Performing | Address | City/State/Zipcode | Phone Number | | Organization | | | | + +---------+ + + | EXTERNAL LAB | | | | + +---------+ + + Culture, Urine (12/22/2014 11:55 PM PDT) + + | Specimen | + + | | + + + + + | Narrative | Performed At | + + + | Specimen Description URINE, COLLECTION NOT | EXTERNAL LAB | | GIVEN CULTURE >100,000 | | | CFU/ML | | | ESCHERICHIA COLIAbnormal | | | Testing performed at [facility], [address] [facility], | | | [place] [address] Suscepibility for - ESCHERICHIA COLI Ampicillin | | | SUSCEPTIBLESensitive Ampicillin + Sulbactam | | | SUSCEPTIBLESensitive Cefepime | | | SUSCEPTIBLESensitive Cefoxitin | | | SUSCEPTIBLESensitive Ceftazidime | | | SUSCEPTIBLESensitive Ceftriaxone | | | SUSCEPTIBLESensitive Ciprofloxacin | | | SUSCEPTIBLESensitive Gentamicin | | | SUSCEPTIBLESensitive Levofloxacin | | | SUSCEPTIBLESensitive Nitrofurantoin | | | SUSCEPTIBLESensitive Piperacillin + Tazobactam | | | SUSCEPTIBLESensitive Tobramycin | | | SUSCEPTIBLESensitive Trimethoprim + | | | SulfamethoxazoleSUSCEPTIBLESensitive | | + + + + +---------+ + + | Performing | Address | City/State/Zipcode | Phone Number | | Organization | | | | + +---------+ + + | EXTERNAL LAB | | | | + +---------+ + + CK-MB (12/22/2014 9:50 PM PDT) + + + + + -+ | Component | Value | Ref Range | Performed | Pathologist | | | | | At | Signature | + + + + + -+ | CK-MB | 2.0Comment: Testing | 0.5 - 3.6 ng/mL | EXTERNAL | | | | performed at [facility] | | LAB | | | | [address];[place], [place] | | | | | | [address] | | | | + + + + + -+ | CK-MB Index | 3.8Comment: CK INDEX | | EXTERNAL | | | | INTERPRETATION: | | LAB | | | | MMB ng/mL | | | | | | | | | | | |CK INDEX INTERPRETATION: | | | | | | MMB ng/mL | | | | | | | | | | + + + + + -+ + + | Specimen | + + | | + + + +---------+ + + | Performing | Address | City/State/Zipcode | Phone Number | | Organization | | | | + +---------+ + + | EXTERNAL LAB | | | | + +---------+ + + Troponin I (12/22/2014 9:50 PM PDT) + + + + + + | Component | Value | Ref Range | Performed | Pathologist | | | | | At | Signature | + + + + + + | Troponin I, | 0.06Comment: 0.00 to | 0.00 - 0.10 | EXTERNAL | | | Qual | 0.10 CONSISTENT WITH | ng/mL | LAB | | | | NORMAL POPULATION0.11 to | | | | | | 0.60 CONSISTENT WITH | | | | | | INCREASED RISK FOR | | | | | | ADVERSE OUTCOMES> 0.60 | | | | | | CONSISTENT | | | | | | WITH WHO CRITERIA FOR | | | | | | ACUTE GA Testing | | | | | | performed at [facility] | | | | | | [address];[place], [place] | | | | | | [address] | | | | + + + + + + + + | Specimen | + + | Blood specimen | | (specimen) | + + + +---------+ + + | Performing | Address | City/State/Zipcode | Phone Number | | Organization | | | | + +---------+ + + | EXTERNAL LAB | | | | + +---------+ + + CK Total (12/22/2014 9:50 PM PDT) + + + + + + | Component | Value | Ref Range | Performed | Pathologist | | | | | At | Signature | + + + + + + | CK, Total | 53Comment: Testing | 30 - 240 U/L | EXTERNAL | | | | performed at [facility] | | LAB | | | | [address];[place], [place] | | | | | | [address] | | | | + + + + + + + + | Specimen | + + | Blood specimen | | (specimen) | + + + +---------+ + + | Performing | Address | City/State/Zipcode | Phone Number | | Organization | | | | + +---------+ + + | EXTERNAL LAB | | | | + +---------+ + + POC Glucose (12/22/2014 9:04 PM PDT) + + + + + + | Component | Value | Ref Range | Performed | Pathologist | | | | | At | Signature | + + + + + + | Glucose, | 138 (H)Comment: Testing | 65 - 99 mg/dL | EXTERNAL | | | Fingerstick | performed at [facility] | | LAB | | | | [address];[place] | | | | | | [address] | | | | + + + + + + + + | Specimen | + + | | + + + +---------+ + + | Performing | Address | City/State/Zipcode | Phone Number | | Organization | | | | + +---------+ + + | EXTERNAL LAB | | | | + +---------+ + + XR Chest 1 Vw (12/22/2014 6:42 PM PDT) + + | Specimen | + + | | + + + + + | Impressions | Performed At | + + + | 1. First consideration here is pulmonary venous hypertension with | | | interstitial edema and bilateral effusions 2. Electronically | | | signed by Zhang Maharaj MD on 12/22/2014 6:54 PM | | + + + + + + | Narrative | Performed At | + + + | History: 84 years old female with shortness of breath. | | | Technique: AP upright portable radiographic examination of the chest, | | | obtained at 18:08 on 22 December 2014. Prior study for comparison | | | --none Findings: Cardiomediastinum cardiomegaly. Support | | | equipment none. Lungs are notable for basilar infiltrates and | | | effusions, interstitial edema throughout. Lung disease is symmetric | | | and moderately severe. Bones and soft tissues unremarkable for | | | age. | | + + + + + | Procedure Note | + + | Fredis, Rad Conversion - 10/30/2018 10:42 AM PDT History: 84 years old female with | | shortness of breath. Technique: AP upright portable radiographic examination of the | | chest, obtained at 18:08 on 22 December 2014. Prior study for comparison --none Findings: | | Cardiomediastinum cardiomegaly. Support equipment none. Lungs are notable for basilar | | infiltrates and effusions, interstitial edema throughout. Lung disease is symmetric and | | moderately severe. Bones and soft tissues unremarkable for age. IMPRESSION: 1. First | | consideration here is pulmonary venous hypertension with interstitial edema and | | bilateral effusions 2. | | PM | | | |Lungs are notable for basilar infiltrates and effusions, interstitial edema throughout. Kristina g disease is symmetric and moderately severe. | | | |Bones and soft tissues unremarkable for age. | | | |IMPRESSION: | | | |1. First consideration here is pulmonary venous hypertension with interstitial edema and bi lateral effusions | | | |2. | | | | | + + CK-MB (12/22/2014 6:24 PM PDT) + + + + + -+ | Component | Value | Ref Range | Performed | Pathologist | | | | | At | Signature | + + + + + -+ | CK-MB | 2.2Comment: Testing | 0.5 - 3.6 ng/mL | EXTERNAL | | | | performed at [facility] [id number] | [place] | | | | [facility];[place], [place] | | | | | | [id number] | | | | + + + + + -+ | CK-MB Index | 3.7Comment: CK INDEX | | EXTERNAL | | | | INTERPRETATION: | | LAB | | | | [facility] ng/mL | | | | | | | | | | | |CK INDEX INTERPRETATION: | | | | | | [facility] ng/mL | | | | | | | | | | + + + + + -+ + + | Specimen | + + | Blood specimen | | (specimen) | + + + +---------+ + + | Performing | Address | City/State/Zipcode | Phone Number | | Organization | | | | + +---------+ + + | EXTERNAL LAB | | | | + +---------+ + + Iron and Iron Binding Capacity (12/22/2014 6:24 PM PDT) + + + + + + | Component | Value | Ref Range | Performed | Pathologist | | | | | At | Signature | + + + + + + | Iron | 30Comment: Testing | 30 - 180 ug/dL | EXTERNAL | | | | performed at [facility], [address] | | LAB | | | | [address], | | | | | | [place] [address] | | | | + + + + + + | TIBC | 424Comment: Testing | 260 - 490 ug/dL | EXTERNAL | | | | performed at [facility], [address] | | LAB | | | | [address], | | | | | | [place] [address] | | | | + + + + + + | Iron | 7 (L)Comment: Testing | 15 - 50 % | EXTERNAL | | | Saturation | performed at [facility], [address] | | LAB | | | | [address], | | | | | | [place] [address] | | | | + + + + + + + + | Specimen | + + | Blood specimen | | (specimen) | + + + +---------+ + + | Performing | Address | City/State/Zipcode | Phone Number | | Organization | | | | + +---------+ + + | EXTERNAL LAB | | | | + +---------+ + + Troponin I (12/22/2014 6:24 PM PDT) + + + + + + | Component | Value | Ref Range | Performed | Pathologist | | | | | At | Signature | + + + + + + | Troponin I, | 0.065Comment: 0.00 to | 0.00 - 0.10 | EXTERNAL | | | Qual | 0.10 CONSISTENT WITH | ng/mL | LAB | | | | NORMAL POPULATION0.11 to | | | | | | 0.60 CONSISTENT WITH | | | | | | INCREASED RISK FOR | | | | | | ADVERSE OUTCOMES> 0.60 | | | | | | CONSISTENT | | | | | | WITH WHO CRITERIA FOR | | | | | | ACUTE GA Testing | | | | | | performed at [facility] | | | | | | [facility];[place], [place] | | | | | | [address] | | | | + + + + + + + + | Specimen | + + | Blood specimen | | (specimen) | + + + +---------+ + + | Performing | Address | City/State/Zipcode | Phone Number | | Organization | | | | + +---------+ + + | EXTERNAL LAB | | | | + +---------+ + + PTT (12/22/2014 6:24 PM PDT) + + + + + + | Component | Value | Ref Range | Performed | Pathologist | | | | | At | Signature | + + + + + + | aPTT, | 88 ()Comment: CALLED | 23 - 32 seconds | EXTERNAL | | | Patient | TO 3OP SARAH Valdes RBV | | LAB | | | | @1910 DGBTesting | | | | | | performed at [facility] | | | | | [address];[place], [place] | | | | | | [address] | | | | + + + + + + + + | Specimen | + + | Blood specimen | | (specimen) | + + + +---------+ + + | Performing | Address | City/State/Zipcode | Phone Number | | Organization | | | | + +---------+ + + | EXTERNAL LAB | | | | + +---------+ + + External Lab: CBC (12/22/2014 6:24 PM PDT) + + + + + + | Component | Value | Ref Range | Performed | Pathologist | | | | | At | Signature | + + + + + + | WBC | 5.80Comment: Testing | 3.80 - 11.00 | EXTERNAL | | | | performed at [facility] | K/uL | LAB | | | | [address];[place] | | | | | | [address] | | | | + + + + + + | RED CELL | 4.27Comment: Testing | 3.70 - 5.10 | EXTERNAL | | | COUNT | performed at [facility] | M/uL | LAB | | | | [address];[place] | | | | | | [address] | | | | + + + + + + | Hgb | 11.0 (L)Comment: Testing | 11.3 - 15.5 | EXTERNAL | | | | performed at [facility] | g/dL | LAB | | | | [address];[place] | | | | | | [address] | | | | + + + + + + | Hematocrit, | 33.6 (L)Comment: Testing | 34.0 - 46.0 % | EXTERNAL | | | POC | performed at [facility] | | LAB | | | | [address];[place] | | | | | | [address] | | | | + + + + + + | MCV | 78.6 (L)Comment: Testing | 80.0 - 100.0 fl | EXTERNAL | | | | performed at [facility] | | LAB | | | | [address];[place] | | | | | | [address] | | | | + + + + + + | MCH | 25.7 (L)Comment: Testing | 27.0 - 34.0 pg | EXTERNAL | | | | performed at [facility] | | LAB | | | | [address];[place] | | | | | | [address] | | | | + + + + + + | MCHC | 32.6Comment: Testing | 32.0 - 35.5 | EXTERNAL | | | | performed at [facility] | g/dL | LAB | | | | [address];[place] | | | | | | [address] | | | | + + + + + + | RDW-CV | 41.1Comment: Testing | 37 - 53 fl | EXTERNAL | | | | performed at [facility] | | LAB | | | | [address];[place] | | | | | | [address] | | | | + + + + + + | Platelet | 294Comment: Testing | 150 - 400 K/uL | EXTERNAL | | | Count | performed at [facility] | | LAB | | | Plasma | [address];[place] | | | | | | [address] | | | | + + + + + + | MPV | 8.2Comment: Testing | fl | EXTERNAL | | | | performed at [facility] | | LAB | | | | [address];[place] | | | | | | [address] | | | | + + + + + + | Differentia | AUTOMATEDComment: | | EXTERNAL | | | l Type | Testing performed at | | LAB | | | | [facility];[place] [address] | | | | + + + + + + | % Segmented | 67.77Comment: Testing | % | EXTERNAL | | | | performed at [facility] | | LAB | | | Neutrophils | [address];[place] | | | | | | [address] | | | | + + + + + + | % | 16.65Comment: Testing | % | EXTERNAL | | | Lymphocytes | performed at [facility] | | LAB | | | | [address];[place] | | | | | | [address] | | | | + + + + + + | % Monocytes | 12.80Comment: Testing | % | EXTERNAL | | | | performed at [facility] | | LAB | | | | [address];[place] | | | | | | [address] | | | | + + + + + + | % | 1.46Comment: Testing | % | EXTERNAL | | | Eosinophils | performed at [facility] | | LAB | | | | [address];[place] | | | | | | [address] | | | | + + + + + + | % Basophils | 1.32Comment: Testing | % | EXTERNAL | | | | performed at [facility] | | LAB | | | | [address];[place] | | | | | | [address] | | | | + + + + + + | Absolute | 3.93Comment: Testing | 1.90 - 7.40 | EXTERNAL | | | Segmented | performed at [facility] | K/uL | LAB | | | Neutrophils | [address];[place] | | | | | | [address] | | | | + + + + + + | Absolute | 0.97 (L)Comment: Testing | 1.00 - 3.90 | EXTERNAL | | | Lymphocytes | performed at [facility] | K/uL | LAB | | | | [address];[place] | | | | | | [address] | | | | + + + + + + | Absolute | 0.74Comment: Testing | 0.00 - 0.80 | EXTERNAL | | | Monocytes | performed at [facility] | K/uL | LAB | | | | [address];[place] | | | | | | [address] | | | | + + + + + + | Absolute | 0.09Comment: Testing | 0.00 - 0.50 | EXTERNAL | | | Eosinophils | performed at [facility] | K/uL | LAB | | | | [address];[place] | | | | | | [address] | | | | + + + + + + | Absolute | 0.08Comment: Testing | 0.00 - 0.10 | EXTERNAL | | | Basophils | performed at [facility] | K/uL | LAB | | | | [address];[place] | | | | | | [address] | | | | + + + + + + + + | Specimen | + + | Blood specimen | | (specimen) | + + + +---------+ + + | Performing | Address | City/State/Zipcode | Phone Number | | Organization | | | | + +---------+ + + | EXTERNAL LAB | | | | + +---------+ + + Phosphorus (12/22/2014 6:24 PM PDT) + + + + + + | Component | Value | Ref Range | Performed | Pathologist | | | | | At | Signature | + + + + + + | PHOSPHORUS | 4.1Comment: Testing | 2.3 - 4.8 mg/dL | EXTERNAL | | | | performed at [facility] | | LAB | | | | [address];[place], [place] | | | | | | [address] | | | | + + + + + + + + | Specimen | + + | Blood specimen | | (specimen) | + + + +---------+ + + | Performing | Address | City/State/Zipcode | Phone Number | | Organization | | | | + +---------+ + + | EXTERNAL LAB | | | | + +---------+ + + B Type Natriuretic Peptide (12/22/2014 6:24 PM PDT) + + + + + + | Component | Value | Ref Range | Performed | Pathologist | | | | | At | Signature | + + + + + + | BNP | 965 (H)Comment: Testing | 0 - 100 pg/mL | EXTERNAL | | | | performed at [facility] | | LAB | | | | [address];[place] | | | | | | [address] | | | | + + + + + + + + | Specimen | + + | Blood specimen | | (specimen) | + + + +---------+ + + | Performing | Address | City/State/Zipcode | Phone Number | | Organization | | | | + +---------+ + + | EXTERNAL LAB | | | | + +---------+ + + Magnesium (12/22/2014 6:24 PM PDT) + + + + + + | Component | Value | Ref Range | Performed | Pathologist | | | | | At | Signature | + + + + + + | Magnesium | 1.8Comment: Testing | 1.7 - 2.4 mg/dL | EXTERNAL | | | | performed at [facility] | | LAB | | | | [address];[place], [place] | | | | | | [address] | | | | + + + + + + + + | Specimen | + + | Blood specimen | | (specimen) | + + + +---------+ + + | Performing | Address | City/State/Zipcode | Phone Number | | Organization | | | | + +---------+ + + | EXTERNAL LAB | | | | + +---------+ + + CK Total (12/22/2014 6:24 PM PDT) + + + + + + | Component | Value | Ref Range | Performed | Pathologist | | | | | At | Signature | + + + + + + | CK, Total | 59Comment: Testing | 30 - 240 U/L | EXTERNAL | | | | performed at [facility] | | LAB | | | | [address];[place] | | | | | | [address] | | | | + + + + + + + + | Specimen | + + | Blood specimen | | (specimen) | + + + +---------+ + + | Performing | Address | City/State/Zipcode | Phone Number | | Organization | | | | + +---------+ + + | EXTERNAL LAB | | | | + +---------+ + + Comprehensive Metabolic Panel (12/22/2014 6:24 PM PDT) + + + + + + | Component | Value | Ref Range | Performed | Pathologist | | | | | At | Signature | + + + + + + | Na | 137Comment: Testing | 135 - 143 | EXTERNAL | | | | performed at [facility] | mmol/L | LAB | | | | [address];[place] | | | | | | [address] | | | | + + + + + + | K | 3.7Comment: Testing | 3.5 - 4.9 | EXTERNAL | | | | performed at [facility] | mmol/L | LAB | | | | [address];[place] | | | | | | [address] | | | | + + + + + + | Cl | 100Comment: Testing | 99 - 109 mmol/L | EXTERNAL | | | | performed at [facility] | | LAB | | | | [address];[place] | | | | | | [address] | | | | + + + + + + | CO2 | 26Comment: Testing | 23 - 32 mmol/L | EXTERNAL | | | | performed at [facility] | | LAB | | | | [address];[place] | | | | | | [address] | | | | + + + + + + | Anion Gap | 16Comment: Testing | 5 - 20 mmol/L | EXTERNAL | | | | performed at [facility] | | LAB | | | | [address];[place] | | | | | | [address] | | | | + + + + + + | Glucose, | 98Comment: Testing | 65 - 99 mg/dL | EXTERNAL | | | Fasting | performed at [facility] | | LAB | | | | [address];[place] | | | | | | [address] | | | | + + + + + + | BUN | 19Comment: Testing | 8 - 25 mg/dL | EXTERNAL | | | | performed at [facility] | | LAB | | | | [address];[place] | | | | | | [address] | | | | + + + + + + | Creatinine | 0.86Comment: Testing | 0.50 - 1.00 | EXTERNAL | | | | performed at [facility] | mg/dL | LAB | | | | [address];[place] | | | | | | [address] | | | | + + + + + + | BUN/Creatin | 22Comment: Testing | | EXTERNAL | | | ine Ratio | performed at [facility] | | LAB | | | | [address];[place] | | | | | | [address] | | | | + + + + + + | Calcium | 8.4 (L)Comment: Testing | 8.5 - 10.5 | EXTERNAL | | | | performed at [facility] | mg/dL | LAB | | | | [address];[place] | | | | | | [address] | | | | + + + + + + | Protein, | 6.8Comment: Testing | 6.3 - 8.2 g/dL | EXTERNAL | | | Total | performed at [facility] | | LAB | | | | [address];[place] | | | | | | [address] | | | | + + + + + + | Albumin | 3.5Comment: Testing | 3.3 - 4.8 g/dL | EXTERNAL | | | | performed at [facility] | | LAB | | | | [address];[place] | | | | | | [address] | | | | + + + + + + | Globulin | 3.3Comment: Testing | 1.3 - 4.9 g/dL | EXTERNAL | | | | performed at [facility] | | LAB | | | | [address];[place] | | | | | | [address] | | | | + + + + + + | A/G Ratio | 1.1Comment: Testing | 1.0 - 2.4 | EXTERNAL | | | | performed at [facility] | | LAB | | | | [address];[place] | | | | | | [address] | | | | + + + + + + | Bilirubin | 0.8Comment: Testing | 0.1 - 1.5 mg/dL | EXTERNAL | | | Total | performed at [facility] | | LAB | | | | [address];[place] | | | | | | [address] | | | | + + + + + + | ALP, | 74Comment: Testing | 35 - 115 U/L | EXTERNAL | | | External | performed at [facility] | | LAB | | | | [address];[place] | | | | | | [address] | | | | + + + + + + | AST | 17Comment: Testing | 10 - 45 U/L | EXTERNAL | | | | performed at [facility] | | LAB | | | | [address];[place] | | | | | | [address] | | | | + + + + + + | ALT | 35Comment: Testing | 10 - 65 U/L | EXTERNAL | | | | performed at [facility] | | LAB | | | | [address];[place] | | | | | | [address] | | | | + + + + + + | Estimated | >60Comment: GFR <60: | mL/min/1.73m2 | EXTERNAL | | | GFR | CHRONIC KIDNEY DISEASE, | | LAB | | | | IF FOUND OVER A 3 MONTH | | | | | | PERIOD.GFR <15: KIDNEY | | | | | | FAILURE.FOR | | | | | | AMERICANS, MULTIPLY THE | | | | | | CALCULATED GFR BY | | | | | | 1.210.Testing performed | | | | | | at [facility];[place] [address] | | | | + + + + + + + + | Specimen | + + | Blood specimen | | (specimen) | + + + +---------+ + + | Performing | Address | City/State/Zipcode | Phone Number | | Organization | | | | + +---------+ + + | EXTERNAL LAB | | | | + +---------+ + + ECG 12 lead (12/22/2014 6:21 PM PDT) + + + + + + | Component | Value | Ref Range | Performed | Pathologist | | | | | At | Signature | + + + + + + | DIAGNOSIS: | Sinus rhythm with | | EXTERNAL | | | | Premature atrial | | LAB | | | | complexesLeft axis | | | | | | deviationRight bundle | | | | | | branch blockInferior | | | | | | infarct , age | | | | | | undeterminedAnterolatera | | | | | | l infarct Acute or | | | | | | recentAbnormal ECGNo | | | | | | previous ECGs | | | | | | availableConfirmed by | | | | | | RADHA PINTO ([id number]) on | | | | | | 12/22/2014 9:54:11 PM | | | | + + + + + + + + | Specimen | + + | | + + + + + | Narrative | Performed At | + + + | Historically converted procedure from [facility] environment | EXTERNAL LAB | + + + + +---------+ + + | Performing | Address | City/State/Zipcode | Phone Number | | Organization | | | | + +---------+ + + | EXTERNAL LAB | | | | + +---------+ + + documented in this encounter Visit Diagnoses + + | Diagnosis | + + | Essential hypertension Unspecified essential hypertension | + + | Type 2 diabetes mellitus with hyperglycemia (HCC) Type II or unspecified type | | diabetes mellitus without mention of complication, not stated as uncontrolled | + + | NSTEMI (non-ST elevated myocardial infarction) ([facility]) Acute myocardial infarction, | | subendocardial infarction, episode of care unspecified | + + | Acute systolic congestive heart failure ([facility]) Acute systolic heart failure | + + | Anemia, normocytic normochromic Anemia, unspecified | + + | Microcytic anemia Iron deficiency anemia, unspecified | + + | Hyposmolality and/or hyponatremia | + + | Abnormal ECG Nonspecific abnormal electrocardiogram (ECG) (EKG) | + + | Ischemic cardiomyopathy Other specified forms of chronic ischemic heart disease | + + | 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
--- OUTSIDE RECORDS SUMMARY | ~2019-03-20 | XMS | Encounter Summary ---
Demographics + + + | Address | [address] | | | [place] [address] | + + + | Home Phone [...] Team Providers + +------+ + | Care Tube Skiver Name | Role | Phone | + +------+ + | Loco [place] DO | PCP | | + +------+ + Encounter Details +--------+ + + + + | Date | Type | Department | Care Team | Description | +--------+ + + + + | 12/22/ | Orders Only | [facility] | Conversion | | | 2014 | | CONVERSION [address] | Transaction, | | | | | [address] | Provider Unknown | | | | | [place] | | | | | | [phone] | (Fax) | | | | | [phone] | | | +--------+ + + + [...] | 2019 | | | [address] | | | | | | [address] | | | | | | [place] [address] | | | | | | [phone] | | | | | | | | +--------+ + + + + | 06/06/ | Office | Cardiology | Keila Kang | | | 2019 | Visit | | [address] | | | | | | [address] | | | | | | [place] [address] | | | | | | [phone] | | | | | | | | +--------+ + + + + documented as of this encounter Visit Diagnoses Not on filedocumented in this encounter"
--- OUTSIDE RECORDS SUMMARY | ~2019-03-20 | XMS | Encounter Summary ---
Demographics + + + | Address | [address] | | | [place] [address] | + + + | Home Phone | | + + + | Preferred Language | Unknown | + + + | Marital Status | | + + + | Confucianism Affiliation | Unknown | + + + | Race | Unknown | + + + | Ethnic Group | Unknown | + + + Author + + + | Author | [facility] | | | and [place] | + + + | Organization | [facility] | | | [...] Team Providers + +------+ + | Care Sap Gatherer Name | Role | Phone | + +------+ + | Loco Hernandez DO | PCP | | + +------+ + Encounter Details +--------+ + + + + | Date | Type | Department | Care Team | Description | +--------+ + + + + | 12/26/ | Orders Only | [facility] | Conversion | | | 2016 | | CONVERSION [address] | Transaction, | | | | | [address] | Provider Unknown | | | | | [place] | | | | | | [phone] | (Fax) | | | | | [phone] | | | +--------+ + + + [...] [address] | | | | | | [place] [address] | | | | | | [phone] | | | | | | | | +--------+ + + + + | 06/06/ | Office | Cardiology | Keila Kang | | | 2019 | Visit | | [address] | | | | | | [address] | | | | | | [place] [address] | | | | | | [phone] | | | | | | | | +--------+ + + + + documented as of this encounter Visit Diagnoses Not on filedocumented in this encounter"
--- OUTSIDE RECORDS SUMMARY | ~2019-03-20 | XMS | Encounter Summary ---
Demographics + + + | Address | [address] | | | [place] [address] | + + + | Home Phone | | + + + | Preferred Language | Unknown | + + + | Marital Status | | + + + | Mandaeism Affiliation | Unknown | + + + | Race | Unknown | + + + | Ethnic Group | Unknown | + + + Author + + + | Author | [facility] | | | and [place] | + + + | Organization | [facility] | | | [...] Team Providers + +------+ + | Care Treasury Specialist Name | Role | Phone | [...] [place] | | | | | | [phone] | (Fax) | | | | | [phone] | | | +--------+ + + + [...] [address] | | | | | | [place] [address] | | | | | | [phone] | | | | | | | | +--------+ + + + + | 06/06/ | Office | Cardiology | Keila Kang | | | 2019 | Visit | | [address] | | | | | | [address] | | | | | | [place] [address] | | | | | | [phone] | | | | | | | | +--------+ + + + + documented as of this encounter Visit Diagnoses Not on filedocumented in this encounter"
--- OUTSIDE RECORDS SUMMARY | ~2019-03-20 | XMS | Encounter Summary ---
Demographics + + + | Address | [address] | | | [place] [address] | + + + | Home Phone | | + + + | Preferred Language | Unknown | + + + | Marital Status | | + + + | Pentecostalism Affiliation | Unknown | + + + | Race | Unknown | + + + | Ethnic Group | Unknown | + + + Author + + + | Author | [facility] | | | and [place] | + + + | Organization | [facility] | | [...] Team Providers + +------+ + | Care Apiculturist Name | Role | Phone | + [...] [address] | | | | | [place], [place] | [place] [address] | | | | | [address] | [phone] | | | | | [phone] | | | +--------+ + + + [...] | 2019 | | | [address] | | | | | | [address] | | | | | | [place] [address] | | | | | | [phone] | | | | | | | | +--------+ + + + + | 06/06/ | Office | Cardiology | Keila Kang | | | 2019 | Visit | | [address] | | | | | | [address] | | | | | | [place] [address] | | | | | | [phone] | | | | | | | [...] MV A Bhavesh: 0.92 m/s MV Dec Coffee: 2.62 m/s2 MV DecT: | | | 335.48 ms MV E Bhavesh: 0.88 m/s MV E/A Ratio: 0.95 E/E' Sept: | | | 20.40 E' Lat: 0.05 m/s E' Sept: 0.04 m/s RAP: 5 mmHg | | | RV S': 0.10 m/s RVSP: 24.06 mmHg TR maxP.06 mmHg TR | | | Vmax: 2.18 m/s Center Aisle Cashier: Authenticated by: Christine Macias | | | MD Report Date/Time: -- [id number] | | + + + + + [...] (A-L): 24.56 | | ml/m2LAAs A2C: 16.15 [id number] A-L A2C: 46.04 mlLAESV MOD A2C: 41.69 mlLALs A2C: | | 4.81 cmLAAs A4C: 14.00 [id number] A-L A4C: 36.44 mlLAESV MOD A4C: 34.47 mlLALs A4C: | | 4.57 cmRAAs: 13.85 [id number] A-L: 34.08 mlRAESV MOD: 33.64 mlRALs: 4.78 | | cmTAPSE: 2.67 cmAV Env.Ti: 358.33 msAV maxP.63 mmHgAV meanP.61 mmHgAV | | Vmax: 1.54 m/Catarino Vmean: 1.12 m/Catarino VTI: 40.49 cmAVA Vmax: 1.61 cm2AVA (VTI): | | 1.56 [id number] Vmax: 0.00 cm2/m2AVAI (VTI): 0.00 cm2/m2LVOT Env.Ti: 372.30 msLVOT | | maxP.12 mmHgLVOT meanP.14 mmHgLVSI Dopp: 37.12 ml/m2LVSV Dopp: 63.48 | | mlLVOT Vmax: 0.72 m/sLVOT Vmean: 0.49 m/sLVOT VTI: 18.58 cmMV A Bhavesh: 0.92 m/sMV | | Dec Coffee: 2.62 m/s2MV DecT: 335.48 msMV E Bhavesh: 0.88 m/sMV E/A Ratio: 0.95E/E' | | Sept: 20.40E' Lat: 0.05 m/sE' Sept: 0.04 m/sRAP: 5 mmHgRV S': 0.10 m/sRVSP: | | 24.06 mmHgTR maxP.06 mmHgTR Vmax: 2.18 m/s [facility]:Authenticated by: | | Christine Macias MDReport Date/Time: -- [id number] IMPRESSION: 1. Overall left | | ventricular [...] A Bhavesh: 0.92 m/s | |MV Dec Coffee: 2.62 m/s2 | |MV DecT: 335.48 ms | |MV E Bhavesh: 0.88 m/s | |MV E/A Ratio: 0.95 | |E/E' Sept: 20.40 | |E' Lat: 0.05 m/s | |E' Sept: 0.04 m/s | |RAP: 5 mmHg | |RV S': 0.10 m/s | |RVSP: 24.06 mmHg | |TR maxP.06 mmHg | |TR Vmax: 2.18 m/s | | | |[facility]: | |Authenticated by: Christine Macias MD | |Report Date/Time: -- [id number] | | | |IMPRESSION: | |1. Overall [...]
--- OUTSIDE RECORDS SUMMARY | ~2019-03-20 | XMS | Encounter Summary ---
Demographics + + + | Address | [address] | | | [place] [address] | + + + | Home Phone | | + + + | Preferred Language | Unknown | + + + | Marital Status | | + + + | Voodoo Affiliation | Unknown | + + + | Race | Unknown | + + + | Ethnic Group | Unknown | + + + Author + + + | Author | [facility] | | | and Judeana | + + + | Organization | [facility] | | | [...] Team Providers + +------+ + | Care Roster Clerk Name | Role | Phone | + +------+ + PCP | Unavailable | + +------+ + Encounter Details +--------+ + + + + | Date | Type | Department | Care Team | Description | +--------+ + + + + | 12/22/ | Hospital | [facility] | Jennifer Light, | Essential | | 2015 - | Encounter | [facility]ICAL [facility]ENTER | MD Zack SALOMON | hypertension; Type 2 | | | | CLINICAL DECISION | [place] [address] | diabetes mellitus | | 12/26/ | | MARCELLO SALOMON | [phone] | with hyperglycemia | | 2014 | | [place], [place] | | ([facility]); NSTEMI | | | | [phone] | | (non-ST elevated | | | | [phone] | | myocardial | | | | | | infarction) ([facility]); | | | | | | Acute systolic | | | | | | congestive heart | | | | | | failure ([facility]); | | | | | | Anemia, [...] 12/26/14938 Date of Service: 12/26/14934 Status: Attested Stainless Steel Finisher: BIJU Orozco (Resident-Y2) Cosigner: Alonso Merida DO [...] him. Alonso Merida DO 12/26/2014 1:[address] [facility] Service: Hospitalist Discharge Summary Date of [...] GERD who presents as a transfer fr [facility] in [place] for new diagnosis fo CHF and elevated [...] she was sent to ED. EKG in [facility] sh owed 84 NSR incomplete RBB, inferior, anterior and later q waves - unchanged EKG here CXR owed cardiomegaly, mild congestion, fluid in fissure Per report. I requested lasix be given in [facility] - she reports feeling better. She was started there on heparin drip. At [facility] patient had a cardiac cath performed by [...] 1 Follow up: Nam Chacon MD [address] [place] [address] 2 [facility] [address] Schedule an appointment as soon as possible for a visit in 1 week Elliot Alonso MD [address] [place] [id number] Schedule an appointment as soon as possible [...] are the prescriptions that you need to picker. You may get the following medications from [...] JUAN MANUEL Guajardo Service: (none) Author Type: Sba Business Development Officer Filed: 12/26/14 1146 Date of Service: 12/26/14933 Status: Addendum Stainless Steel Finisher: JUAN MANUEL Guajardo (Sba Business Development Officer) Related Notes: Original Note by JUAN MANUEL Guajardo (Sba Business Development Officer) filed at 12/26/[address] Merida, Pt will be dc'ing and will nee INR upon dc.CM Arranged for Pt to return to p rior living situation and f/u with her PCP Nam Martinez [phone] For Coumadin at [facility] in [place] [phone]. Order also for Pt to be on Lovenox. Trans portation by DTR. Elliot Manning MD - 12/26/2014 8:19 AM PDTFormatting of this note might be different from the o riginal. Progress Notes by Elliot Alonso MD at 12/26/14818 Author: Elliot Alonso MD Service: (none) Author Type: Physician Filed: 12/26/14823 Date of Service: 12/26/14818 Status: Signed Stainless Steel Finisher: Elliot Alonso MD (Physician) 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 Code Status: DNR/DNI ELLIOT ALONSO MD 12/26/2014 hrafa, Vick Deshpande MD - 12/26/2014 7:07 AM PDT Progress Notes by Vick Garcia MD-R2 at 10/02/28 707 Author: Vick Garcia MD-R2 Service: Hospitalist Author Type: Resident Filed: 12/26/14715 Date of Service: 12/26/14706 Status: Signed Stainless Steel Finisher: Vick Garcia MD-R2 (Resident-Y2) Cosigner: Alonso Merida, DO at 12/27/[address] [facility] Service: Hospitalist Progress Note Pt: Catherine Carrasco AGE/SEX: 84 y.o. female ROOM: [address] [place] [address] : 1930 PCP: NAM CHACON ADMIT DATE: 12/22/2014 TODAY'S DATE: 12/26/2014 Hospital Day/Hospital Course: LOS: 4 days BRIEF SUMMARY: The patient is a 84 y.o. 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 EKG in [facility] showed 84 NSR incomplete RBB, inferior, anterior and later q waves - unchanged EKG here CXR showed cardiomegaly, mild congestion, fluid in fissure Per report. I requested lasix be given in [facility] - she reports feeling better. She was started there on hepari n drip. At [facility] patient had a cardiac cath performed by [...] 12/25/141728 Date of Service: 12/25/141725 Status: Signed Stainless Steel Finisher: Mago Kelley RN (Registered Nurse) Has been [...] Date of Service: 12/25/14 1010 Status: Signed Stainless Steel Finisher: Elliot Alonso MD (Physician) Related Notes: Original Note by Elliot Alonso MD (Physician) filed at 12/25/[address] [facility] Service: Cardiology Progress Note Hospital Day: [...] 12/25/1445 Date of Service: 12/25/14732 Status: Attested Stainless Steel Finisher: KAYCE OrozcoR2 (Resident-Y2) Cosigner: Alonso Merida DO [...] in future, not for this hospitalization. Alonso eMrida DO 12/25/2014 10:[address] [facility] Service: Hospitalist Progress Note Pt: Catherine [...] GERD, who presents as a transfer from [facility] in [place] for new diagnosis fo CHF and elevated [...] she was sent to ED EKG in [facility] showed 84 NSR incomplete RBB, inferior, anterior and later q waves - un changed EKG here CXR showed cardiomegaly, mild congestion, fluid in fissure Per report I requested lasix be given in [facility] - she reports feeling better She was [...] hours. No results for input(s): PHART, PO2ART, RKB7SYH, R5TZJWSX, BEART in the last 168 hours. Recent [...] 12/25/14516 Date of Service: 12/25/14507 Status: Signed Stainless Steel Finisher: Tiarra Nguyen RN (Registered Nurse) Pt resting [...] 1809 Date of Service: 12/24/141714 Status: Addendum Stainless Steel Finisher: Mago Kelley RN (Registered Nurse) Related Notes: Original Note by Mago Kelley RN (Registered Nurse) filed at 12/24/14 174 3 [facility]ed from [facility] per stretcher, awake and alert. Right groin [...] Date of Service: 12/24/14 1620 Status: Signed Stainless Steel Finisher: Mago Kelley RN (Registered Nurse) Transferred to [facility].Mago Kelley 12/24/2014 Alonso Camilo DO - 12/24/2014 12:47 PM PDTFormatting of this note might be different from the rohit ginal. Progress Notes by Alonso Merida DO at 12/24/14 6825 Author: Alonso Merida DO Service: Hospitalist Author Type: Physician Filed: 12/24/14 6353 Date of Service: 12/24/141246 Status: Signed Stainless Steel Finisher: Alonso Merida DO (Physician) PROGRESS NOTE 12/24/2014 [...] 12/24/14450 Date of Service: 12/24/14441 Status: Signed Stainless Steel Finisher: Tiarra Nguyen RN (Registered Nurse) Pt is [...] (none) Author Type: Registered Nurse Filed: 12/23/14 8598 Date of Service: 12/23/141726 Status: Signed Stainless Steel Finisher: Jew J Ariza, RN (Registered Nurse) Pt A&O, VSS, pt denies SOB, pain. The gregory showed some blood in the urine. Dr. Merida was n otified. Pt resting in bed now. Will continue to monitor. Nikolai Ariza RN rownAlonso DO - 12/23/2014 2:41 PM PDTFormatting of this note might be different from the rohit ginal. Progress Notes by Alonso Merida DO at 12/23/14 1441 Author: Alonso Merida DO Service: Hospitalist Author Type: Physician Filed: 12/23/14 0201 Date of Service: 12/23/14 144 Status: Signed Stainless Steel Finisher: Alonso Merida DO (Physician) PROGRESS NOTE 12/23/2014 [...] Candis Castro RN Service: (none) Author Type: Liquified Natural Gas Technician Filed: 12/23/14 1243 Date of Service: 12/23/14 1224 Status: Signed Stainless Steel Finisher: Candis Castro RN (Liquified Natural Gas Technician) 12/23/14 1222 Discharge Planning Evaluation Admitting Diagnosis [...] Crenshaw Relationship to Patient daughter Phone number [phone] Mental Status Oriented Prior functional status independent Anticipated Discharge Plan Post Acute Care Needs None at this time Plan communicated to patient/family Yes Resources Financial concerns No Transportation issues No Patient/Family concerns No Prescription Plan Yes Name of Pharmacy in [facility] Previous home health equipment No Anticipated Disposition Facility Type Home Met with patient and discussed discharge planning, Pt is a 84 y.o., female admitted from [facility] with CHF. Pt is alert and oriented, [...] 12/22/141810 Date of Service: 12/22/141810 Status: Signed Stainless Steel Finisher: May Merida RPH (Pharmacist) Renal Dosing Monitoring: [...] [address] | | | | | | [place] [address] | | | | | | [phone] | | | | | | | | +--------+ + + + + | 06/06/ | Office | Cardiology | Keila Kang | | | 2019 | Visit | | [address] | | | | | | [address] | | | | | | [place] [address] | | | | | | [phone] | | | | | | | [...] | Fingerstick | performed at [facility];[address] | | LAB | | | | [address];[place], [place] | | | | | | [address] | | | | + + + [...] | Fingerstick | performed at [facility];[address] | | LAB | | | | [address];[place] | | | | | | [address] | | | | + + + [...] | | | performed at [facility] | | | | | | [address] [facility];[place], [place] | | | | | | [address] | | | | + + + [...] | | | | | [place] [address] | | | | + + + + + + | RED CELL | 3.73Comment: Testing | 3.70 - 5.10 | EXTERNAL | | | COUNT | performed at [facility], [address] | M/uL | LAB | | | | [address], | | | | | | [place] [address] | | | | + + + + + + | Hgb | 9.6 (L)Comment: Testing | 11.3 - 15.5 | EXTERNAL | | | | performed at [facility], [address] | g/dL | LAB | | | | [address], | | | | | | [place] [address] | | | | + + + + + + | Hematocrit, | 29.8 (L)Comment: Testing | 34.0 - 46.0 % | EXTERNAL | | | POC | performed at [facility], [address] | | LAB | | | | [address], | | | | | | [place] [address] | | | | + + + + + + | MCV | 79.9 (L)Comment: Testing | 80.0 - 100.0 fl | EXTERNAL | | | | performed at [facility], [address] | | LAB | | | | [address], | | | | | | [place] [address] | | | | + + + + + + | MCH | 25.8 (L)Comment: Testing | 27.0 - 34.0 pg | EXTERNAL | | | | performed at [facility], [address] | | LAB | | | | [address], | | | | | | [place] [address] | | | | + + + + + + | MCHC | 32.3Comment: Testing | 32.0 - 35.5 | EXTERNAL | | | | performed at [facility], [address] | g/dL | LAB | | | | [address], | | | | | | [place] [address] | | | | + + + + + + | RDW-CV | 42.4Comment: Testing | 37 - 53 fl | EXTERNAL | | | | performed at [facility], [address] | | LAB | | | | [address], | | | | | | [place] [address] | | | | + + + + + + | Platelet | 256Comment: Testing | 150 - 400 K/uL | EXTERNAL | | | Count | performed at [facility], [address] | | LAB | | | Plasma | [address], | | | | | | [place] [address] | | | | + + + + + + | MPV | 8.8Comment: Testing | fl | EXTERNAL | | | | performed at [facility], [address] | | LAB | | | | [address], | | | | | | [place] [address] | | | | + + + + + + | Differentia | AUTOMATEDComment: | | EXTERNAL | | | l Type | Testing performed at | | LAB | | | | [facility], [address] | | | | | | [place] | | | | | | [address] | | | | + + + + + + | % Segmented | 70.95Comment: Testing | % | EXTERNAL | | | | performed at [facility], [address] | | LAB | | | Neutrophils | [address], | | | | | | [place] [address] | | | | + + + + + + | % | 12.87Comment: Testing | % | EXTERNAL | | | Lymphocytes | performed at [facility], [address] | | LAB | | | | [address], | | | | | | [place], [place] [address] | | | | + + + + + + | % Monocytes | 12.98Comment: Testing | % | EXTERNAL | | | | performed at [facility], [address] | | LAB | | | | [address], | | | | | | [place] [address] | | | | + + + + + + | % | 2.07Comment: Testing | % | EXTERNAL | | | Eosinophils | performed at [facility], [address] | | LAB | | | | [address], | | | | | | [place] [address] | | | | + + + + + + | % Basophils | 1.13Comment: Testing | % | EXTERNAL | | | | performed at [facility], [address] | | LAB | | | | [address], | | | | | | [place] [address] | | | | + + + + + + | Absolute | 4.21Comment: Testing | 1.90 - 7.40 | EXTERNAL | | | Segmented | performed at [facility], [address] | K/uL | LAB | | | Neutrophils | [address], | | | | | | [place] [address] | | | | + + + + + + | Absolute | 0.76 (L)Comment: Testing | 1.00 - 3.90 | EXTERNAL | | | Lymphocytes | performed at [facility], [address] | K/uL | LAB | | | | [address], | | | | | | [place] [address] | | | | + + + + + + | Absolute | 0.77Comment: Testing | 0.00 - 0.80 | EXTERNAL | | | Monocytes | performed at [facility], [address] | K/uL | LAB | | | | [address], | | | | | | [place] [address] | | | | + + + + + + | Absolute | 0.12Comment: Testing | 0.00 - 0.50 | EXTERNAL | | | Eosinophils | performed at [facility], [address] | K/uL | LAB | | | | [address], | | | | | | [place] [address] | | | | + + + + + + | Absolute | 0.07Comment: Testing | 0.00 - 0.10 | EXTERNAL | | | Basophils | performed at [facility], [address] | K/uL | LAB | | | | [address], | | | | | | [place] [address] | | | | + + + [...] | | | | | [place] [address] | | | | + + + + + + | K | 3.8Comment: Testing | 3.5 - 4.9 | EXTERNAL | | | | performed at [facility], [address] | mmol/L | LAB | | | | [address], | | | | | | [place] [address] | | | | + + + + + + | Cl | 97 (L)Comment: Testing | 99 - 109 mmol/L | EXTERNAL | | | | performed at [facility], [address] | | LAB | | | | [address], | | | | | | [place] [address] | | | | + + + + + + | CO2 | 26Comment: Testing | 23 - 32 mmol/L | EXTERNAL | | | | performed at [facility], [address] | | LAB | | | | [address], | | | | | | [place] [address] | | | | + + + + + + | Anion Gap | 9Comment: Testing | 5 - 20 mmol/L | EXTERNAL | | | | performed at [facility], [address] | | LAB | | | | [address], | | | | | | [place] [address] | | | | + + + + + + | Glucose, | 136 (H)Comment: Testing | 65 - 99 mg/dL | EXTERNAL | | | Fasting | performed at [facility], [address] | | LAB | | | | [address], | | | | | | [place] [address] | | | | + + + + + + | BUN | 33 (H)Comment: Testing | 8 - 25 mg/dL | EXTERNAL | | | | performed at [facility], [address] | | LAB | | | | [address], | | | | | | [place] [address] | | | | + + + + + + | Creatinine | 0.89Comment: Testing | 0.50 - 1.00 | EXTERNAL | | | | performed at [facility], [address] | mg/dL | LAB | | | | [address], | | | | | | [place] [address] | | | | + + + + + + | BUN/Creatin | 37Comment: Testing | | EXTERNAL | | | ine Ratio | performed at [facility], [address] | | LAB | | | | [address], | | | | | | [place] [address] | | | | + + + + + + | Calcium | 8.5Comment: Testing | 8.5 - 10.5 | EXTERNAL | | | | performed at [facility], [address] | mg/dL | LAB | | | | [address], | | | | | | [place] [address] | | | | + + + [...] | | | | | | at [facility], [address] | | | | | | [address] [facility], | | | | | | [place] [address] | | | | + + + [...] | Fingerstick | performed at [facility];[address] | | LAB | | | | [address];[place] | | | | | | [address] | | | | + + + [...] | Fingerstick | performed at [facility];[address] | | LAB | | | | [address];[place] | | | | | | [address] | | | | + + + [...] | Fingerstick | performed at [facility];[address] | | LAB | | | | [address];[place] | | | | | | [address] | | | | + + + [...] | Fingerstick | performed at [facility];[address] | | LAB | | | | [address];[place], [place] | | | | | | [address] | | | | + + + [...] EXTERNAL | | | | performed at [facility], [address] | K/uL | LAB | | | | [address], | | | | | | [place] [address] | | | | + + + + + + | RED CELL | 3.79Comment: Testing | 3.70 - 5.10 | EXTERNAL | | | COUNT | performed at [facility], [address] | M/uL | LAB | | | | [address], | | | | | | [place] [address] | | | | + + + + + + | Hgb | 9.7 (L)Comment: Testing | 11.3 - 15.5 | EXTERNAL | | | | performed at [facility], [address] | g/dL | LAB | | | | [address], | | | | | | [place] [address] | | | | + + + + + + | Hematocrit, | 30.0 (L)Comment: Testing | 34.0 - 46.0 % | EXTERNAL | | | POC | performed at [facility], [address] | | LAB | | | | [address], | | | | | | [place] [address] | | | | + + + + + + | MCV | 79.1 (L)Comment: Testing | 80.0 - 100.0 fl | EXTERNAL | | | | performed at [facility], [address] | | LAB | | | | [address], | | | | | | [place] [address] | | | | + + + + + + | MCH | 25.6 (L)Comment: Testing | 27.0 - 34.0 pg | EXTERNAL | | | | performed at [facility], [address] | | LAB | | | | [address], | | | | | | [place] [address] | | | | + + + + + + | MCHC | 32.4Comment: Testing | 32.0 - 35.5 | EXTERNAL | | | | performed at [facility], [address] | g/dL | LAB | | | | [address], | | | | | | [place] [address] | | | | + + + + + + | RDW-CV | 42.0Comment: Testing | 37 - 53 fl | EXTERNAL | | | | performed at [facility], [address] | | LAB | | | | [address], | | | | | | [place] [address] | | | | + + + + + + | Platelet | 261Comment: Testing | 150 - 400 K/uL | EXTERNAL | | | Count | performed at [facility], [address] | | LAB | | | Plasma | [address], | | | | | | [place] [address] | | | | + + + + + + | MPV | 8.9Comment: Testing | fl | EXTERNAL | | | | performed at [facility], [address] | | LAB | | | | [address], | | | | | | [place] [address] | | | | + + + + + + | Differentia | AUTOMATEDComment: | | EXTERNAL | | | l Type | Testing performed at | | LAB | | | | [facility], [address] | | | | | | [place] | | | | | | [address] | | | | + + + + + + | % Segmented | 68.01Comment: Testing | % | EXTERNAL | | | | performed at [facility], [address] | | LAB | | | Neutrophils | [address], | | | | | | [place] [address] | | | | + + + + + + | % | 16.34Comment: Testing | % | EXTERNAL | | | Lymphocytes | performed at [facility], [address] | | LAB | | | | [address], | | | | | | [place] [address] | | | | + + + + + + | % Monocytes | 12.95Comment: Testing | % | EXTERNAL | | | | performed at [facility], [address] | | LAB | | | | [address], | | | | | | [place] [address] | | | | + + + + + + | % | 1.45Comment: Testing | % | EXTERNAL | | | Eosinophils | performed at [facility], [address] | | LAB | | | | [address], | | | | | | [place] [address] | | | | + + + + + + | % Basophils | 1.25Comment: Testing | % | EXTERNAL | | | | performed at [facility], [address] | | LAB | | | | [address], | | | | | | [place] [address] | | | | + + + + + + | Absolute | 4.19Comment: Testing | 1.90 - 7.40 | EXTERNAL | | | Segmented | performed at [facility], [address] | K/uL | LAB | | | Neutrophils | [address], | | | | | | [place] [address] | | | | + + + + + + | Absolute | 1.01Comment: Testing | 1.00 - 3.90 | EXTERNAL | | | Lymphocytes | performed at [facility], [address] | K/uL | LAB | | | | [address], | | | | | | [place] [address] | | | | + + + + + + | Absolute | 0.80Comment: Testing | 0.00 - 0.80 | EXTERNAL | | | Monocytes | performed at [facility], [address] | K/uL | LAB | | | | [address], | | | | | | [place] [address] | | | | + + + + + + | Absolute | 0.09Comment: Testing | 0.00 - 0.50 | EXTERNAL | | | Eosinophils | performed at [facility], [address] | K/uL | LAB | | | | [address], | | | | | | [place] [address] | | | | + + + + + + | Absolute | 0.08Comment: Testing | 0.00 - 0.10 | EXTERNAL | | | Basophils | performed at [facility], [address] | K/uL | LAB | | | | [address], | | | | | | [place] [address] | | | | + + + [...] | | | | | [place] [address] | | | | + + + + + + | K | 3.7Comment: Testing | 3.5 - 4.9 | EXTERNAL | | | | performed at [facility], [address] | mmol/L | LAB | | | | [address], | | | | | | [place] [address] | | | | + + + + + + | Cl | 98 (L)Comment: Testing | 99 - 109 mmol/L | EXTERNAL | | | | performed at [facility], [address] | | LAB | | | | [address], | | | | | | [place] [address] | | | | + + + + + + | CO2 | 23Comment: Testing | 23 - 32 mmol/L | EXTERNAL | | | | performed at [facility], [address] | | LAB | | | | [address], | | | | | | [place] [address] | | | | + + + + + + | Anion Gap | 12Comment: Testing | 5 - 20 mmol/L | EXTERNAL | | | | performed at [facility], [address] | | LAB | | | | [address], | | | | | | [place] [address] | | | | + + + + + + | Glucose, | 139 (H)Comment: Testing | 65 - 99 mg/dL | EXTERNAL | | | Fasting | performed at [facility], [address] | | LAB | | | | [address], | | | | | | [place] [address] | | | | + + + + + + | BUN | 27 (H)Comment: Testing | 8 - 25 mg/dL | EXTERNAL | | | | performed at [facility], [address] | | LAB | | | | [address], | | | | | | [place] [address] | | | | + + + + + + | Creatinine | 0.88Comment: Testing | 0.50 - 1.00 | EXTERNAL | | | | performed at [facility], [address] | mg/dL | LAB | | | | [address], | | | | | | [place] [address] | | | | + + + + + + | BUN/Creatin | 31Comment: Testing | | EXTERNAL | | | ine Ratio | performed at [facility], [address] | | LAB | | | | [address], | | | | | | [place] [address] | | | | + + + + + + | Calcium | 8.3 (L)Comment: Testing | 8.5 - 10.5 | EXTERNAL | | | | performed at [facility], [address] | mg/dL | LAB | | | | [address], | | | | | | [place] [address] | | | | + + + [...] [address], | | | | | | [place] [address] | | | | + + + [...] | Fingerstick | performed at [facility];[address] | | LAB | | | | [address];[place] | | | | | | [address] | | | | + + + [...] | Fingerstick | performed at [facility];[address] | | LAB | | | | [address];[place], [place] | | | | | | [address] | | | | + + + [...] | | abnormal ECG probably recent anterior ID, acute systolic congestive | | | heart [...] Versed 1 mg IV. EQUIPMENT 1. A 6-Stateless | | | arterial sheath. 2. A 5-Stateless 3DRC catheter. 3. A 5-Stateless JL4 | | | catheter. 4. A 5-Stateless pigtail catheter. COMPLICATIONS None | | | apparent. DETAILS OF PROCEDURE The right groin was prepped and | | | draped in the usual fashion for a percutaneous approach. A 6-Stateless | | | arterial sheath was placed in the right femoral artery without | | | difficulty. A 5-Stateless 3DRC catheter was then advanced to the | | | ascending aorta under fluoroscopic guidance. Initial aortic pressures | | | were obtained. This catheter was then advanced across the right | | | coronary ostium under fluoroscopic guidance. Selective coronary | | | arteriography was performed in a single view. This catheter was then | | | exchanged for a 5-Stateless JL4 catheter. This catheter was then advanced | | | to the left coronary ostium under fluoroscopic guidance. Selective | | | coronary arteriography was performed in multiple views. This | | | catheter was then exchanged for a 5-Stateless pigtail catheter. This | | | catheter [...] LEFT VENTRICULOGRAPHY 1. The left ventricle is qngy-qp-jzcdyqggpt | | | dilated. 2. There is [...] significant stenosis. 2. The LAD is a spbmzwuh-hk-rquap caliber | | | vessel, especially small or underfilled distally. There is a proximal | | | stenosis of 20% to 30% after the first major septal lawn service manager, | | | there is a high [...] abnormal ECG probably | | recent anterior ID, acute systolic congestive heart failure with abnormal [...] | | EQUIPMENT | | 1. A 6-Stateless arterial sheath. | | 2. A 5-Stateless 3DRC catheter. | | 3. A 5-Stateless JL4 catheter. | | 4. A 5-Stateless pigtail catheter. | | | | COMPLICATIONS | | None apparent. | | | | DETAILS OF PROCEDURE | | The right groin was prepped and draped in the usual fashion for a | | percutaneous approach. A 6-Stateless arterial sheath was placed in the right | | femoral artery without difficulty. A 5-Stateless 3DRC catheter was then | | advanced to the ascending aorta under fluoroscopic guidance. Initial | | aortic pressures were obtained. This catheter was then advanced across the | | right coronary ostium under fluoroscopic guidance. Selective coronary | | arteriography was performed in a single view. This catheter was then | | exchanged for a 5-Stateless JL4 catheter. This catheter was then advanced to | | the left coronary ostium under fluoroscopic guidance. Selective coronary | | arteriography was performed in multiple views. | | | | This catheter was then exchanged for a 5-Stateless pigtail catheter. This | | catheter was [...] | | 1. The left ventricle is acnv-la-geudzzgkmp dilated. | | 2. There is mild, [...] | | 2. The LAD is a jiboffvv-vz-efpim caliber vessel, especially small or | | underfilled distally. There is a proximal stenosis of 20% to 30% after | | the first major septal lawn service manager, there is a high sub-totally occluded | [...] | Fingerstick | performed at [facility];[address] | | LAB | | | | [address];[place], [place] | | | | | | [address] | | | | + + + [...] | Fingerstick | performed at [facility];[address] | | LAB | | | | [address];[place] | | | | | | [address] | | | | + + + [...] EXTERNAL | | | | performed at [facility], [address] | K/uL | LAB | | | | [address], | | | | | | [place] [address] | | | | + + + + + + | RED CELL | 4.05Comment: Testing | 3.70 - 5.10 | EXTERNAL | | | COUNT | performed at [facility], [address] | M/uL | LAB | | | | [address], | | | | | | [place] [address] | | | | + + + + + + | Hgb | 10.3 (L)Comment: Testing | 11.3 - 15.5 | EXTERNAL | | | | performed at [facility], [address] | g/dL | LAB | | | | [address], | | | | | | [place] [address] | | | | + + + + + + | Hematocrit, | 32.2 (L)Comment: Testing | 34.0 - 46.0 % | EXTERNAL | | | POC | performed at [facility], [address] | | LAB | | | | [address], | | | | | | [place] [address] | | | | + + + + + + | MCV | 79.6 (L)Comment: Testing | 80.0 - 100.0 fl | EXTERNAL | | | | performed at [facility], [address] | | LAB | | | | [address], | | | | | | [place] [address] | | | | + + + + + + | MCH | 25.6 (L)Comment: Testing | 27.0 - 34.0 pg | EXTERNAL | | | | performed at [facility], [address] | | LAB | | | | [address], | | | | | | [place] [address] | | | | + + + + + + | MCHC | 32.1Comment: Testing | 32.0 - 35.5 | EXTERNAL | | | | performed at [facility], [address] | g/dL | LAB | | | | [address], | | | | | | [place] [address] | | | | + + + + + + | RDW-CV | 41.6Comment: Testing | 37 - 53 fl | EXTERNAL | | | | performed at [facility], [address] | | LAB | | | | [address], | | | | | | [place] [address] | | | | + + + + + + | Platelet | 274Comment: Testing | 150 - 400 K/uL | EXTERNAL | | | Count | performed at [facility], [address] | | LAB | | | Plasma | [address], | | | | | | [place] [address] | | | | + + + + + + | MPV | 8.8Comment: Testing | fl | EXTERNAL | | | | performed at [facility], [address] | | LAB | | | | [address], | | | | | | [place] [address] | | | | + + + + + + | Differentia | AUTOMATEDComment: | | EXTERNAL | | | l Type | Testing performed at | | LAB | | | | [facility], [address] | | | | | | [place] | | | | | | [address] | | | | + + + + + + | % Segmented | 76.30Comment: Testing | % | EXTERNAL | | | | performed at [facility], [address] | | LAB | | | Neutrophils | [address], | | | | | | [place] [address] | | | | + + + + + + | % | 9.49Comment: Testing | % | EXTERNAL | | | Lymphocytes | performed at [facility], [address] | | LAB | | | | [address], | | | | | | [place] [address] | | | | + + + + + + | % Monocytes | 12.65Comment: Testing | % | EXTERNAL | | | | performed at [facility], [address] | | LAB | | | | [address], | | | | | | [place] [address] | | | | + + + + + + | % | 0.53Comment: Testing | % | EXTERNAL | | | Eosinophils | performed at [facility], [address] | | LAB | | | | [address], | | | | | | [place] [address] | | | | + + + + + + | % Basophils | 1.03Comment: Testing | % | EXTERNAL | | | | performed at [facility], [address] | | LAB | | | | [address], | | | | | | [place] [address] | | | | + + + + + + | Absolute | 5.72Comment: Testing | 1.90 - 7.40 | EXTERNAL | | | Segmented | performed at [facility], [address] | K/uL | LAB | | | Neutrophils | [address], | | | | | | [place] [address] | | | | + + + + + + | Absolute | 0.71 (L)Comment: Testing | 1.00 - 3.90 | EXTERNAL | | | Lymphocytes | performed at [facility], [address] | K/uL | LAB | | | | [address], | | | | | | [place] [address] | | | | + + + + + + | Absolute | 0.95 (H)Comment: Testing | 0.00 - 0.80 | EXTERNAL | | | Monocytes | performed at [facility], [address] | K/uL | LAB | | | | [address], | | | | | | [place] [address] | | | | + + + + + + | Absolute | 0.04Comment: Testing | 0.00 - 0.50 | EXTERNAL | | | Eosinophils | performed at [facility], [address] | K/uL | LAB | | | | [address], | | | | | | [place] [address] | | | | + + + + + + | Absolute | 0.08Comment: Testing | 0.00 - 0.10 | EXTERNAL | | | Basophils | performed at [facility], [address] | K/uL | LAB | | | | [address], | | | | | | [place] [address] | | | | + + + [...] EXTERNAL | | | | performed at [facility], [address] | | LAB | | | | [facility], | | | | | | [place] [address] | | | | + + + [...] | | | | | [place] [address] | | | | + + + [...] | | | | | | [place] [address] | | | | + + + + + + | K | 3.8Comment: Testing | 3.5 - 4.9 | EXTERNAL | | | | performed at [facility], [address] | mmol/L | LAB | | | | [address], | | | | | | [place] [address] | | | | + + + + + + | Cl | 97 (L)Comment: Testing | 99 - 109 mmol/L | EXTERNAL | | | | performed at [facility], [address] | | LAB | | | | [address], | | | | | | [place] [address] | | | | + + + + + + | CO2 | 24Comment: Testing | 23 - 32 mmol/L | EXTERNAL | | | | performed at [facility], [address] | | LAB | | | | [address], | | | | | | [place] [address] | | | | + + + + + + | Anion Gap | 10Comment: Testing | 5 - 20 mmol/L | EXTERNAL | | | | performed at [facility], [address] | | LAB | | | | [address], | | | | | | [place] [address] | | | | + + + + + + | Glucose, | 138 (H)Comment: Testing | 65 - 99 mg/dL | EXTERNAL | | | Fasting | performed at [facility], [address] | | LAB | | | | [address], | | | | | | [place] [address] | | | | + + + + + + | BUN | 24Comment: Testing | 8 - 25 mg/dL | EXTERNAL | | | | performed at [facility], [address] | | LAB | | | | [address], | | | | | | [place] [address] | | | | + + + + + + | Creatinine | 0.78Comment: Testing | 0.50 - 1.00 | EXTERNAL | | | | performed at [facility], [address] | mg/dL | LAB | | | | [address], | | | | | | [place] [address] | | | | + + + + + + | BUN/Creatin | 31Comment: Testing | | EXTERNAL | | | ine Ratio | performed at [facility], [address] | | LAB | | | | [address], | | | | | | [place] [address] | | | | + + + + + + | Calcium | 9.0Comment: Testing | 8.5 - 10.5 | EXTERNAL | | | | performed at [facility], [address] | mg/dL | LAB | | | | [address], | | | | | | [place] [address] | | | | + + + [...] [place], | | | | | | [place] [address] | | | | + + + [...] | Fingerstick | performed at [facility];[address] | | LAB | | | | [address];[place], [place] | | | | | | [address] | | | | + + + [...] | Fingerstick | performed at [facility];[address] | | LAB | | | | [address];[place] | | | | | | [address] | | | | + + + [...] | Fingerstick | performed at [facility];[address] | | LAB | | | | [address];[place], [place] | | | | | | [address] | | | | + + + [...] Excursion: 1.15 cm E-F | | | [place]: 0.06 m/s EPSS: 1.60 cm IVC diameter: [...] TV A Bhavesh: 0.39 m/s TV Dec [place]: 2.32 m/s2 TV Dec | | | Time: 234.32 ms TV E Bhavesh: 0.54 m/s TV E/A Ratio: 1.37 | | | Anesthesia Tech: Authenticated by: Radha Pinto MD Report Date/Time: [...] mlLAESV Index (A-L): 35.65 ml/m2LAAs A2C: 20.63 [id number] A-L A2C: 75.69 mlLALs | | A2C: 4.77 cmLAAs A4C: 16.82 [id number] A-L A4C: 54.07 mlLALs A4C: 4.44 cmAo Diam: | | 2.82 cmAV Cusp: 1.70 cmLA Diam: 3.09 cmLA/Ao: 1.09%FS: 36.77 %EDV(Teich): | | 102.72 mlEF(Teich): 66.58 %ESV(Teich): 34.32 mlIVSd: 1.12 cmIVSs: 1.45 cmLVIDd: | | 4.70 cmLVIDs: 2.97 cmLVPWd: 0.94 cmLVPWs: 1.39 cmSV(Teich): 68.40 mlD-E | | Excursion: 1.15 cmE-F [place]: 0.06 m/sEPSS: 1.60 cmIVC diameter: 1.77 cmIVC | | collapse: 0.74 cmIVC % collapse: 56.36 %HR: 70.48 BPMAV maxP.20 mmHgAV | | meanP.02 mmHgAV Vmax: 1.24 m/Catar[place] Vmean: 0.81 m/[place]atar[place] VTI: 26.14 cmAVA Vmax: | | 1.74 cm2AVA (VTI): 1.76 ku4JEMT Dopp: 1.71 l/qcsi3OHRK Dopp: 3.18 l/minHR: 69.08 | | BPMLVOT [...] A Bhavesh: 0.39 | | m/sTV Dec [place]: 2.32 m/s2TV Dec Time: 234.32 msTV E Bhavesh: 0.54 m/sTV E/A Ratio: | | 1.37 Anesthesia Tech: ASAuthenticated by: Radha Pinto MDReport Date/Time: 12-23-2014 [...] | |D-E Ex[place]: 1.15 cm | |E-F [place]: 0.06 m/s | |EPSS: 1.60 cm | [...] A Bhavesh: 0.39 m/s | |TV Dec [place]: 2.32 m/s2 | |TV Dec Time: 234.32 ms | |TV E Bhavesh: 0.54 m/s | |TV E/A Ratio: 1.37 | | | |Anesthesia Tech: | |Authenticated by: Radha Pinto MD | [...] | Fingerstick | performed at [facility];[address] | | LAB | | | | [address];[place] | | | | | | [address] | | | | + + + [...] | | | | | [place] [address] | | | | + + + + + + | RED CELL | 4.02Comment: Testing | 3.70 - 5.10 | EXTERNAL | | | COUNT | performed at [facility], [address] | M/uL | LAB | | | | [address], | | | | | | [place] [address] | | | | + + + + + + | Hgb | 10.4 (L)Comment: Testing | 11.3 - 15.5 | EXTERNAL | | | | performed at [facility], [address] | g/dL | LAB | | | | [address], | | | | | | [place] [address] | | | | + + + + + + | Hematocrit, | 32.2 (L)Comment: Testing | 34.0 - 46.0 % | EXTERNAL | | | POC | performed at [facility], [address] | | LAB | | | | [address], | | | | | | [place] [address] | | | | + + + + + + | MCV | 80.0Comment: Testing | 80.0 - 100.0 fl | EXTERNAL | | | | performed at [facility], [address] | | LAB | | | | [address], | | | | | | [place] [address] | | | | + + + + + + | MCH | 25.9 (L)Comment: Testing | 27.0 - 34.0 pg | EXTERNAL | | | | performed at [facility], [address] | | LAB | | | | [address], | | | | | | [place] [address] | | | | + + + + + + | MCHC | 32.4Comment: Testing | 32.0 - 35.5 | EXTERNAL | | | | performed at [facility], [address] | g/dL | LAB | | | | [address], | | | | | | [place] [address] | | | | + + + + + + | RDW-CV | 41.1Comment: Testing | 37 - 53 fl | EXTERNAL | | | | performed at [facility], [address] | | LAB | | | | [address], | | | | | | [place] [address] | | | | + + + + + + | Platelet | 285Comment: Testing | 150 - 400 K/uL | EXTERNAL | | | Count | performed at [facility], [address] | | LAB | | | Plasma | [address], | | | | | | [place] [address] | | | | + + + + + + | MPV | 8.5Comment: Testing | fl | EXTERNAL | | | | performed at [facility], [address] | | LAB | | | | [address], | | | | | | [place] [address] | | | | + + + + + + | Differentia | AUTOMATEDComment: | | EXTERNAL | | | l Type | Testing performed at | | LAB | | | | [facility], [address] [facility] [place] | | | | | | [place] | | | | | | [address] | | | | + + + + + + | % Segmented | 71.98Comment: Testing | % | EXTERNAL | | | | performed at [facility], [address] | | LAB | | | Neutrophils | [address], | | | | | | [place] [address] | | | | + + + + + + | % | 12.59Comment: Testing | % | EXTERNAL | | | Lymphocytes | performed at [facility], [address] | | LAB | | | | [address], | | | | | | [place] [address] | | | | + + + + + + | % Monocytes | 13.13Comment: Testing | % | EXTERNAL | | | | performed at [facility], [address] | | LAB | | | | [address], | | | | | | [place] [address] | | | | + + + + + + | % | 1.21Comment: Testing | % | EXTERNAL | | | Eosinophils | performed at [facility], [address] | | LAB | | | | [address], | | | | | | [place] [address] | | | | + + + + + + | % Basophils | 1.09Comment: Testing | % | EXTERNAL | | | | performed at [facility], [address] | | LAB | | | | [address], | | | | | | [place] [address] | | | | + + + + + + | Absolute | 3.99Comment: Testing | 1.90 - 7.40 | EXTERNAL | | | Segmented | performed at [facility], [address] | K/uL | LAB | | | Neutrophils | [address], | | | | | | [place] [address] | | | | + + + + + + | Absolute | 0.70 (L)Comment: Testing | 1.00 - 3.90 | EXTERNAL | | | Lymphocytes | performed at [facility], [address] | K/uL | LAB | | | | [address], | | | | | | [place] [address] | | | | + + + + + + | Absolute | 0.73Comment: Testing | 0.00 - 0.80 | EXTERNAL | | | Monocytes | performed at [facility], [address] | K/uL | LAB | | | | [address], | | | | | | [place] [address] | | | | + + + + + + | Absolute | 0.07Comment: Testing | 0.00 - 0.50 | EXTERNAL | | | Eosinophils | performed at [facility], [address] | K/uL | LAB | | | | [address], | | | | | | [place] [address] | | | | + + + + + + | Absolute | 0.06Comment: Testing | 0.00 - 0.10 | EXTERNAL | | | Basophils | performed at [facility], [address] | K/uL | LAB | | | | [address], | | | | | | [place] [address] | | | | + + + [...] EXTERNAL | | | | performed at [facility], [address] | uIU/mL | LAB | | | | [facility], | | | | | | [place] [address] | | | | + + + [...] | | | | | [place] [address] | | | | + + + [...] LAB | | | | [facility];[address] [facility] | | | | | | [facility];[place] [address] | | | | + + + [...] EXTERNAL | | | | performed at [facility], [address] | | LAB | | | | [address], | | | | | | [place] [address] | | | | + + + [...] | EXTERNAL | | | A1c | [facility] | | LAB | | | [...] | | | | | performed at [facility], [address] | | | | | | [address], | | | | | | [place] [address] | | | | + + + [...] | | | | | performed at [facility], [address] | | | | | | [facility], | | | | | | [place] [address] | | | | + + + [...] EXTERNAL | | | | performed at [facility], [address] | | LAB | | | | [address], | | | | | | [place] [address] | | | | + + + + + + | Triglycerid | 94Comment: Testing | mg/dL | EXTERNAL | | | es | performed at [facility], [address] | | LAB | | | | [address], | | | | | | [place] [address] | | | | + + + + + + | HDL | 36 (L)Comment: Testing | mg/dL | EXTERNAL | | | | performed at [facility], [address] | | LAB | | | | [address], | | | | | | [place] [address] | | | | + + + + + + | LDL | 41Comment: Testing | mg/dL | EXTERNAL | | | Cholesterol | performed at [facility], [address] | | LAB | | | , | [address], | | | | | Calculated, | [place] [address] | | | | | External | [...] | | | | | [place] [address] | | | | + + + + + + | K | 3.9Comment: Testing | 3.5 - 4.9 | EXTERNAL | | | | performed at [facility], [address] | mmol/L | LAB | | | | [address], | | | | | | [place] [address] | | | | + + + + + + | Cl | 98 (L)Comment: Testing | 99 - 109 mmol/L | EXTERNAL | | | | performed at [facility], [address] | | LAB | | | | [address], | | | | | | [place] [address] | | | | + + + + + + | CO2 | 23Comment: Testing | 23 - 32 mmol/L | EXTERNAL | | | | performed at [facility], [address] | | LAB | | | | [address], | | | | | | [place] [address] | | | | + + + + + + | Anion Gap | 12Comment: Testing | 5 - 20 mmol/L | EXTERNAL | | | | performed at [facility], [address] | | LAB | | | | [address], | | | | | | [place] [address] | | | | + + + + + + | Glucose, | 105 (H)Comment: Testing | 65 - 99 mg/dL | EXTERNAL | | | Fasting | performed at [facility], [address] | | LAB | | | | [address], | | | | | | [place] [address] | | | | + + + + + + | BUN | 23Comment: Testing | 8 - 25 mg/dL | EXTERNAL | | | | performed at [facility], [address] | | LAB | | | | [address], | | | | | | [place] [address] | | | | + + + + + + | Creatinine | 0.85Comment: Testing | 0.50 - 1.00 | EXTERNAL | | | | performed at [facility], [address] | mg/dL | LAB | | | | [address], | | | | | | [place] [address] | | | | + + + + + + | BUN/Creatin | 27Comment: Testing | | EXTERNAL | | | ine Ratio | performed at [facility], [address] | | LAB | | | | [address], | | | | | | [place] [address] | | | | + + + + + + | Calcium | 8.8Comment: Testing | 8.5 - 10.5 | EXTERNAL | | | | performed at [facility], [address] | mg/dL | LAB | | | | [address], | | | | | | [place] [address] | | | | + + + [...] | | | | | | [place] [address] | | | | + + + [...] | Fingerstick | performed at [facility];[address] | | LAB | | | | [address];[place], [place] | | | | | | [address] | | | | + + + [...] | | LAB | | | | [employer], | | | | | | [place] [address] | | | | + + + + + + | Clarity | CLOUDYComment: Testing | | EXTERNAL | | | | performed at [facility], [address] | | LAB | | | | [address], | | | | | | [place] [address] | | | | + + + + + + | Specific | 1.013Comment: Testing | 1.002 - 1.030 | EXTERNAL | | | [place] | performed at [facility], [address] | | LAB | | | | [address], | | | | | | [place] [address] | | | | + + + + + + | Leukocyte | MODERATE (A)Comment: | | EXTERNAL | | | Esterase, | Testing performed at | | LAB | | | Urine | [facility], [address] | | | | | | [place] | | | | | | [address] | | | | + + + + + + | Nitrite, | NEGATIVEComment: Testing | | EXTERNAL | | | Urine | performed at [facility], [address] | | LAB | | | | [address], | | | | | | [place] [address] | | | | + + + + + + | Urobilinoge | 1.0Comment: Testing | mg/dL | EXTERNAL | | | n, Urine | performed at [facility], [address] | | LAB | | | | [address], | | | | | | [place] [address] | | | | + + + + + + | Protein, | NEGATIVEComment: Testing | mg/dL | EXTERNAL | | | Urine | performed at [facility], [address] | | LAB | | | | [address], | | | | | | [place] [address] | | | | + + + + + + | pH, Urine | 6.5Comment: Testing | 5.0 - 8.0 | EXTERNAL | | | | performed at [facility], [address] | | LAB | | | | [address], | | | | | | [place] [address] | | | | + + + + + + | Blood, | LARGE (A)Comment: | | EXTERNAL | | | Urine | Testing performed at | | LAB | | | | [facility], [address] | | | | | | [place] | | | | | | [address] | | | | + + + + + + | Ketones | NEGATIVEComment: Testing | mg/dL | EXTERNAL | | | | performed at [facility], [address] | | LAB | | | | [address], | | | | | | [place] [address] | | | | + + + + + + | Bilirubin, | NEGATIVEComment: Testing | | EXTERNAL | | | Urine | performed at [facility], [address] | | LAB | | | | [address], | | | | | | [place] [address] | | | | + + + + + + | Glucose, | NEGATIVEComment: Testing | mg/dL | EXTERNAL | | | Urine | performed at [facility], [address] | | LAB | | | | [address], | | | | | | [place] [address] | | | | + + + [...] | | | | | [place] [address] | | | | + + + + + + | RBC, UA | >100Comment: Testing | 0 - 5 /hpf | EXTERNAL | | | | performed at [facility], [address] | | LAB | | | | [address], | | | | | | [place] [address] | | | | + + + + + + | Epithelial | 0-2Comment: Testing | /lpf | EXTERNAL | | | Cells | performed at [facility], [address] | | LAB | | | | [address], | | | | | | [place] [address] | | | | + + + + + + | Bacteria, | NONE SEENComment: | | EXTERNAL | | | UA | CULTURE TO FOLLOWTesting | | LAB | | | | performed at [facility], [address] | | | | | | [address], | | | | | | [place] [address] | | | | + + + + + + | HYALINE | NONE SEENComment: | | EXTERNAL | | | RADHA UA | Testing performed at | | LAB | | | | [facility], [address] | | | | | | [place] | | | | | | [address] | | | | + + + [...] COLIAbnormal | | | Testing performed at [facility], [address] [facility], | | | [place] [address] Suscepibility for - ESCHERICHIA COLI Ampicillin | [...] | | | performed at [facility];[address] | | LAB | | | | [address];[place], [place] | | | | | | [address] | | | | + + + [...] | | | | | | ACUTE ID Testing | | | | | | performed at [facility];[address] | | | | | | [address];[place], [place] | | | | | | [address] | | | | + + + [...] | | | performed at [facility];[address] | | LAB | | | | [address];[place], [place] | | | | | | [address] | | | | + + + [...] | Fingerstick | performed at [facility];[address] | | LAB | | | | [address];[place] | | | | | | [address] | | | | + + + [...] | | | performed at [facility];[address] | | LAB | | | | [facility];[place], [place] | | | | | | [address] | | | | + + [...] | | | | | [place] [address] | | | | + + + + + + | TIBC | 424Comment: Testing | 260 - 490 ug/dL | EXTERNAL | | | | performed at [facility], [address] | | LAB | | | | [address], | | | | | | [place] [address] | | | | + + + + + + | Iron | 7 (L)Comment: Testing | 15 - 50 % | EXTERNAL | | | Saturation | performed at [facility], [address] | | LAB | | | | [address], | | | | | | [place] [address] | | | | + + + [...] | | | | | | ACUTE ID Testing | | | | | | performed at [facility];[address] | | | | | | [facility];[place], [place] | | | | | | [address] | | | | + + + [...] | | | performed at [facility];[address] | | | | | | [address];[place], [place] | | | | | | [address] | | | | + + + [...] | | | performed at [facility];[address] | K/uL | LAB | | | | [address];[place] | | | | | | [address] | | | | + + + + + + | RED CELL | 4.27Comment: Testing | 3.70 - 5.10 | EXTERNAL | | | COUNT | performed at [facility];[address] | M/uL | LAB | | | | [address];[place] | | | | | | [address] | | | | + + + + + + | Hgb | 11.0 (L)Comment: Testing | 11.3 - 15.5 | EXTERNAL | | | | performed at [facility];[address] | g/dL | LAB | | | | [address];[place] | | | | | | [address] | | | | + + + + + + | Hematocrit, | 33.6 (L)Comment: Testing | 34.0 - 46.0 % | EXTERNAL | | | POC | performed at [facility];[address] | | LAB | | | | [address];[place] | | | | | | [address] | | | | + + + + + + | MCV | 78.6 (L)Comment: Testing | 80.0 - 100.0 fl | EXTERNAL | | | | performed at [facility];[address] | | LAB | | | | [address];[place] | | | | | | [address] | | | | + + + + + + | MCH | 25.7 (L)Comment: Testing | 27.0 - 34.0 pg | EXTERNAL | | | | performed at [facility];[address] | | LAB | | | | [address];[place] | | | | | | [address] | | | | + + + + + + | MCHC | 32.6Comment: Testing | 32.0 - 35.5 | EXTERNAL | | | | performed at [facility];[address] | g/dL | LAB | | | | [address];[place] | | | | | | [address] | | | | + + + + + + | RDW-CV | 41.1Comment: Testing | 37 - 53 fl | EXTERNAL | | | | performed at [facility];[address] | | LAB | | | | [address];[place] | | | | | | [address] | | | | + + + + + + | Platelet | 294Comment: Testing | 150 - 400 K/uL | EXTERNAL | | | Count | performed at [facility];[address] | | LAB | | | Plasma | [address];[place] | | | | | | [address] | | | | + + + + + + | MPV | 8.2Comment: Testing | fl | EXTERNAL | | | | performed at [facility];[address] | | LAB | | | | [address];[place] | | | | | | [address] | | | | + + + + + + | Differentia | AUTOMATEDComment: | | EXTERNAL | | | l Type | Testing performed at | | LAB | | | | [facility];[address];[place] [id number] | | | | + + + + + + | % Segmented | 67.77Comment: Testing | % | EXTERNAL | | | | performed at [facility];[address] | | LAB | | | Neutrophils | [address];[place] | | | | | | [address] | | | | + + + + + + | % | 16.65Comment: Testing | % | EXTERNAL | | | Lymphocytes | performed at [facility];[address] | | LAB | | | | [address];[place] | | | | | | [address] | | | | + + + + + + | % Monocytes | 12.80Comment: Testing | % | EXTERNAL | | | | performed at [facility];[address] | | LAB | | | | [address];[place] | | | | | | [address] | | | | + + + + + + | % | 1.46Comment: Testing | % | EXTERNAL | | | Eosinophils | performed at [facility];[address] | | LAB | | | | [address];[place] | | | | | | [address] | | | | + + + + + + | % Basophils | 1.32Comment: Testing | % | EXTERNAL | | | | performed at [facility];[address] | | LAB | | | | [address];[place] | | | | | | [address] | | | | + + + + + + | Absolute | 3.93Comment: Testing | 1.90 - 7.40 | EXTERNAL | | | Segmented | performed at [facility];888 | K/uL | LAB | | | Neutrophils | [address];[place] | | | | | | [address] | | | | + + + + + + | Absolute | 0.97 (L)Comment: Testing | 1.00 - 3.90 | EXTERNAL | | | Lymphocytes | performed at [facility];888 | K/uL | LAB | | | | [address];[place] | | | | | | [address] | | | | + + + + + + | Absolute | 0.74Comment: Testing | 0.00 - 0.80 | EXTERNAL | | | Monocytes | performed at [facility];888 | K/uL | LAB | | | | [address];[place] | | | | | | [address] | | | | + + + + + + | Absolute | 0.09Comment: Testing | 0.00 - 0.50 | EXTERNAL | | | Eosinophils | performed at [facility];888 | K/uL | LAB | | | | [address];[place] | | | | | | [address] | | | | + + + + + + | Absolute | 0.08Comment: Testing | 0.00 - 0.10 | EXTERNAL | | | Basophils | performed at [facility];888 | K/uL | LAB | | | | [address];[place] | | | | | | [address] | | | | + + + [...] | | | performed at [facility];[address] | | LAB | | | | [address];[place], [place] | | | | | | [address] | | | | + + + [...] | | | performed at [facility] | | LAB | | | | [address];[place] | | | | | | [address] | | | | + + + [...] | | | performed at [facility];[address] | | LAB | | | | [address];[place], [place] | | | | | | [address] | | | | + + + [...] | | | performed at [facility];[address] | | LAB | | | | [address];[place] | | | | | | [address] | | | | + + + [...] | | | performed at [facility];888 | mmol/L | LAB | | | | [address];[place] | | | | | | [address] | | | | + + + + + + | K | 3.7Comment: Testing | 3.5 - 4.9 | EXTERNAL | | | | performed at [facility];888 | mmol/L | LAB | | | | [address];[place] | | | | | | [address] | | | | + + + + + + | Cl | 100Comment: Testing | 99 - 109 mmol/L | EXTERNAL | | | | performed at [facility];[address] | | LAB | | | | [address];[place] | | | | | | [address] | | | | + + + + + + | CO2 | 26Comment: Testing | 23 - 32 mmol/L | EXTERNAL | | | | performed at [facility];[address] | | LAB | | | | [address];[place] | | | | | | [address] | | | | + + + + + + | Anion Gap | 16Comment: Testing | 5 - 20 mmol/L | EXTERNAL | | | | performed at [facility];[address] | | LAB | | | | [address];[place] | | | | | | [address] | | | | + + + + + + | Glucose, | 98Comment: Testing | 65 - 99 mg/dL | EXTERNAL | | | Fasting | performed at [facility];[address] | | LAB | | | | [address];[place] | | | | | | [address] | | | | + + + + + + | BUN | 19Comment: Testing | 8 - 25 mg/dL | EXTERNAL | | | | performed at [facility];[address] | | LAB | | | | [address];[place] | | | | | | [address] | | | | + + + + + + | Creatinine | 0.86Comment: Testing | 0.50 - 1.00 | EXTERNAL | | | | performed at [facility];888 | mg/dL | LAB | | | | [address];[place] | | | | | | [address] | | | | + + + + + + | BUN/Creatin | 22Comment: Testing | | EXTERNAL | | | ine Ratio | performed at [facility];[address] | | LAB | | | | [address];[place] | | | | | | [address] | | | | + + + + + + | Calcium | 8.4 (L)Comment: Testing | 8.5 - 10.5 | EXTERNAL | | | | performed at [facility];888 | mg/dL | LAB | | | | [address];[place] | | | | | | [address] | | | | + + + + + + | Protein, | 6.8Comment: Testing | 6.3 - 8.2 g/dL | EXTERNAL | | | Total | performed at [facility];[address] | | LAB | | | | [address];[place] | | | | | | [address] | | | | + + + + + + | Albumin | 3.5Comment: Testing | 3.3 - 4.8 g/dL | EXTERNAL | | | | performed at [facility];[address] | | LAB | | | | [address];[place] | | | | | | [address] | | | | + + + + + + | Globulin | 3.3Comment: Testing | 1.3 - 4.9 g/dL | EXTERNAL | | | | performed at [facility];[address] | | LAB | | | | [address];[place] | | | | | | [address] | | | | + + + + + + | A/G Ratio | 1.1Comment: Testing | 1.0 - 2.4 | EXTERNAL | | | | performed at [facility];[address] | | LAB | | | | [address];[place] | | | | | | [address] | | | | + + + + + + | Bilirubin | 0.8Comment: Testing | 0.1 - 1.5 mg/dL | EXTERNAL | | | Total | performed at [facility];[address] | | LAB | | | | [address];[place] | | | | | | [address] | | | | + + + + + + | ALP, | 74Comment: Testing | 35 - 115 U/L | EXTERNAL | | | External | performed at [facility];[address] | | LAB | | | | [address];[place] | | | | | | [address] | | | | + + + + + + | AST | 17Comment: Testing | 10 - 45 U/L | EXTERNAL | | | | performed at [facility];[address] | | LAB | | | | [address];[place] | | | | | | [address] | | | | + + + + + + | ALT | 35Comment: Testing | 10 - 65 U/L | EXTERNAL | | | | performed at [facility];[address] | | LAB | | | | [address];[place] | | | | | | [address] | | | | + + + [...] | | | | at [facility];[address];[place] [address] | | | | + + + [...] + | NSTEMI (non-ST elevated myocardial infarction) ([facility]) Acute myocardial infarction, | | subendocardial infarction, episode of care unspecified | + + | Acute systolic congestive heart failure ([facility]) Acute systolic heart failure | + + [...]
--- OUTSIDE RECORDS SUMMARY | ~2019-03-20 | XMS | Encounter Summary ---
Demographics + + + | Address | [address] | | | [place] [address] | + + + | Home Phone | | + + + | Preferred Language | Unknown | + + + | Marital Status | | + + + | Yarsani Affiliation | Unknown | + + + | Race | Unknown | + + + | Ethnic Group | Unknown | + + + Author + + + | Author | [facility] | | | and [place] | + + + | Organization | [facility] | | | and [...] Team Providers + +------+ + | Care Eligibility Supervisor Name | Role | Phone | + +------+ + | Loco Hernandez DO | PCP | | + +------+ + Encounter Details +--------+ + + + + | Date | Type | Department | Care Team | Description | +--------+ + + + + | 12/26/ | Orders Only | [facility] | Alonso Merida DO | | | 2014 | | [address] | [address] | | | | | [address] | [address] | | | | | [facility] [place] | [place] [address] | | | | | [address] | [phone] | | | | | [phone] | | | +--------+ + + + [...] | 2019 | | | [address] | | | | | | [address] | | | | | | [place] [address] | | | | | | [phone] | | | | | | | | +--------+ + + + + | 06/06/ | Office | Cardiology | Keila Kang | | | 2019 | Visit | | [address] | | | | | | [address] | | | | | | [place] [address] | | | | | | [phone] | | | | | | | | +--------+ + + + + documented as of this encounter Visit Diagnoses Not on filedocumented in this encounter"
--- OUTSIDE RECORDS SUMMARY | ~2019-03-20 | XMS | Encounter Summary ---
Demographics + + + | Address | [address] | | | [place] [address] | + + + | Home Phone | | + + + | Preferred Language | Unknown | + + + | Marital Status | | + + + | Episcopal Affiliation | Unknown | + + + | Race | Unknown | + + + | Ethnic Group | Unknown | + + + Author + + + | Author | [facility] | | | and [place] | + + + | Organization | [facility] | | | [...] Team Providers + +------+ + | Care Operating Engineer Name | Role | Phone | + +------+ + | Loco Hernandez DO | PCP | | + +------+ + Encounter Details +--------+ + + + + | Date | Type | Department | Care Team | Description | +--------+ + + + + | 02/03/ | Orders Only | [facility] | Keila Kang | | | 2017 | | CARDIOLOGY FAM | [address] | | | | | [address] | [address] [address] | | | | | [address] | [place] [address] | | | | | [place], [place] | [phone] | | | | | [address] | | | | | | [phone] | | | +--------+ + + + [...] | 2019 | | | [address] | | | | | | [address] | | | | | | [place] [address] | | | | | | [phone] | | | | | | | | +--------+ + + + + | 06/06/ | Office | Cardiology | Keila Kang | | | 2019 | Visit | | [address] | | | | | | [address] | | | | | | [place] [address] | | | | | | [phone] | | | | | | | | +--------+ + + + + documented as of this encounter Visit Diagnoses Not on filedocumented in this encounter"
--- OUTSIDE RECORDS SUMMARY | ~2019-03-20 | XMS | Encounter Summary ---
Demographics + + + | Address | [address] | | | [place] [address] | + + + | Home Phone | | + + + | Preferred Language | Unknown | + + + | Marital Status | | + + + | Pentecostal Affiliation | Unknown | + + + | Race | Unknown | + + + | Ethnic Group | Unknown | + + + Author + + + | Author | [facility] | | | and [place] | + + + | Organization | [facility] | | | and [...] Team Providers + +------+ + | Care Information Security Director Name | Role | Phone | + +------+ + | Loco Hernandez DO | PCP | | + +------+ + Reason for Visit + + + | Reason | Comments | + + + | Medication Refill | | + + + Encounter Details +--------+--------+ + + + | Date | Type | Department | Care Team | Description | +--------+--------+ + + + | 02/06/ | Refill | [facility] | Keila Kang | Medication Refill | | 2019 | | CARDIOLOGY FAM | [address] | | | | | [address] | [address] | | | | | [address] | [place] [address] | | | | | [place] | [phone] | | | | | [address] | | | | | | [phone] | | | +--------+--------+ + + + Social History + +-------+ [...] | | | | | | [place] [address] | | | | | | [phone] | | | | | | | | +--------+ + + + + | 06/06/ | Office | Cardiology | Keila Kang | | 2019 | Visit | | [address] | | | | | | [address] | | | | | | [place] [address] | | | | | | [phone] | | | | | | | | +--------+ + + + + documented as of this encounter Visit Diagnoses Not on filedocumented in this encounter"
--- OUTSIDE RECORDS SUMMARY | ~2019-03-20 | XMS | Encounter Summary ---
Demographics + + + | Address | [address] | | | [place] [address] | + + + | Home Phone | | + + + | Preferred Language | Unknown | + + + | Marital Status | | + + + | Congregational Affiliation | Unknown | + + + | Race | Unknown | + + + | Ethnic Group | Unknown | + + + Author + + + | Author | [facility] | | | and [place] | + + + | Organization | [facility] | | [...] Team Providers + +------+ + | Care Drill Rig Operator Name | Role | Phone | [...] [place] | | | | | | [address] | (Fax) | | | | | [phone] | | | +--------+ + + + [...] [place] | | | | | | [place] [address] | | | | | | [phone] | | | | | | | | +--------+ + + + + | 06/06/ | Office | Cardiology | Keila Kang | | | 2019 | Visit | | [address] | | | | | | [address] | | | | | | [place] [address] | | | | | | [phone] | | | | | | | | +--------+ + + + + documented as of this encounter Visit Diagnoses Not on filedocumented in this encounter"
--- OUTSIDE RECORDS SUMMARY | ~2019-03-20 | XMS | Encounter Summary ---
Demographics + + + | Address | [address] | | | [place] [address] | + + + | Home Phone | | + + + | Preferred Language | Unknown | + + + | Marital Status | | + + + | Jewish Affiliation | Unknown | + + + | Race | Unknown | + + + | Ethnic Group | Unknown | + + + Author + + + | Author | [facility] | | | and [place] | + + + | Organization | [facility] | | [...] Team Providers + +------+ + | Care Textbook Associate Name | Role | Phone | + [...] [place] | | | | | | [address] | (Fax) | | | | | [phone] | | | +--------+ + + + [...] [place] | | | | | | [place] [address] | | | | | | [phone] | | | | | | | | +--------+ + + + + | 06/06/ | Office | Cardiology | Keila Kang | | | 2019 | Visit | | [address] | | | | | | [address] | | | | | | [place] [address] | | | | | | [phone] | | | | | | | | +--------+ + + + + documented as of this encounter Visit Diagnoses Not on filedocumented in this encounter"
--- OUTSIDE RECORDS SUMMARY | ~2019-03-20 | XMS | Encounter Summary ---
Demographics + + + | Address | [address] | | | [place] [address] | + + + | Home Phone | | + + + | Preferred Language | Unknown | + + + | Marital Status | | + + + | Orthodoxy Affiliation | Unknown | + + + | Race | Unknown | + + + | Ethnic Group | Unknown | + + + Author + + + | Author | [facility] | | | and [place] | + + + | Organization | [facility] | | [...] Team Providers + +------+ + | Care Line Locator Name | Role | Phone | + +------+ + | Loco Hernandez DO | PCP | | + +------+ + Encounter Details +--------+ + + + + | Date | Type | Department | Care Team | Description | +--------+ + + + + | 05/11/ | Orders Only | [facility] | Keila Kang | | | 2018 | | CARDIOLOGY FAM | [address] | | | | | [address] | [address] | | | | | [address] | [place] [address] | | | | | [place], [place] | [phone] | | | | | [address] | | | | | | [phone] | | | +--------+ + + + [...] | 2019 | | | [address] | | | | | | [address] | | | | | | [place] [address] | | | | | | [phone] | | | | | | | | +--------+ + + + + | 06/06/ | Office | Cardiology | Keila Kang | | | 2019 | Visit | | [address] | | | | | | [address] | | | | | | [place] [address] | | | | | | [phone] | | | | | | | | +--------+ + + + + documented as of this encounter Visit Diagnoses Not on filedocumented in this encounter"
--- OUTSIDE RECORDS SUMMARY | ~2019-03-20 | XMS | Encounter Summary ---
Demographics + + + | Address | [address] | | | [place] [address] | + + + | Home Phone | | + + + | Preferred Language | Unknown | + + + | Marital Status | | + + + | Methodist Affiliation | Unknown | + + + | Race | Unknown | + + + | Ethnic Group | Unknown | + + + Author + + + | Author | [facility] | | | and [place] | + + + | Organization | [facility] | | | [...] Team Providers + +------+ + | Care Director Of Food And Nutrition Name | Role | Phone | + +------+ + | Loco Hernandez DO | PCP | | + +------+ + Encounter Details +--------+ + + + + | Date | Type | Department | Care Team | Description | +--------+ + + + + | 02/03/ | Orders Only | [facility] | Keila Kang | | | 2017 | | CARDIOLOGY FAM | [address] | | | | | [address] | [address] | | | | | [address] | [place] [address] | | | | | [place], [place] | [phone] | | | | | [address] | | | | | | [phone] | | | +--------+ + + + [...] | 2019 | | | [address] | | | | | | [address] | | | | | | [place] [address] | | | | | | [phone] | | | | | | | | +--------+ + + + + | 06/06/ | Office | Cardiology | Keila Kang | | | 2019 | Visit | | [address] | | | | | | [address] | | | | | | [place] [address] | | | | | | [phone] | | | | | | | | +--------+ + + + + documented as of this encounter Visit Diagnoses Not on filedocumented in this encounter"
--- OUTSIDE RECORDS SUMMARY | ~2019-03-20 | XMS | Encounter Summary ---
Demographics + + + | Address | [address] | | | [place] [address] | + + + | Home Phone | | + + + | Preferred Language | Unknown | + + + | Marital Status | | + + + | Restoration Affiliation | Unknown | + + + | Race | Unknown | + + + | Ethnic Group | Unknown | + + + Author + + + | Author | [facility] | | | and [place] | + + + | Organization | [facility] | | | [...] Team Providers + +------+ + | Care Loss Prevention And Safety Manager Name | Role | Phone | [...] [place] | | | | | | [address] | (Fax) | | | | | [phone] | | | +--------+ + + + [...] [address] | | | | | | [place] [address] | | | | | | [phone] | | | | | | | | +--------+ + + + + | 06/06/ | Office | Cardiology | Keila Kang | | | 2019 | Visit | | [address] | | | | | | [address] | | | | | | [place] [address] | | | | | | [phone] | | | | | | | | +--------+ + + + + documented as of this encounter Visit Diagnoses Not on filedocumented in this encounter"
--- OUTSIDE RECORDS SUMMARY | ~2019-03-20 | XMS | Encounter Summary ---
Demographics + + + | Address | [address] | | | [place] [address] | + + + | Home Phone | | + + + | Preferred Language | Unknown | + + + | Marital Status | | + + + | Rastafari Affiliation | Unknown | + + + | Race | Unknown | + + + | Ethnic Group | Unknown | + + + Author + + + | Author | [facility] | | | and [place] | + + + | Organization | [facility] | | [...] Team Providers + +------+ + | Care Tooth Clerk Name | Role | Phone | + +------+ + | Loco Hernandez DO | PCP | | + +------+ + Encounter Details +--------+ + + + + | Date | Type | Department | Care Team | Description | +--------+ + + + + | 05/21/ | Orders Only | [facility] | Bryon Fiore | | | 2016 | | [address] | [address] | | | | | [address] | [address] | | | | | [place], [place] | [place] [address] | | | | | [address] | [phone] | | | | | [phone] | | | +--------+ + + + [...] | 2019 | | | [address] | | | | | | [address] | | | | | | [place] [address] | | | | | | [phone] | | | | | | | | +--------+ + + + + | 06/06/ | Office | Cardiology | Keila Kang | | | 2019 | Visit | | [address] | | | | | | [address] | | | | | | [place] [address] | | | | | | [phone] | | | | | | | [...] : 1930 | | | Performing Physician: BRYON FIORE MD | | | | | [...] pressures of 0-5mmHg. | | | MEASUREMENTS Station Supervisor: DENISHA Authenticated by: | | | BRYON FIORE MD Report Date/Time: 05-23-2015 19:28:37 | | + + + + + | Procedure Note | + + | Fredis, Rad Conversion - 11/05/2018 9:02 PM PDT Patient Name: Jason ELLIS of | | : 1930 Performing Physician: BRYON FIORE | | INDICATIONS s | | [...] venous pressures of | | 0-5mmHg. MEASUREMENTS Station Supervisor: HIWOTuthenticated by: BRYON FIORE | | MDReport Date/Time: 05-23-2015 19:28:37 [...] | |MEASUREMENTS | | | | | |Station Supervisor: | |Authenticated by: BRYON FIORE MD | |Report Date/Time: 05-23-2015 19:28:37 [...]
--- OUTSIDE RECORDS SUMMARY | ~2019-03-20 | XMS | Encounter Summary ---
Demographics + + + | Address | [address] | | | [place] [address] | + + + | Home Phone | | + + + | Preferred Language | Unknown | + + + | Marital Status | | + + + | Holiness Affiliation | Unknown | + + + | Race | Unknown | + + + | Ethnic Group | Unknown | + + + Author + + + | Author | [facility] | | | and [place] | + + + | Organization | [facility] | | [...] Team Providers + +------+ + | Care Chassis Mechanic Name | Role | Phone | + [...] + + | 02/06/ | Refill | [facility] | Keila Kang | Medication Refill | | 2019 | | CARDIOLOGY FAM | [address] | | | | | [address] | [address] | | | | | [address] | [place] [address] | | | | | [place] | [phone] | | | | | [address] | | | | | | [phone] | | | +--------+--------+ + + + [...] | | | | | | [place] [address] | | | | | | [phone] | | | | | | | | +--------+ + + + + | 06/06/ | Office | Cardiology | Keila Kang | | 2019 | Visit | | [address] | | | | | | [address] | | | | | | [place] [address] | | | | | | [phone] | | | | | | | | +--------+ + + + + documented as of this encounter Visit Diagnoses Not on filedocumented in this encounter"
--- OUTSIDE RECORDS SUMMARY | ~2019-03-20 | XMS | Encounter Summary ---
Demographics + + + | Address | [address] | | | [place] [address] | + + + | Home Phone | | + + + | Preferred Language | Unknown | + + + | Marital Status | | + + + | Christianity Affiliation | Unknown | + + + | Race | Unknown | + + + | Ethnic Group | Unknown | + + + Author + + + | Author | [facility] | | | and [place] | + + + | Organization | [facility] | | | and [...] Team Providers + +------+ + | Care Quality Assurance Tech Name | Role | Phone | + [...] [place] | | | | | | [address] | (Fax) | | | | | [phone] | | | +--------+ + + + [...] [address] | | | | | | [place] [address] | | | | | | [phone] | | | | | | | | +--------+ + + + + | 06/06/ | Office | Cardiology | Keila Kang | | | 2019 | Visit | | [address] | | | | | | [address] | | | | | | [place] [address] | | | | | | [phone] | | | | | | | | +--------+ + + + + documented as of this encounter Visit Diagnoses Not on filedocumented in this encounter"
--- OUTSIDE RECORDS SUMMARY | ~2019-03-20 | XMS | Encounter Summary ---
Demographics + + + | Address | [address] | | | [place] [address] | + + + | Home Phone | | + + + | Preferred Language | Unknown | + + + | Marital Status | | + + + | Moravian Affiliation | Unknown | + + + | Race | Unknown | + + + | Ethnic Group | Unknown | + + + Author + + + | Author | [facility] | | | and [place] | + + + | Organization | [facility] | | | and [...] Team Providers + +------+ + | Care Head Start Coordinator Name | Role | Phone | + [...] [place] | | | | | | [address] | (Fax) | | | | | [phone] | | | +--------+ + + + [...] [address] | | | | | | [place] [address] | | | | | | [phone] | | | | | | | | +--------+ + + + + | 06/06/ | Office | Cardiology | Keila Kang | | | 2019 | Visit | | [address] | | | | | | [address] | | | | | | [place] [address] | | | | | | [phone] | | | | | | | | +--------+ + + + + documented as of this encounter Visit Diagnoses Not on filedocumented in this encounter"
--- OUTSIDE RECORDS SUMMARY | ~2019-03-20 | XMS | Encounter Summary ---
Demographics + + + | Address | [address] | | | [place] [address] | + + + | Home Phone | | + + + | Preferred Language | Unknown | + + + | Marital Status | | + + + | Scientology Affiliation | Unknown | + + + [...] Team Providers + +------+ + | Care Immigration Coordinator Name | Role | Phone | [...] [address] | | | | | [facility] [place] [place] | [place] [address] | | | | | [address] | [phone] | | | | | [phone] | | | +--------+ + + + [...] | 2019 | | | [address] | | | | | | [address] | | | | | | [place] [address] | | | | | | [phone] | | | | | | | | +--------+ + + + + | 06/06/ | Office | Cardiology | Keila Kang | | | 2019 | Visit | | [address] | | | | | | [address] | | | | | | [place] [address] | | | | | | [phone] | | | | | | | | +--------+ + + + + documented as of this encounter Visit Diagnoses Not on filedocumented in this encounter"
--- OUTSIDE RECORDS SUMMARY | ~2019-03-20 | XMS | Encounter Summary ---
Demographics + + + | Address | [address] | | | [place] [address] | + + + | Home Phone | | + + + | Preferred Language | Unknown | + + + | Marital Status | | + + + | Jehovah'S Witness Affiliation | Unknown | + + + | Race | Unknown | + + + | Ethnic Group | Unknown | + + + Author + + + | Author | [facility] | | | and [place] | + + + | Organization | [facility] | | | [...] Team Providers + +------+ + | Care Freedom Of Information Officer Name | Role | Phone | + [...] [place] L[place]PEZ | | | | | [place], [place] | [place] [address] | | | | | [address] | [phone] | | | | | [phone] | | | +--------+ + + + [...] | 2019 | | | [address] | | | | | | [address] | | | | | | [place] [address] | | | | | | [phone] | | | | | | | | +--------+ + + + + | 06/06/ | Office | Cardiology | Keila Kang | | | 2019 | Visit | | [address] | | | | | | [place] | | | | | | [place] [address] | | | | | | [phone] | | | | | | | [...] pressures of 0-5mmHg. | | | MEASUREMENTS Implementation Consultant: DENISHA Authenticated by: | | | BRYON [...] venous pressures of | | 0-5mmHg. MEASUREMENTS Implementation Consultant: HIWOTuthenticated by: BRYON FIORE | | MDReport [...] | |MEASUREMENTS | | | | | |Implementation Consultant: | |Authenticated by: BRYON FIORE MD | [...]
--- OUTSIDE RECORDS SUMMARY | ~2019-03-20 | XMS | Encounter Summary ---
Demographics + + + | Address | [address] | | | [place] [address] | + + + | Home Phone | | + + + | Preferred Language | Unknown | + + + | Marital Status | | + + + | Scientologist Affiliation | Unknown | + + + [...] Team Providers + +------+ + | Care Briquette Machine Operator Helper Name | Role | Phone | + [...] [place] L[place]Z | | | | | [place], [place] | [place] [address] | | | | | [address] | [phone] | | | | | [phone] | | | +--------+ + + + [...] | 2019 | | | [address] | | | | | | [place] | | | | | | [place] [address] | | | | | | [phone] | | | | | | | | +--------+ + + + + | 06/06/ | Office | Cardiology | Keila Kang | | | 2019 | Visit | | [address] | | | | | | [place] | | | | | | [place] [address] | | | | | | [phone] | | | | | | | [...] TR Vmax: 1.80 m/s | | | Eyelet Cutter: OLGA Authenticated by: Janie Lovelace Report | | | Date/Time: 11-11-2016 19:30:07 | | + + + + + | Procedure Note | + + | Ji Mcneal Conversion - 11/05/2018 7:19 PM PDT Patient Name: Jason ELLIS of | | : 1930 Performing Physician: Jaine | | [place] INDICATIONS------ | | -----ISCHEMIC [...] (A-L): 31.53 ml/m2LAAs | | A2C: 19.94 tw3YEZNT A-L A2C: 67.63 mlLALs A2C: 5.03 cmLAAs A4C: 13.65 qi8ZRONQ | | A-L A4C: 38.32 mlLALs A4C: 4.18 cmRAAs: 11.10 kx8UXITE A-L: 28.83 mlRAESV MOD: | | 26.55 mlRALs: 3.62 cmTAPSE: 1.58 cmAV maxP.18 mmHgAV meanP.50 mmHgAV | | Vmax: 1.24 m/Catarino Vmean: 0.89 m/Catarino VTI: 29.46 cmAVA Vmax: 1.75 cm2AVA (VTI): | | 1.89 hh3RNWM Vmax: 0.00 cm2/m2AVAI (VTI): 0.00 cm2/m2LVOT maxP.76 [...] maxP.05 | | mmHgTR Vmax: 1.80 m/s Eyelet Cutter: DBSAuthenticated by: Janie Ontiveros | | Date/Time: [...] |TR Vmax: 1.80 m/s | | | |Eyelet Cutter: OLGA | |Authenticated by: Janie Lovelace | [...]
--- OUTSIDE RECORDS SUMMARY | ~2019-03-20 | XMS | Encounter Summary ---
Demographics + + + | Address | [address] | | | [place] [address] | + + + | Home Phone | | + + + | Preferred Language | Unknown | + + + | Marital Status | | + + + | Congregation Affiliation | Unknown | + + + | Race | Unknown | + + + | Ethnic Group | Unknown | + + + Author + + + | Author | [facility] | | | and [place] | + + + | Organization | [facility] | | | [...] Providers + +------+ + | Care Clinical Project Manager Name | Role | Phone | [...] + + | 12/07/ | Office | [facility] | Keila Kang | Coronary artery | | 2019 | Visit | CARDIOLOGY FAM | [address] | disease involving | | | | [address] | [place] [address] | [place] coronary | | | | [address] | [place] [address] | artery of [place] | | | | [place], [place] | [phone] | heart without angina | | | | [address] | | pectoris (Primary | | | | [phone] | | Dx); Chronic | | | [...] | | | | | | insulin ([facility]); Other | | | | | | [...] lower extremity arteriogram to be performed at [facility] in April, and he will follo w-up [...] and yard occasionally. Daughter is her primary [facility] iver Outpatient Medications Prior to Visit [...] 25-30%. Medical management recommended ECHO: Last Echo: ([facility]): 10/26/2018 sinus rhythm. Technically difficult study with suboptimal view s. Definity used. EF 45-50%, stable. LV normal in size and wall thickness. Moderate rogel tolic dysfunction, grade 2. 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 Trace ME. No pericardial o r pleural effusion. Aortic root, ascending aorta WNL. Echo: 05/22/2015 ([facility]): LV mildly dilated (?LVEDd 55mm), mild left ventricular hyper trophy. apical akinesis,LVEF 40-45%, mild LAE, mild MR. mild Last Stress Test: na EKG: ECG, 12/28/2015: sinus rhythm, 66 bpm, 1st degree AVB, PVC, extensive qljhhaxm-vihfqi-cgncm rior MD of indeterminate age. EK2016: Sinus rhythm with first-degree AV block, stable right bundle branch bloc k, stable changes consistent with anteroseptal infarction. Rate 64 bpm, ME 242 ms, QRS 138 ms, QTC 482 ms personally reviewed by me and compared to previous EKG EK01/12/2018: Sinus rhythm with first-degree AV block, stable right bundle branch block, old anteroseptal infarct, stable T-wave inversions leads V1-V4. 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 T wave inversions anterior leads rate 69 bpm, ME 236 ms, QRS 126 ms, QTC 458 [...] hypotension. . 1. Coronary artery disease involving [place] coronary artery of [place] heart without angina pectoris 2. Chronic systolic [...] past surgical history. Problem list. Alan CHAIREZ [facility] Cardiology 12/07/2018 docume sainz in this encounter [...] [address] | | | | | | [place] [address] | | | | | | [phone] | | | | | | | | +--------+ + + + + | 06/06/ | Office | Cardiology | Keila Kang | | | 2019 | Visit | | [address] | | | | | | [place] | | | | | | [place] [address] | | | | | | [phone] | | | | | | | [...] the | | | | PDT | [place] coronary | results section. | | | | | artery of [place] | | | | | | heart [...] | | | | | by [facility] [place] Read Only, | | | | | | [facility] Patricia ([id number]), | | | | | | scientific editor Fran Hollis | | | | | | ([id number]) on 12/07/2018 | | | | | [...] + + | Coronary artery disease involving [place] coronary artery of [place] heart without | | angina pectoris - [...]
--- OUTSIDE RECORDS SUMMARY | ~2019-03-20 | XMS | Encounter Summary ---
Demographics + + + | Address | [address] | | | [place] [address] | + + + | Home Phone [...] Author | [facility] [...] Team Providers + +------+ + | Care Security Door Installer Name | Role | Phone | + [...] [place] | | | | | | [address] | (Fax) | | | | | [phone] | | | +--------+ + + + [...] [place] | | | | | | [place] [address] | | | | | | [phone] | | | | | | | | +--------+ + + + + | 06/06/ | Office | Cardiology | Keila Kang | | | 2019 | Visit | | [address] | | | | | | [place] | | | | | | [place] [address] | | | | | | [phone] | | | | | | | | +--------+ + + + + documented as of this encounter Visit Diagnoses Not on filedocumented in this encounter"
--- OUTSIDE RECORDS SUMMARY | ~2019-03-20 | XMS | Encounter Summary ---
Demographics + + + | Address | [address] | | | [place] [address] | + + + | Home Phone | | + + + | Preferred Language | Unknown | + + + | Marital Status | | + + + | Druze Affiliation | Unknown | + + + | Race | Unknown | + + + | Ethnic Group | Unknown | + + + Author + + + | Author | [facility] | | | and [place] | + + + | Organization | [facility] | | | [...] Team Providers + +------+ + | Care Steam And Power Supervisor Name | Role | Phone | [...] [place] | | | | | | [phone] | (Fax) | | | | | [phone] | | | +--------+ + + + [...] [place] | | | | | | [place] [address] | | | | | | [phone] | | | | | | | | +--------+ + + + + | 06/06/ | Office | Cardiology | Keila Kang | | | 2019 | Visit | | [address] | | | | | | [place] | | | | | | [place] [address] | | | | | | [phone] | | | | | | | | +--------+ + + + + documented as of this encounter Visit Diagnoses Not on filedocumented in this encounter"
--- OUTSIDE RECORDS SUMMARY | ~2019-03-20 | XMS | Clinical Summary ---
Demographics + + + | Address | [address] | | | [place] [address] | + + + | Home Phone | | + + + | Preferred Language | Unknown | + + + | Marital Status | | + + + | Judaism Affiliation | Unknown | + + + | Race | Unknown | + + + | Ethnic Group | Unknown | + + + Author + + + | Author | [facility] | | | and [place] | + + + | Organization | [facility] | | | [...] Team Providers + +------+ + | Care Design Printing Machine Setter Name | Role | Phone | + [...] + + | Coronary artery disease involving [place] coronary artery of | 12/29/2015 | | [place] heart without angina pectoris | | + [...] | | | | | | [place] [address] | | | | | | [phone] | | | | | | | | +--------+ + + + + | 06/06/ | Office | Cardiology | Keila Kang | | | 2019 | Visit | | [address] | | | | | | [place] | | | | | | [place] [address] | | | | | | [phone] | | | | | | | [...] +--------+ +---------+--------+ | CIGNA | CIGNA | [id number] | 03/17/19 | [phone] | | Indemn [...] +--------+ +---------+--------+ | MEDICARE | MEDICA | [id number] | 07/15/18 | [phone] | | Medica [...] | 1931 | [phone] | [place] [address] | | | princess | | | 5 (Home) | | + +--------+ +--------+ + + Advance Directives + + + + + | Type | Date Recorded | Patient | Explanation | | | | Sales Operations Analyst | | + + + + + | Power of | | | | | Sign Fabricator | | | | + + + + + | Advance | | | | | Directive | | | | + + + + +
[~2019-03-20 14:30] MED LIST: AMARYL2 MG PO; ASPIRIN EC81 MG PO; CALCIUM + VITA1 EACH PO; CLOPIDOGREL75 MG PO; COREG3.125 MG PO; COUMADIN2.5 MG PO; DISALCID750 MG PO; DOXYCYCLINE MO100 MG PO; FERROUS SULFAT325 MG PO; GLUCOPHAGE500 MG PO; LASIX20 MG PO; LISINOPRIL-HCT1 EACH PO; METFORMIN HCL500 MG PO; METOLAZONE2.5 MG PO; METROGEL60 GM VAGINAL; NAPROSYN500 MG PO; OMEPRAZOLE20 MG PO; ONDANSETRON ODT8 MG PO; PREVACID30 MG PO; SYNTHROID100 MCG PO; SYNTHROID125 MCG PO; VITAMIN D31000 UNIT PO; WARFARIN SODIU2.5 MG PO; ZESTRIL2.5 MG PO; ZESTRIL5 MG PO
== END 2019-03-20 16:55 | disposition home or self-care (01) ==
LOC: ED 14:30
DX: S76.012A Strain of muscle, fascia and tendon of left hip, initial encounter (principal); X58.XXXA Exposure to other specified factors, initial encounter; E11.42 Type 2 diabetes mellitus with diabetic polyneuropathy; E03.9 Hypothyroidism, unspecified; I10 Essential (primary) hypertension; Z79.899 Other long term (current) drug therapy; Z79.01 Long term (current) use of anticoagulants; Z79.84 Long term (current) use of oral hypoglycemic drugs
CPT/HCPCS: 73502; 99283-25

== ENCOUNTER 2019-11-12 12:36 | Emergency (ER) | payer MEDICARE, OTHER ==
[~2019-11-12] VITALS: Ht 167.6 cm; Wt 65.8 kg
--- OUTSIDE RECORDS SUMMARY | ~2019-11-12 | XMS | Encounter Summary ---
Demographics + + + | Address | [address] | | | [place] [address] | + + + | Home Phone | | + + + | Preferred Language | Unknown | + + + | Marital Status | | + + + | Tenriism Affiliation | 1041 | + + + | Race | White | + + + | Ethnic Group | Not or | + + + Author + + + | Author | [facility] | | | and [place] | + + + | Organization | [facility] | | | and [place] | + + + | Address | Unknown | + + + | Phone | Unavailable | + + + Support + + +---------+ + | Name | Relationship | Address | Phone | + + +---------+ + | Lorysa Crenshaw | ECON | Unknown | | + + +---------+ + Care Team Providers + +------+ + | Care Bombsight Specialist Name | Role | Phone | + +------+ + | Loco Hernandez DO | PCP | | + +------+ + Encounter Details +--------+ + + + + | Date | Type | Department | Care Team | Description | +--------+ + + + + | 02/02/ | Orders Only | [facility] | Conversion | | | 2015 | | CONVERSION [address] | Transaction, | | | | | [address] | Provider Unknown | | | | | [place] | [phone] | | | | | [address] | | | | | | [phone] | | | +--------+ + + + + Social History + +-------+ +--------+------+ | Tobacco Use | Types | Packs/Day | Years | Date | | | | | Used | | + +-------+ +--------+------+ | Never Assessed | | | | | + +-------+ +--------+------+ + + + | Sex Assigned at | Date Recorded | | | | + + + | Not on file | | + + + documented as of this encounter Plan of Treatment +--------+---------+ + + + | Date | Type | Specialty | Care Team | Description | +--------+---------+ + + + | 12/01/ | Office | Cardiology | Keila Kang | | | 2019 | Visit | | [address] | | | | | | [place] | | | | | | [place] [address] | | | | | | [phone] | | | | | | | | +--------+---------+ + + + documented as of this encounter Visit Diagnoses Not on filedocumented in this encounter"
--- OUTSIDE RECORDS SUMMARY | ~2019-11-12 | XMS | Encounter Summary ---
Demographics + + + | Address | [address] | | | [place] [address] | + + + | Home Phone | | + + + | Preferred Language | Unknown | + + + | Marital Status | | + + + | Episcopal Affiliation | 1041 | + + + | Race | White | + + + | Ethnic Group | Not or | + + + Author + + + | Author | [facility] | | | and [place] | + + + | Organization | [facility] | | | and [...] Team Providers + +------+ + | Care Crowning Inspector Name | Role | Phone | + +------+ + | Loco Hernandez DO | PCP | | + +------+ + Encounter Details +--------+ + + + + | Date | Type | Department | Care Team | Description | +--------+ + + + + | 02/03/ | Orders Only | [facility] | Keila Kang | | | 2018 | | CARDIOLOGY FAM | [address] | | | | | [address] | [place] [address] | | | | | [address] | [place] [address] | | | | | [place] | [phone] | | | | | [address] | | | | | | [phone] | | | +--------+ + + + [...] | | | | | [place] [address] | | | | | | [phone] | | | | | | | | +--------+---------+ + + + documented as of this encounter Visit Diagnoses Not on filedocumented in this encounter"
--- OUTSIDE RECORDS SUMMARY | ~2019-11-12 | XMS | Encounter Summary ---
Demographics + + + | Address | [address] | | | [place] [address] | + + + | Home Phone | | + + + | Preferred Language | Unknown | + + + | Marital Status | | + + + | Advent Affiliation | 1041 | + + + | Race | White | + + + | Ethnic Group | Not or | + + + Author + + + | Author | [facility] | | | and [place] | + + + | Organization | [facility] | | [...] Team Providers + +------+ + | Care Echocardiography Radiology Technologist Name | Role | Phone | + +------+ + | Loco Hernandez DO | PCP | | + +------+ + Encounter Details +--------+ + + + + | Date | Type | Department | Care Team | Description | +--------+ + + + + | 11/08/ | Orders Only | [facility] | Keila Kang | | | 2017 | | [address]VERSION [address] | [address] | | | | | [address] | [address] | | | | | [place], [place] | [place] [address] | | | | | [address] | [phone] | | | | | [phone] | | | +--------+ + + + [...] | | | | | [place] [address] | | | | | | [phone] | | | | | | | | +--------+---------+ + + + documented as of this encounter Procedures + +--------+ + + + | Procedure Name | Priori | Date/Time | Associated Diagnosis | Comments | | | ty | | | | + +--------+ + + + | ECHO INTERPRETATION | Routin | 11/08/2016 | | Results for this | | OF OUTSIDE FILMS | e | 12:22 PM | | procedure are in the | | | | PDT | | results section. | + +--------+ + + + documented in this encounter Results ECHO Interpretation of Outside Films (11/08/2016 12:22 PM PDT) + + | Specimen | + + | | + + + + + | Impressions | Performed At | + + + | 1. The left ventricle is normal in size, wall thickness and | | | moderately impaired systolic function EF 35-40%. 2. The diastolic | | | filling pattern indicates impaired relaxation consistent with mild | | | dysfunction (Grade I). 3. Akinetic mid inferoseptal and anteroseptal | | | and apical segments. 4. The right ventricle is normal in size and | | | function. 5. Mild degenerative changes in the aortic and mitral | | | valves. 6. There is no pericardial effusion. | | + + + + + + | Narrative | Performed At | + + + | Patient Name: RACHELLE ELLIS Date of : 1930 | | | Performing Physician: Janie Lovelace | | | | | | INDICATIONS ISCHEMIC CARDIOMYOPATHY CONCLUSIONS | | | 1. The left ventricle is normal in size, wall thickness | | | and moderately impaired systolic function EF 35-40%. 2. The diastolic | | | filling pattern indicates impaired relaxation consistent with mild | | | dysfunction (Grade I). 3. Akinetic mid inferoseptal and anteroseptal | | | and apical segments. 4. The right ventricle is normal in size and | | | function. 5. Mild degenerative changes in the aortic and mitral | | | valves. 6. There is no pericardial effusion. FINDINGS -------- | | | ECG rhythm: Sinus rhythm. Study: A 2-dimensional transthoracic | | | echocardiogram with m-mode, spectral and color flow Doppler was | | | perfomed. Study: Definity contrast agent was used to better delineate | | | the left ventricular wall segments. Study: This was a technically | | | adequate study. Left Ventricle: Overall left ventricular systolic | | | function is moderately impaired with, an EF between 35 - 40 %. Left | | | Ventricle: The left ventricle cavity size is normal. Left Ventricle: | | | Left ventricular wall thickness is normal. Left Ventricle: The | | | diastolic filling pattern indicates impaired relaxation consistent | | | with mild dysfunction (Grade I). Left Ventricle: Akinetic mid | | | inferoseptal and anteroseptal and apical segments. Right Ventricle: | | | The right ventricle is normal in size and function. Left Atrium: The | | | left atrium is normal in size. Right Atrium: The right atrium is | | | normal in size. Aortic Valve: Aortic valve is trileaflet. Aortic | | | Valve: The aortic valve is mildly calcified. Aortic Valve: There is | | | no evidence of aortic regurgitation. Mitral Valve: There is trace | | | mitral regurgitation. Mitral Valve: Mild mitral annular calcification | | | present. Tricuspid Valve: The tricuspid valve appears structurally | | | normal. Tricuspid Valve: Trace tricuspid regurgitation present. | | | Tricuspid Valve: There is no evidence of pulmonary hypertension. | | | Tricuspid Valve: The right ventricular systolic pressure (pulmonary | | | artery systolic pressure), as measured by Doppler, is 18.06mmHg. | | | Pulmonic Valve: The pulmonic valve was not well visualized. Pulmonic | | | Valve: Trace pulmonic regurgitation. Pulmonic Valve: Mild | | | degenerative changes in the aortic and mitral valves. Pericardium: | | | There is no pericardial effusion. Pericardium: No pleural effusion | | | seen. IVC/Hepatic Veins: The inferior vena cava is normal in size and | | | collapses > 50 % with sniff, indicating normal central venous | | | pressures. Aorta: The aortic root, ascending aorta are within normal | | | dimensions. MEASUREMENTS Ao asc: 2.70 cm Ao | | | sinus: 2.[address] junct: 2.67 cm EDV(Teich): 74.47 ml | | | IVSd: 1.01 cm LVIDd: 4.10 cm LVPWd: 0.77 cm LVOT Diam: | | | 2.04 cm LVEF MOD A2C: 38.00 % SV MOD A2C: 45.89 ml LVEF MOD | | | A4C: 44.77 % SV MOD A4C: 51.55 ml EF Biplane: 43.15 % | | | LVEDV MOD BP: 122.02 ml LVESV MOD BP: 69.36 ml LVEDV MOD A2C: | | | 120.74 ml LVLd A2C: 8.53 cm LVEDV MOD A4C: 115.15 ml LVLd | | | A4C: 7.90 cm LVESV MOD A2C: 74.85 ml LVLs A2C: 7.44 cm | | | LVESV MOD A4C: 63.59 ml LVLs A4C: 7.08 cm LAESV(A-L): 55.19 | | | ml LAESV Index (A-L): 31.53 ml/m2 LAAs A2C: 19.94 cm2 LAESV | | | A-L A2C: 67.63 ml LALs A2C: 5.03 cm LAAs A4C: 13.65 cm2 | | | LAESV A-L A4C: 38.32 ml LALs A4C: 4.18 cm RAAs: 11.10 cm2 | | | RAESV A-L: 28.83 ml RAESV MOD: 26.55 ml RALs: 3.62 cm | | | TAPSE: 1.58 cm AV maxP.18 mmHg AV meanP.50 mmHg AV | | | Vmax: 1.24 m/s AV Vmean: 0.89 m/s AV VTI: 29.46 cm POLLY | | | Vmax: 1.75 cm2 POLLY (VTI): 1.89 cm2 AVAI Vmax: 0.00 cm2/m2 | | | AVAI (VTI): 0.00 cm2/m2 LVOT maxP.76 mmHg LVOT meanPG: | | | 0.91 mmHg LVSI Dopp: 31.97 ml/m2 LVSV Dopp: 55.95 ml LVOT | | | Vmax: 0.66 m/s LVOT Vmean: 0.44 m/s LVOT VTI: 17.00 cm MV | | | A Bhavesh: 0.85 m/s MV DecT: 253.13 ms MV E Bhavesh: 0.62 m/s MV | | | E/A Ratio: 0.73 Septal e': 0.02 m/s Septal E/e': 21.21 | | | Lateral e': 0.03 m/s Lateral E/e': 19.09 RAP: 5 mmHg RVSP: | | | 18.05 mmHg TR maxP.05 mmHg TR Vmax: 1.80 m/s | | | Associate Of Science In Nursing: OLGA Authenticated by: Janie Lovelace Report | | | Date/Time: 11-11-2016 19:30:07 | | + + + + + | Procedure Note | + + | Fredis, Rad Conversion - 11/05/2018 7:19 PM PDT Patient Name: Jason ELLIS of | | : 1930 Performing Physician: Janie | | [facility] INDICATIONS------ | | -----ISCHEMIC CARDIOMYOPATHY CONCLUSIONS 1. The left ventricle is normal in | | size, wall thickness and moderately impaired systolic function EF 35-40%.2. The | | diastolic filling pattern indicates impaired relaxation consistent with mild dysfunction | | (Grade I).3. Akinetic mid inferoseptal and anteroseptal and apical segments.4. The | | right ventricle is normal in size and function.5. Mild degenerative changes in the | | aortic and mitral valves.6. There is no pericardial effusion. FINDINGS--------ECG | | rhythm: Sinus rhythm.Study: A 2-dimensional transthoracic echocardiogram with m-mode, | | spectral and color flow Doppler was perfomed.Study: Definity contrast agent was used to | | better delineate the left ventricular wall segments.Study: This was a technically | | adequate study.Left Ventricle: Overall left ventricular systolic function is moderately | | impaired with, an EF between 35 - 40 %.Left Ventricle: The left ventricle cavity size is | | normal.Left Ventricle: Left ventricular wall thickness is normal.Left Ventricle: The | | diastolic filling pattern indicates impaired relaxation consistent with mild dysfunction | | (Grade I).Left Ventricle: Akinetic mid inferoseptal and anteroseptal and apical | | segments.Right Ventricle: The right ventricle is normal in size and function.Left | | Atrium: The left atrium is normal in size.Right Atrium: The right atrium is normal in | | size.Aortic Valve: Aortic valve is trileaflet.Aortic Valve: The aortic valve is mildly | | calcified.Aortic Valve: There is no evidence of aortic regurgitation.Mitral Valve: There | | is trace mitral regurgitation.Mitral Valve: Mild mitral annular calcification | | present.Tricuspid Valve: The tricuspid valve appears structurally normal.Tricuspid | | Valve: Trace tricuspid regurgitation present.Tricuspid Valve: There is no evidence of | | pulmonary hypertension.Tricuspid Valve: The right ventricular systolic pressure | | (pulmonary artery systolic pressure), as measured by Doppler, is 18.06mmHg.Pulmonic | | Valve: The pulmonic valve was not well visualized.Pulmonic Valve: Trace pulmonic | | regurgitation.Pulmonic Valve: Mild degenerative changes in the aortic and mitral | | valves.Pericardium: There is no pericardial effusion.Pericardium: No pleural effusion | | seen.IVC/Hepatic Veins: The inferior vena cava is normal in size and collapses > 50 % | | with sniff, indicating normal central venous pressures.Aorta: The aortic root, ascending | | aorta are within normal dimensions. MEASUREMENTS Ao asc: 2.70 cmAo sinus: | | 2.[address] junct: 2.67 cmEDV(Teich): 74.47 mlIVSd: 1.01 cmLVIDd: 4.10 | | cmLVPWd: 0.77 cmLVOT Diam: 2.04 cmLVEF MOD A2C: 38.00 %SV MOD A2C: 45.89 mlLVEF | | MOD A4C: 44.77 %SV MOD A4C: 51.55 mlEF Biplane: 43.15 %LVEDV MOD BP: 122.02 | | mlLVESV MOD BP: 69.36 mlLVEDV MOD A2C: 120.74 mlLVLd A2C: 8.53 cmLVEDV MOD A4C: | | 115.15 mlLVLd A4C: 7.90 cmLVESV MOD A2C: 74.85 mlLVLs A2C: 7.44 cmLVESV MOD A4C: | | 63.59 mlLVLs A4C: 7.08 cmLAESV(A-L): 55.19 mlLAESV Index (A-L): 31.53 ml/m2LAAs | | A2C: 19.94 [id number] A-L A2C: 67.63 mlLALs A2C: 5.03 cmLAAs A4C: 13.65 [id number] | | A-L A4C: 38.32 mlLALs A4C: 4.18 cmRAAs: 11.10 [id number] A-L: 28.83 mlRAESV MOD: | | 26.55 mlRALs: 3.62 cmTAPSE: 1.58 cmAV maxP.18 mmHgAV meanP.50 mmHgAV | | Vmax: 1.24 m/Catarino Vmean: 0.89 m/Catarino VTI: 29.46 cmAVA Vmax: 1.75 cm2AVA (VTI): | | 1.89 wh5FHTC Vmax: 0.00 cm2/m2AVAI (VTI): 0.00 cm2/m2LVOT maxP.76 mmHgLVOT | | meanP.91 mmHgLVSI Dopp: 31.97 ml/m2LVSV Dopp: 55.95 mlLVOT Vmax: 0.66 | | m/sLVOT Vmean: 0.44 m/sLVOT VTI: 17.00 cmMV A Bhavesh: 0.85 m/sMV DecT: 253.13 msMV | | E Bhavesh: 0.62 m/sMV E/A Ratio: 0.73Septal e': 0.02 m/sSeptal E/e': 21.21Lateral | | e': 0.03 m/sLateral E/e': 19.09RAP: 5 mmHgRVSP: 18.05 mmHgTR maxP.05 | | mmHgTR Vmax: 1.80 m/s Associate Of Science In Nursing: DBSAuthenticated by: Janie Ontiveros | | Date/Time: 11-11-2016 19:30:07 IMPRESSION: 1. The left ventricle is normal in size, wall | | thickness and moderately impaired systolic function EF 35-40%.2. The diastolic filling | | pattern indicates impaired relaxation consistent with mild dysfunction (Grade I).3. | | Akinetic mid inferoseptal and anteroseptal and apical segments.4. The right ventricle is | | normal in size and function.5. Mild degenerative changes in the aortic and mitral | | valves.6. There is no pericardial effusion. | |Ao asc: 2.70 cm | |Ao sinus: 2.80 cm | |Ao st junct: 2.67 cm | |EDV(Teich): 74.47 ml | |IVSd: 1.01 cm | |LVIDd: 4.10 cm | |LVPWd: 0.77 cm | |LVOT Diam: 2.04 cm | |LVEF MOD A2C: 38.00 % | |SV MOD A2C: 45.89 ml | |LVEF MOD A4C: 44.77 % | |SV MOD A4C: 51.55 ml | |EF Biplane: 43.15 % | |LVEDV MOD BP: 122.02 ml | |LVESV MOD BP: 69.36 ml | |LVEDV MOD A2C: 120.74 ml | |LVLd A2C: 8.53 cm | |LVEDV MOD A4C: 115.15 ml | |LVLd A4C: 7.90 cm | |LVESV MOD A2C: 74.85 ml | |LVLs A2C: 7.44 cm | |LVESV MOD A4C: 63.59 ml | |LVLs A4C: 7.08 cm | |LAESV(A-L): 55.19 ml | |LAESV Index (A-L): 31.53 ml/m2 | |LAAs A2C: 19.94 cm2 | |LAESV A-L A2C: 67.63 ml | |LALs A2C: 5.03 cm | |LAAs A4C: 13.65 cm2 | |LAESV A-L A4C: 38.32 ml | |LALs A4C: 4.18 cm | |RAAs: 11.10 cm2 | |RAESV A-L: 28.83 ml | |RAESV MOD: 26.55 ml | |RALs: 3.62 cm | |TAPSE: 1.58 cm | |AV maxP.18 mmHg | |AV meanP.50 mmHg | |AV Vmax: 1.24 m/s | |AV Vmean: 0.89 m/s | |AV VTI: 29.46 cm | |POLLY Vmax: 1.75 cm2 | |OPLLY (VTI): 1.89 cm2 | |AVAI Vmax: 0.00 cm2/m2 | |AVAI (VTI): 0.00 cm2/m2 | |LVOT maxP.76 mmHg | |LVOT meanP.91 mmHg | |LVSI Dopp: 31.97 ml/m2 | |LVSV Dopp: 55.95 ml | |LVOT Vmax: 0.66 m/s | |LVOT Vmean: 0.44 m/s | |LVOT VTI: 17.00 cm | |MV A Bhavesh: 0.85 m/s | |MV DecT: 253.13 ms | |MV E Bhavesh: 0.62 m/s | |MV E/A Ratio: 0.73 | |Septal e': 0.02 m/s | |Septal E/e': 21.21 | |Lateral e': 0.03 m/s | |Lateral E/e': 19.09 | |RAP: 5 mmHg | |RVSP: 18.05 mmHg | |TR maxP.05 mmHg | |TR Vmax: 1.80 m/s | | | |Associate Of Science In Nursing: DBS | |Authenticated by: Janie Lovelace | |Report Date/Time: 11-11-2016 19:30:07 | | | |IMPRESSION: | |1. The left ventricle is normal in size, wall thickness and moderately impaired systolic fu nction EF 35-40%. | |2. The diastolic filling pattern indicates impaired relaxation consistent with mild dysfunc tion (Grade I). | |3. Akinetic mid inferoseptal and anteroseptal and apical segments. | |4. The right ventricle is normal in size and function. | |5. Mild degenerative changes in the aortic and mitral valves. | |6. There is no pericardial effusion. | + + documented in this encounter Visit Diagnoses Not on filedocumented in this encounter"
--- OUTSIDE RECORDS SUMMARY | ~2019-11-12 | XMS | Encounter Summary ---
Demographics + + + | Address | [address] | | | [place] [address] | + + + | Home Phone | | + + + | Preferred Language | Unknown | + + + | Marital Status | | + + + | Druze Affiliation | 1041 | + + + | Race | White | + + + | Ethnic Group | Not or | + + + Author + + + | Author | [facility] | | | and [place] | + + + | Organization | [facility] | | | [...] Team Providers + +------+ + | Care Exhibits Curator Name | Role | Phone | + +------+ + | Loco Hernandez DO | PCP | | + +------+ + Encounter Details +--------+ + + + + | Date | Type | Department | Care Team | Description | +--------+ + + + + | 01/12/ | Orders Only | [facility] | Conversion | | | 2018 | | CONVERSION [address] | Transaction, | | | | | [address] | Provider Unknown | | | | | [place] | [phone] | | | | | [address] | | | | | | [phone] | | | +--------+ + + + [...] | | | | | [place] [address] | | | | | | [phone] | | | | | | | | +--------+---------+ + + + documented as of this encounter Visit Diagnoses Not on filedocumented in this encounter"
--- OUTSIDE RECORDS SUMMARY | ~2019-11-12 | XMS | Encounter Summary ---
Demographics + + + | Address | [address] | | | [place] [address] | + + + | Home Phone | | + + + | Preferred Language | Unknown | + + + | Marital Status | | + + + | Jew Affiliation | [id number] | + + + | Race | White | + + + | Ethnic Group | Not or | + + + Author + + + | Author | [facility] | | | and [place] | + + + | Organization | [facility] | | [...] Team Providers + +------+ + | Care Corrosion Control Fitter Name | Role | Phone | + +------+ + | Loco Hernandez DO | PCP | | + +------+ + Reason for Visit + + + | Reason | Comments | + + + | Follow-up | Leg swelling | + + + Encounter Details +--------+---------+ + + + | Date | Type | Department | Care Team | Description | +--------+---------+ + + + | 11/02/ | Office | [facility] | Keila Kang | Coronary artery | | 2019 | Visit | CARDIOLOGY [place] | [address] | disease involving | | | | [address] | [address] | [place] coronary | | | | [address], [place] | [place] [address] | artery of [place] | | | | [address] | [phone] | heart without angina | | | | [phone] | | pectoris (Primary | | | | | | Dx); Ischemic | | | | | | cardiomyopathy; | | | | | | Chronic systolic | | | | | | congestive heart | | | | | | failure (HCC); | | | | | | Essential | | | | | | hypertension; Mild | | | | | | calcific aortic | | | | | | stenosis; History of | | | | | | non-ST elevation | | | | | | myocardial | | | | | | infarction (NSTEMI); | | | | | | S/P peripheral | | | | | | artery angioplasty | | | | | | with stent | | | | | | placement; 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; | | | | | | Anticoagulated on | | | | | | Coumadin; Type 2 | | | | | | diabetes mellitus | | | | | | without | | | | | | complication, | | | | | | without long-term | | | | | | current use of | | | | | | insulin (HCC); | | | | | | Peripheral vascular | | | | | | disease of extremity | | | | | | (HCC); Other | | | | | | specified | | | | | | hypothyroidism; | | | | | | Encounter for | | | | | | monitoring diuretic | | | | | | therapy | +--------+---------+ + + + Social History + +-------+ [...] + + documented as of this encounter Last Filed Vital Signs + + + + + | Vital Sign | Reading | Time Taken | Comments | + + + + + | Blood Pressure | 120/70 | 11/03/2019 2:42 PM | | | | | PDT | | + + + + + | Pulse | 72 | 11/03/2019 2:42 PM | | | | | PDT | | + + + + + | Temperature | 36.2 C (97.2 F) | 11/03/2019 2:42 PM | | | | | PDT | | + + + + + | Respiratory Rate | - | - | | + + + + + | Oxygen Saturation | 98% | 11/03/2019 2:42 PM | | | | | PDT | | + + + + + | Inhaled Oxygen | - | - | | | Concentration | | | | + + + + + | Weight | 64.7 kg (142 lb 11.2 | 11/03/2019 2:42 PM | | | | oz) | PDT | | + + + + + | Height | 170.2 cm (5' 7") | 11/03/2019 2:42 PM | | | | | PDT | | + + + + + | Body Mass Index | 22.35 | 11/03/2019 2:42 PM | | | | | PDT | | + + + + + documented in this encounter Patient Instructions Patient Instructions Keila Kang FNP - 11/03/2019 3:00 PM PDTI have ordered you nonfasting labs to be done at [facility] one week before you see me back I made changes to medications by having you take furosemide 40 mg total tomorrow, and then switch to 20 mg daily with extra 20 mg every other day , along with potassium 10 meq every o ther day See me back as scheduled on dec 01 documented in this encounter Progress Notes Keila Kang FNP - 11/03/2019 3:00 PM PDTFormatting of this note might be differe nt from the original. Date of visit: 11/03/2019 Primary Care Physician: Loco Hernandez DO CHIEF COMPLAINT: Chief Complaint Patient presents with Follow-up Leg swelling HISTORY OF PRESENT ILLNESS: Ms. Rachelle Ellis is an 89-year-old woman who is here today for sooner follow-up due to concerns by her daughter Peter for increased fluid retention and increased blood pressure. She is here today with her daughter Mallorie who contributed to history, as she is her john keila caregiver. Today , I reviewed all available information in electronic medical record, and from externa l medical sources. 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 Diego in September 2018, type II diabetes, legally blind ,and hypothyroidi sm. She had previous CHF decompensation in January 2015, with severe three vessel CAD with d iffuse disease and no clear targets for revascularization and severe LV systolic dysfunction with apical and anterior wall motion abnormalities. It was decided to treat her medically after discussions with patient and family . I previously have had discussions with her and her daughter, and they are clear that she does not wish any aggressive interventions, but is willing to be treated medically. She remains on Coumadin for stroke prophylaxis because of LV apical akinesis and reports h er last INR has been therapeutic, and denies any bleeding. Mallorie had reported when I saw her last, that she followed up with Dr. Diego in and had repeat lower extremity ultrasound, and was told though her stent showed some narro wing it was patent and he was keeping her on Plavix, and will continue to follow up with her . She continues to have improved circulation to her right foot and her previous nonhealing wounds have remained healed, though still has some ongoing problems with her feet. Her current and previous testing and procedures are detailed below . I saw her last on September 23, 2019 when I stopped her metolazone and encouraged her to stay bet ter hydrated and ordered her a BMP to be performed in 1 month. She apparently was doing fine initially, but then her weight started to increase last week, and her daughter began to notice increased lower extremity edema. She denied any increased to shortness of breath, but both containing of the left leg and hip pain and also weakness to her knees. When Peter had called yesterday, we got her a sooner appointment as she reported her blood pressure was also higher than normal at 150/70 and I had told her to increase her furosemide to 40 mg once daily for the next 3 days. Peter and Mignon report today that she is on her second day of 40 mg of furosemide, and she lopez d diuresis this morning, and her legs were little less edematous, and her blood pressure bet ter controlled. Today Mignon reports she has otherwise been feeling very well . Her daughter reports she continues to have an improvement in the quality of her life with new hearing aid,as she can now hear her friends and family much better. She denies any chest pain, palpitations, dyspnea with or without exertion, syncope, or dizziness. She denies any signs or symptoms of stroke or transient ischemic attack. She does have ongoing vision problems with almost no vision in her right eye and only romaon ited vision in her left eye which makes reading difficult for her. She does ambulate with a cane or walker for balance and also for chronic low back pain, and remained modestly activ e. They brought her medications to the clinic today and I reviewed them personally. REVIEW OF SYSTEMS: Negative except for pertinent items noted in HPI. Constitutional: Denies fatigue or unexplained weight loss. Appetite is good. Denies night sweats fevers or chills HENT: Denies nosebleeds. Very poor Hearing, Hearing aid left ear, no hearing in right ea r , Denies dysphagia, but some problems with larger pills Eyes: Poor vision, right eye almost blind,, left eye best . difficulty reading. History of cataract surgery Denies visual disturbance or double vision. Denies history of glaucoma Respiratory: Denies cough and shortness of breath. Denies hemoptysis or excessive sputum p roduction Cardiovascular: Negative for chest pain, palpitations and leg swelling. Gastrointestinal: history of GERD on PPI .Denies nausea, vomiting, abdominal pain and bl ood in stool. Genitourinary: Negative for hematuria. 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 History of chronic low back pa in. Uses cane for balance and vision Denies myalgias, Skin: Denies color change. Denies rash or lesions Neurological: Denies history of stroke/Transient ischemic attack. Denies dizziness, syncope and numbness. Denies focal motor or sensory deficits Hematological: Does not bruise/bleed easily. Denies history of cancer Endocrine: hx diabetes and thyroid disease. Denies excessive thirst or hunger. Psychiatric/Behavioral: The patient denies any history of depression or anxiety or other ps ychiatric illness. Vaccines: Current on 12/2018 flu vaccine. Current on pneumonia vaccine. Habits: Denies history of smoking. Denies EtOH use. Denies illicit drug use. Exercise ve ry limited to walking around her house and yard occasionally. Daughter is her primary [facility] Outpatient Medications Prior to Visit Medication Sig Dispense Refill carvedilol (COREG) 3.125 mg tablet Take 3.125 mg by mouth 2 (two) times daily with meal s. cholecalciferol (CHOLECALCIFEROL) 1000 units TABS Take 2,000 Units by mouth twice a wee k. (Patient taking differently: Take 1,000 Units by mouth Daily .) clopidogrel (PLAVIX) 75 mg tablet Take 75 mg by mouth Daily. ferrous sulfate 324 (65 Fe) MG EC tablet Take 65 mg of iron by mouth twice a week. furosemide (LASIX) 20 mg tablet TAKE ONE TABLET BY MOUTH EVERY DAY 30 tablet 10 levothyroxine (SYNTHROID) 125 mcg tablet Take 1 tablet by mouth daily. lisinopril (PRINIVIL, ZESTRIL) 5 mg tablet Take one-half tablet once each day 15 tablet 10 metFORMIN (GLUCOPHAGE) 500 mg tablet Take 1,000 mg by mouth 2 (two) times daily with me als. metroNIDAZOLE (METROGEL) 0.75 % gel Apply topically 2 (two) times daily. (Patient shey ng differently: as needed.) nitroglycerin (NITROSTAT) 0.[address] 1 tablet under the tongue every 5 estelle catherine as needed (Chest pain). 20 tablet 2 warfarin (COUMADIN) 2.5 mg tablet Take 2.5 mg by mouth daily. 1 tablet alternating mon and fri, and/ rest of day (Patient taking differently: Take 2.5 mg by mouth Daily Managed by [facility].) No facility-administered medications prior to visit. PHYSICAL EXAM: Wt Readings from Last 3 Encounters: 11/03/19 64.7 kg (142 lb 11.2 oz) 09/23/19 61 kg (134 lb 8 oz) 12/07/18 61.2 kg (135 lb) Temp Readings from Last 3 Encounters: 11/03/19 36.2 C (97.2 F) BP Readings from Last 3 Encounters: 11/03/19 120/70 09/23/19 116/56 12/07/18 106/50 Pulse Readings from Last 3 Encounters: 11/03/19 72 09/23/19 67 12/07/18 72 Vital signs 06/16 12/03: Wt: 133 Lbs. BP: 104/48 . HR. 72 Vital signs: 01/12/2018 wt: 144 Lbs. BP: 106/48 HR: 67 Vital signs: 07/07/2017 wt: 146 Lbs. BP: 112/40 HR: 76 GENERAL: Well developed, well nourished elderly woman , in no distress. Appears approxima tely stated age. HEENT: Normocephalic, atraumatic. Hearing aid EYES: Poor vision, right eye almost blind, left eye best, cataract surgery NECK: No JVD, lymphadenopathy, thyromegaly, bruits. Carotid pulses are 2+ bilaterally LUNGS: Clear bilaterally, with no rales, rhonchi or wheezing noted, respirations unlabored HEART: Nondisplaced PMI, regular rate and rhythm, S1, S2 normal.2/6 LUSB murmur,No rubs o r gallops noted. ABDOMEN: Soft, nontender, no organomegaly, masses or bruits. Bowel sounds are normal in a ll 4 quadrants. The abdominal aortic pulsation is not palpable. EXTREMITIES: mild non pitting edema to shins and feet, skin more taut and shiny . Radial pulses 2+ bilaterally. Femoral pulses are 2+ bilaterally without bruits. DP and PT pulses are 2+ on left, 1+ on right . No clubbing. SKIN: Warm and dry, capillary refill is normal, no lesions. NEUROLOGIC: Awake, alert and oriented x 3. No focal motor or sensory deficits. PSYCHIATRIC: Appropriate, affect appears normal DATA: Blood tests: Lab Results Component Value Date WBC 5.94 12/26/2014 HGB 9.6 (L) 12/26/2014 Lab Results Component Value Date NA 128 (L) 12/26/2014 K 3.8 12/26/2014 CL 97 (L) 12/26/2014 CO2 26 12/26/2014 ANIONGAP 9 12/26/2014 GLUF 136 (H) 12/26/2014 BUN 33 (H) 12/26/2014 EGFR >60 12/26/2014 Lab Results Component Value Date CHOL 96 12/23/2014 TRIG 94 12/23/2014 LDL 41 12/23/2014 GLUF 136 (H) 12/26/2014 Lab Results Component Value Date BNP 1,070 (H) 12/23/2014 TSH 3.52 12/23/2014 No results found for: TOTEPI CARDIAC PROCEDURES/IMAGING Last Cath, 12/24/2014: extensive calcification of coronary tree, left main OK, LAD diffuse severe disease, LCx mild diffuse disease, 80% LPDA (small vessel), RCA non-dominant. LVG l arge apical akinesis/dyskinesis, LVEF 25-30%. Medical management recommended VASCULAR PROCEDURES?TESTING Peripheral Intervention:09/2018: right femoral stent placed by Dr. Diego ( placed on Odilon vix) LE US:04/26/2019: High-grade stenosis at the mid right superficial femoral artery just proxi mal to and in the proximal aspect of the stent. High-grade stenosis at the mid left superfic ial femoral artery stent. Diminutive flow in the right posterior tibial artery and occlusion of the mid to distal segments of the left posterior tibial artery. The far distal left posterior tibial a rtery is reconstituted via collateral vessels. ECHO: Last Echo: ([facility]): 10/26/2018 sinus rhythm. Technically difficult study with suboptimal view s. Definity used. EF 45-50%, stable. LV normal in size and wall thickness. Moderate rogel tolic dysfunction, grade 2. Mid to a Jackson from all views appears to be aneurysmal and akine tic. RV normal in size and function. Normal size atria. Aortic valve trileaflet, no AI, a ortic valve moderately calcified, mild aortic stenosis with peak/mean pressure gradient of 9 .63mmHg / 5.61mmHg, aortic valve area by continuity equation is 1.6cm. Mitral valve thickening, mild MR, mild MAC. Tricuspid valve normal, trace TR. No pulmonary hypertensio n, RVSP 24.07 mmHg. Pulmonic valve not well visualized, trace PI. No pericardial effusion. IVC small <1.5 cm, CVP 0-5. Aortic root, ascending aorta, and aortic arch are normal. No mass, no clot, no ASD, no VSD Echo: ([facility]). 11/07/2017 Sinus rhythm. Definity. Technically adequate study. EF 45-50 per cent. LV normal in size and wall thickness. Moderate diastolic dysfunction. Wall motion a bnormalities suggestive of coronary artery disease, mid to distal septal and apical severe h ypokinesis noted. RV normal in size. Normal size atria. Aortic valve trileaflet, mildly t hickened, mildly calcified, trace AI, mild aortic stenosis, Peak/mean gradient across the v alve is 8.90mmHg/4.15mmHg.POLLY: 1.96 cm2. mitral valve thickened with myxomatous degeneration , moderate MR, predominantly posteriorly directed jet. Tricuspid normal, mild TR. No pulmo nary hypertension, RVSP 39.97 mmHg. Trace PI. No pericardial effusion. IVC small. CVP 0- 5. Aortic root, ascending aorta, and aortic arch are normal. No mass, no clot Echo:11/08/2016: Definity: EF 35-40%. LV normal size, wall thickness, mild (grade 1) diasto lic dysfunction. Akinetic mid inferoseptal and anteroseptal and apical segments. RV normal s ize and function. Normal size atria. Mild degenerative changes in the aortic and mitral valv es.Trileaflet AV, no AR. TR MR, TR, no Pulm HTN, PASP 18.06 mmHg. Trace ID. No pericardial o r pleural effusion. Aortic root, ascending aorta WNL. Echo: 05/22/2015 ([facility]): LV mildly dilated (?LVEDd 55mm), mild left ventricular hyper trophy. apical akinesis,LVEF 40-45%, mild LAE, mild MR. mild Last Stress Test: na EKG: ECG, 12/28/2015: sinus rhythm, 66 bpm, 1st degree AVB, PVC, extensive [id number]-[id number] rior CA of indeterminate age. EK2016: Sinus rhythm with first-degree AV block, stable right bundle branch bloc k, stable changes consistent with anteroseptal infarction. Rate 64 bpm, ID 242 ms, QRS 138 ms, QTC 482 ms personally reviewed by me and compared to previous EKG EK01/12/2018: Sinus rhythm with first-degree AV block, stable right bundle branch block, old anteroseptal infarct, stable T-wave inversions leads V1-V4. Rate 67 bpm, ID 240 ms, QR S 140 ms, QTC 494 ms and a tracing personally reviewed by me, and when compared to EKG in [facility]2016, no significant change EK12/07/2018: Sinus rhythm with first-degree AV block, right bundle branch block, old sep sulma infarct. T wave inversions anterior leads rate 69 bpm, ID 236 ms, QRS 126 ms, QTC 458 m s tracing personally reviewed by me and similar morphology to EKG performed in December 2017 LABS: Labs: 2016: Cholesterol 160, triglycerides 152, HDL 48, LDL 82, TSH 0.586, AST 17, alk phos 59, creatinine 0.68, total bilirubin 0.7, BUN 21, GFR 82, glucose 126, chloride 100, s odium 138, potassium 3.8 A1c 7.1, vitamin B12 455 BNP 351, hemoglobin 12.8, hematocrit 38.1, platelets 2:15, ESR 50 Labs: 10/21: Lipids: Cholesterol 135, triglycerides 145, HDL 45.4, LDL 61, VLDL 29, rat io 3,non-HDL cholesterol 90. Thyroid function: Free T4 1 0.97, TSH 1.01. CMP: Sodium 1:30, potassium 4, chloride 90, glucose 133, BUN 16, creatinine 0.74, GFR 74, AST 16, ALT 16, alk phos 62, total bilirubin 0.8, albumin 3.7, protein 6.6. A1c 6.9, vitamin B12 590, BNP 152, vitamin D 39. CBC: WBC 5.4, hemoglobin 12.7, hematocrit 36.6, platelets 291 Labs: 12/31/2016: INR 2.8 Labs: 06/16/2017: Lipids: ( no statin) :Cholesterol 156, triglycerides 174, HDL 47.5, LDL 74, VLDL 35, ratio 3.3, non-HDL cholesterol 109 thyroid: Free T4 2 0.01, TSH 1.86 CMP: Sodium 1 34, potassium 3.7, chloride 92, glucose 168, BUN 18, creatinine 0.77, GFR 71, AST 15, ALT 20 , alk phos 71, total bilirubin 0.7, albumin 3.8. A1c 7.7 CBC: WBC 5.8, hemoglobin 12.8, he matocrit 37.6, platelets 281. Vitamin D 39 Labs: 12/29/2017: CMP: Sodium 136, potassium 3.7, chloride 94, glucose 116, BUN 20, creatin ine 0.79, AST 22, ALT 25, alk phos 56, total bilirubin 0.8, GFR 69, and albumin 4. Hemoglob in A1c 6.6. Thyroid: TSH 1.54. CBC: WBC 5.3, hemoglobin 12.3, hematocrit 36.2, platelets 2 82 Labs: 01/06/2018: INR: 2.1 Labs: 07/06/2018: Lipids: ( no statin) Cholesterol 143, triglycerides 158, HDL 48, LDL 63, V LDL 32. CMP: Sodium 133, potassium 3.7, chloride 92, glucose 330, BUN 22, creatinine 0.82, AST 18, ALT 24, alk phos 51, total bili 0.7, GFR 66, albumin 3.8. Hemoglobin A1c 10.3 (249) . Thyroid: TSH 2.01. CBC: WBC 5.6, RBC 4.48, hemoglobin 13.2, hematocrit 39.1, platelets 2 81. Labs: 07/13/2019: CMP: Sodium 136, potassium 4.1, chloride 96, glucose 225, BUN 32, creatini ne 0.85, GFR 63, calcium 8.7, AST 13, ALT 15, alk phos 53, total bili 0.6, albumin 3.7. Hem oglobin A1c 7.6 (171) ASSESSMENT & PLAN: Mignon was here today for sooner follow-up due to concerns by her daughter Peter for incr eased fluid retention and increased blood pressure. She has problems as listed below . I had previously stopped her metolazone as I thought she was more dehydrated with an el evated BUN, and had encouraged her to drink more water. As discussed in HPI, she has had increased lower extremity edema and blood pressure and weight gain in the last week. She has improved with an additional 20 mg of furosemide yesterday and today and I will h ave her take another tomorrow. For her cardiac medications, I have changed her furosemide to 40 mg every other day alterna ting with 20 mg daily, and have also added potassium 10 mEq every other day. I have continue d Plavix 75 mg daily for femoral stent, lisinopril 2.5 mg daily, and carvedilol 3.125 mg bi d She remains therapeutically anticoagulated on Coumadin for stroke prophylaxis with her l ow EF and apical akinesis. I would like to increase carvedilol to help improve her EF, but her blood pressure tends t o be low, and I do not wish to increase her fall risk by making her dizzy with hypotension. Her daughter had thought she had looked improved and more alert with improved hydration, an d I would like to find a balance between being fluid overloaded, and Dehydrated. She continues to have improvement to the circulation to her right foot since right femora l stent placed in September by Dr. Jameson, though still some narrowing as noted on her April ultrasound, and continues on Plavix She continues to be modestly active and denies any problems. I again verified with her and her daughter that she does not wish any aggressive medical interventions, including for aortic stenosis, and does not even wish to explore TAVR if dale cated, but does wish to be treated medically. I will follow-up with her as previously scheduled on December 02, 2019, and have suggest ed that we could do a telephone visit, though she and her daughter prefer to be seen gely leonard. I have ordered an updated BMP to be performed one week prior to seeing me back Copies t o be sent to her PCP, Dr. Hernandez. . 1. Coronary artery disease involving [place] coronary artery of [place] heart without angina pectoris 2. Ischemic cardiomyopathy 3. Chronic systolic congestive heart failure (HCC) 4. Essential hypertension 5. Mild calcific aortic stenosis 6. History of non-ST elevation myocardial infarction (NSTEMI) 7. S/P peripheral artery angioplasty with stent placement 8. Mixed hyperlipidemia 9. Anticoagulated on Coumadin 10. Type 2 diabetes mellitus without complication, without long-term current use of insulin (HCC) 11. Peripheral vascular disease of extremity (HCC) 12. Other specified hypothyroidism 13. Encounter for monitoring diuretic therapy No orders of the defined types were placed in this encounter. The following portions of the patient's history were personally reviewed by me and updated as appropriate: EKG tracings, other specialty provider and PCP notes,any Hospital admission and discharge summaries, any ER records , current and previous cardiac testing and procedure reports and d carmela, medication bottles brought to visit today personally reviewed by me. Allergies, current medications.labs Family history, past medical history, past social history, past surgical history. Problem list. Alan CHAIREZ [facility] Cardiology 11/03/2019 docume nted in this encounter Plan of Treatment +--------+---------+ + + + | Date | Type | Specialty | Care Team | Description | +--------+---------+ + + + | 12/01/ | Office | Cardiology | Keila Kang | | | 2019 | Visit | | [address] | | | | | | [address] | | | | | | [place] [address] | | | | | | [phone] | | | | | | | | +--------+---------+ + + + documented as of this encounter Visit Diagnoses + + | Diagnosis | + + | Coronary artery disease involving [place] coronary artery of [place] heart without | | angina pectoris - Primary | + + | Ischemic cardiomyopathy Other specified forms of chronic ischemic heart disease | + + | Chronic systolic congestive heart failure (HCC) Chronic systolic heart failure | + + | Essential hypertension Unspecified essential hypertension | + + | Mild calcific aortic stenosis Aortic valve disorders | + + | History of non-ST elevation myocardial infarction (NSTEMI) Old myocardial infarction | + + | S/P peripheral artery angioplasty with stent placement | + + | Mixed hyperlipidemia | + + | Anticoagulated on Coumadin Encounter for therapeutic drug monitoring | + + | Type 2 diabetes mellitus without complication, without long-term current use of | | insulin (HCC) | + + | Peripheral vascular disease of extremity (HCC) | + + | Other specified hypothyroidism | + + | Encounter for monitoring diuretic therapy Encounter for therapeutic drug monitoring | + + documented in this encounter
--- OUTSIDE RECORDS SUMMARY | ~2019-11-12 | XMS | Clinical Summary ---
Demographics + + + | Address | [address] | | | [place] [address] | + + + | Home Phone | | + + + | Preferred Language | Unknown | + + + | Marital Status | | + + + | Jainism Affiliation | 1041 | + + + | Race | White | + + + | Ethnic Group | Not or | + + + Author + + + | Author | [facility] | | | and [place] | + + + | Organization | [facility] | | [...] Team Providers + +------+ + | Care Custom Feed Mill Operator Name | Role | Phone | + [...] mouth twice a week. | | | 8/20 | | e | | 1000 units TABS | | | | 15 | | | + + + +---------+------+------+-------+ | ferrous sulfate | Take 65 mg of iron | | 0 | 11/1 | | Activ | | 324 (65 Fe) MG EC | by mouth twice a | | | 9/20 | | e | | tablet | week. | | | 15 | | | + + + +---------+------+------+-------+ | carvedilol (COREG) | Take 3.125 mg by | | 0 | 10/1 | | Activ | | 3.125 mg tablet | mouth 2 (two) times | | | 2/20 | | e | | | daily with meals. | | | 16 | | | + + + +---------+------+------+-------+ | warfarin | Take 2.5 mg by mouth | | 0 | 10 | | Activ | | (COUMADIN) 2.5 mg | daily. 1 tablet | | | 05/06 | | e | | tablet | alternating mon and | | | 16 | | | | | fri, and03/18 rest of | | | | | | | | day | | | | | | + + + +---------+------+------+-------+ | metroNIDAZOLE | Apply topically 2 | | 0 | 04/2 | | Activ | | (METROGEL) 0.75 % | (two) times daily. | | | 06/03 | | e | | gel | | | | 18 | | | + + + +---------+------+------+-------+ | levothyroxine | Take 1 tablet by | | 0 | 10/2 | | Activ | | (SYNTHROID) 125 mcg | mouth daily. | | | 05/06 [...] Place 1 tablet under | 20 | 2 | 07/0 | | Activ | | (NITROSTAT) 0.4 mg | the tongue every 5 | tablet | | 9/20 | | e | | SL tablet | minutes as needed | | | 20 | | | | | (Chest pain). | | | | | | + + + +---------+------+------+-------+ | furosemide (LASIX) | Take 1 tablet by | 16 | 11 | 08/1 | | Activ | | 20 mg tablet | mouth Every other | tablet | | 9/20 | | e | | | day with breakfast | | | 20 | | | | | To take in addition | | | | | | | | to 20 mg daily. | | | | | | + + + +---------+------+------+-------+ | potassium chloride | Take 1 tablet by | 30 | 11 | 08/1 | | Activ | | (KLOR-CON) 10 MEQ | mouth Every other | tablet | | 9/20 | | e | | ER tablet | day with breakfast | | | 20 | | | | | With additional 20 | | | | | | | | mg of furosemide .. 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 | | + [...] | 12/22/2014 | + + + Encounters +--------+ + + + + | Date | Type | Specialty | Care Team | Description | +--------+ + + + + | 11/02/ | Office | Cardiology | Keila Kang | Coronary artery | | 2020 | Visit | | [address] | disease involving | | | | | | [place] coronary | | | | | | artery of [place] | | | | | | heart without angina | | | | | | pectoris (Primary | | | [...] | | | | | therapy | +--------+ + + + + | 11/01/ | Telephone | Cardiology | Keila Kang | Ankle Swelling | | 2020 | | | [place] [address] | | +--------+ + + + + | 09/22/ | Office | Cardiology | Keila Kang | Coronary artery | | 2020 | Visit | | [address] [address] | disease involving | | | | | | [place] coronary | | | | | | artery of [place] | | | | | | heart without angina | | | | | | pectoris (Primary | | | [...] | | | | | | placement; | | | | | | Anticoagulated on | | | | | | Coumadin; 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; 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 | | | | | [...] | | | | | therapy | +--------+ + + + + from Last 3 Months [...] + + + + Plan of Treatment +--------+---------+ + + + | Date | Type | Specialty | Care Team | Description | +--------+---------+ + + + | 12/01/ | Office | Cardiology | Keila Kang | | | 2019 | Visit | | [address] | | | | | | [address] | | | | | | [place] [address] | | | | | | [phone] | | | | | | | | +--------+---------+ + + + + + + + + | Health Maintenance | Due Date | Last | Comments | | | | Done | | + + + + + | Med Mgmt: Vit D | | | | | | 1 | | | + + + + + | Medication | | | | | Management | 1 | | | + + [...] | 6 | | | | of 1 - PPSV23) | | | | + + + + + | Vaccine: Zoster (2 | | 07/08/19 | | | of 3) | 8 | 08 | | + + + + + | Med Mgmt: INR | | 12/27/19 | | | | 5 | 15 | | + + + + + | Hemoglobin A1c | | 12/24/19 | | | Screening | 6 | 15 | | + + + + + | Med Mgmt: HBA1C | | 12/24/19 | | | | 6 | 15 | | + + + + + | Med Mgmt: TSH | | 12/24/19 | | | | 6 | 15 | | + + + + + | Med Mgmt: Cr | | 12/27/19 | | | | 6 | 15, | | | | | 12/26/19 | | | | | 15, | | | | | 12/25/19 | | | | | 15, | | | | | Addition | | | | | al | | | | | history | | | | | exists | | + + + + + | Med Mgmt: K | | 12/27/19 | | | | 6 | 15, | | | | | 12/26/19 | | | | | 15, | | | | | 12/25/19 | | | | | 15, | | | | | Addition | | | | | al | | | | | history | | | | | exists | | + + + + + | Med Mgmt: Na | | 12/27/19 | | | | 6 | 15, | | | | | 12/26/19 | | | | | 15, | | | | | 12/25/19 | | | | | 15, | | | | | Addition | | | | | al | | | | | history | | | | | exists | | + + + + + | Med Mgmt: eGFR | | 12/27/19 | | | | 6 | 15, | | | | | 12/26/19 | | | | | 15, | | | | | 12/25/19 | | | | | 15, | | | | | Addition | | | | | al | | | | | history | | | | | exists | | + + + + + | Adult Annual | | | | | Wellness Visit | 9 | | | + + + + + | Vaccine: Influenza | | 05/05/19 | | | (#1) | 0 | 18, | | | | | 12/17/19 | | | | | 17, | | | | | 12/06/19 | | | | | 15, | | | | | Addition | | | | | al | | | | | history | | | | | exists | | + + + + + | Vaccine: | | 01/05/20 | | | Dtap/Tdap/Td (2 - | 9 | 19 | | | Td) | | | | + + + [...] +--------+ +---------+--------+ | MEDICARE | MEDICA | [id number] | 07/15/18 | [phone] | | Medica | | | RE | | 96-Pre | 5 | | re | | | PART A | | sent | | | | | | AND B | | | | | | + +--------+ +--------+ +---------+--------+ | CIGNA | CIGNA | [id number] | 04/25/19 | [phone] | | Indemn | | | MDCR | | 20-Pre | 1 | | ity | | | SUPPLE | | sent | | | | | | MENT | | | | | | | | SOLUTI | | | | | | | | ONS | | | | | | + +--------+ +--------+ +---------+--------+ | CIGNA | CIGNA | [id number] | 03/17/19 | [phone] | | Indemn [...] +--------+ +---------+--------+ | MEDICARE | MEDICA | [id number] | 07/15/18 | [phone] | | Medica [...] | Self | [birth year] | [address] | | | al/Fam | | 1931 | [phone] | [place], [place] | | | princess | | | 5 ([place]) | [address] | + +--------+ +--------+ + + | Rachelle Ellis | Person | Self | [birth year] | [address] | | | al/Fam | | 1931 | [phone] | [place] | | | princess | | | 5 ([place]) | [address] | + +--------+ +--------+ + + Advance Directives + + + + + | Type | Date Recorded | Patient | Explanation | | | | Pump Mechanic | | + + + + + | Power of | | | | | Pattern Hand | | | | + + + + + | Advance | | | | | Directive | | | | + + + + +
--- OUTSIDE RECORDS SUMMARY | ~2019-11-12 | XMS | Encounter Summary ---
Demographics + + + | Address | [address] | | | [place] [address] | + + + | Home Phone | | + + + | Preferred Language | Unknown | + + + | Marital Status | | + + + | Orthodoxy Affiliation | 1041 | + + + [...] Team Providers + +------+ + | Care Digital Experience Manager Name | Role | Phone | + +------+ + | Loco Hernandez DO | PCP | | + +------+ + Reason for Referral Diagnostic/Screening (Routine) +--------+--------+ + + + + | Status | Reason | Specialty | Diagnoses / | Referred By | Referred To | | | | | Procedures | Contact | Contact | +--------+--------+ + + + + | Closed | | Radiology | Diagnoses | Trino, | | | | | | | [place] | | | | | | Atherosclero | MD [address] | | | | | [address] of | [place] | | | | | | [address] | | | | | | arteries of | [place], [place] | | | | | | right leg | [address] | | | | | | with | Phone: | | | | | | ulceration | [phone] | | | | | | of other | Fax: | | | | | | part of foot | [phone] | | | | | | ([facility]) | | | | | | | Procedures | | | | | | | VAS Lower | | | | | | | Extremity | | | | | | | Arteries | | | | | | | Bilateral | | | +--------+--------+ + + + + Reason for Visit Diagnostic/Screening (Routine) +--------+--------+ + + + + | Status | Reason | Specialty | Diagnoses / | Referred By | Referred To | | | | | Procedures | Contact | Contact | +--------+--------+ + + + + | Closed | | Radiology | Diagnoses | Trino, | | | | | | | [place], | | | | | | Atherosclero | MD [address] | | | | | | sis of | [place] | [address] | | | [address] | | | | | | arteries of | [place], [place] | | | | | | right leg | [address] | | | | | | with | Phone: | | | | | | ulceration | [phone] | | | | | | of other | Fax: | | | | | | part of foot | [phone] | | | | | | (HCC) | | | | | | | Procedures | | | | | | | VAS Lower | | | | | | | Extremity | | | | | | | Arteries | | | | | | | Bilateral | | | +--------+--------+ + + + + Encounter Details +--------+ + + + + | Date | Type | Department | Care Team | Description | +--------+ + + + + | 04/26/ | Hospital | [facility] | Trino, | Atherosclerosis of | | 2019 | Encounter | [facility] | MD [address] | i[place] arteries of | | | | [address] | right leg with | | | | [place] | [place] [address] | ulceration of other | | | | [address] | [phone] | part of foot ([facility]) | | | | [phone] | | | +--------+ + + + [...] + + documented as of this encounter Medications at Time of Discharge + + + +---------+ + + | Medication | Sig | Dispensed | Refills | Start | End Date | | | | | | Date | | + + + +---------+ + + | carvedilol (COREG) | Take 3.125 mg by | | 0 | 12/27/19 | | | 3.125 mg tablet | mouth 2 (two) times | | | 16 | | | | daily with meals. | | | | | + + + +---------+ + + | cholecalciferol | Take 2,000 Units by | | 0 | 12/23/19 | | | (CHOLECALCIFEROL) | mouth twice a week. | | | 15 | | | 1000 units TABS | | | | | | + + + +---------+ + + | clopidogrel | Take 75 mg by mouth | | 0 | | | | (PLAVIX) 75 mg | Daily. | | | | | | tablet | | | | | | + + + +---------+ + + | ferrous sulfate | Take 65 mg of iron | | 0 | 02/03/20 | | | 324 (65 Fe) MG EC | by mouth twice a | | | 15 | | | tablet | week. | | | | | + + + +---------+ + + | furosemide (LASIX) | TAKE ONE TABLET BY | 30 | 10 | 02/09/20 | | | 20 mg tablet | MOUTH EVERY DAY | tablet | | 19 | | + + + +---------+ + + | levothyroxine | Take 1 tablet by | | 0 | 01/06/20 | | | (SYNTHROID) 125 mcg | mouth daily. | | | 18 | | | tablet | | | | | | + + + +---------+ + + | lisinopril | Take one-half tablet | 15 | 10 | 02/09/20 | | | (PRINIVIL, ZESTRIL) | once each day | tablet | | 19 | | | 5 mg tablet | | | | | | + + + +---------+ + + | metFORMIN | Take 1,000 mg by | | 0 | 12/23/19 | | | (GLUCOPHAGE) 500 mg | mouth 2 (two) times | | | 15 | | | tablet | daily with meals. | | | | | + + + +---------+ + + | metroNIDAZOLE | Apply topically 2 | | 0 | 07/08/19 | | | (METROGEL) 0.75 % | (two) times daily. | | | 18 | | | gel | | | | | | + + + +---------+ + + | warfarin | Take 2.5 mg by mouth | | 0 | 12/27/19 | | | (COUMADIN) 2.5 mg | daily. 1 tablet | | | 16 | | | tablet | alternating mon and | | | | | | | fri, and03/18 rest of | | | | | | | day | | | | | + + + +---------+ + + | metOLazone 2.5 mg | Take 1 tablet by | 9 | 0 | 04/08/19 | | | tablet | mouth twice a week. | tablet | | 20 | 0 | + + + +---------+ + + | nitroglycerin | Place 1 tablet under | 20 | 5 | 01/13/20 | | | (NITROSTAT) 0.4 mg | the tongue every 5 | tablet | | 18 | 0 | | SL tablet | (five) minutes as | | | | | | | needed for Chest | | | | | | | pain. | | | | | + + + +---------+ + + documented as of this encounter Plan of Treatment +--------+---------+ + + + | Date | Type | Specialty | Care Team | Description | +--------+---------+ + + + | 12/01/ | Office | Cardiology | FunmilayoKeila redmond | | | 2019 | Visit | | [address] | | | | | | [address] | | | | | | [place] [address] | | | | | | [phone] | | | | | | | | +--------+---------+ + + + documented as of this encounter Procedures + +--------+ + + + | Procedure Name | Priori | Date/Time | Associated Diagnosis | Comments | | | ty | | | | + +--------+ + + + | VAS LOWER EXTREMITY | Routin | 04/26/2019 | Atherosclerosis of | Results for this | | ARTERIES BILATERAL | e | 2:30 PM | [place] arteries of | procedure are in the | | | | PST | right leg with | results section. | | | | | ulceration of other | | | | | | part of foot (HCC) | | + +--------+ + + + documented in this encounter Results VAS Lower Extremity Arteries Bilateral (04/26/2019 2:30 PM PST) + + | Specimen | + + | | + + + + + | Impressions | Performed At | + + + | High-grade stenosis at the mid right superficial femoral artery | [facility] | | just proximal to and in the proximal aspect of the stent. | | | High-grade stenosis at the mid left superficial femoral artery stent. | | | Diminutive flow in the right posterior tibial artery and occlusion | | | of the mid to distal segments of the left posterior tibial artery. | | | The far distal left posterior tibial artery is reconstituted via | | | collateral vessels. Dictated and Signed by: Guillermo Quesada MD | | | Electronically signed: 04/26/2019 4:00 PM | | + + + + + + | Narrative | Performed At | + + + | TECHNIQUE: Multiple longitudinal and transverse laguna-scale and | [facility] | | color-flow Doppler sonographic images of the lower extremity arteries | | | were obtained. CLINICAL INFORMATION: Atherosclerosis of iroquois | | | arteries of right leg with ulceration of other part of foot (HCC). | | | COMPARISON: None available. FINDINGS: RIGHT LOWER EXTREMITY: | | | Diffuse atherosclerotic vascular disease. PRESS PIPE INSPECTOR systolic 73 cm/sec | | | PFA systolic 50 cm/sec, ratio to PRESS PIPE INSPECTOR is less than 1, biphasic SFA | | | proximal systolic 52 cm/sec, ratio to PRESS PIPE INSPECTOR is less than 1, biphasic | | | SFA mid systolic 87 cm/sec, ratio to PRESS PIPE INSPECTOR is 1.2, biphasic SFA | | | proximal to the stent systolic 172 cm/sec, ratio to PRESS PIPE INSPECTOR is 2.4, | | | biphasic SFA proximal stent systolic 203 cm/sec, ratio to PRESS PIPE INSPECTOR is | | | 2.7, biphasic SFA mid stent systolic 60 cm/sec, ratio to PRESS PIPE INSPECTOR is less | | | than 1, biphasic Pop distal stent systolic 59 cm/sec, ratio to PRESS PIPE INSPECTOR | | | is less than 1, biphasic Pop systolic 63 cm/sec, ratio to PRESS PIPE INSPECTOR is | | | less than 1, biphasic CHIEF DIETITIAN systolic 8 cm/sec, ratio to PRESS PIPE INSPECTOR is less | | | than 1, monophasic DPA systolic 60 cm/sec, ratio to PRESS PIPE INSPECTOR is less than | | | 1, monophasic LEFT LOWER EXTREMITY: Diffuse atherosclerotic | | | vascular disease. PRESS PIPE INSPECTOR systolic 60 cm/sec PFA systolic 58 cm/sec, | | | ratio to PRESS PIPE INSPECTOR is less than 1, biphasic SFA proximal systolic 58 | | | cm/sec, ratio to PRESS PIPE INSPECTOR is less than 1, biphasic SFA mid systolic 63 | | | cm/sec, ratio to PRESS PIPE INSPECTOR is 1.0, biphasic SFA mid stent systolic 203 | | | cm/sec, ratio to PRESS PIPE INSPECTOR is 3.4, biphasic SFA distal systolic 55 cm/sec, | | | ratio to PRESS PIPE INSPECTOR is less than 1, biphasic Pop systolic 55 cm/sec, ratio | | | to PRESS PIPE INSPECTOR is less than 1, biphasic CHIEF DIETITIAN systolic 31 cm/sec, ratio to | | | PRESS PIPE INSPECTOR is less than 1, monophasic. Mid to distal segments of the | | | posterior tibial artery are occluded with reconstitution distally via | | | collateral vessels. DPA systolic 58 cm/sec, ratio to PRESS PIPE INSPECTOR is less | | | than 1, monophasic | | + + + + + | Procedure Note | + + | Fredis, Rad Results In 04/26/2019 4:03 PM PST TECHNIQUE: Multiple longitudinal and | | transverse laguna-scale and color-flowDoppler sonographic images of the lower extremity | | arteries were obtained.CLINICAL INFORMATION: Atherosclerosis of [place]quois arteries of right | | leg withulceration of other part of foot (HCC).COMPARISON: None | | available.FINDINGS:RIGHT LOWER EXTREMITY:Diffuse atherosclerotic vascular disease.PRESS PIPE INSPECTOR | | systolic 73 cm/secPFA systolic 50 cm/sec, ratio to PRESS PIPE INSPECTOR is less than 1, biphasic SFA | | proximal systolic 52 cm/sec, ratio to PRESS PIPE INSPECTOR is less than 1, biphasic SFA mid systolic 87 | | cm/sec, ratio to PRESS PIPE INSPECTOR is 1.2, biphasic SFA proximal to the stent systolic 172 cm/sec, | | ratio to PRESS PIPE INSPECTOR is 2.4, biphasic SFA proximal stent systolic 203 cm/sec, ratio to PRESS PIPE INSPECTOR is | | 2.7, biphasic SFA mid stent systolic 60 cm/sec, ratio to PRESS PIPE INSPECTOR is less than 1, biphasic | | Pop distal stent systolic 59 cm/sec, ratio to PRESS PIPE INSPECTOR is less than 1, biphasic Pop systolic | | 63 cm/sec, ratio to PRESS PIPE INSPECTOR is less than 1, biphasic CHIEF DIETITIAN systolic 8 cm/sec, ratio to PRESS PIPE INSPECTOR is | | less than 1, monophasic DPA systolic 60 cm/sec, ratio to PRESS PIPE INSPECTOR is less than 1, monophasic | | LEFT LOWER EXTREMITY:Diffuse atherosclerotic vascular disease.PRESS PIPE INSPECTOR systolic 60 cm/secPFA | | systolic 58 cm/sec, ratio to PRESS PIPE INSPECTOR is less than 1, biphasic SFA proximal systolic 58 | | cm/sec, ratio to PRESS PIPE INSPECTOR is less than 1, biphasic SFA mid systolic 63 cm/sec, ratio to PRESS PIPE INSPECTOR | | is 1.0, biphasic SFA mid stent systolic 203 cm/sec, ratio to PRESS PIPE INSPECTOR is 3.4, biphasic SFA | | distal systolic 55 cm/sec, ratio to PRESS PIPE INSPECTOR is less than 1, biphasic Pop systolic 55 cm/sec, | | ratio to PRESS PIPE INSPECTOR is less than 1, biphasic CHIEF DIETITIAN systolic 31 cm/sec, ratio to PRESS PIPE INSPECTOR is less than | | 1, monophasic. Mid to distalsegments of the posterior tibial artery are occluded with | | reconstitutiondistally via collateral vessels.DPA systolic 58 cm/sec, ratio to PRESS PIPE INSPECTOR is | | less than 1, monophasic IMPRESSION: High-grade stenosis at the mid right superficial | | femoral artery just proximal toand in the proximal aspect of the stent.High-grade | | stenosis at the mid left superficial femoral artery stent.Diminutive flow in the right | | posterior tibial artery and occlusion of the mid todistal segments of the left posterior | | tibial artery. The far distal leftposterior tibial artery is reconstituted via | | collateral vessels.Dictated and Signed by: Guillermo Quesada MD Electronically signed: | | 04/26/2019 4:00 PM | |SFA proximal systolic 58 cm/sec, ratio to PRESS PIPE INSPECTOR is less than 1, biphasic | |SFA mid systolic 63 cm/sec, ratio to PRESS PIPE INSPECTOR is 1.0, biphasic | |SFA mid stent systolic 203 cm/sec, ratio to PRESS PIPE INSPECTOR is 3.4, biphasic | |SFA distal systolic 55 cm/sec, ratio to PRESS PIPE INSPECTOR is less than 1, biphasic | |Pop systolic 55 cm/sec, ratio to PRESS PIPE INSPECTOR is less than 1, biphasic | |CHIEF DIETITIAN systolic 31 cm/sec, ratio to PRESS PIPE INSPECTOR is less than 1, monophasic. Mid to distal | |segments of the posterior tibial artery are occluded with reconstitution | |distally via collateral vessels. | |DPA systolic 58 cm/sec, ratio to PRESS PIPE INSPECTOR is less than 1, monophasic | | | | | |IMPRESSION: | | | |High-grade stenosis at the mid right superficial femoral artery just proximal to | |and in the proximal aspect of the stent. | | | |High-grade stenosis at the mid left superficial femoral artery stent. | | | |Diminutive flow in the right posterior tibial artery and occlusion of the mid to | |distal segments of the left posterior tibial artery. The far distal left | |posterior tibial artery is reconstituted via collateral vessels. 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
--- OUTSIDE RECORDS SUMMARY | ~2019-11-12 | XMS | Encounter Summary ---
Demographics + + + | Address | [address] | | | [place] [address] | + + + | Home Phone | | + + + | Preferred Language | Unknown | + + + | Marital Status | | + + + | Anabaptism Affiliation | 1041 | + + + | Race | White | + + + | Ethnic Group | Not or | + + + Author + + + | Author | [facility] | | | and [place] | + + + | Organization | [facility] | | | and [place] | + + + | Address | Unknown | + + + | Phone | Unavailable | + + + Support + + +---------+ + | Name | Relationship | Address | Phone | + + +---------+ + | Lory Den | ECON | Unknown | | + + +---------+ + Care Team Providers + +------+ + | Care Home Care Physical Therapist Name | Role | Phone | + +------+ + | Loco Hernandez DO | PCP | | + +------+ + Reason for Visit + +--------+ + | Reason | Onset | Comments | | | Date | | + +--------+ + | Ankle Swelling | 11/01/ | | | | 2020 | | + +--------+ + Encounter Details +--------+ + + + + | Date | Type | Department | Care Team | Description | +--------+ + + + + | 11/01/ | Telephone | [facility] | Keila Kang | Ankle Swelling | | 2020 | | CARDIOLOGY [place] | [address] | | | | | [address] | [address] | | | | | [address] [place] | [place] [address] | | | | | [address] | [phone] | | | | | [phone] | | | +--------+ + + + [...] + + documented as of this encounter Miscellaneous Notes Telephone Encounter - Rachelle Kaur CMA - 11/02/2019 3:57 PM PDTPatients daughter, Hooks called stating her mom had had a four pound weight gain over the weekend, with a BP highe r than usual at 150/70 and left leg and groin pain. Per Alan, have patient increase her Furosemide to 40 mg a day times 3 days. Also made an appointment for her to be seen on November 02 @ 3:00 pm. Called daughter Peter back to let her know what Alan was recommending and she stated u nderstanding and had no further questions. Would move her work schedule around to get her mo m here for the appointment. PH documented in this encounter Plan of Treatment +--------+---------+ + + + | Date | Type | Specialty | Care Team | Description | +--------+---------+ + + + | 12/01/ | Office | Cardiology | RejifloraKeila redmond | | | 2019 | Visit | | [address] | | | | | | [place] [address] | | | | | | [place] [address] | | | | | | [phone] | | | | | | | | +--------+---------+ + + + documented as of this encounter Visit Diagnoses Not on filedocumented in this encounter"
--- OUTSIDE RECORDS SUMMARY | ~2019-11-12 | XMS | Encounter Summary ---
Demographics + + + | Address | [address] | | | [place] [address] | + + + | Home Phone [...] Team Providers + +------+ + | Care Hire Car Driver Name | Role | Phone | + [...] + + | 12/07/ | Office | [facility] | Jorge Luis Keila | Coronary artery | | 2019 | Visit | C[facility]IOLOGY FAM | [address] | disease involving | | | | [address] | [place] [address] | [place] coronary | | | | [address] | [place] [address] | artery of [place] | | | | [place] | [phone] | heart without angina | | | | [address] | | pectoris (Primary | | | | [phone] | | Dx); Chronic | | | [...] | | | | | insulin (HCC); Other | | | | | [...] encounter Patient Instructions Patient Instructions Keila Kang BethBECKY - 12/07/2018 12:30 PM PDTYour Echo and EKG was stable I made no changes to medications See me back in 6 months documented in this encounter Progress Notes Keila Kang BethBECKY - 12/07/2018 12:30 PM PDTFormatting of this [...] lower extremity arteriogram to be performed at [place] in April, and he will follo w-up [...] and yard occasionally. Daughter is her primary careg iver Outpatient Medications Prior to Visit Medication [...] Apply topically 2 (two) times daily. (Patient taki ng differently: as needed.) nitroglycerin (NITROSTAT) 0.4 [...] 1,070 (H) 12/23/2014 No results found for: TOTI CARDIAC PROCEDURES/IMAGING Last Cath, 12/24/2014: extensive calcification of coronary tree, left main OK, LAD diffuse severe disease, LCx mild diffuse disease, 80% LPDA (small vessel), RCA non-dominant. LVG l arge apical akinesis/dyskinesis, LVEF 25-30%. Medical management recommended ECHO: Last Echo: ([facility]): 10/26/2018 sinus rhythm. Technically difficult study with suboptimal view s. Definity used. EF 45-50%, stable. LV normal in size and wall thickness. Moderate rogel tolic dysfunction, grade 2. 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 11/07/2017 Sinus rhythm. Definity. Technically adequate [...] no Pulm HTN, PASP 18.06 mmHg. Trace HI. No pericardial o r pleural effusion. Aortic root, ascending aorta WNL. Echo: 05/22/2015 ([facility]): LV mildly dilated (?LVEDd 55mm), mild left ventricular hyper trophy. apical akinesis,LVEF 40-45%, mild LAE, mild MR. mild Last Stress Test: na EKG: ECG, 12/28/2015: sinus rhythm, 66 bpm, 1st degree AVB, PVC, extensive ilrqcosw-lejuqq-irhwn rior [place] of indeterminate age. EK2016: Sinus rhythm with first-degree AV block, stable right bundle branch bloc k, stable changes consistent with anteroseptal infarction. Rate 64 bpm, HI 242 ms, QRS 138 ms, QTC 482 ms personally reviewed by me and compared to previous EKG EK01/12/2018: Sinus rhythm with first-degree AV block, stable right bundle branch block, old anteroseptal infarct, stable T-wave inversions leads V1-V4. 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 T wave inversions anterior leads rate 69 bpm, HI 236 ms, QRS 126 ms, QTC 458 [...] stable EF of 45 to 50%, moderate lforin stolic dysfunction, ongoing wall motion abnormalities consistent [...] hypotension. . 1. Coronary artery disease involving [place] coronary artery of [place] heart without angina pectoris 2. Chronic systolic [...] past surgical history. Problem list. Alan CHAIREZ [facility] Cardiology 12/07/2018 docume nted in this encounter Plan of Treatment +--------+---------+ + + + | Date | Type | Specialty | Care Team | Description | +--------+---------+ + + + | 12/01/ | Office | Cardiology | RejiKeila miner | | | 2019 | Visit | | [address] | | | | | | [place] | | | | | | [place] [address] | | | | | | [phone] | | | | | | | [...] the | | | | PDT | [place] coronary | results section. | | | | | artery of [place] | | | | | | heart [...] | | | | | by [facility] [place] Read Only, | | | | | | [facility] Patricia ([id number]), | | | | | | photo editor Fran Hollis | | | | | | [phone]) on 12/07/2018 | | | | | [...] + + | Coronary artery disease involving [place] coronary artery of [place] heart without | | angina pectoris - [...]
--- OUTSIDE RECORDS SUMMARY | ~2019-11-12 | XMS | Encounter Summary ---
Demographics + + + | Address | [address] | | | [place] [address] | + + + | Home Phone | | + + + | Preferred Language | Unknown | + + + | Marital Status | | + + + | Mormon Affiliation | 1041 | + + + | Race | White | + + + | Ethnic Group | Not or | + + + Author + + + | Author | [facility] | | | and [place] | + + + | Organization | [facility] | | | and [...] Team Providers + +------+ + | Care Harness Worker Name | Role | Phone | + +------+ + | Loco Hernandez DO | PCP | | + +------+ + Encounter Details +--------+ + + + + | Date | Type | Department | Care Team | Description | +--------+ + + + + | 07/07/ | Orders Only | [facility] | Conversion | | | 2018 | | CONVERSION [address] | Transaction, | | | | | [address] | Provider Unknown | | | | | [place] | [phone] | | | | | [address] | | | | | | [phone] | | | +--------+ + + + [...] | | | | | [place] [address] | | | | | | [phone] | | | | | | | | +--------+---------+ + + + documented as of this encounter Visit Diagnoses Not on filedocumented in this encounter"
--- OUTSIDE RECORDS SUMMARY | ~2019-11-12 | XMS | Encounter Summary ---
Demographics + + + | Address | [address] | | | [place] [address] | + + + | Home Phone | | + + + | Preferred Language | Unknown | + + + | Marital Status | | + + + | Cheondoism Affiliation | 1041 | + + + | Race | White | + + + | Ethnic Group | Not or | + + + Author + + + | Author | [facility] | | | and [place] | + + + | Organization | [facility] | | | [...] Team Providers + +------+ + | Care Feed Crusher Name | Role | Phone | + [...] [place] | | | | | [place], [place] | [place] [address] | | | | | [address] | [phone] | | | | | [phone] | | | +--------+ + + + [...] [place] | | | | | | [place] [address] | | | | | | [phone] | | | | | | | [...] MV A Bhavesh: 0.92 m/s MV Dec Sharkey: 2.62 m/s2 MV DecT: | | | 335.48 ms MV E Bhavesh: 0.88 m/s MV E/A Ratio: 0.95 E/E' Sept: | | | 20.40 E' Lat: 0.05 m/s E' Sept: 0.04 m/s RAP: 5 mmHg | | | RV S': 0.10 m/s RVSP: 24.06 mmHg TR maxP.06 mmHg TR | | | Vmax: 2.18 m/s Field Talent Qualification Specialist: Authenticated by: Christine Macias | | | MD Report Date/Time: -- [id number] | | + + + + + | Procedure Note | + + | Ji Mcneal Conversion - 11/20/2018 9:38 AM PDT Patient Name: Kamryn ELLISmendez of | | : 1930 Performing Physician: Christine Macias | | INDICATIONS C | | ardiomyopathy, CAD, mild [...] (A-L): 24.56 | | ml/m2LAAs A2C: 16.15 [id number] A-L A2C: 46.04 mlLAESV MOD A2C: 41.69 mlLALs A2C: | | 4.81 cmLAAs A4C: 14.00 [id number] A-L A4C: 36.44 mlLAESV MOD A4C: 34.47 mlLALs A4C: | | 4.57 cmRAAs: 13.85 [id number] A-L: 34.08 mlRAESV MOD: 33.64 mlRALs: 4.78 | | cmTAPSE: 2.67 cmAV Env.Ti: 358.33 msAV maxP.63 mmHgAV meanP.61 mmHgAV | | Vmax: 1.54 m/Catarino Vmean: 1.12 m/Catarino VTI: 40.49 cmAVA Vmax: 1.61 cm2AVA (VTI): | | 1.56 [id number] Vmax: 0.00 cm2/m2AVAI (VTI): 0.00 cm2/m2LVOT Env.Ti: 372.30 msLVOT | | maxP.12 mmHgLVOT meanP.14 mmHgLVSI Dopp: 37.12 ml/m2LVSV Dopp: 63.48 | | mlLVOT Vmax: 0.72 m/sLVOT Vmean: 0.49 m/sLVOT VTI: 18.58 cmMV A Bhavesh: 0.92 m/sMV | | Dec Sharkey: 2.62 m/s2MV DecT: 335.48 msMV E Bhavesh: 0.88 m/sMV E/A Ratio: 0.95E/E' | | Sept: 20.40E' Lat: 0.05 m/sE' Sept: 0.04 m/sRAP: 5 mmHgRV S': 0.10 m/sRVSP: | | 24.06 mmHgTR maxP.06 mmHgTR Vmax: 2.18 m/s Field Talent Qualification Specialist:Authenticated by: | | Christine Macias MDReport Date/Time: -- [id number] IMPRESSION: 1. Overall left | | ventricular [...] A Bhavesh: 0.92 m/s | |MV Dec Sharkey: 2.62 m/s2 | |MV DecT: 335.48 ms | |MV E Bhavesh: 0.88 m/s | |MV E/A Ratio: 0.95 | |E/E' Sept: 20.40 | |E' Lat: 0.05 m/s | |E' Sept: 0.04 m/s | |RAP: 5 mmHg | |RV S': 0.10 m/s | |RVSP: 24.06 mmHg | |TR maxP.06 mmHg | |TR Vmax: 2.18 m/s | | | |Field Talent Qualification Specialist: | |Authenticated by: Christine Macias MD | |Report Date/Time: -- [id number] | | | |IMPRESSION: | |1. Overall [...]
--- OUTSIDE RECORDS SUMMARY | ~2019-11-12 | XMS | Encounter Summary ---
Demographics + + + | Address | [address] | | | [place] [address] | + + + | Home Phone | | + + + | Preferred Language | Unknown | + + + | Marital Status | | + + + | Amish Affiliation | 1041 | + + + | Race | White | + + + | Ethnic Group | Not or | + + + Author + + + | Author | [facility] | | | and [place] | + + + | Organization | [facility] | | | [...] Team Providers + +------+ + | Care Liquor Store Manager Name | Role | Phone | [...] Unknown | | | | | [place] | [phone] | | | | | [address] | | | | | | [phone] | | | +--------+ + + + [...] | | | | | [place] [address] | | | | | | [phone] | | | | | | | | +--------+---------+ + + + documented as of this encounter Visit Diagnoses Not on filedocumented in this encounter"
--- OUTSIDE RECORDS SUMMARY | ~2019-11-12 | XMS | Encounter Summary ---
Demographics + + + | Address | [address] | | | [place] [address] | + + + | Home Phone | | + + + | Preferred Language | Unknown | + + + | Marital Status | | + + + | Protestant Affiliation | 1041 | + + + | Race | White | + + + | Ethnic Group | Not or | + + + Author + + + | Author | [facility] | | | and [place] | + + + | Organization | [facility] | | | [...] Team Providers + +------+ + | Care Rn Rehab Name | Role | Phone | + +------+ + PCP | Unavailable | + +------+ + Encounter Details +--------+ + + + + | Date | Type | Department | Care Team | Description | +--------+ + + + + | 12/22/ | Hospital | [facility] | Jennifer Light, | Essential | | 2015 - | Encounter | [facility] | MD Zack SALOMON | hypertension; Type 2 | | | | CLINICAL DECISION | [place] [address] | diabetes mellitus | | 12/26/ | | [address] | [phone] | with hyperglycemia | | 2015 | | [place], [place] | | ([facility]); NSTEMI | | | | [phone] | | (non-ST elevated | | | | [phone] | | myocardial | | | | | | infarction) ([facility]); | | | | | | Acute systolic | | | | | | congestive heart | | | | | | failure ([facility]); | | | | | | [...] PDT Discharge Summaries by BIJU Orozco at 12/26/14934 Author: BIJU Orozco Service: Hospitalist Author Type: Resident Filed: 12/26/14938 Date of Service: 12/26/14934 Status: Attested Billiard Player: BIJU Orozco (Resident-Y2) Cosigner: Alonso Merida DO [...] him. Alonso Merida DO 12/26/2014 1:30 PM [facility] Service: Hospitalist Discharge Summary Date of Admission: 12/22/2014 Date of Discharge: 12/26/2014 Discharge Provider: Dr. Alonso Merida DO (Attending Physician); Vick Garcia MD-R1 Treatment Team: Admitting Provider: Jennifer Light [...] GERD who presents as a transfer fr [facility] in [place] for new diagnosis fo CHF and elevated [...] ordered for blood work by her PCP jp h showed abnormal troponin so that was the reason she was sent to ED. EKG in [facility] sh owed 84 NSR incomplete RBB, inferior, anterior and later q waves - unchanged EKG here CXR owed cardiomegaly, mild congestion, fluid in fissure Per report. I requested lasix be given in [place] - she reports feeling better. She was started there on heparin drip. At [facility] patient had a cardiac cath performed by [...] Number of Visits Requested: 1 Follow up: Vinicio Chacon MD [address] [place] [id number] Schedule an appointment as soon as possible for a visit in 1 week Elliot Alonso MD [facility] [address] Schedule an appointment as soon as possible [...] are the prescriptions that you need to pickle pumper. You may get the following medications from [...] JUAN MANUEL Guajardo Service: (none) Author Type: Seasonal Driver Filed: 12/26/14 0478 Date of Service: 12/26/14933 Status: Addendum Billiard Player: JUAN MANUEL Guajardo (Seasonal Driver) Related Notes: Original Note by JUAN MANUEL Guajardo (Seasonal Driver) filed at 12/26/[address] Merida, Pt will be dc'ing and will nee INR upon dc.CM Arranged for Pt to return to p rior living situation and f/u with her PCP Vinicio Martinez [phone] [facility] in [place] [phone]. Order also for Pt to be on Lovenox. Trans portation by DTR. Elliot Manning MD - 12/26/2014 8:19 AM PDTFormatting of this note might be different from the o riginal. Progress Notes by Elliot Alonso MD at 12/26/14818 Author: Elliot Alonso MD Service: (none) Author Type: Physician Filed: 12/26/14823 Date of Service: 12/26/14818 Status: Signed Billiard Player: Elliot Alonso MD (Physician) [facility] Service: Cardiology Progress Note Hospital Day: LOS: [...] of myocardial infarction in adulthood PROBABLY RECENT AR ASSESSMENT SEE P L REC'S: CV MEDS APPROPRIATE, WOULD PROGRESS ACTIVITIES TOLERATED. Code Status: DNR/DNI ELLIOT ALONSO MD 12/26/2014 hah, Vick Deshpande MD - 12/26/2014 7:07 AM PDT Progress Notes by KAYCE OrozcoR2 at 12/26/14 0707 Author: BIJU Orozco Service: Hospitalist Author Type: Resident Filed: 12/26/14715 Date of Service: 12/26/14706 Status: Signed Billiard Player: BIJU Orozco (Resident-Y2) Cosigner: Alonso Merida DO at 12/27/14 0618 [facility] Service: Hospitalist Progress Note Pt: Catherine Carrasco AGE/SEX: 84 y.o. female ROOM: 309/309-1 : 1930 PCP: VINICIO CHACON ADMIT DATE: 12/22/2014 TODAY'S DATE: 12/26/2014 Hospital Day/Hospital Course: LOS: 4 days BRIEF SUMMARY: The patient is a 84 y.o. 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 EKG in [facility] showed 84 NSR incomplete RBB, inferior, anterior and later q waves - unchanged EKG here CXR showed cardiomegaly, mild congestion, fluid in fissure Per report. I requested lasix be given in [facility] - she reports feeling better. She was started there on hepari n drip. At [facility] patient had a cardiac cath performed by [...] Temp Temp src Pulse Resp SpO2 Weight 10/12/15 0420 126/59 mmHg 97.8 F (36.6 C) [...] behavior is normal. LABS: Recent Labs Lab 12/26/1445112/25/1444012/24/14516 WBC 5.94 6.15 7.50 HGB 9.6* 9.7* 10.3* HCT 29.8* 30.0* 32.2* PLT 256 261 274 NEUTOPHILPCT 70.95 68.01 76.30 MONOPCT 12.98 12.95 12.65 Recent Labs Lab 12/26/1445112/25/1444012/24/1451612/22/14 1824 NA 128* 129* 127* < > [...] Date PHOS 3.9 12/24/2014 Recent Labs Lab 12/24/1451612/23/1461812/22/14 1824 MG 1.9 1.9 1.8 Recent Labs Lab 12/26/1445112/22/14 1824 APTT -- 88* INR 1.2 -- Recent Labs Lab 12/23/14618 TSH 3.52 Recent Labs Lab 12/22/14 2150 [...] up. Vick Garcia MD-R1 12/26/2014 7:07 AM [employer], Provider Unknown - 12/25/2014 5:26 PM PDTFormatting of this note might be di fferent from the original. Nurse Progress Note by Mago Kelley RN at 12/25/141725 Author: Mago Kelley RN Service: (none) Author Type: Registered Nurse Filed: 12/25/141728 Date of Service: 12/25/141725 Status: Signed Billiard Player: Mago Kelley RN (Registered Nurse) Has been [...] Type: Physician Filed: 01/07/152111 Date of Service: 12/25/141009 Status: Signed Billiard Player: Elliot Alonso MD (Physician) Related Notes: Original Note by Elliot Alonso MD (Physician) filed at 12/25/14 1018 [facility] Service: Cardiology Progress Note Hospital Day: LOS: [...] 658) SpO2: [90 %-100 %] 98 % (10/11 0659) Physical Exam Constitutional: She has a sickly [...] Code Status: DNR/DNI ELLIOT ALONSO MD 12/25/2014 hVick craig MD - 12/25/2014 7:33 AM PDT Progress Notes by Vick Garcia MD-R2 at 12/25/14 0724 Author: Vick Garcia MD-R2 Service: Hospitalist Author Type: Resident Filed: 12/25/14 5239 Date of Service: 12/25/14732 Status: Attested Billiard Player: Vick Garcia MD-R2 (Resident-Y2) Cosigner: Alonso Merida DO at 12/25/14 105 Attestation signed by Alonso Merida DO at 12/25/14 105 Patient seen/examined with resident. I agree with [...] in future, not for this hospitalization. Alonso Merida, DO 12/25/2014 10:52 AM [facility] Service: Hospitalist Progress Note Pt: Catherine Carrasco AGE/SEX: 84 y.o. female ROOM: [address] [place] [address] : 1930 PCP: VINICIO CHACON ADMIT DATE: 12/22/2014 TODAY'S DATE: 12/25/2014 Hospital Day/Hospital Course: LOS: 3 days BRIEF SUMMARY: The patient is a 84 y.o. 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 , Iatrogenic hypothyroidism, HTN, GERD, who presents as a transfer from [facility] in [place] for new diagnosis fo CHF and elevated [...] she was sent to ED EKG in [facility] showed 84 NSR incomplete RBB, inferior, anterior and later q waves - un changed EKG here CXR showed cardiomegaly, mild congestion, fluid in fissure Per report I requested lasix be given in [facility] - she reports feeling better She [...] C) Axillary 60 16 93 % 12/24/14 2101 97/51 mmHg - - 60 - 97 % 12/24/14 2031 94/52 mmHg - - 58 - 97 [...] behavior is normal. LABS: Recent Labs Lab 12/25/14 0441 12/24/14 0517 12/23/14 0619 WBC 6.15 7.50 5.55 HGB 9.7* 10.3* 10.4* HCT 30.0* 32.2* 32.2* PLT 261 274 285 NEUTOPHILPCT 68.01 76.30 71.98 MONOPCT 12.95 12.65 13.13 Recent Labs Lab 12/25/14 0441 12/24/14 0517 12/23/14 0619 12/22/14 1824 NA 129* 127* 129* 137 K [...] Invalid input(s): LABALBU Recent Labs Lab 12/24/14 0517 12/23/14 0619 12/22/14 1824 MG 1.9 1.9 1.8 No results for input(s): AMYLASE in the last 168 hours. No results for input(s): PHART, PO2ART, OOD3IBC, I1IBYEZE, BEART in the last 168 hours. Recent [...] Service: (none) Author Type: Registered Nurse Filed: 12/25/14 0517 Date of Service: 12/25/14507 Status: Signed Billiard Player: Tiarra Nguyen RN (Registered Nurse) Pt resting [...] Progress Note by Mago Kelley RN at 12/24/141714 Author: Mago Kelley RN Service: (none) Author Type: Registered Nurse Filed: 12/24/14 180 Date of Service: 12/24/141714 Status: Addendum Billiard Player: Mago Kelley RN (Registered Nurse) Related Notes: Original Note by Mago Kelley RN (Registered Nurse) filed at 12/24/14 174 3 Returned from labor operator per stretcher, awake and alert. Right groin [...] Date of Service: 12/24/14 1620 Status: Signed Billiard Player: Mago Kelley RN (Registered Nurse) Transferred to labor operator.Mago Kelley 12/24/2014 roAlonso del real DO - 12/24/2014 12:47 PM PDTFormatting of this note might be different from the rohit ginal. Progress Notes by Alonso Merida DO at 12/24/14 1247 Author: Alonso Merida DO Service: Hospitalist Author Type: Physician Filed: 12/24/14 1249 Date of Service: 12/24/14 1247 Status: Signed Billiard Player: Alonso Merida DO (Physician) PROGRESS NOTE 12/24/2014 [...] F (37.2 C)] 98.6 F (37 C) (10/10 1144) BP: (99-121)/(52-56) 100/55 mmHg (12/25 1143) Heart Rate: [68-73] 68 (12/25 1143) Resp: [16-18] 18 (12/25 1143) SpO2: [95 %-100 %] 99 % (12/25 1143) Weight: [73.6 kg (162 lb 4.1 oz)] 73.6 kg (162 lb 4.1 oz) (12/24 314) Physical exam: NAD AOx3 HENT - MMM, [...] mid anteroseptal, apical, and apica l lateral lanacster, preserving the apex. This is consistant with [...] (none) Author Type: Registered Nurse Filed: 12/24/14 1941 Date of Service: 12/24/14441 Status: Signed Billiard Player: Tiarra Nguyen RN (Registered Nurse) Pt is [...] (none) Author Type: Registered Nurse Filed: 12/23/14 173 Date of Service: 12/23/141726 Status: Signed Billiard Player: Nikolai Ariza RN (Registered Nurse) Pt A&O, VSS, pt denies SOB, pain. The gregory showed some blood in the urine. Dr. Merida was n otified. Pt resting in bed now. Will continue to monitor. Nikolai Ariza RN roAlonso del real DO - 12/23/2014 2:41 PM PDTFormatting of this note might be different from the rohit ginal. Progress Notes by Alonso Merida DO at 12/23/14 1441 Author: Alonso Merida DO Service: Hospitalist Author Type: Physician Filed: 12/23/14 1441 Date of Service: 12/23/14 1441 Status: Signed Billiard Player: Alonso Merida DO (Physician) PROGRESS NOTE 12/23/2014 [...] 1123) SpO2: [96 %-98 %] 96 % (12/24 1123) Height: [170.2 cm (5' 7")] 170.2 cm [...] Candis Castro RN Service: (none) Author Type: Cooling Pipe Inspector Filed: 12/23/14 1241 Date of Service: 12/23/14 1224 Status: Signed Billiard Player: Candsi Castro RN (Cooling Pipe Inspector) 12/23/14 1222 Discharge Planning Evaluation Admitting Diagnosis [...] C[place] Relationship to Patient daughter Phone number [phone] Mental Status Oriented Prior functional status independent Anticipated Discharge Plan Post Acute Care Needs None at this time Plan communicated to patient/family Yes Resources Financial concerns No Transportation issues No Patient/Family concerns No Prescription Plan Yes Name of Pharmacy in [facility] Previous home health equipment No Anticipated Disposition Facility Type Home Met with patient and discussed discharge planning, Pt is a 84 y.o., female admitted from [facility] with CHF. Pt is alert [...] housing needed: no Anticipated DCP: home Candis Fearing RN CM onver loi Consueloaction, Provider Unknown - 12/22/2014 6:11 PM PDT Progress Notes by May Merida RPH at 12/22/141810 Author: May Merida RPH Service: (none) Author Type: Pharmacist Filed: 12/22/141810 Date of Service: 12/22/141810 Status: Signed Billiard Player: May Merida RPH (Pharmacist) Renal Dosing Monitoring: Catherine Carrasco 84 y.o. female Pharmacy dosing for renal function per Dr. Light No current SCr on file Plan per protocol: Unable to calculate CrCl until renal information updated. Pharmacy will continue monitoring patient for appropriate dosing per renal function. 12/22/2014 6:11 PM Pharmacist: May Merida docume nted in this encounter H&P Notes Elliot Alonso MD - 12/24/2014 4:41 PM PDTFormatting of this note might be different fro m the original. H&P by Elliot Alonso MD at 12/24/14 3291 Author: Elliot Alonso MD Service: (none) Author Type: Physician Filed: 01/07/152108 Date of Service: 12/24/141640 Status: Signed Billiard Player: Elliot Alonso MD (Physician) Related Notes: Original Note by Elliot Alonso MD (Physician) filed at 12/24/141641 [facility] Service: Cardiology Pre-Operative History & Physical Interval Update There have been no significant clinical changes since the completion of the above H&PCONSUL T Moderate Sedation Presedation Assessment completed. ASA Classification: ASA 3: Patient with a severe systemic disease Mallampati Classification: II: Visibility of hard and soft palate, upper portion of tonsil s and uvula Risks, benefits, procedure, alternatives were explained for cardiac catheterization based o n the patient's profile and risk factors, echocardiogram findings and ECG, and she is agreea ble to proceed with cardiac catheterization. Risks including, but not limited to, heart talia ck, stroke and , contrast reactions including renal failure. Informed consent has been signed. Further recommendations will be based on results of diagnostic cardiac catheterizati on. ELLIOT ALONSO MD 12/24/2014 *CORE MEASURES REMINDER: If the patient has a known or suspected infection prior to surger y, please add diagnosis to the problem list (consider: Infection 136.9). Jennifer Valerio M D - 12/22/2014 5:49 PM PDT H&P by Jennifer Light MD at 12/22/141748 Author: Jennifer Light MD Service: (none) Author Type: Physician Filed: 12/22/141940 Date of Service: 12/22/141748 Status: Addendum Billiard Player: Jennifer Light MD (Physician) Related Notes: Original Note by Jennifer Light MD (Physician) filed at 12/22/141940 [facility] Service: Hospitalist Admission History & Physical Pt: Catherine Carrasco AGE/SEX: 84 y.o. female ROOM: [address] [place] [address] PCP: No primary care provider on file. : 1930 TODAY'S DATE: 12/22/2014 Date of Admission: 12/22/2014 Chief Complaint: Bilateral leg swelling and shortness of breath History of Present Illness: The patient is a 84 y.o. 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 Gained 15 lbs in the last 2 weeks Also, she has additional complaints of poor urine output. No fever or chi lls. 2 weeks prior she was seen by her PCP and diagnosed with acute bronchitis, given keflex x 7 days and given flu vaccine. After which she felt shaky, and weak and then developed the martín ateral leg swelling. She was ordered for blood work by her PCP which showed abnormal troponi n so that was the reason she was sent to ED EKG in [facility] showed 84 NSR incomplete RBB, inferior, anterior and later q waves - unchanged EKG here CXR showed cardiomegaly, mild congestion, fluid in fissure Per report I requested lasix be given in [facility] - she reports feeling better She was started there on heparin drip Denies any chest pain ROS: Complete ROS done, all 12 systems negative unless otherwise stated + occasional cough (she calls it nervous cough) which has not changed at all, shortness of breath on exertion, leg swelling bilateral, abdominal distention, poor urine output , limite d vision on R eye due to retinopathy No fevers, chills, change in appetite, weight loss, headache, dizziness, focal weakness, r ecurrent falls No Colds, chest pain, palpitations. No nausea, vomiting, abdominal pain, diarrhea, constipation, dysuria, frequency, hematuria, hematochezia and melena. 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 Appears well developed and w ell nourished. Pleasant. No acute distress HEENT: atraumatic, moist mucous membranes, pink conjunctivae and anicteric sclerae. No J VD, neck supple .Alopecia Cardiovascular: Normal rate and rhythm. Normal heart sounds with S1 and S2. No appreciable mumrurs. Pulmonary: Non labored breathing. Breath sounds are mildly diminished in bases . No wheezi ng or rales. Abdominal: Soft and non-tender. Distended, Bowel sounds are present. No rebound or guarding . No CVA tenderness Extremities: 2 + bipedal edema pittig. 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 No calf tenderness Neurological: AAO x3. No CN deficit. Grossly non focal. Skin: Warm and dry. No rashes or open wounds. Psychiatric: Normal mood and affect. Normal judgment and behavior. Data: Recent Labs Lab 12/22/14 1824 WBC 5.80 HGB 11.0* HCT 33.6* PLT 294 NEUTOPHILPCT 67.77 MONOPCT 12.80 Recent Labs Lab 12/22/14 1824 NA 137 K 3.7 CL 100 CO2 26 BUN 19 CREATININE 0.86 PROT 6.8 BILITOT 0.8 ALT 35 AST 17 Phosphorus: Lab Results Component Value Date PHOS 4.1 12/22/2014 Invalid input(s): LABALBU Recent Labs Lab 12/22/14 1824 MG 1.8 No results for input(s): AMYLASE in the last 168 hours. No results for input(s): PHART, PO2ART, THX8FHO, X2YOZGDG, BEART in the last 168 hours. Recent Labs Lab 12/22/14 1824 APTT 88* No results for input(s): TSH, T3FREE, FREET4 in the last 168 hours. Recent Labs Lab 12/22/14 1824 CKTOTAL 59 TROPONINI 0.065 CKMBINDEX 3.7 cxr 1. First consideration here is pulmonary venous hypertension with interstitial edema and bi lateral effusions 2. Problem List: Principal Problem: Acute congestive heart failure (HCC) Active Problems: Essential hypertension Type 2 diabetes mellitus with hyperglycemia (HCC) Microcytic anemia Assessment and Plan: Principal Problem: Acute congestive heart failure (HCC) - no prior hx of this, or any hx of CAD. Troponin here has been normal. Denies CP. Symptom s consistent more with heart failure. Stop heparin drip. Will place on cardiac diabetic diet . ASA 325 mg ordered. Check a1c, check lipid panel. Lasix 40 mg daily. Continue gregory cath eter for now for strict Is and Os , low salt diet. Echo cardiogram ordered. Serially monitor cardiac enzymes. Telemetry and pulse oximetry Active Problems: Essential hypertension - lasix as above, start low dose ACEi and coreg Type 2 diabetes mellitus with hyperglycemia (HCC) - low dose ISS Microcytic anemia - check iron panel Lovenox subcutaneous for DVT prophylaxis More than 70 mins were spent on the review of H/P, imaging and labs, formulation of assessm ent and plan, discussion with the patient/family, staff and providers. Code Status: DNR/DNI Primary Care Physician: No primary care provider on file. JENNIFER LIGHT MD 12/22/2014 7:26 PM documented in this encounter Consult Notes Elliot Alonso MD - 12/24/2014 9:34 AM PDTFormatting of this note might be different fro m the original. Consult* by Elliot Alonso MD at 12/24/14933 Author: Elliot Alonso MD Service: (none) Author Type: Physician Filed: 01/07/152110 Date of Service: 12/24/14933 Status: Signed Billiard Player: Elliot Alonso MD (Physician) Related Notes: Original Note by Elliot Alonso MD (Physician) filed at 12/24/14 5637 [facility] Service: Cardiology Initial Consult Note Date of Admission: 12/22/2014 Reason for Consultation: ACUTE SYSTOLIC CHF WITH ABNORMAL ECG Requesting Physician: DR. MERIDA, Hospitalist History Obtained From: patient, chart review CHIEF COMPLAINT: SOB, EDEMA HISTORY OF PRESENT ILLNESS The patient is a 84 y.o. female with significant past medical history of DM, HTN who prese nts with Progressive shortness of breath with leg swelling, some associated nocturnal diaph oresis. An 84-year-old female with multiple risk factors for coronary disease. She believes her symptoms began shortly after getting her influenza vaccination. Approximately 2 days lat er she began to notice shaking, not feeling well, thought she was just having a reaction to the vaccination but subsequently began to get progressive leg swelling, progressive shortnes s of breath. She gained 15 pounds over the next couple of weeks, was short of breath with an y exertion, had marked increase in edema and began to have abdominal bloating. After the ini tial symptoms, she had some initial blood work that was apparently unremarkable, but she con tinued to progress with the shortness of breath, edema, nocturnal diaphoresis, some very sli ght chest tightness. Subsequently reevaluated by her physician in [place], and subsequent workup revealed concern about development of congestive heart failure as well as possible my ocardial infarction. Subsequently transferred to [facility] with evidence of acute congestiv e heart failure. She is subsequently feeling better after diuresis but echocardiogram shows an ejection fraction of around 30% and she has an abnormal baseline ECG. As mentioned, she has been short of breath with any exertion. She slept in a recliner for 4 years, so her angle of her sleep has not changed. She denies true PND sleeping in the recli ner, however. No associated arm pain, jaw pain, back pain. No associated nausea or vomiting. She has had no definite dyspnea at rest; it is with exertion only. But she did have the inc rease in abdominal girth and bloating, a 15-pound weight gain, and marked edema. She denies palpitations or racing, but she occasionally is lightheaded, particularly with positional ch anges. Some dizziness with positional changes. No sustained palpitations, racing heart. No t rue syncope or near syncope with the above presentation. She denies unexplained arm pain, ja w pain, back pain in the last year, unexplained nausea or vomiting in the last year, but did have some of the nocturnal sweats even prior to the development of shortness of breath. PAST CARDIAC HISTORY She denies a prior diagnosis of congestive heart failure, myocardial infarction, rheumatic fever as a child, prior abnormal baseline ECG, documented TIA or CVA, significant arrhythmia . No documented atrial fibrillation, wide complex tachycardia, symptomatic bradycardia, or h eart block in the past per the patient. She has had the progressive peripheral edema. Denies true claudication symptoms. REVIEW OF SYSTEMS Review of Systems Constitutional: Positive for diaphoresis (AT NIGHTS), activity change, fatigue and unexpect ed weight change (15 LB WEIGHT GAIN). Negative for fever, chills and appetite change. HENT: Positive for congestion. Negative for drooling, ear discharge, ear pain, facial swell ing, hearing loss, mouth sores, nosebleeds, postnasal drip, rhinorrhea, sinus pressure, snee zing, sore throat, tinnitus, trouble swallowing and voice change. Eyes: Negative for pain, discharge, redness and itching. Respiratory: Positive for chest tightness and shortness of breath. Negative for apnea, coug h, choking, wheezing and stridor. Gastrointestinal: Positive for abdominal distention. Negative for nausea, abdominal pain, d iarrhea, constipation and blood in stool. Endocrine: Negative for polydipsia, polyphagia and polyuria. Genitourinary: Positive for hematuria (AFTER CATHETER) and decreased urine volume. Negative for dysuria, urgency and flank pain. Musculoskeletal: Positive for myalgias, back pain, arthralgias and neck stiffness. Negative for joint swelling and neck pain. Skin: Positive for pallor. Negative for color change, rash and wound. Allergic/Immunologic: Negative for immunocompromised state. Neurological: Positive for dizziness, weakness and light-headedness (WITH POSITIONAL CHANGE S). Negative for facial asymmetry and headaches. Hematological: Negative for adenopathy. Bruises/bleeds easily. Psychiatric/Behavioral: Negative for suicidal ideas, hallucinations, behavioral problems, c onfusion, self-injury, dysphoric mood, decreased concentration and agitation. The patient is not nervous/anxious and is not hyperactive. Past Medical History Diagnosis Date Diabetes mellitus, type 2 (HCC) HTN (hypertension) GERD (gastroesophageal reflux disease) Past Surgical History Procedure Laterality Date Cholecystectomy Eye surgery Allergies Allergen Reactions Prevacid [Lansoprazole] Diarrhea and Nausea and Vomiting Prescriptions prior to admission Medication Sig Dispense Refill Last Dose aspirin 81 MG tablet Take 81 mg by mouth daily. Calcium Carb-Cholecalciferol (CALCIUM 600 + D PO) Take 600 mg by mouth daily. Unknown at Unknown time cholecalciferol (VITAMIN D-3) 1000 UNITS tablet Take 1,000 Units by mouth daily. glimepiride (AMARYL) 2 MG tablet Take 2 mg by mouth every morning before breakfast. lansoprazole (PREVACID SOLUTAB) 30 MG disintegrating tablet Take 30 mg by mouth every m orning before breakfast. levothyroxine (SYNTHROID) 100 MCG tablet Take 100 mcg by mouth every morning before chrissie akfast. lisinopril-hydrochlorothiazide (ZESTORETIC) 20-12.5 MG per tablet Take 1 tablet by mout h daily. metFORMIN (GLUCOPHAGE) 500 MG tablet Take 500 mg by mouth 2 (two) times daily with meal s. naproxen (NAPROSYN) 500 MG tablet Take 500 mg by mouth daily. Scheduled Medications aspirin 325 mg Oral Daily [...] nitro GLYCERIN, ondansetron OR ondansetron, polyethylene glycol Family History Problem Relation Age of Onset Alcoholism Father Aortic Aneurysm Mother History Social History Marital Status: Spouse Name: N/A Number of Children: N/A Years of Education: N/A Occupational History Not on file. Social History Main Topics Smoking status: Never Smoker Smokeless tobacco: Not on file Alcohol Use: No Drug Use: No Sexual Activity: No Other Topics Concern Not on file Social History Narrative PHYSICAL EXAM Vital Signs: BP 99/52 mmHg | Pulse 73 | Temp(Src) 99 F (37.2 C) (Oral) | Resp 16 | Ht 1.702 m (5' 7" ) | Wt 73.6 kg (162 lb 4.1 oz) | BMI 25.41 kg/m2 | SpO2 98% Temp: [98 F (36.7 C)-99 F (37.2 C)] 99 F (37.2 C) (12/24 758) BP: (96-121)/(52-56) 99/52 mmHg (12/24 758) Heart Rate: [68-73] 73 (12/24 758) Resp: [16] 16 (12/24 758) SpO2: [95 %-100 %] 98 % (12/24 758) Weight: [73.6 kg (162 lb 4.1 oz)] 73.6 kg (162 lb 4.1 oz) (12/24 314) Physical Exam Constitutional: She has a sickly appearance. No distress. SOMEWHAT FRAIL HENT: Head: Normocephalic and atraumatic. Right Ear: External ear normal. Left Ear: External ear normal. Nose: Nose normal. Mouth/Throat: Oropharynx is clear and moist. No oropharyngeal exudate. Eyes: EOM are normal. Right eye exhibits no discharge. Left eye exhibits no discharge. No s cleral icterus. Neck: Neck supple. No JVD (SITTING IN CHAIR) present. No tracheal deviation present. No thy romegaly present. Cardiovascular: Normal rate and regular rhythm. Occasional extrasystoles are present. Exa m reveals no gallop, no S4, no distant heart sounds and no friction rub. Murmur heard. Systolic murmur is present with a grade of 2/6 Pulses: Radial pulses are 2+ on the right side, and 2+ on the left side. NO DEFINITE S3 TODAY Pulmonary/Chest: No accessory muscle usage. No tachypnea and no bradypnea. No respiratory d istress. She has decreased breath sounds. She has no wheezes. She has no rhonchi. She has ra les (AT BASES). She exhibits no tenderness. Abdominal: She exhibits distension (MINIMAL). There is no tenderness. There is no rebound a nd no guarding. Musculoskeletal: She exhibits edema. She exhibits no tenderness. Lymphadenopathy: She has no cervical adenopathy. Neurological: No cranial nerve deficit. She exhibits normal muscle tone. Coordination jonny l. ORIENTED TO PERSON, PLACE NO DEFINITE FOCAL DEFICIT Skin: Skin is warm and dry. No rash noted. She is not diaphoretic. No erythema. There is pa llor. Psychiatric: She has a normal mood and affect. Her speech is normal. She is slowed (MIMIMAL LY). Vitals reviewed. DATA CBC: Lab Results Component Value Date [...] 12/22/2014 ALT 35 12/22/2014 EGFR >60 12/24/2014 BMP: Lab Results Component Value Date NA 127* 12/24/2014 K 3.8 12/24/2014 CL 97* 12/24/2014 CO2 24 12/24/2014 ANIONGAP 10 12/24/2014 GLUF 138* 12/24/2014 BUN 24 12/24/2014 CREATININE 0.78 12/24/2014 BCR 31 12/24/2014 CA 9.0 12/24/2014 EGFR >60 12/24/2014 PT/INR: No results found for: PROTIME, INR PTT: Lab Results Component Value Date APTT 88* 12/22/2014 [APTT} Troponin: Lab Results Component Value Date TROPONINI 0.06 12/22/2014 Last 3 Troponin: Lab Results Component Value Date TROPONINI 0.06 12/22/2014 TROPONINI 0.065 12/22/2014 CPK: Lab Results Component Value Date CKTOTAL 53 12/22/2014 CKMB: Lab Results Component Value Date CKMB 2.0 12/22/2014 U/A: Lab Results Component Value Date CLARITYU CLOUDY 12/22/2014 LEUKOCYTESUR MODERATE* 12/22/2014 NITRITE NEGATIVE 12/22/2014 UROBILINOGEN 1.0 12/22/2014 PHUR 6.5 12/22/2014 BLOODU LARGE* 12/22/2014 KETONES NEGATIVE 12/22/2014 BILIRUBINUR NEGATIVE 12/22/2014 GLUCOSEU NEGATIVE 12/22/2014 PROBLEM LIST Principal Problem: Acute systolic congestive heart failure (HCC) Active Problems: Essential hypertension Type 2 diabetes mellitus with hyperglycemia (HCC) Microcytic anemia Hyponatremia Abnormal ECG ASSESSMENT SEE P L REC'S: RECOMMENDATIONS/DISCUSSION Although the patient's troponin did not elevate significantly with the current presentation and the current presentation is more compatible with acute systolic heart failure, her ECG is significantly abnormal. she may have had a previous inferior AR and it looks like she may have had possibly recent anteroseptal AR, so I have marked concerns that her underlying cory ology of her activity systolic heart failure is significant underlying coronary disease. Her symptoms are markedly improved. Her renal function has remained relatively stable. She does have some hematuria after catheter placement but this is markedly improved today, although this could be a concern in terms of dual-antiplatelet agent if percutaneous intervention is contemplated. However, given the presentation and findings, I believe it is appropriate to p roceed with cardiac catheterization and I will discuss this further with the patient. If she is agreeable, I hope to proceed with cardiac catheterization later today. If patient declin es, then I would attempt to optimize medical management. Prognosis remains quite guarded giv en her age and development of acute congestive heart failure particularly with the abnormal ECG suggesting underlying significant coronary disease. Code Status: DNR/DNI Primary Care Physician: VINICIO CHACON Thank you for allowing me to participate in the care of this patient. I have discussed my recommendations with the attending physician. I will continue to follow with you. ELLIOT ALONSO MD 12/24/2014 documented in this e ncounter Miscellaneous Notes Op Note - Elliot Alonso MD - 12/24/2014 5:07 PM PDTFormatting of this note might be dif ferent from the original. Brief Op Note by Elliot Alonso MD at 12/24/141706 Author: Elliot Alonso MD Service: (none) Author Type: Physician Filed: 12/24/141707 Date of Service: 12/24/141706 Status: Signed Billiard Player: Elliot Alonso MD (Physician) [facility] Service: Cardiology Brief Op Note PRELIM CATH NOTE PHYSICIAN: VINCE COMPLICATIONS NONE APPARENT NOTE: DICTATED FOR NOW MEDICAL RX MAY NEED VIABILITY STUDY ELLIOT ALONSO MD 12/24/2014 lan of Care - [facility] Transaction, Provider Unknown - 12/24/2014 9:44 AM PDTFormatting of this note might b e different from the original. Plan of Care by Mgao Kelley RN at 12/24/14943 Author: Mago Kelley RN Service: (none) Author Type: Registered Nurse Filed: 12/24/14944 Date of Service: 12/24/14943 Status: Signed Billiard Player: Mago Kelley RN (Registered Nurse) Problem: Knowledge Deficit Goal: Patient/family/caregiver demonstrates understanding of disease process, treatment schuyler n, medications, and discharge instructions Complete learning assessment and assess knowledge base. Outcome: Progressing Was given CHF booklet.Mago Kelley 12/24/2014 docume nted in this encounter Plan of Treatment +--------+---------+ + + + | Date | Type | Specialty | Care Team | Description | +--------+---------+ + + + | 12/01/ | Office | Cardiology | Jorge Luis Keila | | | 2019 | Visit | | [address] | | | | | | [address] | | | | | | [place] [address] | | | | | | [phone] | | | | | | | [...] | | | Fingerstick | performed at [facility];[address] | | LAB | | | | [address];[place], [place] | | | | | | [address] | | | | + + + [...] | | | Fingerstick | performed at [facility];[address] | | LAB | | | | [address];[place], [place] | | | | | | [address] | | | | + + + [...] | | | | | performed at [facility];[address] | | | | | | [facility];[place], [place] | | | | | | [address] | | | | + + + [...] + +---------+ + + External Lab: CBC (12/26/2014 4:52 AM PDT) + + + [...] | | | | | [place] [address] | | | | + + + + + + | Non- | 3.73Comment: Testing | 3.70 - 5.10 | EXTERNAL | | | Red Blood | performed at [facility], [address] | M/uL | LAB | | | Cells | [address], | | | | | Counted | [place] [address] | | | | + + + + + + | Hemoglobin | 9.6 (L)Comment: Testing | 11.3 - 15.5 | EXTERNAL | | | | performed at [facility], [address] | g/dL | LAB | | | | [address], | | | | | | [place] [address] | | | | + + + + + + | Hematocrit, | 29.8 (L)Comment: Testing | 34.0 - 46.0 % | EXTERNAL | | | POC | performed at [facility], [address] | | LAB | | | | [address], | | | | | | [place] [address] | | | | + + + + + + | MCV | 79.9 (L)Comment: Testing | 80.0 - 100.0 fl | EXTERNAL | | | | performed at [facility], [address] | | LAB | | | | [address], | | | | | | [place] [address] | | | | + + + + + + | MCH | 25.8 (L)Comment: Testing | 27.0 - 34.0 pg | EXTERNAL | | | | performed at [facility], [address] | | LAB | | | | [address], | | | | | | [place] [address] | | | | + + + + + + | MCHC | 32.3Comment: Testing | 32.0 - 35.5 | EXTERNAL | | | | performed at [facility], [address] | g/dL | LAB | | | | [address], | | | | | | [place] [address] | | | | + + + + + + | RDW-CV | 42.4Comment: Testing | 37 - 53 fl | EXTERNAL | | | | performed at [facility], [address] | | LAB | | | | [address], | | | | | | [place] [address] | | | | + + + + + + | Platelet | 256Comment: Testing | 150 - 400 K/uL | EXTERNAL | | | Count | performed at [facility], [address] | | LAB | | | Plasma | [address], | | | | | | [place] [address] | | | | + + + + + + | MPV | 8.8Comment: Testing | fl | EXTERNAL | | | | performed at [facility], [address] | | LAB | | | | [address], | | | | | | [place] [address] | | | | + + + + + + | Differentia | AUTOMATEDComment: | | EXTERNAL | | | l Type | Testing performed at | | LAB | | | | [facility], [address] | | | | | | [place] | | | | | | [address] | | | | + + + + + + | % Segmented | 70.95Comment: Testing | % | EXTERNAL | | | | performed at [facility], [address] | | LAB | | | Neutrophils | [address], | | | | | | [place] [address] | | | | + + + + + + | % | 12.87Comment: Testing | % | EXTERNAL | | | Lymphocytes | performed at [facility], [address] | | LAB | | | | [address], | | | | | | [place] [address] | | | | + + + + + + | % Monocytes | 12.98Comment: Testing | % | EXTERNAL | | | | performed at [facility], [address] | | LAB | | | | [address], | | | | | | [place] [address] | | | | + + + + + + | % | 2.07Comment: Testing | % | EXTERNAL | | | Eosinophils | performed at [facility], [address] | | LAB | | | | [address], | | | | | | [place] [address] | | | | + + + + + + | % Basophils | 1.13Comment: Testing | % | EXTERNAL | | | | performed at [facility], [address] | | LAB | | | | [address], | | | | | | [place] [address] | | | | + + + + + + | Absolute | 4.21Comment: Testing | 1.90 - 7.40 | EXTERNAL | | | Segmented | performed at [facility], [address] | K/uL | LAB | | | Neutrophils | [address], | | | | | | [place] [address] | | | | + + + + + + | Absolute | 0.76 (L)Comment: Testing | 1.00 - 3.90 | EXTERNAL | | | Lymphocytes | performed at [facility], [address] | K/uL | LAB | | | | [address], | | | | | | [place] [address] | | | | + + + + + + | Absolute | 0.77Comment: Testing | 0.00 - 0.80 | EXTERNAL | | | Monocytes | performed at [facility], [address] | K/uL | LAB | | | | [address], | | | | | | [place] [address] | | | | + + + + + + | Absolute | 0.12Comment: Testing | 0.00 - 0.50 | EXTERNAL | | | Eosinophils | performed at [facility], [address] | K/uL | LAB | | | | [address], | | | | | | [place] [address] | | | | + + + + + + | Absolute | 0.07Comment: Testing | 0.00 - 0.10 | EXTERNAL | | | Basophils | performed at [facility], [address] | K/uL | LAB | | | | [address], | | | | | | [place] [address] | | | | + + + [...] | | | | | [place] [address] | | | | + + + + + + | K | 3.8Comment: Testing | 3.5 - 4.9 | EXTERNAL | | | | performed at [facility], [address] | mmol/L | LAB | | | | [address], | | | | | | [place] [address] | | | | + + + + + + | Cl | 97 (L)Comment: Testing | 99 - 109 mmol/L | EXTERNAL | | | | performed at [facility], [address] | | LAB | | | | [address], | | | | | | [place] [address] | | | | + + + + + + | CO2 | 26Comment: Testing | 23 - 32 mmol/L | EXTERNAL | | | | performed at [facility], [address] | | LAB | | | | [address], | | | | | | [place] [address] | | | | + + + + + + | Anion Gap | 9Comment: Testing | 5 - 20 mmol/L | EXTERNAL | | | | performed at [facility], [address] | | LAB | | | | [address], | | | | | | [place] [address] | | | | + + + + + + | Glucose, | 136 (H)Comment: Testing | 65 - 99 mg/dL | EXTERNAL | | | Fasting | performed at [facility], [address] | | LAB | | | | [address], | | | | | | [place] [address] | | | | + + + + + + | BUN | 33 (H)Comment: Testing | 8 - 25 mg/dL | EXTERNAL | | | | performed at [facility], [address] | | LAB | | | | [address], | | | | | | [place] [address] | | | | + + + + + + | Creatinine | 0.89Comment: Testing | 0.50 - 1.00 | EXTERNAL | | | | performed at [facility], [address] | mg/dL | LAB | | | | [address], | | | | | | [place] [address] | | | | + + + + + + | BUN/Creatin | 37Comment: Testing | | EXTERNAL | | | ine Ratio | performed at [facility], [address] | | LAB | | | | [address], | | | | | | [place] [address] | | | | + + + + + + | Calcium | 8.5Comment: Testing | 8.5 - 10.5 | EXTERNAL | | | | performed at [facility], [address] | mg/dL | LAB | | | | [address], | | | | | | [place] [address] | | | | + + + [...] | | | | | | at [facility], [address] | | | | | | [facility], | | | | | | [place] [address] | | | | + + + [...] | | | Fingerstick | performed at [facility];[address] | | LAB | | | | [address];[place] | | | | | | [address] | | | | + + + [...] | | | Fingerstick | performed at [facility];[address] | | LAB | | | | [address];[place] | | | | | | [address] | | | | + + + [...] | | | Fingerstick | performed at [facility];[address] | | LAB | | | | [address];[place] | | | | | | [address] | | | | + + + [...] | | | Fingerstick | performed at [facility];[address] | | LAB | | | | [address];[place], [place] | | | | | | [address] | | | | + + + + + + + + | Specimen | + + | | + + + +---------+ + + | Performing | Address | City/State/Zipcode | Phone Number | | Organization | | | | + +---------+ + + | EXTERNAL LAB | | | | + +---------+ + + External Lab: CBC (12/25/2014 4:41 AM PDT) + + + [...] | | | | | [place] [address] | | | | + + + + + + | Non- | 3.79Comment: Testing | 3.70 - 5.10 | EXTERNAL | | | Red Blood | performed at [facility], [address] | M/uL | LAB | | | Cells | [address], | | | | | Counted | [place] [address] | | | | + + + + + + | Hemoglobin | 9.7 (L)Comment: Testing | 11.3 - 15.5 | EXTERNAL | | | | performed at [facility], [address] | g/dL | LAB | | | | [address], | | | | | | [place] [address] | | | | + + + + + + | Hematocrit, | 30.0 (L)Comment: Testing | 34.0 - 46.0 % | EXTERNAL | | | POC | performed at [facility], [address] | | LAB | | | | [address], | | | | | | [place] [address] | | | | + + + + + + | MCV | 79.1 (L)Comment: Testing | 80.0 - 100.0 fl | EXTERNAL | | | | performed at [facility], [address] | | LAB | | | | [address], | | | | | | [place] [address] | | | | + + + + + + | MCH | 25.6 (L)Comment: Testing | 27.0 - 34.0 pg | EXTERNAL | | | | performed at [facility], [address] | | LAB | | | | [address], | | | | | | [place] [address] | | | | + + + + + + | MCHC | 32.4Comment: Testing | 32.0 - 35.5 | EXTERNAL | | | | performed at [facility], [address] | g/dL | LAB | | | | [address], | | | | | | [place] [address] | | | | + + + + + + | RDW-CV | 42.0Comment: Testing | 37 - 53 fl | EXTERNAL | | | | performed at [facility], [address] | | LAB | | | | [address], | | | | | | [place] [address] | | | | + + + + + + | Platelet | 261Comment: Testing | 150 - 400 K/uL | EXTERNAL | | | Count | performed at [facility], [address] | | LAB | | | Plasma | [address], | | | | | | [place] [address] | | | | + + + + + + | MPV | 8.9Comment: Testing | fl | EXTERNAL | | | | performed at [facility], [address] | | LAB | | | | [address], | | | | | | [place] [address] | | | | + + + + + + | Differentia | AUTOMATEDComment: | | EXTERNAL | | | l Type | Testing performed at | | LAB | | | | [facility], [address] | | | | | | [place] | | | | | | [address] | | | | + + + + + + | % Segmented | 68.01Comment: Testing | % | EXTERNAL | | | | performed at [facility], [address] | | LAB | | | Neutrophils | [address], | | | | | | [place] [address] | | | | + + + + + + | % | 16.34Comment: Testing | % | EXTERNAL | | | Lymphocytes | performed at [facility], [address] | | LAB | | | | [address], | | | | | | [place] [address] | | | | + + + + + + | % Monocytes | 12.95Comment: Testing | % | EXTERNAL | | | | performed at [facility], [address] | | LAB | | | | [address], | | | | | | [place] [address] | | | | + + + + + + | % | 1.45Comment: Testing | % | EXTERNAL | | | Eosinophils | performed at [facility], [address] | | LAB | | | | [address], | | | | | | [place] [address] | | | | + + + + + + | % Basophils | 1.25Comment: Testing | % | EXTERNAL | | | | performed at [facility], [address] | | LAB | | | | [address], | | | | | | [place] [address] | | | | + + + + + + | Absolute | 4.19Comment: Testing | 1.90 - 7.40 | EXTERNAL | | | Segmented | performed at [facility], [address] | K/uL | LAB | | | Neutrophils | [address], | | | | | | [place] [address] | | | | + + + + + + | Absolute | 1.01Comment: Testing | 1.00 - 3.90 | EXTERNAL | | | Lymphocytes | performed at [facility], [address] | K/uL | LAB | | | | [address], | | | | | | [place] [address] | | | | + + + + + + | Absolute | 0.80Comment: Testing | 0.00 - 0.80 | EXTERNAL | | | Monocytes | performed at [facility], [address] | K/uL | LAB | | | | [address], | | | | | | [place] [address] | | | | + + + + + + | Absolute | 0.09Comment: Testing | 0.00 - 0.50 | EXTERNAL | | | Eosinophils | performed at [facility], [address] | K/uL | LAB | | | | [address], | | | | | | [place] [address] | | | | + + + + + + | Absolute | 0.08Comment: Testing | 0.00 - 0.10 | EXTERNAL | | | Basophils | performed at [facility], [address] | K/uL | LAB | | | | [address], | | | | | | [place] [address] | | | | + + + [...] | | | | | [place] [address] | | | | + + + + + + | K | 3.7Comment: Testing | 3.5 - 4.9 | EXTERNAL | | | | performed at [facility], [address] | mmol/L | LAB | | | | [address], | | | | | | [place] [address] | | | | + + + + + + | Cl | 98 (L)Comment: Testing | 99 - 109 mmol/L | EXTERNAL | | | | performed at [facility], [address] | | LAB | | | | [address], | | | | | | [place] [address] | | | | + + + + + + | CO2 | 23Comment: Testing | 23 - 32 mmol/L | EXTERNAL | | | | performed at [facility], [address] | | LAB | | | | [address], | | | | | | [place] [address] | | | | + + + + + + | Anion Gap | 12Comment: Testing | 5 - 20 mmol/L | EXTERNAL | | | | performed at [facility], [address] | | LAB | | | | [address], | | | | | | [place] [address] | | | | + + + + + + | Glucose, | 139 (H)Comment: Testing | 65 - 99 mg/dL | EXTERNAL | | | Fasting | performed at [facility], [address] | | LAB | | | | [address], | | | | | | [place] [address] | | | | + + + + + + | BUN | 27 (H)Comment: Testing | 8 - 25 mg/dL | EXTERNAL | | | | performed at [facility], [address] | | LAB | | | | [address], | | | | | | [place] [address] | | | | + + + + + + | Creatinine | 0.88Comment: Testing | 0.50 - 1.00 | EXTERNAL | | | | performed at [facility], [address] | mg/dL | LAB | | | | [address], | | | | | | [place] [address] | | | | + + + + + + | BUN/Creatin | 31Comment: Testing | | EXTERNAL | | | ine Ratio | performed at [facility], [address] | | LAB | | | | [address], | | | | | | [place] [address] | | | | + + + + + + | Calcium | 8.3 (L)Comment: Testing | 8.5 - 10.5 | EXTERNAL | | | | performed at [facility], [address] | mg/dL | LAB | | | | [address], | | | | | | [place] [address] | | | | + + + [...] | | | | | | [address], | | | | | | [place] [address] | | | | + + + [...] | | | Fingerstick | performed at [facility];[address] | | LAB | | | | [address];[place] | | | | | | [address] | | | | + + + [...] | | | Fingerstick | performed at [facility];[address] | | LAB | | | | [address];[place], [place] | | | | | | [address] | | | | + + + [...] | | abnormal ECG probably recent anterior AR, acute systolic congestive | | | heart [...] Versed 1 mg IV. EQUIPMENT 1. A 6-Syrian | | | arterial sheath. 2. A 5-Syrian 3DRC catheter. 3. A 5-Syrian JL4 | | | catheter. 4. A 5-Syrian pigtail catheter. COMPLICATIONS None | | | apparent. DETAILS OF PROCEDURE The right groin was prepped and | | | draped in the usual fashion for a percutaneous approach. A 6-Syrian | | | arterial sheath was placed in the right femoral artery without | | | difficulty. A 5-Syrian 3DRC catheter was then advanced to the | | | ascending aorta under fluoroscopic guidance. Initial aortic pressures | | | were obtained. This catheter was then advanced across the right | | | coronary ostium under fluoroscopic guidance. Selective coronary | | | arteriography was performed in a single view. This catheter was then | | | exchanged for a 5-Syrian JL4 catheter. This catheter was then advanced | | | to the left coronary ostium under fluoroscopic guidance. Selective | | | coronary arteriography was performed in multiple views. This | | | catheter was then exchanged for a 5-Syrian pigtail catheter. This | | | catheter [...] LEFT VENTRICULOGRAPHY 1. The left ventricle is tqpi-pp-avdltbiaup | | | dilated. 2. There is [...] significant stenosis. 2. The LAD is a qcqauhwz-kg-gcrcb caliber | | | vessel, especially small or underfilled distally. There is a proximal | | | stenosis of 20% to 30% after the first major septal runner on, | | | there is a high [...] abnormal ECG probably | | recent anterior AR, acute systolic congestive heart failure with abnormal [...] | | EQUIPMENT | | 1. A 6-Syrian arterial sheath. | | 2. A 5-Syrian 3DRC catheter. | | 3. A 5-Syrian JL4 catheter. | | 4. A 5-Syrian pigtail catheter. | | | | COMPLICATIONS | | None apparent. | | | | DETAILS OF PROCEDURE | | The right groin was prepped and draped in the usual fashion for a | | percutaneous approach. A 6-Syrian arterial sheath was placed in the right | | femoral artery without difficulty. A 5-Syrian 3DRC catheter was then | | advanced to the ascending aorta under fluoroscopic guidance. Initial | | aortic pressures were obtained. This catheter was then advanced across the | | right coronary ostium under fluoroscopic guidance. Selective coronary | | arteriography was performed in a single view. This catheter was then | | exchanged for a 5-Syrian JL4 catheter. This catheter was then advanced to | | the left coronary ostium under fluoroscopic guidance. Selective coronary | | arteriography was performed in multiple views. | | | | This catheter was then exchanged for a 5-Syrian pigtail catheter. This | | catheter was [...] | | 1. The left ventricle is ksdo-fk-snxivugnct dilated. | | 2. There is mild, [...] | | 2. The LAD is a krngncow-dj-xaoen caliber vessel, especially small or | | underfilled distally. There is a proximal stenosis of 20% to 30% after | | the first major septal runner on, there is a high sub-totally occluded | [...] | | | Fingerstick | performed at [facility];[address] | | LAB | | | | [address];[place] | | | | | | [address] | | | | + + + [...] | | | Fingerstick | performed at [facility];[address] | | LAB | | | | [address];[place] | | | | | | [address] | | | | + + + [...] | | | | | [place] [address] | | | | + + + + + + | Non- | 4.05Comment: Testing | 3.70 - 5.10 | EXTERNAL | | | Red Blood | performed at [facility], [address] | M/uL | LAB | | | Cells | [address], | | | | | Counted | [place] [address] | | | | + + + + + + | Hemoglobin | 10.3 (L)Comment: Testing | 11.3 - 15.5 | EXTERNAL | | | | performed at [facility], [address] | g/dL | LAB | | | | [address], | | | | | | [place] [address] | | | | + + + + + + | Hematocrit, | 32.2 (L)Comment: Testing | 34.0 - 46.0 % | EXTERNAL | | | POC | performed at [facility], [address] | | LAB | | | | [address], | | | | | | [place] [address] | | | | + + + + + + | MCV | 79.6 (L)Comment: Testing | 80.0 - 100.0 fl | EXTERNAL | | | | performed at [facility], [address] | | LAB | | | | [address], | | | | | | [place] [address] | | | | + + + + + + | MCH | 25.6 (L)Comment: Testing | 27.0 - 34.0 pg | EXTERNAL | | | | performed at [facility], [address] | | LAB | | | | [address], | | | | | | [place] [address] | | | | + + + + + + | MCHC | 32.1Comment: Testing | 32.0 - 35.5 | EXTERNAL | | | | performed at [facility], [address] | g/dL | LAB | | | | [address], | | | | | | [place] [address] | | | | + + + + + + | RDW-CV | 41.6Comment: Testing | 37 - 53 fl | EXTERNAL | | | | performed at [facility], [address] | | LAB | | | | [address], | | | | | | [place] [address] | | | | + + + + + + | Platelet | 274Comment: Testing | 150 - 400 K/uL | EXTERNAL | | | Count | performed at [facility], [address] | | LAB | | | Plasma | [address], | | | | | | [place] [address] | | | | + + + + + + | MPV | 8.8Comment: Testing | fl | EXTERNAL | | | | performed at [facility], [address] | | LAB | | | | [address], | | | | | | [place] [address] | | | | + + + + + + | Differentia | AUTOMATEDComment: | | EXTERNAL | | | l Type | Testing performed at | | LAB | | | | [facility], [address] | | | | | | [place] | | | | | | [address] | | | | + + + + + + | % Segmented | 76.30Comment: Testing | % | EXTERNAL | | | | performed at [facility], [address] | | LAB | | | Neutrophils | [address], | | | | | | [place] [address] | | | | + + + + + + | % | 9.49Comment: Testing | % | EXTERNAL | | | Lymphocytes | performed at [facility], [address] | | LAB | | | | [address], | | | | | | [place] [address] | | | | + + + + + + | % Monocytes | 12.65Comment: Testing | % | EXTERNAL | | | | performed at [facility], [address] | | LAB | | | | [address], | | | | | | [place], [place] [address] | | | | + + + + + + | % | 0.53Comment: Testing | % | EXTERNAL | | | Eosinophils | performed at [facility], [address] | | LAB | | | | [address], | | | | | | [place], [place] [address] | | | | + + + + + + | % Basophils | 1.03Comment: Testing | % | EXTERNAL | | | | performed at [facility], [address] | | LAB | | | | [address], | | | | | | [place] [address] | | | | + + + + + + | Absolute | 5.72Comment: Testing | 1.90 - 7.40 | EXTERNAL | | | Segmented | performed at [facility], [address] | K/uL | LAB | | | Neutrophils | [address], | | | | | | [place] [address] | | | | + + + + + + | Absolute | 0.71 (L)Comment: Testing | 1.00 - 3.90 | EXTERNAL | | | Lymphocytes | performed at [facility], [address] | K/uL | LAB | | | | [address], | | | | | | [place] [address] | | | | + + + + + + | Absolute | 0.95 (H)Comment: Testing | 0.00 - 0.80 | EXTERNAL | | | Monocytes | performed at [facility], [address] | K/uL | LAB | | | | [address], | | | | | | [place] [address] | | | | + + + + + + | Absolute | 0.04Comment: Testing | 0.00 - 0.50 | EXTERNAL | | | Eosinophils | performed at [facility], [address] | K/uL | LAB | | | | [address], | | | | | | [place] [address] | | | | + + + + + + | Absolute | 0.08Comment: Testing | 0.00 - 0.10 | EXTERNAL | | | Basophils | performed at [facility], [address] | K/uL | LAB | | | | [address], | | | | | | [place] [address] | | | | + + + [...] EXTERNAL | | | | performed at [facility], [address] | | LAB | | | | [facility], | | | | | | [place] [address] | | | | + + + [...] EXTERNAL | | | | performed at [facility], [address] | | LAB | | | | [address], | | | | | | [place] [address] | | | | + + + [...] | | | | | [place] [address] | | | | + + + + + + | K | 3.8Comment: Testing | 3.5 - 4.9 | EXTERNAL | | | | performed at [facility], [address] | mmol/L | LAB | | | | [address], | | | | | | [place] [address] | | | | + + + + + + | Cl | 97 (L)Comment: Testing | 99 - 109 mmol/L | EXTERNAL | | | | performed at [facility], [address] | | LAB | | | | [address], | | | | | | [place] [address] | | | | + + + + + + | CO2 | 24Comment: Testing | 23 - 32 mmol/L | EXTERNAL | | | | performed at [facility], [address] | | LAB | | | | [address], | | | | | | [place] [address] | | | | + + + + + + | Anion Gap | 10Comment: Testing | 5 - 20 mmol/L | EXTERNAL | | | | performed at [facility], [address] | | LAB | | | | [address], | | | | | | [place] [address] | | | | + + + + + + | Glucose, | 138 (H)Comment: Testing | 65 - 99 mg/dL | EXTERNAL | | | Fasting | performed at [facility], [address] | | LAB | | | | [address], | | | | | | [place] [address] | | | | + + + + + + | BUN | 24Comment: Testing | 8 - 25 mg/dL | EXTERNAL | | | | performed at [facility], [address] | | LAB | | | | [address], | | | | | | [place] [address] | | | | + + + + + + | Creatinine | 0.78Comment: Testing | 0.50 - 1.00 | EXTERNAL | | | | performed at [facility], [address] | mg/dL | LAB | | | | [address], | | | | | | [place] [address] | | | | + + + + + + | BUN/Creatin | 31Comment: Testing | | EXTERNAL | | | ine Ratio | performed at [facility], [address] | | LAB | | | | [address], | | | | | | [place] [address] | | | | + + + + + + | Calcium | 9.0Comment: Testing | 8.5 - 10.5 | EXTERNAL | | | | performed at [facility], [address] | mg/dL | LAB | | | | [address], | | | | | | [place] [address] | | | | + + + [...] | | | | | | at [facility], [address] | | | | | | [address], | | | | | | [place] [address] | | | | + + + [...] | | | Fingerstick | performed at [facility];[address] | | LAB | | | | [address];[place] | | | | | | [address] | | | | + + + [...] | | | Fingerstick | performed at [facility];[address] | | LAB | | | | [address];[place] | | | | | | [address] | | | | + + + [...] | | | Fingerstick | performed at [facility];[address] | | LAB | | | | [address];[place] | | | | | | [address] | | | | + + + [...] Excursion: 1.15 cm E-F | | | Pike: 0.06 m/s EPSS: 1.60 cm IVC diameter: [...] TV A Bhavesh: 0.39 m/s TV Dec Pike: 2.32 m/s2 TV Dec | | | Time: 234.32 ms TV E Bhavesh: 0.54 m/s TV E/A Ratio: 1.37 | | | Operations Research Manager: Authenticated by: Radha Pinto MD Report Date/Time: | | | 12-23-2014 19:57:25 | | + + + + + | Procedure Note | + + | Ji Mcneal Conversion - 10/30/2018 10:42 AM PDT Patient Name: [...] mlLAESV Index (A-L): 35.65 ml/m2LAAs A2C: 20.63 [id number] A-L A2C: 75.69 mlLALs | | A2C: 4.77 cmLAAs A4C: 16.82 [id number] A-L A4C: 54.07 mlLALs A4C: 4.44 cmAo Diam: | | 2.82 cmAV Cusp: 1.70 cmLA Diam: 3.09 cmLA/Ao: 1.09%FS: 36.77 %EDV(Teich): | | 102.72 mlEF(Teich): 66.58 %ESV(Teich): 34.32 mlIVSd: 1.12 cmIVSs: 1.45 cmLVIDd: | | 4.70 cmLVIDs: 2.97 cmLVPWd: 0.94 cmLVPWs: 1.39 cmSV(Teich): 68.40 mlD-E | | Excursion: 1.15 cmE-F Pike: 0.06 m/sEPSS: 1.60 cmIVC diameter: 1.77 cmIVC | | collapse: 0.74 cmIVC % collapse: 56.36 %HR: 70.48 BPMAV maxP.20 mmHgAV | | meanP.02 mmHgAV Vmax: 1.24 m/Catarino Vmean: 0.81 m/Catarino VTI: 26.14 cmAVA Vmax: | | 1.74 cm2AVA (VTI): 1.76 [id number] Dopp: 1.71 l/bjgd0BYTK Dopp: 3.18 l/minHR: 69.08 | | BPMLVOT [...] A Bhavesh: 0.39 | | m/sTV Dec Pike: 2.32 m/s2TV Dec Time: 234.32 msTV E Bhavesh: 0.54 m/sTV E/A Ratio: | | 1.37 Operations Research Manager: ASAuthenticated by: Radha Pinto MDReport Date/Time: 12-23-2014 [...] | |D-E Excursion: 1.15 cm | |E-F Pike: 0.06 m/s | |EPSS: 1.60 cm | [...] A Bhavesh: 0.39 m/s | |TV Dec Pike: 2.32 m/s2 | |TV Dec Time: 234.32 ms | |TV E Bhavesh: 0.54 m/s | |TV E/A Ratio: 1.37 | | | |Operations Research Manager: | |Authenticated by: Radha Pinto MD | [...] | | | Fingerstick | performed at [facility];[address] | | LAB | | | | [address];[place] | | | | | | [address] | | | | + + + + + + + + | Specimen | + + | | + + + +---------+ + + | Performing | Address | City/State/Zipcode | Phone Number | | Organization | | | | + +---------+ + + | EXTERNAL LAB | | | | + +---------+ + + External Lab: YUE (12/23/2014 6:19 AM PDT) + + + [...] | LAB | | | | [address], | | | | | | [place] [address] | | | | + + + + + + | Non- | 4.02Comment: Testing | 3.70 - 5.10 | EXTERNAL | | | Red Blood | performed at [facility], [address] | M/uL | LAB | | | Cells | [address], | | | | | Counted | [place] [address] | | | | + + + + + + | Hemoglobin | 10.4 (L)Comment: Testing | 11.3 - 15.5 | EXTERNAL | | | | performed at [facility], [address] | g/dL | LAB | | | | [address], | | | | | | [place] [address] | | | | + + + + + + | Hematocrit, | 32.2 (L)Comment: Testing | 34.0 - 46.0 % | EXTERNAL | | | POC | performed at [facility], [address] | | LAB | | | | [address], | | | | | | [place] [address] | | | | + + + + + + | MCV | 80.0Comment: Testing | 80.0 - 100.0 fl | EXTERNAL | | | | performed at [facility], [address] | | LAB | | | | [address], | | | | | | [place] [address] | | | | + + + + + + | MCH | 25.9 (L)Comment: Testing | 27.0 - 34.0 pg | EXTERNAL | | | | performed at [facility], [address] | | LAB | | | | [address], | | | | | | [place] [address] | | | | + + + + + + | MCHC | 32.4Comment: Testing | 32.0 - 35.5 | EXTERNAL | | | | performed at [facility], [address] | g/dL | LAB | | | | [address], | | | | | | [place] [address] | | | | + + + + + + | RDW-CV | 41.1Comment: Testing | 37 - 53 fl | EXTERNAL | | | | performed at [facility], [address] | | LAB | | | | [address], | | | | | | [place] [address] | | | | + + + + + + | Platelet | 285Comment: Testing | 150 - 400 K/uL | EXTERNAL | | | Count | performed at [facility], [address] | | LAB | | | Plasma | [address], | | | | | | [place] [address] | | | | + + + + + + | MPV | 8.5Comment: Testing | fl | EXTERNAL | | | | performed at [facility], [address] | | LAB | | | | [address], | | | | | | [place] [address] | | | | + + + + + + | Differentia | AUTOMATEDComment: | | EXTERNAL | | | l Type | Testing performed at | | LAB | | | | [facility], [address] [facility] | | | | | | [place] | | | | | | [address] | | | | + + + + + + | % Segmented | 71.98Comment: Testing | % | EXTERNAL | | | | performed at [facility], [address] | | LAB | | | Neutrophils | [address], | | | | | | [place] [address] | | | | + + + + + + | % | 12.59Comment: Testing | % | EXTERNAL | | | Lymphocytes | performed at [facility], [address] | | LAB | | | | [address], | | | | | | [place] [address] | | | | + + + + + + | % Monocytes | 13.13Comment: Testing | % | EXTERNAL | | | | performed at [facility], [address] | | LAB | | | | [address], | | | | | | [place] [address] | | | | + + + + + + | % | 1.21Comment: Testing | % | EXTERNAL | | | Eosinophils | performed at [facility], [address] | | LAB | | | | [address], | | | | | | [place] [address] | | | | + + + + + + | % Basophils | 1.09Comment: Testing | % | EXTERNAL | | | | performed at [facility], [address] | | LAB | | | | [address], | | | | | | [place] [address] | | | | + + + + + + | Absolute | 3.99Comment: Testing | 1.90 - 7.40 | EXTERNAL | | | Segmented | performed at [facility], [address] | K/uL | LAB | | | Neutrophils | [address], | | | | | | [place] [address] | | | | + + + + + + | Absolute | 0.70 (L)Comment: Testing | 1.00 - 3.90 | EXTERNAL | | | Lymphocytes | performed at [facility], [address] | K/uL | LAB | | | | [address], | | | | | | [place] [address] | | | | + + + + + + | Absolute | 0.73Comment: Testing | 0.00 - 0.80 | EXTERNAL | | | Monocytes | performed at [facility], [address] | K/uL | LAB | | | | [address], | | | | | | [place] [address] | | | | + + + + + + | Absolute | 0.07Comment: Testing | 0.00 - 0.50 | EXTERNAL | | | Eosinophils | performed at [facility], [address] | K/uL | LAB | | | | [address], | | | | | | [place] [address] | | | | + + + + + + | Absolute | 0.06Comment: Testing | 0.00 - 0.10 | EXTERNAL | | | Basophils | performed at [facility], [address] | K/uL | LAB | | | | [address], | | | | | | [place] [address] | | | | + + [...] EXTERNAL | | | | performed at [facility], [address] | uIU/mL | LAB | | | | [facility], | | | | | | [place] [address] | | | | + + + [...] EXTERNAL | | | | performed at [facility], [address] | | LAB | | | | [address], | | | | | | [place] [address] | | | | + + + [...] | | LAB | | | | [facility];[address] [facility] | | | | | | [facility] [address] | | | | + + + [...] EXTERNAL | | | | performed at [facility], [address] | | LAB | | | | [address], | | | | | | [place] [address] | | | | + + + [...] | EXTERNAL | | | A1c | [facility] | | LAB | | | [...] | | | | | performed at [facility], [address] | | | | | | [address], | | | | | | [place] [address] | | | | + + + [...] | | | | | performed at [facility], [address] | | | | | | [facility], | | | | | | [place] [address] | | | | + + + [...] | | | | | [place] [address] | | | | + + + + + + | Triglycerid | 94Comment: Testing | mg/dL | EXTERNAL | | | es | performed at [facility], [address] | | LAB | | | | [address], | | | | | | [place] [address] | | | | + + + + + + | HDL | 36 (L)Comment: Testing | mg/dL | EXTERNAL | | | | performed at [facility], [address] | | LAB | | | | [address], | | | | | | [place] [address] | | | | + + + + + + | LDL, | 41Comment: Testing | mg/dL | EXTERNAL | | | Calculated | performed at [facility], [address] | | LAB | | | | [address], | | | | | | [place] [address] | | | | + + + [...] | | | | | [place] [address] | | | | + + + + + + | K | 3.9Comment: Testing | 3.5 - 4.9 | EXTERNAL | | | | performed at [facility], [address] | mmol/L | LAB | | | | [address], | | | | | | [place] [address] | | | | + + + + + + | Cl | 98 (L)Comment: Testing | 99 - 109 mmol/L | EXTERNAL | | | | performed at [facility], [address] | | LAB | | | | [address], | | | | | | [place] [address] | | | | + + + + + + | CO2 | 23Comment: Testing | 23 - 32 mmol/L | EXTERNAL | | | | performed at [facility], [address] | | LAB | | | | [address], | | | | | | [place] [address] | | | | + + + + + + | Anion Gap | 12Comment: Testing | 5 - 20 mmol/L | EXTERNAL | | | | performed at [facility], [address] | | LAB | | | | [address], | | | | | | [place] [address] | | | | + + + + + + | Glucose, | 105 (H)Comment: Testing | 65 - 99 mg/dL | EXTERNAL | | | Fasting | performed at [facility], [address] | | LAB | | | | [address], | | | | | | [place] [address] | | | | + + + + + + | BUN | 23Comment: Testing | 8 - 25 mg/dL | EXTERNAL | | | | performed at [facility], [address] | | LAB | | | | [address], | | | | | | [place] [address] | | | | + + + + + + | Creatinine | 0.85Comment: Testing | 0.50 - 1.00 | EXTERNAL | | | | performed at [facility], [address] | mg/dL | LAB | | | | [address], | | | | | | [place] [address] | | | | + + + + + + | BUN/Creatin | 27Comment: Testing | | EXTERNAL | | | ine Ratio | performed at [facility], [address] | | LAB | | | | [facility], | | | | | | [place] [address] | | | | + + + + + + | Calcium | 8.8Comment: Testing | 8.5 - 10.5 | EXTERNAL | | | | performed at [facility], [address] | mg/dL | LAB | | | | [address], | | | | | | [place] [address] | | | | + + + [...] | | | | | | at [facility], [address] | | | | | | [address], | | | | | | [place] [address] | | | | + + + [...] | | | Fingerstick | performed at [facility];[address] | | LAB | | | | [address];[place] | | | | | | [address] | | | | + + + [...] | | | | | [place] [address] | | | | + + + + + + | Clarity, | CLOUDYComment: Testing | | EXTERNAL | | | Urine | performed at [facility], [address] | | LAB | | | | [address], | | | | | | [place] [address] | | | | + + + + + + | Specific | 1.013Comment: Testing | 1.002 - 1.030 | EXTERNAL | | | Gardner, | performed at [facility], [address] | | LAB | | | Urine | [address], | | | | | | [place] [address] | | | | + + + + + + | Leukocyte | MODERATE (A)Comment: | | EXTERNAL | | | Esterase, | Testing performed at | | LAB | | | Urine | [facility], [address] | | | | | | [place] | | | | | | [address] | | | | + + + + + + | Nitrite, | NEGATIVEComment: Testing | | EXTERNAL | | | Urine | performed at [facility], [address] | | LAB | | | | [address], | | | | | | [place] [address] | | | | + + + + + + | Urobilinoge | 1.0Comment: Testing | mg/dL | EXTERNAL | | | n, Urine | performed at [facility], [address] | | LAB | | | | [address], | | | | | | [place] [address] | | | | + + + + + + | Protein, | NEGATIVEComment: Testing | mg/dL | EXTERNAL | | | Urine | performed at [facility], [address] | | LAB | | | | [address], | | | | | | [place] [address] | | | | + + + + + + | pH, Urine | 6.5Comment: Testing | 5.0 - 8.0 | EXTERNAL | | | | performed at [facility], [address] | | LAB | | | | [address], | | | | | | [place] [address] | | | | + + + + + + | Blood, | LARGE (A)Comment: | | EXTERNAL | | | Urine | Testing performed at | | LAB | | | | [facility], [address] | | | | | | [place] | | | | | | [address] | | | | + + + + + + | Ketones | NEGATIVEComment: Testing | mg/dL | EXTERNAL | | | | performed at [facility], [address] | | LAB | | | | [address], | | | | | | [place] [address] | | | | + + + + + + | Bilirubin, | NEGATIVEComment: Testing | | EXTERNAL | | | Urine | performed at [facility], [address] | | LAB | | | | [address], | | | | | | [place] [address] | | | | + + + + + + | Glucose, | NEGATIVEComment: Testing | mg/dL | EXTERNAL | | | Urine | performed at [facility], [address] | | LAB | | | | [address], | | | | | | [place] [address] | | | | + + + [...] | | | | | [place] [address] | | | | + + + + + + | RBC, UA | >100Comment: Testing | 0 - 5 /hpf | EXTERNAL | | | | performed at [facility], [address] | | LAB | | | | [address], | | | | | | [place] [address] | | | | + + + + + + | Epithelial | 0-2Comment: Testing | /lpf | EXTERNAL | | | Cells | performed at [facility], [address] | | LAB | | | | [address], | | | | | | [place] [address] | | | | + + + + + + | Bacteria, | NONE SEENComment: | | EXTERNAL | | | UA | CULTURE TO FOLLOWTesting | | LAB | | | | performed at [facility], [address] | | | | | | [address], | | | | | | [place] [address] | | | | + + + + + + | HYALINE | NONE SEENComment: | | EXTERNAL | | | CASTS UA | Testing performed at | | LAB | | | | [facility], [address] | | | | | | [place] | | | | | | [address] | | | | + + + [...] COLIAbnormal | | | Testing performed at [facility], [address] [facility], | | | [place] [address] Suscepibility for - ESCHERICHIA COLI Ampicillin | [...] EXTERNAL | | | | performed at [facility];[address] | | LAB | | | | [address];[place], [place] | | | | | | [address] | | | | + + + [...] | | | | | | ACUTE AR Testing | | | | | | performed at [facility];[address] | | | | | | [address];[place], [place] | | | | | | [address] | | | | + + + [...] EXTERNAL | | | | performed at [facility];[address] | | LAB | | | | [address];[place], [place] | | | | | | [address] | | | | + + + [...] | | | Fingerstick | performed at [facility];[address] | | LAB | | | | [address];[place] | | | | | | [address] | | | | + + + [...] + + | Ji Mcneal Conversion - 10/30/2018 10:42 AM PDT History: [...] EXTERNAL | | | | performed at [facility] | | LAB | | | | [facility];[place], [place] | | | | | | [address] | | | | + + + [...] | | LAB | | | | [address], | | | | | | [place] [address] | | | | + + + + + + | TIBC | 424Comment: Testing | 260 - 490 ug/dL | EXTERNAL | | | | performed at [facility], [address] | | LAB | | | | [address], | | | | | | [place] [address] | | | | + + + + + + | Iron | 7 (L)Comment: Testing | 15 - 50 % | EXTERNAL | | | Saturation | performed at [facility], [address] | | LAB | | | | [address], | | | | | | [place] [address] | | | | + + + [...] | | | | | | ACUTE AR Testing | | | | | | performed at [facility];[address] | | | | | | [facility], [place] | | | | | | [address] | | | | + + + [...] | | | | | performed at [facility];[address] | | | | | | [address];[place], [place] | | | | | | [address] | | | | + + + [...] EXTERNAL | | | | performed at [facility];[address] | K/uL | LAB | | | | [address];[place] | | | | | | [address] | | | | + + + + + + | Non- | 4.27Comment: Testing | 3.70 - 5.10 | EXTERNAL | | | Red Blood | performed at [facility];[address] | M/uL | LAB | | | Cells | [address];[place] | | | | | Counted | [address] | | | | + + + + + + | Hemoglobin | 11.0 (L)Comment: Testing | 11.3 - 15.5 | EXTERNAL | | | | performed at [facility];888 | g/dL | LAB | | | | [address];[place] | | | | | | [address] | | | | + + + + + + | Hematocrit, | 33.6 (L)Comment: Testing | 34.0 - 46.0 % | EXTERNAL | | | POC | performed at [facility];[address] | | LAB | | | | [address];[place] | | | | | | [address] | | | | + + + + + + | MCV | 78.6 (L)Comment: Testing | 80.0 - 100.0 fl | EXTERNAL | | | | performed at [facility];[address] | | LAB | | | | [address];[place] | | | | | | [address] | | | | + + + + + + | MCH | 25.7 (L)Comment: Testing | 27.0 - 34.0 pg | EXTERNAL | | | | performed at [facility];[address] | | LAB | | | | [address];[place] | | | | | | [address] | | | | + + + + + + | MCHC | 32.6Comment: Testing | 32.0 - 35.5 | EXTERNAL | | | | performed at [facility];888 | g/dL | LAB | | | | [address];[place] | | | | | | [address] | | | | + + + + + + | RDW-CV | 41.1Comment: Testing | 37 - 53 fl | EXTERNAL | | | | performed at [facility];[address] | | LAB | | | | [address];[place] | | | | | | [address] | | | | + + + + + + | Platelet | 294Comment: Testing | 150 - 400 K/uL | EXTERNAL | | | Count | performed at [facility];888 | | LAB | | | Plasma | [address];[place] | | | | | | [address] | | | | + + + + + + | MPV | 8.2Comment: Testing | fl | EXTERNAL | | | | performed at [facility];[address] | | LAB | | | | [address];[place] | | | | | | [address] | | | | + + + + + + | Differentia | AUTOMATEDComment: | | EXTERNAL | | | l Type | Testing performed at | | LAB | | | | [facility];[address];[place] [address] | | | | + + + + + + | % Segmented | 67.77Comment: Testing | % | EXTERNAL | | | | performed at [facility];888 | | LAB | | | Neutrophils | [address];[place] | | | | | | [address] | | | | + + + + + + | % | 16.65Comment: Testing | % | EXTERNAL | | | Lymphocytes | performed at [facility];[address] | | LAB | | | | [address];[place] | | | | | | [address] | | | | + + + + + + | % Monocytes | 12.80Comment: Testing | % | EXTERNAL | | | | performed at [facility];[address] | | LAB | | | | [address];[place] | | | | | | [address] | | | | + + + + + + | % | 1.46Comment: Testing | % | EXTERNAL | | | Eosinophils | performed at [facility];[address] | | LAB | | | | [address];[place] | | | | | | [address] | | | | + + + + + + | % Basophils | 1.32Comment: Testing | % | EXTERNAL | | | | performed at [facility];[address] | | LAB | | | | [address];[place] | | | | | | [address] | | | | + + + + + + | Absolute | 3.93Comment: Testing | 1.90 - 7.40 | EXTERNAL | | | Segmented | performed at [facility];888 | K/uL | LAB | | | Neutrophils | [address];[place] | | | | | | [address] | | | | + + + + + + | Absolute | 0.97 (L)Comment: Testing | 1.00 - 3.90 | EXTERNAL | | | Lymphocytes | performed at [facility];888 | K/uL | LAB | | | | [address];[place] | | | | | | [address] | | | | + + + + + + | Absolute | 0.74Comment: Testing | 0.00 - 0.80 | EXTERNAL | | | Monocytes | performed at [facility];888 | K/uL | LAB | | | | [address];[place] | | | | | | [address] | | | | + + + + + + | Absolute | 0.09Comment: Testing | 0.00 - 0.50 | EXTERNAL | | | Eosinophils | performed at [facility];888 | K/uL | LAB | | | | [address];[place] | | | | | | [address] | | | | + + + + + + | Absolute | 0.08Comment: Testing | 0.00 - 0.10 | EXTERNAL | | | Basophils | performed at [facility];888 | K/uL | LAB | | | | [address];[place] | | | | | | [address] | | | | + + + [...] EXTERNAL | | | | performed at [facility];888 | | LAB | | | | [address];[place], [place] | | | | | | [address] | | | | + + + [...] EXTERNAL | | | | performed at [facility] | | LAB | | | | [address];[place] | | | | | | [address] | | | | + + + [...] EXTERNAL | | | | performed at [facility];888 | | LAB | | | | [facility];[place], [place] | | | | | | [address] | | | | + + + [...] EXTERNAL | | | | performed at [facility];8 | | LAB | | | | [address];[place], [place] | | | | | | [address] | | | | + + + [...] EXTERNAL | | | | performed at [facility];888 | mmol/L | LAB | | | | [address];[place] | | | | | | [address] | | | | + + + + + + | K | 3.7Comment: Testing | 3.5 - 4.9 | EXTERNAL | | | | performed at [facility];888 | mmol/L | LAB | | | | [address];[place] | | | | | | [address] | | | | + + + + + + | Cl | 100Comment: Testing | 99 - 109 mmol/L | EXTERNAL | | | | performed at [facility];[address] | | LAB | | | | [address];[place] | | | | | | [address] | | | | + + + + + + | CO2 | 26Comment: Testing | 23 - 32 mmol/L | EXTERNAL | | | | performed at [facility];[address] | | LAB | | | | [address];[place] | | | | | | [address] | | | | + + + + + + | Anion Gap | 16Comment: Testing | 5 - 20 mmol/L | EXTERNAL | | | | performed at [facility];[address] | | LAB | | | | [address];[place] | | | | | | [address] | | | | + + + + + + | Glucose, | 98Comment: Testing | 65 - 99 mg/dL | EXTERNAL | | | Fasting | performed at [facility];[address] | | LAB | | | | [address];[place] | | | | | | [address] | | | | + + + + + + | BUN | 19Comment: Testing | 8 - 25 mg/dL | EXTERNAL | | | | performed at [facility];[address] | | LAB | | | | [address];[place] | | | | | | [address] | | | | + + + + + + | Creatinine | 0.86Comment: Testing | 0.50 - 1.00 | EXTERNAL | | | | performed at [facility];888 | mg/dL | LAB | | | | [address];[place] | | | | | | [address] | | | | + + + + + + | BUN/Creatin | 22Comment: Testing | | EXTERNAL | | | ine Ratio | performed at [facility];[address] | | LAB | | | | [address];[place] | | | | | | [address] | | | | + + + + + + | Calcium | 8.4 (L)Comment: Testing | 8.5 - 10.5 | EXTERNAL | | | | performed at [facility];888 | mg/dL | LAB | | | | [address];[place] | | | | | | [address] | | | | + + + + + + | Protein, | 6.8Comment: Testing | 6.3 - 8.2 g/dL | EXTERNAL | | | Total | performed at [facility];888 | | LAB | | | | [address];[place] | | | | | | [address] | | | | + + + + + + | Albumin | 3.5Comment: Testing | 3.3 - 4.8 g/dL | EXTERNAL | | | | performed at [facility];[address] | | LAB | | | | [address];[place] | | | | | | [address] | | | | + + + + + + | Globulin | 3.3Comment: Testing | 1.3 - 4.9 g/dL | EXTERNAL | | | | performed at [facility];[address] | | LAB | | | | [address];[place] | | | | | | [address] | | | | + + + + + + | A/G Ratio | 1.1Comment: Testing | 1.0 - 2.4 | EXTERNAL | | | | performed at [facility];[address] | | LAB | | | | [address];[place] | | | | | | [address] | | | | + + + + + + | Bilirubin | 0.8Comment: Testing | 0.1 - 1.5 mg/dL | EXTERNAL | | | Total | performed at [facility];[address] | | LAB | | | | [address];[place] | | | | | | [address] | | | | + + + + + + | ALP, | 74Comment: Testing | 35 - 115 U/L | EXTERNAL | | | External | performed at [facility];[address] | | LAB | | | | [address];[place] | | | | | | [address] | | | | + + + + + + | AST | 17Comment: Testing | 10 - 45 U/L | EXTERNAL | | | | performed at [facility];[address] | | LAB | | | | [address];[place] | | | | | | [address] | | | | + + + + + + | ALT | 35Comment: Testing | 10 - 65 U/L | EXTERNAL | | | | performed at [facility];[address] | | LAB | | | | [address];[place] | | | | | | [address] | | | | + + + [...] | | | | | | at [facility];[address];[place] [address] | | | | + + + [...] + + | Historically converted procedure from [facility] | EXTERNAL LAB | + + + [...] + | NSTEMI (non-ST elevated myocardial infarction) (HCC) Acute myocardial infarction, | | subendocardial infarction, episode of care unspecified | + + | Acute systolic congestive heart failure (HCC) Acute systolic heart failure | + + [...]
--- OUTSIDE RECORDS SUMMARY | ~2019-11-12 | XMS | Encounter Summary ---
Demographics + + + | Address | [address] | | | [place] [address] | + + + | Home Phone | | + + + | Preferred Language | Unknown | + + + | Marital Status | | + + + | Pentecostal Affiliation | 1041 | + + + | Race | White | + + + | Ethnic Group | Not or | + + + Author + + + | Author | [facility] | | | and [place] | + + + | Organization | [facility] | | | [...] Team Providers + +------+ + | Care Cherry Dipper Name | Role | Phone | + +------+ + | Loco Hernandez DO | PCP | | + +------+ + Encounter Details +--------+ + + + + | Date | Type | Department | Care Team | Description | +--------+ + + + + | 05/21/ | Orders Only | [facility] | Russell Fiore | | | 2016 | | [address] | [address] | | | | | [address] | [place] | | | | | [place], [place] | [place] [address] | | | | | [address] | [phone] | | | | | [phone] | | | +--------+ + + + [...] | | | | | [place] [address] | | | | | | [phone] | | | | | | | | +--------+---------+ + + + documented as of this encounter Procedures + +--------+ + + + | Procedure Name | Priori | Date/Time | Associated Diagnosis | Comments | | | ty | | | | + +--------+ + + + | ECHO INTERPRETATION | Routin | 05/22/2015 | | Results for this | | OF OUTSIDE FILMS | e | 2:57 PM | | procedure are in the | | | | PST | | results section. | + +--------+ + + + documented in this encounter Results ECHO Interpretation of Outside Films (05/22/2015 2:57 PM PST) + + | Specimen | + + | | + + + + + | Impressions | Performed At | + + + | 1. This was a technically difficult study with suboptimal views. 2. | | | Overall left ventricular systolic function is mildly impaired with, | | | an EF between 45 - 50 %. 3. apex - akinetic; | | + + + + + + | Narrative | Performed At | + + + | Patient Name: RACHELLE ELLIS Date of : 1930 | | | Performing Physician: RUSSELL FIORE MD | | | | | | INDICATIONS systolic heart failure CONCLUSIONS | | | 1. This was a technically difficult study with suboptimal | | | views. 2. Overall left ventricular systolic function is mildly | | | impaired with, an EF between 45 - 50 %. 3. apex - akinetic; | | | FINDINGS -------- ECG rhythm: Sinus rhythm. Study: This was a | | | technically difficult study with suboptimal views. Left Ventricle: | | | Overall left ventricular systolic function is mildly impaired with, an | | | EF between 45 - 50 %. Left Ventricle: The left ventricle is mildly | | | dilated. Left Ventricle: There is mild concentric left ventricular | | | hypertrophy. Left Ventricle: Sigmoid shaped septum with focal | | | hypertrophy of the basal septum. The remaining wall thickness is | | | normal. Left Ventricle: apex - akinetic; Right Ventricle: The right | | | ventricle is normal in size. Left Atrium: The left atrium is mildly | | | enlarged. Right Atrium: The right atrium was not well visualized. | | | Aortic Valve: Aortic valve is trileaflet and is mildly thickened. | | | Aortic Valve: The aortic valve is mildly calcified. Aortic Valve: | | | There is no evidence of aortic regurgitation. Aortic Valve: There is | | | mild aortic stenosis present. Mitral Valve: The mitral valve is | | | normal. Mitral Valve: Mild mitral regurgitation is present. Mitral | | | Valve: Mild mitral annular calcification present. Tricuspid Valve: | | | The tricuspid valve appears structurally normal. Tricuspid Valve: | | | Trace tricuspid regurgitation present. Pulmonic Valve: The pulmonic | | | valve was not well visualized. Pericardium: There is no pericardial | | | effusion. IVC/Hepatic Veins: The IVC is small (<1.5cm) and collapses | | | with sniff, consistent with central venous pressures of 0-5mmHg. | | | MEASUREMENTS Sound Cutter: DENISHA Authenticated by: | | | RUSSELL FIORE MD Report Date/Time: 05-23-2015 19:28:37 | | + + + + + | Procedure Note | + + | Fredis, Rad Conversion - 11/05/2018 9:02 PM PDT Patient Name: Marla ELLIS | | : 1930 Performing Physician: RUSSELL FIORE | | INDICATIONS s | | ystolic heart failure CONCLUSIONS 1. This was a technically difficult study | | with suboptimal views.2. Overall left ventricular systolic function is mildly impaired | | with, an EF between 45 - 50 %.3. apex - akinetic; FINDINGS--------ECG rhythm: Sinus | | rhythm.Study: This was a technically difficult study with suboptimal views.Left | | Ventricle: Overall left ventricular systolic function is mildly impaired with, an EF | | between 45 - 50 %.Left Ventricle: The left ventricle is mildly dilated.Left Ventricle: | | There is mild concentric left ventricular hypertrophy.Left Ventricle: Sigmoid shaped | | septum with focal hypertrophy of the basal septum. The remaining wall thickness is | | normal.Left Ventricle: apex - akinetic;Right Ventricle: The right ventricle is normal in | | size.Left Atrium: The left atrium is mildly enlarged.Right Atrium: The right atrium was | | not well visualized.Aortic Valve: Aortic valve is trileaflet and is mildly | | thickened.Aortic Valve: The aortic valve is mildly calcified.Aortic Valve: There is no | | evidence of aortic regurgitation.Aortic Valve: There is mild aortic stenosis | | present.Mitral Valve: The mitral valve is normal.Mitral Valve: Mild mitral regurgitation | | is present.Mitral Valve: Mild mitral annular calcification present.Tricuspid Valve: The | | tricuspid valve appears structurally normal.Tricuspid Valve: Trace tricuspid | | regurgitation present.Pulmonic Valve: The pulmonic valve was not well | | visualized.Pericardium: There is no pericardial effusion.IVC/Hepatic Veins: The IVC is | | small (<1.5cm) and collapses with sniff, consistent with central venous pressures of | | 0-5mmHg. MEASUREMENTS Sound Cutter: HIWOTuthenticated by: RUSSELL FIORE | | [place] Date/Time: 05-23-2015 19:28:37 IMPRESSION: 1. This was a technically difficult | | study with suboptimal views.2. Overall left ventricular systolic function is mildly | | impaired with, an EF between 45 - 50 %.3. apex - akinetic; | |Left Ventricle: apex - akinetic; | |Right Ventricle: The right ventricle is normal in size. | |Left Atrium: The left atrium is mildly enlarged. | |Right Atrium: The right atrium was not well visualized. | |Aortic Valve: Aortic valve is trileaflet and is mildly thickened. | |Aortic Valve: The aortic valve is mildly calcified. | |Aortic Valve: There is no evidence of aortic regurgitation. | |Aortic Valve: There is mild aortic stenosis present. | |Mitral Valve: The mitral valve is normal. | |Mitral Valve: Mild mitral regurgitation is present. | |Mitral Valve: Mild mitral annular calcification present. | |Tricuspid Valve: The tricuspid valve appears structurally normal. | |Tricuspid Valve: Trace tricuspid regurgitation present. | |Pulmonic Valve: The pulmonic valve was not well visualized. | |Pericardium: There is no pericardial effusion. | |IVC/Hepatic Veins: The IVC is small (<1.5cm) and collapses with sniff, consistent with cent ral venous pressures of 0-5mmHg. | | | |MEASUREMENTS | | | | | |Sound Cutter: | |Authenticated by: RUSSELL FIORE MD | |Report Date/Time: 05-23-2015 19:28:37 | | | |IMPRESSION: | |1. This was a technically difficult study with suboptimal views. | |2. Overall left ventricular systolic function is mildly impaired with, an EF between 45 - 5 0 %. | |3. apex - akinetic; | + + documented in this encounter Visit Diagnoses Not on filedocumented in this encounter"
--- OUTSIDE RECORDS SUMMARY | ~2019-11-12 | XMS | Encounter Summary ---
Demographics + + + | Address | [address] | | | [place] [address] | + + + | Home Phone | | + + + | Preferred Language | Unknown | + + + | Marital Status | | + + + | Pentecostalism Affiliation | 1041 | + + + | Race | White | + + + | Ethnic Group | Not or | + + + Author + + + | Author | [facility] | | | and [place] | + + + | Organization | [facility] | | | and [place] | + + + | Address | Unknown | + + + | Phone | Unavailable | + + + Support + + +---------+ + | Name | Relationship | Address | Phone | + + +---------+ + | Lory Crenshwa | ECON | Unknown | | + + +---------+ + Care Team Providers + +------+ + | Care Plant Taxonomist Name | Role | Phone | + [...] Description | +--------+--------+ + + + | 03/27/ | Refill | [facility] | Keila Kang | Medication Refill | | 2020 | | CARDIOLOGY FAM | [address] | | | | | [address] | [address] | | | | | [address] | [place] [address] | | | | | [place] | [phone] | | | | | [address] | | | | | | [phone] | | | +--------+--------+ + + + [...] Cardiology | Keila Kang | | | 2020 | Visit | | [address] | | | | | | [place] | | | | | | [place] [address] | | | | | | [phone] | | | | | | | | +--------+---------+ + + + documented as of this encounter Visit Diagnoses Not on filedocumented in this encounter"
--- OUTSIDE RECORDS SUMMARY | ~2019-11-12 | XMS | Encounter Summary ---
Demographics + + + | Address | [address] | | | [place] [address] | + + + | Home Phone | | + + + | Preferred Language | Unknown | + + + | Marital Status | | + + + | Congregational Affiliation | 1041 | + + + [...] Team Providers + +------+ + | Care Benzol Operator Name | Role | Phone | + +------+ + | Loco Hernandez DO | PCP | | + +------+ + Encounter Details +--------+ + + + + | Date | Type | Department | Care Team | Description | +--------+ + + + + | 05/11/ | Orders Only | [facility] | Keila Kang | | | 2019 | | CARDIOLOGY FAM | Leana, SECONDARY SPANISH TEACHER [address] | | | | | [address] | [address] | | | | | [address] | [place] [address] | | | | | [place] | [phone] | | | | | [address] | | | | | | [phone] | | | +--------+ + + + [...] | | | | | [place] [address] | | | | | | [phone] | | | | | | | | +--------+---------+ + + + documented as of this encounter Visit Diagnoses Not on filedocumented in this encounter"
--- OUTSIDE RECORDS SUMMARY | ~2019-11-12 | XMS | Encounter Summary ---
Demographics + + + | Address | [address] | | | [place] [address] | + + + | Home Phone | | + + + | Preferred Language | Unknown | + + + | Marital Status | | + + + | Religion Affiliation | 1041 | + + + [...] Team Providers + +------+ + | Care Clinical Asst Name | Role | Phone | + [...] [address] | [address] | | | | | [address] | [place] [address] | | | | | [place], [place] | [phone] | | | | | [address] | | | | | | [phone] | | | +--------+ + + + [...] [address] | | | | | | [place] [address] | | | | | | [phone] | | | | | | | | +--------+---------+ + + + documented as of this encounter Visit Diagnoses Not on filedocumented in this encounter"
--- OUTSIDE RECORDS SUMMARY | ~2019-11-12 | XMS | Encounter Summary ---
Demographics + + + | Address | [address] | | | [place] [address] | + + + | Home Phone | | + + + | Preferred Language | Unknown | + + + | Marital Status | | + + + | Evangelical Affiliation | 1041 | + + + | Race | White | + + + | Ethnic Group | Not or | + + + Author + + + | Author | [facility] | | | and [place] | + + + | Organization | [facility] | [...] Team Providers + +------+ + | Care Tower Director Name | Role | Phone | [...] + + | 02/06/ | Refill | [facility] | Keila Kang | Medication Refill | | 2019 | | CARDIOLOGY FAM | [address] | | | | | [address] | [address] | | | | | [address] | [place] [address] | | | | | [place] | [phone] | | | | | [address] | | | | | | [phone] | | | +--------+--------+ + + + [...] [address] | | | | | | [place] [address] | | | | | | [phone] | | | | | | | | +--------+---------+ + + + documented as of this encounter Visit Diagnoses Not on filedocumented in this encounter"
--- OUTSIDE RECORDS SUMMARY | ~2019-11-12 | XMS | Encounter Summary ---
Demographics + + + | Address | [address] | | | [place] [address] | + + + | Home Phone | | + + + | Preferred Language | Unknown | + + + | Marital Status | | + + + | Presybeterian Affiliation | 1041 | + + + | Race | White | + + + | Ethnic Group | Not or | + + + Author + + + | Author | [facility] | | | and [place] | + + + | Organization | [facility] | | [...] Team Providers + +------+ + | Care Vice President Planning Name | Role | Phone | + [...] [address] | | | | | [place], [place] | [place] [address] | | | | | [address] | [phone] | | | | | [phone] | | | +--------+ + + + [...] | | | | | [place] [address] | | | | | | [phone] | | | | | | | [...] MV A Bhavesh: 0.90 m/s MV Dec [place]: 2.41 m/s2 MV | | | DecT: [...] | Vmax: 2.95 m/s S': 0.08 m/s Servicer Coin Machines: OLGA Authenticated | | | by: RUSSELL FIORE MD Report Date/Time: -- [id number]:[id number] | | | | | + + [...] cmLVPWd: 0.90 | | cmLVOT Area: 3.35 ti4SWPA Diam: 2.06 cm%FS: 19.78 %EF(Teich): 40.53 %ESV(Teich): [...] | | (A-L): 26.85 ml/m2LAAs A2C: 16.33 [id number] A-L A2C: 47.46 mlLALs A2C: 4.77 | | cmLAAs A4C: 16.35 ed4XAOZR A-L A4C: 44.92 mlLALs A4C: 5.05 cmRAAs: 12.05 | | lm8NWIRS A-L: 26.53 mlRAESV MOD: 26.84 mlRALs: 4.64 cmTAPSE: 2.01 cmAV maxPG: | | 8.89 mmHgAV meanP.14 mmHgAV Vmax: 1.49 m/Catarino Vmean: 0.92 m/Catarino VTI: 34.92 | | cmAVA Vmax: 1.79 cm2AVA (VTI): 1.96 dr1SYVQ maxP.55 mmHgLVOT meanP.31 | | mmHgLVSI Dopp: 38.67 ml/m2LVSV Dopp: 68.45 mlLVOT Vmax: 0.79 m/sLVOT Vmean: 0.54 | | m/sLVOT VTI: 20.40 cmMV A Bhavesh: 0.90 m/sMV Dec [place]: 2.41 m/s2MV DecT: 322.83 | | msMV E Bhavesh: 0.77 m/sMV E/A Ratio: 0.85MV PHT: 93.62 msMVA By PHT: 2.34 kf4Jfmazg | | e': 0.03 m/sSeptal E/e': 21.04Lateral e': 0.03 m/sLateral E/e': 21.04RAP: 5 | | mmHgRVSP: 39.97 mmHgTR maxP.97 mmHgTR Vmax: 2.95 m/sS': 0.08 m/s | | Servicer Coin Machines: OLGAAuthenticated by: RUSSELL Escamilla Date/Time: -- | | [id number] IMPRESSION: 1. Overall left ventricular systolic function [...] A Bhavesh: 0.90 m/s | |MV Dec [place]: 2.41 m/s2 | |MV DecT: 322.83 ms [...] | |S': 0.08 m/s | | | |Servicer Coin Machines: DBS | |Authenticated by: RUSSELL FIORE MD | |Report Date/Time: -- [id number]:7 | | | |IMPRESSION: | |1. Overall [...]
--- OUTSIDE RECORDS SUMMARY | ~2019-11-12 | XMS | Encounter Summary ---
Demographics + + + | Address | [address] | | | [place] [address] | + + + | Home Phone | | + + + | Preferred Language | Unknown | + + + | Marital Status | | + + + | Yarsani Affiliation | 1041 | + + + | Race | White | + + + | Ethnic Group | Not or | + + + Author + + + | Author | [facility] | | | and [place] | + + + | Organization | [facility] | | | and [...] Team Providers + +------+ + | Care Mold Maker Apprentice Name | Role | Phone | + +------+ + | Loco Hernandez DO | PCP | | + +------+ + Reason for Visit + + + | Reason | Comments | + + + | Follow-up | 9 month | + + + Encounter Details +--------+---------+ + + + | Date | Type | Department | Care Team | Description | +--------+---------+ + + + | 09/22/ | Office | [facility] | Keila Kang | Coronary artery | | 2020 | Visit | CARDIOLOGY FAM | [address] | disease involving | | | | [address] | [address] | rampart coronary | | | | [address] | [place] [address] | artery of rampart | | | | [place] | [phone] | heart without angina | | | | [address] | | pectoris (Primary | | | | [phone] | | Dx); Ischemic | | | [...] + + + | Blood Pressure | 116/56 | 09/23/2019 10:26 AM | | | | | PDT | | + + + + + | Pulse | 67 | 09/23/2019 10:26 AM | | | | | PDT | | + + + + + | Temperature | - | - | | + + + + + | Respiratory Rate | - | - | | + + + + + | Oxygen Saturation | 100% | 09/23/2019 10:26 AM | | | | | PDT | | + + + + + | Inhaled Oxygen | - | - | | | Concentration | | | | + + + + + | Weight | 61 kg (134 lb 8 oz) | 09/23/2019 10:26 AM | | | | | PDT | | + + + + + | Height | 170.2 cm (5' 7") | 09/23/2019 10:26 AM | | | | | PDT | | + + + + + | Body Mass Index | 21.07 | 09/23/2019 10:26 AM | | | | | PDT | | + + + + + documented in this encounter Patient Instructions Patient Instructions Keila Kang FNP - 09/23/2019 10:30 AM PDTI have ordered you non fasting labs to be done at [facility] in one month and drink water before you go I made changes to medications by stopping metalazone , and increase hydration by drinking a t least four 8 oz of water per day, so one when you first get up , and then one with every m eal , and more if going out in hot weather See me back in 2 months and can be telephone visit documented in this encounter Progress Notes Keila Kang FNP - 09/23/2019 10:30 AM PDTFormatting of this note might be differe nt from the original. Date of visit: 09/23/2019 Primary Care Physician: Loco Hernandez DO CHIEF COMPLAINT: Chief Complaint Patient presents with Follow-up 9 month HISTORY OF PRESENT ILLNESS: Ms. Rachelle Ellis is an 89-year-old woman who is here today As overdue for 6 month fol low up, She is here today with her daughter Lory, who contributed to history, as she is her primary caregiver. Today , I reviewed all available information in electronic medical record, and from externa l medical sources. 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 Diego in September 2018, type II diabetes, legally blind ,and hypothyroidi . She had previous CHF decompensation in January [...] detailed below . Since I saw her last, she followed up with Dr. Diego in April and had repeat lower extremity ultrasound, and was told though her stent showed some narrowing it was patent and he was keeping her on Plavix, and will continue to follow up with her. She continues to hav e improved circulation to her right foot and her previous nonhealing wounds have remained he aled, though still has some ongoing problems with her feet. She also had a virtual visit with Dr. Hernandez in June and labs were done which are detailed below and no medication changes. Her only emergency room visit was in March when she pul led a groin muscle, which resolved with supportive care. Today Pat reports she has been feeling [...] by mouth twice a week. 9 tablet 0 metroNIDAZOLE (METROGEL) 0.75 % gel Apply topically [...] 2.5 mg by mouth Daily Managed by [facility].) No facility-administered medications prior to visit. PHYSICAL EXAM: Wt Readings from Last 3 Encounters: 09/23/19 61 kg (134 lb 8 oz) 12/07/18 61.2 kg (135 lb) Temp Readings from Last 3 Encounters: No data found for Temp BP Readings from Last 3 Encounters: 09/23/19 116/56 12/07/18 106/50 Pulse Readings from Last 3 Encounters: 09/23/19 67 12/07/18 72 Vital signs 06/16 [...] abdominal aortic pulsation is not palpable. EXTREMITIES: trace pedal Edema right . Radial pulses 2+ bilaterally. Femoral pulses are 2+ bilaterally without bruits. DP and PT pulses are 2+ on left, 1+ on right . No clubbing . SKIN: Warm and dry, capillary refill is [...] reconstituted via collateral vessels. ECHO: Last Echo: ([facility]): 10/26/2018 sinus rhythm. Technically difficult study with suboptimal view s. Definity used. EF 45-50%, stable. LV normal in size and wall thickness. Moderate rogel tolic dysfunction, grade 2. 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 Trace CA. No pericardial o r pleural effusion. Aortic root, ascending aorta WNL. Echo: 05/22/2015 ([facility]): LV mildly dilated (?LVEDd 55mm), mild left ventricular hyper trophy. apical akinesis,LVEF 40-45%, mild LAE, mild MR. mild Last Stress Test: na EKG: ECG, 12/28/2015: sinus rhythm, 66 bpm, 1st degree AVB, PVC, extensive gyeppzft-isngsb-igrih rior AK of indeterminate age. EK2016: Sinus rhythm with first-degree AV block, stable right bundle branch bloc k, stable changes consistent with anteroseptal infarction. Rate 64 bpm, CA 242 ms, QRS 138 ms, QTC 482 ms personally reviewed by me and compared to previous EKG EK01/12/2018: Sinus rhythm with first-degree AV block, stable right bundle branch block, old anteroseptal infarct, stable T-wave inversions leads V1-V4. Rate 67 bpm, CA 240 ms, QR S 140 ms, QTC 494 ms and a tracing personally reviewed by me, and when compared to EKG in [facility] 2016, no significant change EK12/07/2018: Sinus rhythm with first-degree AV block, right bundle branch block, old sep sulma infarct. T wave inversions anterior leads rate 69 bpm, CA 236 ms, QRS 126 ms, QTC 458 [...] Mignon was here today with her daughter as overdue for 6-month follow-up, and wished to be s een personally in the clinic today. She has problems as listed below . Her labs performed on July 12 by her PCP are detailed above and show an elevated glucose of 225 with an elevated BUN of 32, with normal renal function, and CMP otherwise normal, and her hemoglobin A1c also elevated at 7.6. I discussed with her and her daughter that she seems a little dehydrated with an elevated B UN and upon exam today, and has had no problem with peripheral edema for some time, and that I would like to try stopping her metolazone to see how she did. I have also encouraged her to drink a little more water, approximately 32 ounces, per day and more if she is outside i n the hot weather. She also drinks orange juice and milk, which is fine, but she needs more water for better hydration She feels well today, and her heart rate, blood pressure, INR, and lipids well controlle d on current medications. She continues to have improvement to the circulation to her ri ght foot since right femoral stent placed in September by Dr. Jameson, though still some narrowi ng as noted on her April ultrasound, and continues on Plavix She continues to be modestly active and denies any problems. My only medication changes today was stopping metolazone. For her other cardiac medicatio ns, I have continued Lasix 20 mg daily, Plavix 75 mg daily for femoral stent, lisinopril 2. 5 mg daily, and carvedilol 3.125 mg bid She remains therapeutically anticoagulated on Coum jermaine for stroke prophylaxis with her low EF and apical akinesis. I would like to increase carvedilol to help improve her EF, but her blood pressure tends t o be low, and I do not wish to increase her fall risk by making her dizzy with hypotension. I again verified with her and her daughter that she does not wish any aggressive medical in terventions, including for aortic stenosis, and does not even wish to explore TAVR if indica christofer, but does wish to be treated medically. I have ordered an updated BMP to be performed in 1 month after she has been off metolazone and has improved her hydration, and copies to be sent to her PCP, Dr. Hernandez. I will follow-up with her on December 02, 2019, and have suggested that we could do a [facility] visit, though she and her daughter prefer to be seen personally. . 1. Coronary artery disease involving rampart coronary artery of rampart heart without angina pectoris 2. Ischemic cardiomyopathy 3. Chronic systolic congestive heart failure (HCC) 4. Essential hypertension 5. Mild calcific aortic stenosis 6. History of non-ST elevation myocardial infarction (NSTEMI) 7. S/P peripheral artery angioplasty with stent placement 8. Anticoagulated on Coumadin 9. Mixed hyperlipidemia 10. Type 2 diabetes mellitus without complication, without long-term current use of insulin (HCC) 11. Peripheral vascular disease of extremity (HCC) 12. Other specified hypothyroidism No orders of the defined types were [...] past surgical history. Problem list. [facility] Cardiology 09/23/2019 Sanjana beaulieu in this encounter Plan of Treatment +--------+---------+ + + + | Date | Type | Specialty | Care Team | Description | +--------+---------+ + + + | 12/01/ | Office | Cardiology | Keila Kang | | 2019 | Visit | | [address] | | | | | | [address] | | | | | | [place] [address] | | | | | | [phone] | | | | | | | | +--------+---------+ + + + + +------+--------+ + + | Name | Type | Priori | Associated Diagnoses | Order Schedule | | | | ty | | | + +------+--------+ + + | Basic Metabolic | Lab | Routin | Essential | Expected: | | Panel | | e | hypertension | 10/24/2019, Expires: | | | | | Encounter for | 09/22/2020 | | | | | monitoring diuretic | | | | | | therapy | | + +------+--------+ + + documented as of this encounter Visit Diagnoses + + | Diagnosis | + + | Coronary artery disease involving rampart coronary artery of rampart heart without | | angina pectoris - [...] with stent placement | + + | Anticoagulated on Coumadin [...]
--- OUTSIDE RECORDS SUMMARY | ~2019-11-12 | XMS | Encounter Summary ---
Demographics + + + | Address | [address] | | | [place] [address] | + + + | Home Phone | | + + + | Preferred Language | Unknown | + + + | Marital Status | | + + + | Pentecostalism Affiliation | 1041 | + + + | Race | White | + + + | Ethnic Group | Not or | + + + Author + + + | Author | [facility] | | | and [place] | + + + | Organization | [facility] | | | [...] Team Providers + +------+ + | Care Non Destructive Testing Scientist Name | Role | Phone | + [...] Unknown | | | | | [place] | [phone] | | | | | [address] | | | | | | [phone] | | | +--------+ + + + [...] | | | | | [place] [address] | | | | | | [phone] | | | | | | | | +--------+---------+ + + + documented as of this encounter Visit Diagnoses Not on filedocumented in this encounter"
--- OUTSIDE RECORDS SUMMARY | ~2019-11-12 | XMS | Encounter Summary ---
Demographics + + + | Address | [address] | | | [place] [address] | + + + | Home Phone | | + + + | Preferred Language | Unknown | + + + | Marital Status | | + + + | Latter Day Affiliation | 1041 | + + + | Race | White | + + + | Ethnic Group | Not or | + + + Author + + + | Author | [facility] | | | and [place] | + + + | Organization | [facility] | | | [...] Team Providers + +------+ + | Care Candles Pourer Name | Role | Phone | + +------+ + | Looc Hernandez DO | PCP | | + +------+ + Reason for Visit + + + | Reason | Comments | + + + | Medication Refill | | + + + Encounter Details +--------+--------+ + + + | Date | Type | Department | Care Team | Description | +--------+--------+ + + + | 04/06/ | Refill | [facility] | Keila Kang | Medication Refill | | 2019 | | CARDIOLOGY FAM | [address] | | | | | [address] | [address] | | | | | [address] | [place] [address] | | | | | [place] | [phone] | | | | | [address] | | | | | | [phone] | | | +--------+--------+ + + + [...] [address] | | | | | | [place] [address] | | | | | | [phone] | | | | | | | | +--------+---------+ + + + documented as of this encounter Visit Diagnoses Not on filedocumented in this encounter"
== END 2019-11-12 15:27 | disposition home or self-care (01) ==
LOC: ED 12:36
DX: E87.1 Hypo-osmolality and hyponatremia (principal); E78.5 Hyperlipidemia, unspecified; E11.42 Type 2 diabetes mellitus with diabetic polyneuropathy; E03.9 Hypothyroidism, unspecified; I10 Essential (primary) hypertension; Z79.899 Other long term (current) drug therapy
CPT/HCPCS: 71045; 72170; 80053; 81001; 84484; 85025; 99285-25

== ENCOUNTER 2020-01-24 15:47 | Emergency (ER) | payer MEDICARE, OTHER ==
[~2020-01-24] VITALS: Ht 167.6 cm; Wt 65.8 kg
[~2020-01-24 15:47] MED LIST changes: +POTASSIUM CHLO10 ME2 PO
[2020-01-24] MEDS ORDERED: JANTOVEN1 MG PO (16:05)
[2020-01-24] MEDS ORDERED: BACTRIM DS TAB1 EACH PO ×2 (16:06→16:07)
[2020-01-24] MEDS ORDERED: LIDODERM1 EACH TOP (18:30)
== END 2020-01-24 20:20 | disposition home or self-care (01) ==
LOC: ED 15:47
DX: S32.10XA Unspecified fracture of sacrum, initial encounter for closed fracture (principal); S00.03XA Contusion of scalp, initial encounter; W18.30XA Fall on same level, unspecified, initial encounter; E11.42 Type 2 diabetes mellitus with diabetic polyneuropathy; E03.9 Hypothyroidism, unspecified; Z79.899 Other long term (current) drug therapy; Z79.84 Long term (current) use of oral hypoglycemic drugs; Z79.01 Long term (current) use of anticoagulants
CPT/HCPCS: 70450; 72131; 80053; 85025; 85610; 96374; 99284-25; A9270; J2405